=== PATIENT | male | born 1955 | race Caucasian/White ===

== ENCOUNTER 2019-05-16 15:24 | Inpatient (IN) | payer MEDICARE, BC, OTHER ==
[~2019-05-16] VITALS: Ht 185.4 cm; Wt 113.5 kg
[2019-05-16] MEDS ORDERED: XARE15TA PO (15:42)
[2019-05-16] MEDS ORDERED: METO1TAB7 PO (15:42)
[2019-05-16] MEDS ORDERED: ATOR80TA59 (15:42)
[2019-05-16] MEDS ORDERED: POTA20TA6 (15:42)
[2019-05-16] MEDS ORDERED: NITR0.1S (15:42)
[2019-05-16] MEDS ORDERED: FURO20TA2 PO (15:42)
[2019-05-16] MEDS ORDERED: DIGO0.12 PO (15:42)
[2019-05-16] MEDS ORDERED: FARX1TAB3 PO (15:42)
[2019-05-16 16:28] LABS: BASO # 0.1 10^3/uL (0.0-0.2); BASO % 0.9 % (0.0-1.0); EOS # 0.1 10^3/uL (0.0-0.5); EOS % 0.9 % (0.0-3.0); HEMATOCRIT 49.3 % (42.0-52.0); HEMOGLOBIN 16.1 g/dl (13.5-17.5); LYMPH # 1.5 10^3/uL (1.5-5.0); LYMPH % 21.5 % (24.0-44.0); MEAN CORPUSCULAR HEMOGLOBIN 29.8 pg (27.0-33.0); MEAN CORPUSCULAR HGB CONC 32.7 g/dl (32.0-36.5); MEAN CORPUSCULAR VOLUME 91.1 fl (80.0-96.0); MONO # 0.9 10^3/uL (0.0-0.8); MONO % 13.6 % (0.0-5.0); NEUTROPHILS # 4.3 10^3/uL (1.5-8.5); NEUTROPHILS % 62.5 % (36.0-66.0); PLATELET COUNT, AUTOMATED 179 10^3/uL (150-450); RED BLOOD COUNT 5.41 10^6/uL (4.30-6.10); WHITE BLOOD COUNT 6.9 10^3/uL (4.0-10.0)
--- NOTE | 2019-05-16 16:28 | REP ---
Portable chest, 04:05 p.m., single AP view with the the patient sitting: There are no comparisons. There is cardiomegaly. There are mediastinal surgical clips and sternotomy wires. There is a triple lead biventricular AICD / pacemaker. There is interstitial coarsening. In the absence of comparison studies. This could be acute, chronic or combination. No focal infiltrate. No pleural effusion. Impression: Interstitial coarsening, chronic versus acute. Cardiomegaly, pacemaker/AICD and sternotomy wires Electronically Signed by Tom Steve MD 05/16/2019 04:19 P
[2019-05-16 16:58] LABS: BILIRUBIN,TOTAL 2.7 MG/DL (0.2-1.0); CALCIUM LEVEL 9.6 MG/DL (8.8-10.2); CK-MB VALUE MASS 4.3 NG/ML (<3.6); CREATININE FOR GFR 2.04 MG/DL (0.70-1.30); GLOMERULAR FILTRATION RATE 35.4 (>49); MB/CK RELATIVE INDEX 3.81 (< OR =4); POTASSIUM SERUM 4.5 MEQ/L (3.5-5.1); TROPONIN I 0.1 NG/ML (< 0.10)
[2019-05-16 17:08] LABS: DIGOXIN LEVEL 0.7 NG/ML (0.5-2.0)
[2019-05-16 17:40] LABS: INR 2.88; PROTHROMBIN TIME 30.1 SECONDS (11.8-14.0)
[2019-05-16 17:41] LABS: PARTIAL THROMBOPLASTIN TIME 42.5 SECONDS (25.0-38.4)
[2019-05-16] MEDS ORDERED: FUROSEMIDE 40 MG/4 ML VIAL (J1940) IV ONE (17:45)
[2019-05-16] MEDS ORDERED: LANTINJ4 SC (18:14)
[2019-05-16] MEDS ORDERED: NOVOINJ3 SC (18:14)
[2019-05-16] MEDS ORDERED: ASPI81TA85 PO (18:14)
[2019-05-16] MEDS ORDERED: NITR4TASL SL (18:14)
[2019-05-16] MEDS ORDERED: ATOR80TA59 PO (18:14)
[2019-05-16] MEDS ORDERED: PLAV1TAB2 PO (18:14)
--- NOTE | 2019-05-16 18:46 | REPVR ---
EXAM: US Abdomen Limited, Right Upper Quadrant EXAM DATE/TIME: 05/16/2019 6:24 PM CLINICAL HISTORY: 63 years old, male; Abdominal pain; Acute; Additional info: Cirrhosis TECHNIQUE: Imaging protocol: Real-time ultrasound of the abdomen with image documentation. Examination was focused on the right upper quadrant. COMPARISON: No relevant prior studies available. FINDINGS: Liver: Normal. No masses. Gallbladder: Multiple calculi demonstrated in the lumen of the gallbladder. Gallbladder wall slightly thickened measuring 3.4 mm however patient and completely fasting. Common bile duct: The common bile duct measures 3.5 mm. No mass or choledocholithiasis. Pancreas: Obscured overlying bowel gas. Right kidney: Right kidney measures 12 x 5.2 x 4.7 cm. IMPRESSION: Cholelithiasis with incomplete distention of the gallbladder likely related to improper fasting. Otherwise unremarkable. Electronically signed by: Jayant Sanches On 05/16/2019 18:45:51 PM
[2019-05-16] MEDS ORDERED: GLUCOSE 4 GM CHEW TABLET PO PRN (20:15)
[2019-05-16] MEDS ORDERED: NITROGLYCERIN 0.4 MG SUBL TABLET SL PRN (20:15)
[2019-05-16] MEDS ORDERED: DEXTROSE 50% 50 ML SYRINGE IV PRN (20:15)
[2019-05-16] MEDS ORDERED: GLUCAGON FOR INJ 1 MG VIAL (J1610) SC PRN (20:15)
[2019-05-16 20:17] LABS: MAGNESIUM LEVEL 2.4 MG/DL (1.8-2.4); PHOSPHORUS LEVEL 3.8 MG/DL (2.5-4.9)
--- NOTE | 2019-05-16 20:29 | HPEPDOC ---
General Date of Admission 05/16/19 Date of Service: May 16, 2019 Attending Physician: MAGNUS FERGUSON DO Chief Complaint The patient is a 63-year-old male admitted with a reason for visit of CHF. Source: Patient Exam Limitations: No limitations Timing/Duration: Week(s) Severity: Moderate History of Present Illness Patient is 63 years old male with past medical history of CHF, ischemic cardiomyopathy with large anterior wall [place] in September 28/2003, bypass surgery in 2005, reverse saphenous vein graft to the right coronary and reverse saphenous vein graft to marginal 2, status post ICD, hyperlipidemia, diabetes type 2, tobacco abuse, recent cardiac catheterization on 11/15/2018 with 2 stents placement presented to the hospital with significant leg swelling, increased shortness of breath. Patient stated that for past 3-4 weeks he has increased shortness of breath on exertion, leg swelling, orthopnea. On 05/16/2019 patient was in the [facility] for the same complaints, also he was found to have atrial fibrillation with rapid ventricular response, patient received IV node ablation. Also patient has been treated with diuretics. Of note echo which was done on 04/12/2019 showed ejection fraction of less than 20%, the left ventricle wall motion with diffuse severe global hypokinesis, left atrial size dilatated severely, estimated PA pressure is 60. In emergency room patient was found to have BNP 5408, creatinine 2.08. Chest x-ray demonstrated cardiomegaly Home Medications Scheduled Aspirin (Aspir 81) 81 Mg Tablet.dr, 81 MG PO DAILY, (Reported) Atorvastatin Calcium (Atorvastatin Calcium) 80 Mg Tablet, 80 MG PO QPM, (Reported) Clopidogrel Bisulfate (Plavix) 75 Mg Tablet, 75 MG PO DAILY, (Reported) Dapagliflozin Propanediol (Farxiga) 10 Mg Tablet, 10 MG PO DAILY, (Reported) Digoxin (Digoxin) 125 Mcg Tablet, 125 MCG PO QPM, (Reported) Furosemide (Furosemide) 20 Mg Tablet, 80 MG PO DAILY, (Reported) Insulin Aspart (Novolog Flexpen) 100 Unit/1 Ml Insuln.pen, 0 SC AC, (Reported) Insulin Glargine,Hum.rec.anlog (Lantus Solostar) 100 Unit/1 Ml Insuln.pen, 15 UNITS SC QAM, (Reported) Metoprolol Succinate (Metoprolol Succinate) 50 Mg Tab.er.24h, 50 MG PO QPM, (Reported) Rivaroxaban (Xarelto) 15 Mg Tablet, 15 MG PO QPM, (Reported) Scheduled PRN Nitroglycerin (Nitrostat) 0.4 Mg Tab.subl, 0.4 MG SL NITRO PRN for CHEST PAIN, (Reported) Allergies Coded Allergies: azithromycin (Verified Allergy, Unknown, 05/16/19) NAUSEA AND VOMITING metformin (Verified Allergy, Unknown, 05/16/19) anaph rosuvastatin (Verified Allergy, Unknown, 05/16/19) NAUSEA AND VOMITING sacubitril (Verified Allergy, Unknown, 05/16/19) facial swelling sitagliptin (Verified Allergy, Unknown, 05/16/19) anaph valsartan (Verified Allergy, Unknown, 05/16/19) facial swelling Past Medical History Medical History CHF, ischemic cardiomyopathy with large anterior wall IN in September 28/2003, bypass surgery in 2005, reverse saphenous vein graft to the right coronary and reverse saphenous vein graft to marginal 2, status post ICD, hyperlipidemia, diabetes type 2, tobacco abuse, recent cardiac catheterization on 11/15/2018 with 2 stents placement Surgical History AICD placement 2 stents placement in 10/2018 Family History Family history was reviewed by me and no pertinent Social History * Smoker: former Smoker (smoked 2 packs in a day, stopped a few weeks ago) Alcohol: Denies Drugs: denies A-FIB/CHADSVASC A-FIB History Current/History of A-Fib/PAF?: Yes Current PO Anticoag Therapy: Yes Review of Systems Constitutional: Reports: Weakness; Denies: Chills, Fever Eyes: Denies: Pain, Vision change ENT: Denies: Head Aches, Ear Pain Skin: Denies: Rash, Lesions Pulmonary: Reports: Dyspnea Cardiovascular: Reports: Orthopnea, Paroxysmal Noc. Dyspnea, Edema; Denies: Chest Pain, Palpitations Gastrointestinal: Denies: Nausea, Vomiting Genitourinary: Denies: Dysuria, Frequency Hematologic: Denies: Bruising, Bleeding Excessively Endocrine: Denies: Polydipsia, Polyphagia Musculoskeletal: Denies: Neck Pain, Back Pain Neurological: Denies: Weakness, Numbness Psych: Reports: Mood Normal Physical Examination General Exam: Positive: Alert, Cooperative Eye Exam: Positive: PERRLA ENT Exam: Positive: Atraumatic Neck Exam: Positive: Supple, JVD Chest Exam: Positive: Diminished Heart Exam: Positive: Rate Normal (paced) Telemetry: Positive: No significant arrhythmia Abdomen Exam: Positive: Normal bowel sounds Extremity Exam: Negative: Clubbing, Cyanosis Skin Exam: Positive: Nl turgor and temperature Neuro Exam: Positive: Normal Gait, Strength at 5/5 X4 ext, Cranial Nerves 3-12 NL Psych Exam: Positive: Mental status NL Vital Signs Vital Signs Date Time Temp Pulse Resp B/P (MAP) Pulse Ox O2 Delivery O2 Flow Rate FiO2 05/16/19 18:00 69 147/104 (118) 100 05/16/19 17:24 Room Air 05/16/19 17:09 18 05/16/19 15:24 97.2 Laboratory Data Labs 24H Laboratory Tests 2 05/16/19 15:53: Immature Granulocyte % (Auto) 0.6, White Blood Count 6.9, Red Blood Count 5.41, Hemoglobin 16.1, Hematocrit 49.3, Mean Corpuscular Volume 91.1, Mean Corpuscular Hemoglobin 29.8, Mean Corpuscular Hemoglobin Concent 32.7, Red Cell Distribution Width 14.6H, Platelet Count 179, Neutrophils (%) (Auto) 62.5, Lymphocytes (%) (Auto) 21.5L, Monocytes (%) (Auto) 13.6H, Eosinophils (%) (Auto) 0.9, Basophils (%) (Auto) 0.9, Neutrophils # (Auto) 4.3, Lymphocytes # (Auto) 1.5, Monocytes # (Auto) 0.9H, Eosinophils # (Auto) 0.1, Basophils # (Auto) 0.1, Nucleated Red Blood Cells % (auto) 0.0, Anion Gap 8, Glomerular Filtration Rate 35.4L, Calcium Level 9.6, Aspartate Amino Transf (AST/SGOT) 26, Alanine Aminotransferase (ALT/SGPT) 124H, Alkaline Phosphatase 159H, Total Bilirubin 2.7H, Direct Bilirubin 1.0H, Total Creatine Kinase 113, Creatine Kinase MB 4.3H, Creatine Kinase MB Relative Index 3.81, Troponin I 0.10, GH-Nlx-Q-Type Natriuretic Peptide 5408H, Total Protein 7.0, Albumin 3.0L, Albumin/Globulin Ratio 0.75L, Lipase 113, Digoxin Level 0.7 05/16/19 17:00: Prothrombin Time 30.1H, Prothromb Time International Ratio 2.88, Activated Partial Thromboplast Time 42.5H CBC/BMP Laboratory Tests 05/16/19 15:53 Red Blood Count 5.41, Mean Corpuscular Volume 91.1, Mean Corpuscular Hemoglobin 29.8, Mean Corpuscular Hemoglobin Concent 32.7, Red Cell Distribution Width 14.6 H, Neutrophils (%) (Auto) 62.5, Lymphocytes (%) (Auto) 21.5 L, Monocytes (%) (Auto) 13.6 H, Eosinophils (%) (Auto) 0.9, Basophils (%) (Auto) 0.9, Neutrophils # (Auto) 4.3, Lymphocytes # (Auto) 1.5, Monocytes # (Auto) 0.9 H, Eosinophils # (Auto) 0.1, Basophils # (Auto) 0.1 Assessment/Plan Patient is 63 years old male with past medical history of CHF, ischemic cardiomy opathy with large anterior wall IN in September 28/2003, bypass surgery in 2005, reverse saphenous vein graft to the right coronary and reverse saphenous vein graft to marginal 2, status post ICD, hyperlipidemia, diabetes type 2, tobacco abuse, recent cardiac catheterization on 11/15/2018 with 2 stents placement presented to the hospital with significant leg swelling, increased shortness of breath. Patient was diagnosed with acute CHF exacerbation Problems (1) Acute on chronic systolic CHF (congestive heart failure) Status: Acute Problem Text: Secondary to noncompliance to medication and dietary indiscretion Lasix IV I's and O's Cardiac diet (2) Ischemic dilated cardiomyopathy Status: Acute Problem Text: Patient denies any chest pain EKG did not show any acute ischemic changes Continue home cardioprotective medication Continue dual antiplatelet therapy (3) CKD (chronic kidney disease), stage IV Status: Acute Problem Text: Acute on chronic secondary to intravascular depletion Continue diuresis (4) Noncompliance with diet and medication regimen Status: Acute Problem Text: Social service consult (5) Atrial fibrillation Problem Text: On EKG rhythm paced Patient recently had ablation on 05/03/2019 Continue anticoagulation (6) Diabetes mellitus Problem Text: Insulin sliding scale, diabetes diet, detemir 15 units in a.m. Plan / VTE VTE Prophylaxis Ordered?: Yes MAGNUS FERGUSON DO May 16, 2019 20:29
[2019-05-16 22:00] VITALS: BP 108/77
[2019-05-16] MEDS: ATORVASTATIN 20 MG TAB PO SCH (22:22)
[2019-05-16] MEDS: METOPROLOL SUCC (TopROL XL) 50MG **XL** TAB PO SCH (22:22)
[2019-05-16] MEDS: DIGOXIN 0.125 MG TAB PO SCH (22:23)
[2019-05-16] MEDS: RIVAROXABAN 15 MG TAB (XARELTO) PO SCH (22:28)
[2019-05-17] MEDS: FUROSEMIDE 40 MG/4 ML VIAL (J1940) IV SCH ×2 (00:05→12:30)
[2019-05-17 04:00] VITALS: BP 111/79
--- NOTE | 2019-05-17 05:00 | ECGEPIP ---
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
[2019-05-17 07:35] LABS: CALCIUM LEVEL 9.6 MG/DL (8.8-10.2); CREATININE FOR GFR 1.82 MG/DL (0.70-1.30); GLOMERULAR FILTRATION RATE 40.4 (>49); MAGNESIUM LEVEL 2.2 MG/DL (1.8-2.4); POTASSIUM SERUM 3.3 MEQ/L (3.5-5.1)
[2019-05-17] MEDS ORDERED: POTASSIUM CHLORIDE 10 MEQ SR TABLET PO ONE (09:00)
--- NOTE | 2019-05-17 09:10 | ECGEPIP ---
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
[2019-05-17] MEDS: CLOPIDOGREL 75 MG TAB PO SCH (09:19)
[2019-05-17] MEDS: LEVEMIR (INSULIN DETEMIR) 1 UNITS/0.01ML SC SCH (09:19)
[2019-05-17] MEDS: HumaLOG INSULIN (NovoLOG) PER UNIT SC SCH ×3 (09:19→18:16)
[2019-05-17] MEDS: ASPIRIN 81 MG ENTERIC TAB PO SCH (09:19)
[2019-05-17 14:00] VITALS: BP 104/75
--- NOTE | 2019-05-17 17:11 | ECHO ---
DATE OF PROCEDURE: 05/17/2019 REFERRING PHYSICIAN: Nathanael Campbell DO INDICATION: Heart failure, acute on chronic, systolic and diastolic. HEIGHT: 185 cm WEIGHT: 45 kg 2D MEASUREMENTS: Left ventricle diastole: 7.1 cm Ventricular septum: 1.08 cm Posterior wall: 1.19 cm Left atrium: 5.0 cm Left atrial volume index: 30 Aortic annulus: 2.0 cm Proximal ascending aorta: 4.2 cm Inferior vena cava: 2.8 cm with marked reduction of respiratory variation suggestive of elevated CVP of at least 20 mmHg. DOPPLER MEASUREMENTS: No aortic stenosis or aortic regurgitation. Mild-moderate mitral regurgitation. Mild tricuspid regurgitation. Estimated right ventricle systolic pressure at least 75 mmHg assuming a right atrial pressure of at least 20 mmHg. Moderate pulmonic regurgitation. DESCRIPTION: Rhythm appeared to be sinus with a wide appearing QRS complex. Image quality was fair. This was a 2D, M-mode, color flow Doppler and pulse wave Doppler examination. No pericardial effusion. CONCLUSIONS: 1. Severely dilated left ventricle with severe reduction overall left ventricle (LV) systolic function. Left ventricular ejection fraction (LVEF) 10%-15% by visual estimate. Appearance of low cardiac output state. Akinesis of the mid inferior septal segment and akinesis versus hypokinesis of the LV apex, and severe global LV hypokinesis elsewhere. Moderately technically difficult for endocardial visualization and therefore precise regional wall motion assessment. 2. Moderate left atrial dilatation. 3. Mild mitral annular calcification with mild-moderate mitral regurgitation. 4. Mild aortic valve sclerosis of a three-cuspid aortic valve. No aortic regurgitation. 5. Mild dilatation of the proximal ascending aorta. 6. Presence of ICD lead coursing toward the right ventricle lead apex. 7. Suggestive of severe elevation of estimated right ventricle systolic pressure (at least 75 mmHg). Right ventricle appeared to be mildly dilated with moderate global hypokinesis and moderate reduction overall LV systolic function. Appearance of right ventricle hypertrophy of the right ventricle free wall. Flattening of the ventricular septum in both diastole and systole in keeping with both volume and pressure overload of the right ventricle. 8. Dilated inferior vena cava with marked reduction of respiratory variation and engorged hepatic veins in keeping with elevated central venous pressure of at least 20 mmHg.
[2019-05-17 20:00] VITALS: BP 102/67
[2019-05-17] MEDS: ATORVASTATIN 20 MG TAB PO SCH (20:22)
[2019-05-17] MEDS: RIVAROXABAN 15 MG TAB (XARELTO) PO SCH (20:23)
[2019-05-17] MEDS: METOPROLOL SUCC (TopROL XL) 50MG **XL** TAB PO SCH (20:23)
[2019-05-17] MEDS: DIGOXIN 0.125 MG TAB PO SCH (20:23)
--- NOTE | 2019-05-17 20:30 | IPNPDOC ---
Date Seen The patient was seen on 05/17/19. Progress Note SUBJECTIVE: Patient reports breathing better today but unsure if his LE swelling had improved. Reportedly compliant with medications but there has been a lot of changes to his home medications recently? very tangential answers but no direct answer. Denies any other complaints. -1.5L outpatient so far. OBJECTIVE PHYSICAL EXAMINATION: VITAL SIGNS: Please see below. General: No acute distress, Alert Eyes: Normal sclera, EOMI, GILLES HENT: Atraumatic, neck supple, moist mucous membranes Cardiovascular: Normal rate. 3+ b/l LE edema. Pulmonary: Mild coarse breath sounds b/l. GI: Soft, nontender, nondistended Skin: Warm and dry Neuro: CN grossly intact. No focal deficits. Strengths equal b/l. Psych: oriented x 3 LABORATORY DATA, IMAGING STUDIES, MICROBIOLOGY: Please see below. DVT prophylaxis ordered?: Xarelto ASSESSMENT AND PLAN: 1. HFrEF exacerbation - in setting of ischemic cardiomyopathy w/ anterior wall [place] 08/2002, CABG 2005, ICD placement. - EF <20% on recent ECHO 04/12/19. - BNP 5400 in ER. - H&P reported noncompliance but patient reportedly state that he is compliant? Not certain as patient does not offer direct answer. - c/w IV Lasix BID. Daily weights, I/O, fluid restriction. - Will consult cardiology given extensive cardiac history with uncontrolled fluid status. - home meds. 2. Afib - c/w Xarelto and home meds 3. DM - Resume home meds. -levemir 15 and ISS. 4. MARIO on CKD - Improving. Monitor daily BMPs. VS, I&O, 24H, [facility] Vital Signs/I&O Vital Signs Date Time Temp Pulse Resp B/P (MAP) Pulse Ox O2 Delivery O2 Flow Rate FiO2 05/17/19 14:00 96.9 70 18 104/75 (85) 98 05/16/19 17:24 Room Air I&O- Last 24 Hours up to 6 AM 05/17/19 06:00 Intake Total 440 ml Output Total 2680 ml Balance -2240 ml Laboratory Data 24H LABS Laboratory Tests 2 05/16/19 22:16: Bedside Glucose (Misc Panel) 171H 05/17/19 06:47: Anion Gap 8, Glomerular Filtration Rate 40.4L, Blood Urea Nitrogen 46H, Creatinine 1.82H, Sodium Level 137, Potassium Level 3.3#L, Chloride Level 100, Carbon Dioxide Level 29, Calcium Level 9.6, Aspartate Amino Transf (AST/SGOT) 2 1, Alanine Aminotransferase (ALT/SGPT) 115H, Alkaline Phosphatase 150H, Total Bilirubin 3.0H, Total Protein 7.0, Albumin 3.0L, Magnesium Level 2.2, Albumin/Globulin Ratio 0.75L 05/17/19 11:43: Bedside Glucose (Misc Panel) 216H 05/17/19 16:52: Bedside Glucose (Misc Panel) 210H 05/17/19 19:50: Bedside Glucose (Misc Panel) 239H CBC/BMP Laboratory Tests 05/17/19 06:47 Calcium Level 9.6, Aspartate Amino Transf (AST/SGOT) 21, Alanine Aminotransferase (ALT/SGPT) 115 H, Alkaline Phosphatase 150 H, Total Bilirubin 3.0 H, Total Protein 7.0, Albumin 3.0 L LALITHA GARCIA MD May 17, 2019 20:30
[2019-05-18] MEDS: FUROSEMIDE 40 MG/4 ML VIAL (J1940) IV SCH ×2 (00:13→12:33)
[2019-05-18 04:00] VITALS: BP 121/87
[2019-05-18 06:15] LABS: HEMATOCRIT 50.8 % (42.0-52.0); HEMOGLOBIN 16.3 g/dl (13.5-17.5); MEAN CORPUSCULAR HEMOGLOBIN 29.4 pg (27.0-33.0); MEAN CORPUSCULAR HGB CONC 32.1 g/dl (32.0-36.5); MEAN CORPUSCULAR VOLUME 91.7 fl (80.0-96.0); PLATELET COUNT, AUTOMATED 174 10^3/uL (150-450); RED BLOOD COUNT 5.54 10^6/uL (4.30-6.10); WHITE BLOOD COUNT 8.6 10^3/uL (4.0-10.0)
[2019-05-18 06:35] LABS: CALCIUM LEVEL 9.3 MG/DL (8.8-10.2); CREATININE FOR GFR 1.75 MG/DL (0.70-1.30); GLOMERULAR FILTRATION RATE 42.3 (>49); POTASSIUM SERUM 3.7 MEQ/L (3.5-5.1)
[2019-05-18] MEDS: HumaLOG INSULIN (NovoLOG) PER UNIT SC SCH ×3 (07:30→17:14)
[2019-05-18] MEDS: ASPIRIN 81 MG ENTERIC TAB PO SCH (08:31)
[2019-05-18] MEDS: LEVEMIR (INSULIN DETEMIR) 1 UNITS/0.01ML SC SCH (08:31)
[2019-05-18] MEDS: CLOPIDOGREL 75 MG TAB PO SCH (08:31)
[2019-05-18 12:00] VITALS: BP 107/77
--- NOTE | 2019-05-18 18:44 | IPNPDOC ---
Date Seen The patient was seen on 05/18/19. Progress Note SUBJECTIVE: Patient reports feeling better, no pronounced SOB. Has been ambulating the halls. LE still evident but stated that it may be a bit better. -1.3L output recorded so far. Complained of erythema in his R. groin. OBJECTIVE PHYSICAL EXAMINATION: VITAL SIGNS: Please see below. General: No acute distress, Alert Eyes: Normal sclera, EOMI, GILLES HENT: Atraumatic, neck supple, moist mucous membranes Cardiovascular: Normal rate. 3+ b/l LE edema. Pulmonary: Mild coarse breath sounds b/l. GI: Soft, nontender, nondistended Skin: Warm and dry Neuro: CN grossly intact. No focal deficits. Strengths equal b/l. Psych: oriented x 3 LABORATORY DATA, IMAGING STUDIES, MICROBIOLOGY: Please see below. DVT prophylaxis ordered?: Xarelto ASSESSMENT AND PLAN: 1. HFrEF exacerbation - in setting of ischemic cardiomyopathy w/ anterior wall [place] 08/2002, CABG 2005, ICD placement. - EF <20% on recent ECHO 04/12/19. - BNP 5400 in ER. - c/w IV Lasix BID. Daily weights, I/O, fluid restriction. - Cardiology consulted. f/u recommendations. - home meds. 2. Afib - c/w Xarelto and home meds 3. DM - Resume home meds. -levemir 15 and ISS. 4. MARIO on CKD - Improving. Monitor daily BMPs. 5. R. groin erythema - Reported previous shaving knick. - Appear like fungal infection in moist skin folds. - Nystatin powder. VS, I&O, 24H, Fishbone Vital Signs/I&O Vital Signs Date Time Temp Pulse Resp B/P (MAP) Pulse Ox O2 Delivery O2 Flow Rate FiO2 05/18/19 12:00 96.3 71 16 107/77 (87) 99 05/16/19 17:24 Room Air I&O- Last 24 Hours up to 6 AM 05/18/19 06:00 Intake Total 1830 ml Output Total 2650 ml Balance -820 ml Laboratory Data 24H LABS Laboratory Tests 2 05/17/19 19:50: Bedside Glucose (Misc Panel) 239H 05/18/19 05:45: Nucleated Red Blood Cells % (auto) 0.0, Anion Gap 10, Glomerular Filtration Rate 42.3L, Blood Urea Nitrogen 40H, Creatinine 1.75H, Sodium Level 141, Potassium Level 3.7, Chloride Level 104, Carbon Dioxide Level 27, Calcium Level 9.3 05/18/19 11:33: Bedside Glucose (Misc Panel) 120H 05/18/19 16:42: Bedside Glucose (Misc Panel) 213H CBC/BMP Laboratory Tests 05/18/19 05:45 Red Blood Count 5.54, Mean Corpuscular Volume 91.7, Mean Corpuscular Hemoglobin 29.4, Mean Corpuscular Hemoglobin Concent 32.1, Red Cell Distribution Width 14.6 H, Calcium Level 9.3 LALITHA GARCIA MD May 18, 2019 18:44
[2019-05-18] MEDS: NYSTATIN 100,000 UNITS/GM TOPICAL PWD 15 GM TOP SCH ×2 (18:45→21:23)
[2019-05-18 20:00] VITALS: BP 109/69
[2019-05-18] MEDS: RIVAROXABAN 15 MG TAB (XARELTO) PO SCH (20:14)
[2019-05-18] MEDS: ATORVASTATIN 20 MG TAB PO SCH (20:15)
[2019-05-18] MEDS: DIGOXIN 0.125 MG TAB PO SCH (20:18)
[2019-05-18] MEDS: METOPROLOL SUCC (TopROL XL) 50MG **XL** TAB PO SCH (20:19)
[2019-05-18] MEDS ORDERED: FUROSEMIDE 100 MG/10 ML VIAL (J1940) IV ONE (22:15)
[2019-05-19 05:54] VITALS: BP 103/50
[2019-05-19 07:08] LABS: HEMATOCRIT 48.6 % (42.0-52.0); HEMOGLOBIN 15.4 g/dl (13.5-17.5); MEAN CORPUSCULAR HEMOGLOBIN 29.8 pg (27.0-33.0); MEAN CORPUSCULAR HGB CONC 31.7 g/dl (32.0-36.5); PLATELET COUNT, AUTOMATED 154 10^3/uL (150-450); RED BLOOD COUNT 5.17 10^6/uL (4.30-6.10); WHITE BLOOD COUNT 6.9 10^3/uL (4.0-10.0)
[2019-05-19 07:34] LABS: CALCIUM LEVEL 8.9 MG/DL (8.8-10.2); CREATININE FOR GFR 1.92 MG/DL (0.70-1.30); POTASSIUM SERUM 3.6 MEQ/L (3.5-5.1)
[2019-05-19] MEDS: HumaLOG INSULIN (NovoLOG) PER UNIT SC SCH ×3 (07:41→18:24)
[2019-05-19] MEDS: CLOPIDOGREL 75 MG TAB PO SCH (08:13)
[2019-05-19] MEDS: ASPIRIN 81 MG ENTERIC TAB PO SCH (08:13)
[2019-05-19] MEDS: LEVEMIR (INSULIN DETEMIR) 1 UNITS/0.01ML SC SCH (08:14)
[2019-05-19] MEDS: NYSTATIN 100,000 UNITS/GM TOPICAL PWD 15 GM TOP SCH ×2 (08:14→20:54)
[2019-05-19 10:45] VITALS: BP 103/78
[2019-05-19] MEDS ORDERED: FUROSEMIDE 40 MG/4 ML VIAL (J1940) IV ONE (13:00)
[2019-05-19 14:00] VITALS: BP 127/83
--- NOTE | 2019-05-19 17:23 | IPNPDOC ---
Date Seen The patient was seen on 05/19/19. Progress Note SUBJECTIVE: Patient reported feeling well in terms of breathing, abdominal distension and LE swelling. However, noted to have excessive bleeding when his IV was pulled out this morning. Also noted to have nose bleed in AM with sensation of mucus draining into his throat and pulled out bloody mucus/clots. Think that his nares are dry. About -1L since yesterday. OBJECTIVE PHYSICAL EXAMINATION: VITAL SIGNS: Please see below. General: No acute distress, Alert Eyes: Normal sclera, EOMI, GILLES HENT: Atraumatic, neck supple, moist mucous membranes Cardiovascular: Normal rate. 3+ b/l LE edema. Pulmonary: Clear to auscultation b/l. GI: Soft, nontender, nondistended Skin: Warm and dry Neuro: CN grossly intact. No focal deficits. Strengths equal b/l. Psych: oriented x 3 LABORATORY DATA, IMAGING STUDIES, MICROBIOLOGY: Please see below. DVT prophylaxis ordered?: Xarelto ASSESSMENT AND PLAN: 1. HFrEF exacerbation - in setting of ischemic cardiomyopathy w/ anterior wall [place] 08/2002, CABG 2005, ICD placement. - EF <20% on recent ECHO 04/12/19. - BNP 5400 in ER. - c/w IV Lasix, dose per cardio. Daily weights, I/O, fluid restriction. - Cardiology following. - c/w home meds. 2. Afib - c/w home meds. - Xarelto held as patient had severe nasal and bleeding from IV today. 3. DM - Resume home meds. -levemir 15 and ISS. 4. MARIO on CKD - Improving. Monitor daily BMPs. 5. R. groin erythema - Reported previous shaving knick. - Appear like fungal infection in moist skin folds. - Nystatin powder. 6. Nose bleed/excess bleeding from IV - Xarelto held tonight, got last night's dose. ASA and Plavix still in place but may also need to hold if bleeding worsens of persistent. VS, I&O, 24H, Fishbone Vital Signs/I&O Vital Signs Date Time Temp Pulse Resp B/P (MAP) Pulse Ox O2 Delivery O2 Flow Rate FiO2 05/19/19 14:00 96.8 73 18 127/83 (98) 97 05/16/19 17:24 Room Air I&O- Last 24 Hours up to 6 AM 05/19/19 06:00 Intake Total 1320 ml Output Total 2775 ml Balance -1455 ml Laboratory Data 24H LABS Laboratory Tests 2 05/18/19 20:16: Bedside Glucose (Misc Panel) 181H 05/19/19 06:14: Bedside Glucose (Misc Panel) 158H 05/19/19 06:45: Nucleated Red Blood Cells % (auto) 0.0, Anion Gap 4L, Glomerular Filtration Rate 38.0L, Blood Urea Nitrogen 41H, Creatinine 1.92H, Sodium Level 140, Potassium Level 3.6, Chloride Level 101, Carbon Dioxide Level 35H, Calcium Level 8.9 05/19/19 11:53: Bedside Glucose (Misc Panel) 207H 05/19/19 17:03: Bedside Glucose (Misc Panel) 122H CBC/BMP Laboratory Tests 05/19/19 06:45 Red Blood Count 5.17, Mean Corpuscular Volume 94.0, Mean Corpuscular Hemoglobin 29.8, Mean Corpuscular Hemoglobin Concent 31.7 L, Red Cell Distribution Width 14.8 H, Calcium Level 8.9 LALITHA GARCIA MD May 19, 2019 17:23
[2019-05-19] MEDS: DIGOXIN 0.125 MG TAB PO SCH (20:55)
[2019-05-19] MEDS: METOPROLOL SUCC (TopROL XL) 50MG **XL** TAB PO SCH (20:55)
[2019-05-19] MEDS: ATORVASTATIN 20 MG TAB PO SCH (20:55)
[2019-05-19 22:00] VITALS: BP 117/78
[2019-05-19] MEDS ORDERED: FUROSEMIDE 20 MG TAB PO ONE (23:00)
[2019-05-20 06:50] VITALS: BP 115/77
[2019-05-20 07:15] LABS: HEMATOCRIT 47.2 % (42.0-52.0); HEMOGLOBIN 15.2 g/dl (13.5-17.5); MEAN CORPUSCULAR HEMOGLOBIN 29.5 pg (27.0-33.0); MEAN CORPUSCULAR HGB CONC 32.2 g/dl (32.0-36.5); MEAN CORPUSCULAR VOLUME 91.7 fl (80.0-96.0); PLATELET COUNT, AUTOMATED 173 10^3/uL (150-450); RED BLOOD COUNT 5.15 10^6/uL (4.30-6.10); WHITE BLOOD COUNT 7.3 10^3/uL (4.0-10.0)
[2019-05-20] MEDS: HumaLOG INSULIN (NovoLOG) PER UNIT SC SCH ×3 (07:30→17:53)
[2019-05-20 07:35] LABS: CALCIUM LEVEL 8.8 MG/DL (8.8-10.2); CREATININE FOR GFR 1.58 MG/DL (0.70-1.30); GLOMERULAR FILTRATION RATE 47.5 (>49); POTASSIUM SERUM 3.4 MEQ/L (3.5-5.1)
[2019-05-20] MEDS ORDERED: POTASSIUM CHLORIDE 10 MEQ SR TABLET PO ONE (08:00)
[2019-05-20] MEDS: LEVEMIR (INSULIN DETEMIR) 1 UNITS/0.01ML SC SCH (08:09)
[2019-05-20] MEDS: NYSTATIN 100,000 UNITS/GM TOPICAL PWD 15 GM TOP SCH ×2 (08:10→20:29)
[2019-05-20] MEDS: CLOPIDOGREL 75 MG TAB PO SCH (08:56)
[2019-05-20] MEDS: ASPIRIN 81 MG ENTERIC TAB PO SCH (08:56)
--- NOTE | 2019-05-20 09:48 | CR ---
DATE OF CONSULTATION: 05/19/2019 REFERRING PROVIDER: Dr. Vicky Santiago REASON FOR CONSULT: Heart failure. 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 HISTORY OF PRESENT ILLNESS: 64-year-old male with a history of premature coronary artery disease and heart failure secondary to left ventricular systolic dysfunction due to ischemic cardiomyopathy, who came to the hospital on 05/16/2019 because of increasing shortness of breath and bilateral pedal edema. He was found to be in decompensated congestive failure and was admitted for further management and monitoring. Cardiology consult was called because. He was not responding to the diuretics. When I saw Mr. Niraj Badillo in the floor this evening, he was sitting up in bed in no acute distress at rest, but was complaining of persistent bilateral pedal edema. He was having increasing shortness of breath for two or three days, relieved with rest. He denies any chest pain. He was not having palpitations when he saw him and there was no orthopnea or paroxysmal nocturnal dyspnea (PND) and he denied any orthopnea or paroxysmal nocturnal dyspnea (PND). He denies any fever or chills. He denies any bleeding problems. He said that he takes medication regularly, but has not been quite compliant with his diet. He has no cough or hemoptysis or fever. He has no nausea or vomiting, diarrhea, melena or hematemesis. No focal manifestation. He has a past medical history positive for coronary artery disease with acute anterior wall myocardial infarction in 2002; and later on in 2005, he had coronary artery bypass graft (CABG). His left ventricular ejection fraction has been poor and he ended up having an ICD, for which he has seeing EP in [place], Dr. Keen. Earlier this year, he was found to have progression of his coronary artery disease and had PTCA/stent after a cardiac catheterization done on 11/15/2018. Details not available at this present time. Earlier this month after seeing his EP in [place], he was admitted and had ablation done for atrial fibrillation. He also has a history of diabetes mellitus, hyperlipidemia. He denies any history of transient ischemic attack (TIA)/cerebrovascular accident (CVA), significant valvular disease . He denies thyroid disorders, liver disease, lung disease. He does have some underlying kidney disease, stage III to IV. Past surgical history is positive for coronary artery bypass graft in 2006 and automatic implantable cardioverted defibrillator (AICD) implantation. MEDICATIONS AT HOME: Aspirin 81mg by mouth daily, atorvastatin 50 mg by mouth daily, clopidogrel 75mg by mouth daily, Farxiga 10 mg by mouth daily, digoxin 125 mcg by mouth daily, Lasix 30 mg tablets and 40 mg by mouth daily, regular insulin coverage, metoprolol succinate 50 mg by mouth daily and rivaroxaban 15 mg by mouth daily. CURRENT MEDICATIONS: Furosemide 40 mg IV twice a day, aspirin 81 mg by mouth daily, Plavix 75 mg by mouth daily, Levemir 15 units subcutaneous every morning, Humalog as needed, atorvastatin 80 mg by mouth daily, metoprolol succinate 50 mg by mouth daily, digoxin 0.125 mg by mouth daily, nitroglycerin sublingual as needed for chest pain and also on D50, glucagon and glucose tablet for episode hypoglycemia. FAMILY HISTORY: Not positive for heart disease. [place]IAL HISTORY[place] He does not smoke, he denies any ETOH abuse. ALLERGIES: He declared allergies to ERYTHROMYCIN, METFORMIN, ROSUVASTATIN, SACUBITRIL, SITAGLIPTIN, and VALSARTAN. ADVANCE DIRECTIVE: The patient is a full code. PHYSICAL EXAMINATION: The patient is alert and oriented, in no acute distress at rest and his vital signs when I saw him revealed a blood pressure of 109/69 with a pulse 69, respirations 16. His maximum temperature 96.9 degrees Fahrenheit with an oxygen saturation of 100% on room air. EXAMINATION OF THE HEAD: Atraumatic. NECK: Neck supple with extended jugular. LUNGS: Did not reveal any wheezing or crackles. HEART EXAMINATION: Revealed a regular heart sound without gallops. The PMI is displaced inferiorly and laterally. There is no rub. ABDOMEN: Soft, obese and nontender. EXTREMITIES: Revealed +2 bilateral lower leg edema. NEUROLOGIC EXAMINATION: Negative for focal deficit. LABORATORY: Complete blood count (CBC) on 05/18/2019 revealed a white blood count (WBC) 8.6, hemoglobin 16.3 hematocrit 50.8 and platelets 174,000. Basic metabolic panel (BMP) revealed a sodium of 141, potassium 3.7, chloride 104, CO2 27, BUN 40, creatinine 1.75 and glomerular filtration rate (GFR) of 42.3 with a fasting glucose of 81 and calcium 9.1. Serum digoxin on 05/16/2019 was 0.7. Basic metabolic panel (BMP) on 05/18/2019 revealed a sodium of 141, potassium 3.7, chloride 104, CO2 27, BUN 40 creatinine 1.75, glomerular filtration rate (GFR) 42.3, fasting glucose 81 and calcium 9.3. On admission, BUN and creatinine were 51 and 2.04 respectively. Chest x-ray on 05/16/2019 revealed cardiomegaly and interstitial markings. Pacemaker wire artifacts noted. Ultrasound of the liver revealed cholangitis with incomplete distinction of the gallbladder likely related to improper fasting. Otherwise, unremarkable. Echocardiogram on admission revealed ventricular pacemaker activity and right axis and undetermined axis consistent with biventricular pacing. No prior for comparison. There is underlying IVCD. IMPRESSION: 1. Decompensated congestive heart failure in the setting of severe ischemic cardiomyopathy. The patient does describe some intolerance to Entresto and also has developed some reaction to valsartan. He is not on LYNDON inhibitor or ARB at the present time, probably in view of his underlying kidney function. He will continue the beta angel and I will increase his furosemide and will need to monitor closely his BUN, creatinine and serum potassium. We should try to get more information from his primary information systems planner to determine why he is not on LYNDON inhibitor or therapy. He might benefit from candesartan. This can be started as outpatient. 2. History of coronary artery disease and seems to be stable. Will continue current medications. 3. Atrial fibrillation with recent ablation done in [place], [place], but details are not available. He is currently on aspirin, as well as clopidogrel, and rivaroxaban. Upon discharge, the aspirin can be discontinued and he will continue with the Plavix, clopidogrel and the rivaroxaban . As outpatient, he will continue to follow with his primary. 4. History of diabetes mellitus and this is being addressed. 5. Hyperlipidemia, on a statin. 6. Chronic kidney disease and he will need to be monitored closely while receiving IV diuretics. It was a pleasure to participate in the care of Mr. Niraj Badillo for his underlying cardiac condition. I will continue to monitor along with you. He appears to be stable, but he needs more diuresis; therefore, I have increased his diuretics.
[2019-05-20] MEDS ORDERED: SODIUM CHLORIDE NASAL 0.65% SPRAY BTL (OCEAN) PRN (11:45)
[2019-05-20 14:07] VITALS: BP 118/79
[2019-05-20] MEDS ORDERED: FUROSEMIDE 40 MG/4 ML VIAL (J1940) IV ONE ×2 (15:15→20:00)
--- NOTE | 2019-05-20 16:46 | IPNPDOC ---
Date Seen The patient was seen on 05/20/19. Progress Note SUBJECTIVE: Patient states that he feels well. LE still edematous but stated that he can tell he ankles are less swollen. Nose bleed had improved today. Xarelto had been held last night. Started on saline nasal spray to prevent dry mucous. OBJECTIVE PHYSICAL EXAMINATION: VITAL SIGNS: Please see below. General: No acute distress, Alert Eyes: Normal sclera, EOMI, GILLES HENT: Atraumatic, neck supple, moist mucous membranes Cardiovascular: Normal rate. 3+ b/l LE edema. Pulmonary: Clear to auscultation b/l. GI: Soft, nontender, nondistended Skin: Warm and dry Neuro: CN grossly intact. No focal deficits. Strengths equal b/l. Psych: oriented x 3 LABORATORY DATA, IMAGING STUDIES, MICROBIOLOGY: Please see below. DVT prophylaxis ordered?: Xarelto ASSESSMENT AND PLAN: 1. HFrEF exacerbation - in setting of ischemic cardiomyopathy w/ anterior wall MT 08/2002, CABG 2005, ICD placement. - EF <20% on recent ECHO 04/12/19. - BNP 5400 in ER. - c/w IV Lasix. Daily weights, I/O, fluid restriction. - Cardiology following. Recommend d/c ASA at this time. c/w Plavix and Xarelto on discharge. - c/w home meds except to give IV lasix rather than PO at this time. 2. Afib - c/w home meds. - Xarelto held as patient had severe nasal bleeding. 3. DM - Resume home meds. -levemir 15 and ISS. 4. MARIO on CKD - Improving. Monitor daily BMPs. 5. R. groin erythema - Reported previous shaving knick. - Appear like fungal infection in moist skin folds. - Nystatin powder. 6. Nose bleed/excess bleeding from IV - Xarelto held as bleeding still occur but less. ASA had been discontinued. VS, I&O, 24H, Fishbone Vital Signs/I&O Vital Signs Date Time Temp Pulse Resp B/P (MAP) Pulse Ox O2 Delivery O2 Flow Rate FiO2 05/20/19 14:07 98.0 83 16 118/79 (92) 100 05/16/19 17:24 Room Air I&O- Last 24 Hours up to 6 AM 05/20/19 06:00 Intake Total 1570 ml Output Total 1885 ml Balance -315 ml Laboratory Data 24H LABS Laboratory Tests 2 05/19/19 17:03: Bedside Glucose (Misc Panel) 122H 05/19/19 20:48: Bedside Glucose (Misc Panel) 277H 05/20/19 06:48: Nucleated Red Blood Cells % (auto) 0.0, Anion Gap 9, Glomerular Filtration Rate 47.5L, Blood Urea Nitrogen 33H, Creatinine 1.58H, Sodium Level 142, Potassium Level 3.4L, Chloride Level 103, Carbon Dioxide Level 30, Calcium Level 8.8 05/20/19 12:18: Bedside Glucose (Misc Panel) 229H CBC/BMP Laboratory Tests 05/20/19 06:48 Red Blood Count 5.15, Mean Corpuscular Volume 91.7, Mean Corpuscular Hemoglobin 29.5, Mean Corpuscular Hemoglobin Concent 32.2, Red Cell Distribution Width 14.6 H, Calcium Level 8.8 LALITHA GARCIA MD May 20, 2019 16:46
[2019-05-20] MEDS ORDERED: RIVAROXABAN 15 MG TAB (XARELTO) PO SCH (18:00)
[2019-05-20] MEDS ORDERED: metOLazone 2.5 MG TAB PO ONE (20:15)
[2019-05-20 20:28] VITALS: BP 122/83
[2019-05-20] MEDS: ATORVASTATIN 20 MG TAB PO SCH (20:28)
[2019-05-20] MEDS: METOPROLOL SUCC (TopROL XL) 50MG **XL** TAB PO SCH (20:28)
[2019-05-20] MEDS: DIGOXIN 0.125 MG TAB PO SCH (20:28)
--- NOTE | 2019-05-20 21:27 | IPN ---
DATE: 05/20/2019 Mr. Niraj Badillo was seen earlier today, he was standing in his room in no acute distress at rest. He is ready to go home. He has been ambulating and he stated that his shortness of breath has improved significantly, but he continued to of pedal edema. He denies any palpitations, dizziness. He has no chest pain. PHYSICAL EXAMINATION: The patient is alert and oriented, in no acute distress at rest and his most recent vital signs reveal blood pressure of 118/79 with a pulse of 83, respiration 69 and his maximum temperature is 98 degrees Fahrenheit with oxygen saturation of 97 - 100% on room air. He has a negative fluid balance of 665 mL 05/19/2019; and so far today, he has a negative fluid balance of 700 mL. Examination of the head: Atraumatic. Neck: Neck is supple and no JVD. The lungs did not reveal any crackles. The heart examination did not reveal any gallops. Extremities revealed +2 bilateral lower leg edema. NEUROLOGIC EXAMINATION: Grossly is negative for focal deficit. LABORATORY: Complete blood count (CBC) on 05/20/2019 revealed a white blood count (WBC) 7.3, hemoglobin 15.2, hematocrit 47.2 and platelet 173,000. Basic metabolic panel (BMP) revealed a sodium of 142, potassium 3.4, chloride 103, CO2 30, BUN 33, creatinine 1.58, glomerular filtration rate (GFR) 47.5 and fasting glucose 169 with a calcium of 8.8. Mr. Niraj Badillo is stable with status post decompensated congestive heart failure secondary to left ventricular systolic dysfunction due to severe ischemic cardiomyopathy. Case was discussed earlier today with his hospitalist and for his anticoagulation, he will be discharged home when ready on the rivaroxaban at 15 mg by mouth daily and the clopidogrel/Plavix. Will stop the aspirin. He will continue with his other cardiac meds and I will add metolazone at a small dose, which he will take prior to the furosemide for the first 3 days, then every other day. He will need a BMP in about a week to check his BUN, creatinine and serum potassium. He will increase potassium in his diet. He is already on potassium supplement. He is planning to see his security researcher in [place] this coming week and he was told if any problem to call the office for any questions.
[2019-05-20 22:00] VITALS: BP 122/83
[2019-05-21 06:00] VITALS: BP 107/72
[2019-05-21 06:33] LABS: HEMOGLOBIN 15.6 g/dl (13.5-17.5); MEAN CORPUSCULAR HEMOGLOBIN 29.3 pg (27.0-33.0); MEAN CORPUSCULAR HGB CONC 31.8 g/dl (32.0-36.5); MEAN CORPUSCULAR VOLUME 92.1 fl (80.0-96.0); PLATELET COUNT, AUTOMATED 167 10^3/uL (150-450); RED BLOOD COUNT 5.32 10^6/uL (4.30-6.10); WHITE BLOOD COUNT 6.8 10^3/uL (4.0-10.0)
[2019-05-21 06:55] LABS: CALCIUM LEVEL 9.3 MG/DL (8.8-10.2); CREATININE FOR GFR 1.93 MG/DL (0.70-1.30); GLOMERULAR FILTRATION RATE 37.7 (>49)
[2019-05-21] MEDS: HumaLOG INSULIN (NovoLOG) PER UNIT SC SCH ×2 (07:30→12:45)
[2019-05-21] MEDS: NYSTATIN 100,000 UNITS/GM TOPICAL PWD 15 GM TOP SCH (09:35)
[2019-05-21] MEDS: CLOPIDOGREL 75 MG TAB PO SCH (09:35)
[2019-05-21] MEDS: LEVEMIR (INSULIN DETEMIR) 1 UNITS/0.01ML SC SCH (09:35)
[2019-05-21] MEDS ORDERED: METO25TA PO (11:55)
--- NOTE | 2019-05-21 12:49 | DS.PDOC ---
Discharge Summary General Date of Admission May 16, 2019 at 20:05 Date of Discharge 05/21/19 Discharge Summary PROCEDURES PERFORMED DURING STAY: [None]. ADMITTING DIAGNOSES: 1. Acute on chronic HFrEF 2. Ischemic dilated cardiomyopathy 3. CKD stage IV 4. Afib 5. DM DISCHARGE DIAGNOSES: 1. Acute on chronic HFrEF 2. Ischemic dilated cardiomyopathy 3. CKD stage IV 4. Afib 5. DM COMPLICATIONS/CHIEF COMPLAINT: Acute On Chronic Systolic Chf, Aicd,Ckd Stage Iv. HISTORY OF PRESENT ILLNESS: "Patient is 63 years old male with past medical history of CHF, ischemic cardiomyopathy with large anterior wall FL in September 28/2003, bypass surgery in 2005, reverse saphenous vein graft to the right coronary and reverse saphenous vein graft to marginal 2, status post ICD, hyperlipidemia, diabetes type 2, tobacco abuse, recent cardiac catheterization on 11/15/2018 with 2 stents placement presented to the hospital with significant leg swelling, increased shortness of breath. Patient stated that for past 3-4 weeks he has increased shortness of breath on exertion, leg swelling, orthopnea. On 05/16/2019 patient was in the [facility] for the same complaints, also he was found to have atrial fibrillation with rapid ventricular response, patient received IV node ablation. Also patient has been treated with diuretics. Of note echo which was done on 04/12/2019 showed ejection fraction of less than 20%, the left ventricle wall motion with diffuse severe global hypokinesis, left atrial size dilatated severely, estimated PA pressure is 60. In emergency room patient was found to have BNP 5408, creatinine 2.08. Chest x-ray demonstrated cardiomegaly" HOSPITAL COURSE: Patient was admitted and diurese with improvement in LE swelling and resolution of SOB. Course complicated by multiple episodes of nose bleeds that were difficult to control as well as excess bleeding when his IV was dislodged. Xarel to was held. He stated that this is likely due to the dry air in the hospital as he has been fine as outpatient. He was given nasal saline spray and seem to be doing better. Cardiology/Dr. Hickman helped with patient's management. Recommended stopping ASA and just continue Xarelto along with Plavix that he had been taking at home. Also added small dose of metolazone to be taken daily then q2D. He reported feeling well and ready to go home. to f/u PMD and patient's tight cooper Dr. Keen post discharge. DISCHARGE MEDICATIONS: Please see below. ALLERGIES: Please see below. PHYSICAL EXAMINATION ON DISCHARGE: VITAL SIGNS: Please see below. General: No acute distress, Alert Eyes: Normal sclera, EOMI, GILLES HENT: Atraumatic, neck supple, moist mucous membranes Cardiovascular: Normal rate. 2+ b/l LE edema. Pulmonary: Clear to auscultation b/l. GI: Soft, nontender, nondistended Skin: Warm and dry Neuro: CN grossly intact. No focal deficits. Strengths equal b/l. Psych: oriented x 3 LABORATORY DATA: Please see below. IMAGING: CXR- Impression: Interstitial coarsening, chronic versus acute. Cardiomegaly, pacemaker/AICD and sternotomy wires Liver US- IMPRESSION: Cholelithiasis with incomplete distention of the gallbladder likely related to improper fasting. Otherwise unremarkable. ACTIVITY: [As tolerated]. DIET: Low sodium diet DISCHARGE PLAN: discontinue taking Aspirin Resume xarelto along with plavix f/u PMD and Cardiology within 1 week Start metolazone as instructed DISPOSITION: Home. DISCHARGE INSTRUCTIONS: discontinue taking Aspirin Resume xarelto along with plavix f/u PMD and Cardiology within 1 week Start metolazone as instructed ITEMS TO FOLLOWUP ON ON OUTPATIENT: None DISCHARGE CONDITION: [Stable]. TIME SPENT ON DISCHARGE: 35 minutes. Vital Signs/I&Os Vital Signs Date Time Temp Pulse Resp B/P (MAP) Pulse Ox O2 Delivery O2 Flow Rate FiO2 05/21/19 06:00 97.5 71 18 107/72 (84) 91 05/16/19 17:24 Room Air I&O- Last 24 Hours up to 6 AM 05/21/19 05:59 Intake Total 100 ml Output Total 1250 ml Balance -1150 ml Laboratory Data Labs 24H Laboratory Tests 2 05/20/19 17:19: Bedside Glucose (Misc Panel) 162H 05/20/19 20:19: Bedside Glucose (Misc Panel) 201H 05/21/19 06:02: Nucleated Red Blood Cells % (auto) 0.0, Anion Gap 7L, Glomerular Filtration Rate 37.7L, Blood Urea Nitrogen 35H, Creatinine 1.93H, Sodium Level 140, Potassium Level 4.0, Chloride Level 100, Carbon Dioxide Level 33H, Calcium Level 9.3 05/21/19 12:08: Bedside Glucose (Misc Panel) 141H CBC/BMP Laboratory Tests 05/21/19 06:02 Red Blood Count 5.32, Mean Corpuscular Volume 92.1, Mean Corpuscular Hemoglobin 29.3, Mean Corpuscular Hemoglobin Concent 31.8 L, Red Cell Distribution Width 14.6 H, Calcium Level 9.3 FSBS Laboratory Tests Test 05/20/19 17:19 05/20/19 20:19 05/21/19 12:08 Range/Units Bedside Glucose (Misc Panel) 162 201 141 80-115 MG/DL Discharge Medications Scheduled Atorvastatin Calcium (Atorvastatin Calcium) 80 Mg Tablet, 80 MG PO QPM, (Reported) Clopidogrel Bisulfate (Plavix) 75 Mg Tablet, 75 MG PO DAILY, (Reported) Dapagliflozin Propanediol (Farxiga) 10 Mg Tablet, 10 MG PO DAILY, (Reported) Digoxin (Digoxin) 125 Mcg Tablet, 125 MCG PO QPM, (Reported) Furosemide (Furosemide) 20 Mg Tablet, 80 MG PO DAILY, (Reported) Insulin Aspart (Novolog Flexpen) 100 Unit/1 Ml Insuln.pen, 0 SC AC, (Reported) Insulin Glargine,Hum.rec.anlog (Lantus Solostar) 100 Unit/1 Ml Insuln.pen, 15 UNITS SC QAM, (Reported) Metolazone (Metolazone) 2.5 Mg Tablet, 2.5 MG PO Q2D Take 1 tablet daily for the first 3 days, then every other day (Q2D). Metoprolol Succinate (Metoprolol Succinate) 50 Mg Tab.er.24h, 50 MG PO QPM, (Reported) Rivaroxaban (Xarelto) 15 Mg Tablet, 15 MG PO QPM, (Reported) Scheduled PRN Nitroglycerin (Nitrostat) 0.4 Mg Tab.subl, 0.4 MG SL NITRO PRN for CHEST PAIN, (Reported) Allergies Coded Allergies: azithromycin (Verified Allergy, Unknown, 05/16/19) NAUSEA AND VOMITING metformin (Verified Allergy, Unknown, 05/16/19) anaph rosuvastatin (Verified Allergy, Unknown, 05/16/19) NAUSEA AND VOMITING sacubitril (Verified Allergy, Unknown, 05/16/19) facial swelling sitagliptin (Verified Allergy, Unknown, 05/16/19) anaph valsartan (Verified Allergy, Unknown, 05/16/19) facial swelling LALITHA GARCIA MD May 21, 2019 12:49
[2019-05-22] MEDS ORDERED: metOLazone 2.5 MG TAB PO SCH (09:00)
== END 2019-05-21 13:15 | disposition home or self-care (01) | DRG 292 ==
LOC: M ED 15:24 → M ED INP 20:05 → M MS4PR 22:00 → M MS5PR 05-19 16:05
PROVIDERS: ADMIT Internal Medicine; ATTEND Student in an Organized Health Care Education/Training Program
DX: I50.23 Acute on chronic systolic (congestive) heart failure (principal); N18.4 Chronic kidney disease, stage 4 (severe); N17.9 Acute kidney failure, unspecified; I25.5 Ischemic cardiomyopathy; E11.9 Type 2 diabetes mellitus without complications; I48.91 Unspecified atrial fibrillation; I25.2 Old myocardial infarction; E78.5 Hyperlipidemia, unspecified; F17.200 Nicotine dependence, unspecified, uncomplicated; Z95.2 Presence of prosthetic heart valve; Z79.899 Other long term (current) drug therapy; Z79.4 Long term (current) use of insulin; Z88.8 Allergy status to other drugs, medicaments and biological substances; Z91.14 Patient's other noncompliance with medication regimen; Z91.19 Patient's noncompliance with other medical treatment and regimen; B35.6 Tinea cruris; R04.0 Epistaxis; I25.10 Atherosclerotic heart disease of native coronary artery without angina pectoris

== ENCOUNTER 2019-12-07 19:15 | Emergency (ER) | payer MEDICARE, BC, OTHER ==
[~2019-12-07] VITALS: Ht 182.9 cm; Wt 109.5 kg
[~2019-12-07 19:15] MED LIST: ASPI81TA85 PO; ATOR80TA59; ATOR80TA59 PO; DIGO0.123 PO; FARX1TAB3 PO; FURO20TA2 PO; LANTINJ4 SC; METO1TAB7 PO; METO25TA PO; NITR0.1S; NITR4TASL SL; NOVOINJ3 SC; PLAV1TAB2 PO; POTA20TA6; XARE15TA PO
[2019-12-07 21:17] VITALS: BP 114/81
== END 2019-12-07 23:29 | disposition home or self-care (01) ==
LOC: M ED 19:15
DX: R04.0 Epistaxis (principal); I25.2 Old myocardial infarction; E11.9 Type 2 diabetes mellitus without complications; I10 Essential (primary) hypertension; Z79.01 Long term (current) use of anticoagulants; Z79.02 Long term (current) use of antithrombotics/antiplatelets; Z79.4 Long term (current) use of insulin; Z79.899 Other long term (current) drug therapy; Z88.1 Allergy status to other antibiotic agents; Z88.8 Allergy status to other drugs, medicaments and biological substances

== ENCOUNTER 2019-12-21 19:03 | Emergency (ER) | payer MEDICARE, BC, OTHER ==
[~2019-12-21] VITALS: Ht 185.4 cm; Wt 109.1 kg
[2019-12-21] MEDS ORDERED: TRANEXAMIC ACID 100 MG/ML 10ML VIAL ONE (20:00)
[2019-12-21] MEDS ORDERED: AUGMENTIN 875 MG TAB PO ONE (21:00)
[2019-12-21 21:15] VITALS: BP 119/80
[2019-12-21] MEDS ORDERED: AUGM875T28 PO (22:49)
== END 2019-12-22 01:03 | disposition home or self-care (01) ==
LOC: M ED 19:03
DX: R04.0 Epistaxis (principal); E11.9 Type 2 diabetes mellitus without complications; I11.0 Hypertensive heart disease with heart failure; Z95.0 Presence of cardiac pacemaker; F17.210 Nicotine dependence, cigarettes, uncomplicated; Z88.8 Allergy status to other drugs, medicaments and biological substances; Z79.4 Long term (current) use of insulin; Z79.899 Other long term (current) drug therapy

== ENCOUNTER 2020-01-04 13:08 | Inpatient (IN) | payer MEDICARE, BC, OTHER ==
[~2020-01-04 13:08] MED LIST changes: +AUGM875T28 PO
[2020-01-04] MEDS ORDERED: METO1TAB87 PO (13:34)
[2020-01-04] MEDS ORDERED: SENN15UDC PO (13:34)
[2020-01-04] MEDS ORDERED: INSURSD SC (13:34)
[2020-01-04] MEDS ORDERED: LANTINJ4 SC (13:34)
[2020-01-04] MEDS ORDERED: MIDO10TA PO (13:34)
[2020-01-04] MEDS ORDERED: DULE200A INH (13:34)
[2020-01-04] MEDS ORDERED: PEG1POW PO (13:34)
[2020-01-04] MEDS ORDERED: ELIQ5TAB PO (13:34)
[2020-01-04] MEDS ORDERED: [UNRECOGNIZED DRUG - MIXTURE] (13:38)
[2020-01-04] MEDS ORDERED: Oxygen (13:38)
[2020-01-04 14:08] LABS: BASO # 0.1 10^3/uL (0.0-0.2); BASO % 0.8 % (0.0-1.0); EOS % 0.4 % (0.0-3.0); HEMATOCRIT 44.4 % (42.0-52.0); HEMOGLOBIN 13.2 g/dl (13.5-17.5); LYMPH % 11.9 % (24.0-44.0); MEAN CORPUSCULAR HEMOGLOBIN 28.3 pg (27.0-33.0); MEAN CORPUSCULAR HGB CONC 29.7 g/dl (32.0-36.5); MEAN CORPUSCULAR VOLUME 95.3 fl (80.0-96.0); MONO # 1.1 10^3/uL (0.0-0.8); MONO % 12.8 % (0.0-5.0); NEUTROPHILS # 6.3 10^3/uL (1.5-8.5); NEUTROPHILS % 73.3 % (36.0-66.0); PLATELET COUNT, AUTOMATED 267 10^3/uL (150-450); RED BLOOD COUNT 4.66 10^6/uL (4.30-6.10); WHITE BLOOD COUNT 8.5 10^3/uL (4.0-10.0)
[2020-01-04 14:25] LABS: ALBUMIN 2.3 GM/DL (3.2-5.2); BILIRUBIN,DIRECT 0.8 MG/DL (0.0-0.2); BILIRUBIN,TOTAL 1.7 MG/DL (0.2-1.0); CK-MB VALUE MASS 4.1 NG/ML (<3.6); MB/CK RELATIVE INDEX 8.72 (< OR =4); TOTAL PROTEIN 8.6 GM/DL (6.4-8.2); TROPONIN I 0.08 NG/ML (< 0.10)
[2020-01-04 14:26] LABS: INR 2.34; PROTHROMBIN TIME 25.5 SECONDS (11.8-14.0)
[2020-01-04 14:27] LABS: PARTIAL THROMBOPLASTIN TIME 42.2 SECONDS (25.0-38.4)
[2020-01-04 14:40] LABS: CALCIUM LEVEL 9.7 MG/DL (8.8-10.2); CREATININE FOR GFR 1.56 MG/DL (0.70-1.30); GLOMERULAR FILTRATION RATE 48.1 (>49); POTASSIUM SERUM 6.2 MEQ/L (3.5-5.1)
[2020-01-04] MEDS ORDERED: cefTRIAXone SOD 1 GM in D5W MINI-BAG PLUS 50 ML IV ONE (14:45)
[2020-01-04] MEDS ORDERED: DOXYCYCLINE HYCLATE 100 MG in D5W MINI-BAG PLUS 100 ML IV ONE (14:45)
[2020-01-04] MEDS ORDERED: DEXTROSE 50% 50 ML SYRINGE IV STA (15:16)
[2020-01-04] MEDS ORDERED: ONDA4TAB6 PO (15:28)
[2020-01-04] MEDS ORDERED: FURO40TA2 PO (15:28)
[2020-01-04] MEDS ORDERED: ACET1TAB55 PO (15:28)
[2020-01-04] MEDS ORDERED: PROAAER10 INH (15:28)
[2020-01-04] MEDS ORDERED: SALI0.6530 NARES (15:28)
[2020-01-04] MEDS ORDERED: MAGN400O50 PO (15:28)
[2020-01-04] MEDS ORDERED: ENEMENE22 PR (15:28)
[2020-01-04] MEDS ORDERED: ACET160L16 PO (15:28)
[2020-01-04] MEDS ORDERED: DULC10SU2 PR (15:28)
[2020-01-04] MEDS ORDERED: MAALOX 30 ML SUSP *UDC PO PRN (15:30)
[2020-01-04] MEDS ORDERED: MOM 30ML SUSPENSION UDC PO PRN (15:30)
--- NOTE | 2020-01-04 15:55 | HPEPDOC ---
[facility] Medical History & Physical Date of Admission January 04, 2020 Date of Service: January 04, 2020 History and Physical Pt is a 64yM with PMH of systolic CHF, ischemic cardiomyopathy with anterior wall NE in August 2012, status post bypass in 2005, status post CABG, status post subsequent stents 2, ICD placement, Atrial fibrillation on Xarelo, HLD, DM 0-[id number], tobacco abuse, presents with acute respiratory failure with hypoxia. Patient is a poor historian, H&P was obtained by ED. she was noted to have epistaxis on the left nostril and was reported to be short of breath, he was subsequently sent to the ED for eval., Was found to be altered in the ED, was coughing out blood clots. L-Sided Rhino Rocket was placed and ENT was consulted. In the ED, patient was afebrile, was dependent on O2 , 15L Venturi mask. Neg COVID screening. Labs include CBC with WBC of 8.5, H&H of 13.2 and 44.4, platelets 267, sodium 133, potassium 6.2, chloride 96, creatinine 1.56, GFR 48, elevated, alkaline phosphatase 331, troponin 1.08, CK-MB elevated at 4.1, albumin 2.3. HEENT chest x-ray 2 views revealing RLL infiltrate versus atelectasis. Patient was given, insulin, D5, sodium polystyrene, calcium gluconate for hyperkalemia. Echo performed on 05/17/2019 reveals severely dilated LV with severe reduction of overall LVEF. EF of 10-15%, also RVH. ROS: unable to be assessed PMH: see above PSH: See above, AICD, 2 stent 10/2018 Family history: Reviewed and noncontributory of previous records Social history: former smoker, denies alcohol, or drug use per review of records Medications: Reviewed Allergies: Azithro, metformin, rosuvastatin, sacubitril, sitagliptin, valsartan PHYSICAL EXAMINATION: VITAL SIGNS: Please see below. GENERAL: male who appears fatigued and in slight respiratory distress, cough clots of blood HEENT: Normocephalic, atraumatic, moist mucous membranes NECK: Supple CARDIOVASCULAR EXAMINATION: S1, S2 RESPIRATORY EXAMINATION: Crackles on R ABDOMINAL EXAMINATION: +BS, soft EXTREMITIES: trace edema SKIN: No rash NEUROLOGICAL EXAMINATION: Awake PSYCHIATRIC EXAMINATION: does not have capacity Pt is a 64yM with PMH of systolic CHF, ischemic cardiomyopathy with anterior wall NE in August 2012, status post bypass in 2005, status post CABG, status post subsequent stents 2, ICD placement, Atrial fibrillation on Xarelo, HLD, DM 5-[id number]-[id number], tobacco abuse, presents with acute respiratory failure with hypoxia. #Acute on chronic respiratory failure with hypoxia secondary to CAP versus aspir ation, will also consider acute on chronic CHF exacerbation, with underlying COPD, pending COVID screen, possible association with hypercoagulable vs hypocoagulable state, patient is a former smoker -will admit inpatient with telemetry to PCU, obtain Legionella, strep, sputum cultures, blood cultures 2, continue ceftriaxone and Doxy 7 days, patient has allergy towards azithromycin. -Speech pathology eval for aspiration #Epistaxis: Well consult ENT for further evaluation, keep Rhino Rocket, INR supratherapeutic not Coumadin, will monitor. #hyperkalemia: Monitor, unclear etiology at this time, was given meds in ED #Hyperbilirubinemia: Monitor at this time, compared to previous labs improved #Elevated alkaline phosphatase: 331 #HFrEF: cont home meds, he may need further diuresis #Ischemic dilated cardiomyopathy/atrophic fibrillation, dependent on NOAC: Hold ASA today, also hold NOAC, patient likely is not on dual antiplatelet therapy, status post stent on 10/2018 #CKD III: Consider gentle hydration, #DM 2, insulin-dependent: Will reduce patients home insulin to half, insulin sliding scale, hyperglycemic protocol DVT PPI: SCDs Code: FULL (MOLST form) Disposition: At least 2 midnights today, plan to return to halfway at [place] Vital Signs Vital Signs Date Time Temp Pulse Resp B/P (MAP) Pulse Ox O2 Delivery O2 Flow Rate FiO2 01/04/20 14:00 143/91 (108) 01/04/20 13:53 97.9 69 25 95 Venturi Mask 15.0 40 Laboratory Data Labs 24H Laboratory Tests 2 01/04/20 13:51: Immature Granulocyte % (Auto) 0.8, Neutrophils (%) (Auto) 73.3H, Lymphocytes (%) (Auto) 11.9L, Monocytes (%) (Auto) 12.8H, Eosinophils (%) (Auto) 0.4, Basophils (%) (Auto) 0.8, Neutrophils # (Auto) 6.3, Lymphocytes # (Auto) 1.0L, Monocytes # (Auto) 1.1H, Eosinophils # (Auto) 0.0, Basophils # (Auto) 0.1, Nucleated Red Blood Cells % (auto) 2.1H, Prothrombin Time 25.5H, Prothromb Time International Ratio 2.34, Activated Partial Thromboplast Time 42.2H, Anion Gap 11, Glomerular Filtration Rate 48.1L, Calcium Level 9.7, Total Bilirubin 1.7H, Direct Bilirubin 0.8H, Aspartate Amino Transf (AST/SGOT) 33, Alanine Aminotransferase (ALT/SGPT) 33, Alkaline Phosphatase 331H, Total Creatine Kinase 47, Creatine Kinase MB 4.1H, Creatine Kinase MB Relative Index 8.72H, Troponin I 0.08, Total Protein 8.6H, Albumin 2.3L, Albumin/Globulin Ratio 0.37L 01/04/20 15:07: CBC/BMP Laboratory Tests 01/04/20 13:51 Microbiology Microbiology 01/04/20 Blood Culture, Received Pending 01/04/20 Blood Culture, Received Pending Home Medications Scheduled Apixaban (Eliquis) 5 Mg Tablet, 5 MG PO BID Atorvastatin Calcium (Atorvastatin Calcium) 80 Mg Tablet, 80 MG PO QHS Furosemide (Furosemide) 40 Mg Tablet, 40 MG PO BID Insulin Glargine,Hum.rec.anlog (Lantus Solostar) 100 Unit/1 Ml Insuln.pen, 10 UNITS SC QHS Insulin Glargine,Hum.rec.anlog (Lantus Solostar) 100 Unit/1 Ml Insuln.pen, 25 UNIT SC QAM Insulin Human Regular (Humulin R) 100 Unit/1 Ml Vial, 1 DOSE SC AC PER SLIDING SCALE Metoprolol Tartrate (Metoprolol Tartrate) 25 Mg Tablet, 12.5 MG PO BID Midodrine HCl (Midodrine HCl) 10 Mg Tablet, 10 MG PO DAILY Mometasone/Formoterol (Dulera 200 Mcg/5 Mcg Inhaler) 13 Gm Hfa.aer.ad, 2 PUFF INH BID Polyethylene Glycol 3350 (Polyethylene Glycol 3350) 17 Gm Powd.pack, 17 GM PO DAILY Senna (Senna Syrup) 176 Mg/5 Ml Syrup, 5 ML PO QHS Scheduled PRN Acetaminophen (Acetaminophen) 160 Mg/5 Ml Liquid, 20 ML PO Q6H PRN for PAIN Acetaminophen (Acetaminophen) 325 Mg Tablet, 650 MG PO Q6H PRN for FEVER Albuterol Sulfate (Proair Hfa) 8.5 Gm Hfa.aer.ad, 1 PUFF INH Q4H PRN for SOB/WHEEZING Bisacodyl (Dulcolax) 10 Mg Supp.rect, 10 MG OR DAILY PRN for CONSTIPATION Magnesium Hydroxide (Milk of Magnesia) 400 Mg/5 Ml Oral.susp, 2,400 MG PO DAILY PRN for CONSTIPATION IF INEFFECTIVE PROCEED WITH DULCOLAX SUPP Ondansetron (Ondansetron Odt) 4 Mg Tab.rapdis, 4 MG PO Q6H PRN for NAUSEA OR VOMITING Sodium Chloride (Saline Nasal [place]) 88 Ml [place], 1 SPRAY NARES Q2H PRN for CONGESTION Sodium Phosphate,[place]-Dibasic (Enema Ready To Use) 133 Ml Enema, 1 BG OR DAILY PRN for CONSTIPATION GIVE IF NO RELIEF FROM DULCOLAX SUPP Allergies Coded Allergies: metformin (Verified Allergy, Severe, anaphylaxis, 01/04/20) sitagliptin (Verified Allergy, Severe, anaphylaxis, 01/04/20) sacubitril (Verified Allergy, Intermediate, facial swelling, 01/04/20) valsartan (Verified Allergy, Intermediate, facial swelling, 01/04/20) azithromycin (Verified Adverse Reaction, Mild, NAUSEA AND VOMITING, 01/04/20) rosuvastatin (Verified Adverse Reaction, Mild, NAUSEA AND VOMITING, 01/04/20) A-FIB/CHADSVASC A-FIB History Current/History of A-Fib/PAF?: Yes Current PO Anticoag Therapy: No Treatment Reason Anticoagulant not given: Current bleeding VANITA VERNON MD January 04, 2020 15:55
--- NOTE | 2020-01-04 15:56 | REP ---
CHEST, TWO VIEWS: Two views chest performed and compared to prior study of 05/16/2019. Cardiomegaly is again noted. There are underlying chronic fibrotic changes in each lung base. There does appear to be superimposed infiltrate or atelectasis in the right lower lobe. No other definite acute changes are seen. Multiple sternal wires and mediastinal clips are present. Right pacemaker is again noted. There is a new left central venous catheter with the tip in the right atrium. IMPRESSION: Cardiomegaly. Chronic changes. Right lower lobe infiltrate or atelectasis. Electronically Signed by Tom Fierro MD 01/04/2020 04:03 P
[2020-01-04] MEDS ORDERED: SOD POLYSTYRENE SULFONATE SUSP 15 GM/60 ML UD PO ONE (16:00)
[2020-01-04] MEDS ORDERED: HumuLIN R (REGULAR) INSULIN (NovoLIN R) **100U/ML** PER UNIT IV ONE (16:00)
[2020-01-04] MEDS ORDERED: CALCIUM GLUCONATE 1,000 MG in D5W MINI-BAG PLUS 100 ML IV ONE (16:00)
[2020-01-04] MEDS ORDERED: NS 1,000 ML IV SCH (17:33)
[2020-01-04 17:55] VITALS: BP 126/76
[2020-01-04] MEDS ORDERED: ALBUTEROL 90 MCG/ACT 8GM HFA INHALER INH PRN (18:00)
[2020-01-04] MEDS ORDERED: FLEET ENEMA PR PRN (18:00)
[2020-01-04] MEDS ORDERED: DEXTROSE 50% 50 ML SYRINGE IV PRN (18:00)
[2020-01-04] MEDS ORDERED: GLUCAGON INJ 1MG VIAL SC PRN (18:00)
[2020-01-04] MEDS ORDERED: GLUCOSE 4GM CHEW TABLET PO PRN (18:00)
[2020-01-04] MEDS ORDERED: FUROSEMIDE 20MG/2ML VIAL (J1940) IV ONE (18:00)
[2020-01-04] MEDS: DOXYCYCLINE HYCLATE 100 MG in D5W MINI-BAG PLUS 100 ML IV SCH (18:11)
[2020-01-04] MEDS ORDERED: SLF 3 ML SYR IV PRN (18:45)
[2020-01-04 20:00] VITALS: BP_SYST 120; BP_SYST 148; BP_DIAS 74; BP_DIAS 80
--- NOTE | 2020-01-04 20:29 | ECGEPIP ---
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
[2020-01-04] MEDS: HumaLOG INSULIN (NovoLOG) PER UNIT SC SCH (21:00)
[2020-01-04] MEDS: ATORVASTATIN 20 MG TAB PO SCH (21:24)
[2020-01-04] MEDS: METOPROLOL TART 12.5 MG PER 1/2 TAB PO SCH (21:24)
[2020-01-04] MEDS: SLF 3 ML SYR IV SCH (21:25)
[2020-01-04] MEDS: SENNA SYRUP 15 ML UDC PO SCH (21:25)
[2020-01-04] MEDS: LEVEMIR (INSULIN DETEMIR) 1 UNITS/0.01ML SC SCH (21:25)
[2020-01-04 22:00] VITALS: O2SAT 94
[2020-01-04] MEDS: ONDANSETRON 4MG/2ML VIAL IV PRN (22:02)
[2020-01-04 22:26] LABS: ABG BASE EXCESS -0.2 (-2.0-2.0); ABG HCO3 23.3 MEQ/L (22.0-26.0); ABG O2 SATURATION 99.7 % (95.0-99.0); ABG PARTIAL PRESSURE CO2 34.1 mmHg (35.0-45.0); ABG PARTIAL PRESSURE O2 196.9 mmHg (75.0-100.0); ABG STANDARD HCO3 24.4 MEQ/L (22.0-26.0); ABG TOTAL CO2 24.3 MEQ/L (23.0-31.0); ABG pH (ARTERIAL) 7.452 UNITS (7.350-7.450)
[2020-01-04 23:00] VITALS: O2SAT 100
[2020-01-04] MEDS ORDERED: IPRATROPIUM 0.5MG/ALBUTEROL 2.5MG INH SOL UD 3ML (DUONEB)(J7620) NEB ONE (23:00)
[2020-01-05] VITALS (13 sets, daily range): BP systolic 110–132; BP diastolic 76–91; O2SAT 94–100
[2020-01-05 05:57] LABS: HEMATOCRIT 38.3 % (42.0-52.0); HEMOGLOBIN 11.9 g/dl (13.5-17.5); MEAN CORPUSCULAR HEMOGLOBIN 28.7 pg (27.0-33.0); MEAN CORPUSCULAR HGB CONC 31.1 g/dl (32.0-36.5); MEAN CORPUSCULAR VOLUME 92.3 fl (80.0-96.0); PLATELET COUNT, AUTOMATED 222 10^3/uL (150-450); RED BLOOD COUNT 4.15 10^6/uL (4.30-6.10); WHITE BLOOD COUNT 9.2 10^3/uL (4.0-10.0)
[2020-01-05] MEDS: DOXYCYCLINE HYCLATE 100 MG in D5W MINI-BAG PLUS 100 ML IV SCH ×2 (06:04→18:27)
[2020-01-05] MEDS: SLF 3 ML SYR IV SCH ×3 (06:04→22:00)
[2020-01-05 06:10] LABS: INR 1.81; PROTHROMBIN TIME 20.8 SECONDS (11.8-14.0)
[2020-01-05 06:25] LABS: CALCIUM LEVEL 8.6 MG/DL (8.8-10.2); CREATININE FOR GFR 1.37 MG/DL (0.70-1.30); GLOMERULAR FILTRATION RATE 55.9 (>49)
[2020-01-05] MEDS: LEVEMIR (INSULIN DETEMIR) 1 UNITS/0.01ML SC SCH ×2 (08:33→21:57)
[2020-01-05] MEDS: MIRALAX *UNIT DOSE* 17GM PACKET PO SCH (09:00)
[2020-01-05] MEDS: FUROSEMIDE 40 MG TAB PO SCH ×2 (09:35→16:43)
[2020-01-05] MEDS: METOPROLOL TART 12.5 MG PER 1/2 TAB PO SCH ×2 (09:35→21:58)
[2020-01-05 09:53] LABS: ABG BASE EXCESS 1.7 (-2.0-2.0); ABG HCO3 27.3 MEQ/L (22.0-26.0); ABG O2 SATURATION 99.3 % (95.0-99.0); ABG PARTIAL PRESSURE CO2 46.8 mmHg (35.0-45.0); ABG PARTIAL PRESSURE O2 168.8 mmHg (75.0-100.0); ABG TOTAL CO2 28.7 MEQ/L (23.0-31.0); ABG pH (ARTERIAL) 7.383 UNITS (7.350-7.450)
[2020-01-05] MEDS ORDERED: FUROSEMIDE 40MG/4ML VIAL (J1940) IV ONE (11:00)
--- NOTE | 2020-01-05 11:17 | IPNPDOC ---
Date Seen The patient was seen on 01/05/20. Progress Note SUBJECTIVE: Pt is a 64yM with PMH of systolic CHF, ischemic cardiomyopathy with anterior wall VA in August 2012, status post bypass in 2005, status post CABG, status post subsequent stents 2, ICD placement, Atrial fibrillation on Xarelo, HLD, DM 0-[id number]-wwghustkx, tobacco abuse, presents with acute respiratory failure with hypoxia. Pt was agitated overnight, hyperkalemia, improved, however, ultimate status slightly worsened. Obtained ABG revealing hypercapnia. Will be getting dialysis today, potassium of 5. Will place in orders for tube feeds. OBJECTIVE PHYSICAL EXAMINATION: VITAL SIGNS: Please see below. GENERAL: male who appears confused HEENT: Normocephalic, atraumatic, dry mucus membrane NECK: Supple CARDIOVASCULAR EXAMINATION: S1, S2 RESPIRATORY EXAMINATION: Crackles on R, diminished breathing ABDOMINAL EXAMINATION: +BS, soft EXTREMITIES: +edema SKIN: No rash NEUROLOGICAL EXAMINATION: eyes closed, but answers PSYCHIATRIC EXAMINATION: does not have capacity LABORATORY DATA, IMAGING STUDIES, MICROBIOLOGY: Please see below. ASSESSMENT AND PLAN: Pt is a 64yM with PMH of systolic CHF, ischemic card iomyopathy with anterior wall VA in August 2012, status post bypass in 2005, status post CABG, status post subsequent stents 2, ICD placement, Atrial fibrillation on Xarelo, HLD, DM 1-dxjarpv-wvvrizohc, tobacco abuse, presents with acute respiratory failure with hypoxia. #Encephalopathy, consider secondary to hypercapnia, infection, vs underlying dementia -dialysis 01/05/20 -1:1 sitter, unclear baseline mental status #Acute on chronic respiratory failure with hypoxia secondary to CAP versus as piration, will also consider acute on chronic CHF exacerbation, with underlying COPD, COVID screen neg, possible association with hypercoagulable vs hypocoagulable state, patient is a former smoker -will admit inpatient with telemetry to PCU, obtain Legionella, strep, sputum cultures, blood cultures 2, continue ceftriaxone and Doxy 7 days, patient has allergy towards azithromycin. #Epistaxis: Well consult ENT for further evaluation, keep Rhino Rocket, INR supratherapeutic not Coumadin, will monitor. Consider resuming Eliquis PM vs tomorrow. #hyperkalemia: improved, Monitor, unclear etiology at this time, was given meds in ED #Hyperbilirubinemia: Monitor at this time, compared to previous labs improved #Elevated alkaline phosphatase: 331 #HFrEF: cont home meds #Ischemic dilated cardiomyopathy/atrophic fibrillation, dependent on NOAC: Hold ASA today, also hold NOAC, patient likely is not on dual antiplatelet therapy, status post stent on 10/2018 #CKD III: Consider gentle hydration, #DM 2, insulin-dependent: Will reduce patients home insulin to half, insulin sliding scale, hyperglycemic protocol DVT PPI: SCDs Code: FULL (MOLST form) Disposition: At least 2 midnights today, plan to return to [facility] at [place] 40 minutes were spent on care coordination VS, I&O, 24H, Fishbone Vital Signs/I&O Vital Signs Date Time Temp Pulse Resp B/P (MAP) Pulse Ox O2 Delivery O2 Flow Rate FiO2 01/05/20 09:35 72 127/91 01/05/20 07:14 96.5 20 100 Venturi Mask 15.0 40 I&O- Last 24 Hours up to 6 AM 01/05/20 06:00 Intake Total 310 ml Output Total 300 ml Balance 10 ml Laboratory Data 24H LABS Laboratory Tests 2 01/04/20 13:51: Immature Granulocyte % (Auto) 0.8, Neutrophils (%) (Auto) 73.3H, Lymphocytes (%) (Auto) 11.9L, Monocytes (%) (Auto) 12.8H, Eosinophils (%) (Auto) 0.4, Basophils (%) (Auto) 0.8, Neutrophils # (Auto) 6.3, Lymphocytes # (Auto) 1.0L, Monocytes # (Auto) 1.1H, Eosinophils # (Auto) 0.0, Basophils # (Auto) 0.1, Nucleated Red Blood Cells % (auto) 2.1H, Prothrombin Time 25.5H, Prothromb Time International Ratio 2.34, Activated Partial Thromboplast Time 42.2H, Anion Gap 11, Glomerular Filtration Rate 48.1L, Calcium Level 9.7, Total Bilirubin 1.7H, Direct Bilirubin 0.8H, Aspartate Amino Transf (AST/SGOT) 33, Alanine Aminotransferase (ALT/SGPT) 33, Alkaline Phosphatase 331H, Total Creatine Kinase 47, Creatine Kinase MB 4.1H, Creatine Kinase MB Relative Index 8.72H, Troponin I 0.08, Total Protein 8.6H, Albumin 2.3L, Albumin/Globulin Ratio 0.37L 5/6/20 15:07: Coronavirus (COVID-19)(PCR) NEGATIVE 01/04/20 19:30: 01/04/20 21:02: Bedside Glucose (Misc Panel) 179H 01/04/20 22:19: Blood Gas Bicarbonate Standard 24.4, Arterial Blood pH 7.452H, Arterial Blood Partial Pressure CO2 34.1L, Arterial Blood Partial Pressure O2 196.9H, Arterial Blood Total CO2 24.3, Arterial Blood HCO3 23.3, Arterial Blood Base Excess -0.2, Arterial Blood Oxygen Saturation 99.7H 01/05/20 05:39: Nucleated Red Blood Cells % (auto) 0.7H, Prothrombin Time 20.8H, Prothromb Time International Ratio 1.81, Anion Gap 8, Glomerular Filtration Rate 55.9, Calcium Level 8.6L 01/05/20 09:38: Blood Gas Bicarbonate Standard 26.0, Arterial Blood pH 7.383, Arterial Blood Partial Pressure CO2 46.8H, Arterial Blood Partial Pressure O2 168.8H, Arterial Blood Total CO2 28.7, Arterial Blood HCO3 27.3H, Arterial Blood Base Excess 1.7, Arterial Blood Oxygen Saturation 99.3H CBC/BMP Laboratory Tests 01/04/20 13:51 01/05/20 05:39 Microbiology Microbiology 01/04/20 Blood Culture, Received Pending 01/04/20 Blood Culture, Received Pending VANITA VERNON MD January 05, 2020 11:13
[2020-01-05] MEDS: cefTRIAXone SOD 1 GM in D5W MINI-BAG PLUS 50 ML IV SCH (16:43)
--- NOTE | 2020-01-05 17:01 | CR ---
DATE OF CONSULTATION: 01/05/2020 REQUESTING PHYSICIAN: Dr. Paola Strickland CONSULTING PHYSICIAN: Dr. Dietz REASON FOR CONSULTATION: Management of renal failure, hyperkalemia. CHIEF COMPLAINT: The patient presented to the hospital yesterday with epistaxis. NOTE: History was obtained from the patient's chart and from medical records; the patient is unable to provide any reliable history. HISTORY OF PRESENT ILLNESS: Niraj Badillo is a 64-year-old male with past medical history of chronic systolic congestive heart failure secondary to ischemic cardiomyopathy, diabetes mellitus type 2, chronic obstructive pulmonary disease (COPD), atrial fibrillation, status post atrioventricular (AV) bob ablation, history of automatic implantable cardioverter defibrillator (AICD) placement, pulmonary hypertension. He was recently admitted at [facility] on October 06, 2019 with respiratory failure. He was found to have influenza A. He developed acute oliguric renal failure, and he did not respond to dobutamine and diuretics during that stay. He ended up on dialysis. He is currently being dialyzed three times a week, Thursday, Thursday, Thursday at [facility]. His last hemodialysis was on Thursday. He missed the hemodialysis session yesterday. The patient was brought to the emergency room yesterday because of persistent bleeding from the left nostril. He got a left-sided Rhino Rocket placed. The patient was admitted under the hospitalist service. He was encephalopathic and hyperkalemic yesterday. The patient is currently short of breath and currently on Ventimask. Nephrology service was called for further help in the management of this patient with congestive heart failure (CHF), renal failure and hyperkalemia. I saw and evaluated the patient today morning at the bedside. He was wearing the Ventimask. He was not able to provide any history, and he was slightly agitated when I tried to examine him. PAST MEDICAL HISTORY: Past medical history of renal failure - currently dialysis dependent since October 2019, diabetes mellitus type 2, COPD, coronary artery disease with ischemic cardiomyopathy, chronic systolic congestive heart failure with left ventricular (LV) ejection fraction of 20%, pulmonary hypertension, chronically bedridden with Altagracia lift dependent and [facility] resident. PAST SURGICAL HISTORY: Status post coronary artery bypass grafting in 2006, status post stents times two, status post AICD placement, status post right internal jugular (IJ) tunneled hemodialysis catheter. ALLERGIES: He is allergic to AZITHROMYCIN, METFORMIN, ROSUVASTATIN, SACUBITRIL, SITAGLIPTIN and VALSARTAN. FAMILY HISTORY: No significant family history of end-stage renal disease requiring hemodialysis. SOCIAL HISTORY: The patient is a [facility] resident. He is a Altagracia lift. REVIEW OF SYSTEMS: The patient is unable to provide a review of systems. He is obtunded and does not want to talk at this time. PHYSICAL EXAMINATION: General: The patient is laying in the bed wearing Ventimask. He has a Rhino Rocket in the left nostril. Vital signs: Temperature is 96.5 degrees Fahrenheit, blood pressure 119/79, pulse is 70, respiratory rate of 20, saturating 100% on the Ventimask with 40% FiO2. Head and neck exam: Pupils are equally round and reactive to light. Left-sided Rhino Rocket was noted. Mucous membranes are moist. Neck is supple. He has a right IJ tunneled hemodialysis catheter. Cardiovascular: S1, S2, regular rate. No edema of the bilateral lower extremities. Respiratory: Decreased breath sounds at the bases with inspiratory crackles bilaterally at the bases, right is worse than left. Abdomen: Soft, positive bowel sounds, nontender. Genitourinary: His bladder was palpable. Bedside bladder scan was done. More than 600 mL of postvoid residual was noted. Aguirre catheter was ordered. Musculoskeletal: No clubbing or cyanosis. Pulses are 2+. 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 He is not interested in talking. LAB REVIEW: CBC showed a WBC of 9.2, hemoglobin 11.9, platelets are 222, INR is 1.8. ABG showed a pH of 7.38, pCO2 of 46, pO2 of 168, bicarb 27, O2 sat 99%. BMP showed sodium 138, potassium 5, chloride 100, bicarb 30, BUN 76, creatinine 1.3, total bilirubin 1.7, albumin is 2.3. Microbiology: Blood cultures are pending. IMAGING: A chest x-ray was done yesterday which showed cardiomegaly, right lower lobe infiltrate or atelectasis. CURRENT INPATIENT MEDICATIONS: The patient is currently on IV doxycycline and IV ceftriaxone. He is on Tylenol as needed, DuoNebs as needed, Mylanta for dyspepsia. He is on Eliquis 5 mg by mouth twice a day. I am going to change it to 2.5 mg by mouth twice a day. He is on Lipitor 80 mg nightly. Lasix 40 mg by mouth twice a day. He was also given Lasix 40 mg IV one dose in the morning. He is on insulin Levemir 5 units subcu nightly and 12 units in the morning, insulin sliding scale, metoprolol tartrate 12.5 mg by mouth twice a day, MiraLax one packet daily, Fleet's enema as needed. I am going to stop it because of renal failure. ASSESSMENT: 63-year-old male with acute renal failure requiring dialysis, chronic systolic congestive heart failure, atrial fibrillation - on Eliquis, admitted at this time with epistaxis and hyperkalemia, now with acute respiratory distress. PLAN: 1. Acute renal failure. The patient is dialysis dependent. He has Thursday, Thursday, Thursday dialysis. He missed his dialysis yesterday. I see there are some signs of renal recovery. However, because of high urea levels and recent hyperkalemia, I am going to dialyze the patient today, and I would do his 24-hour urine creatinine clearance over the weekend. 2. Acute decompensated systolic congestive heart failure. As mentioned above, the patient is being dialyzed. 1-2 liters of fluid will be removed as tolerated. Continue current dose of Lasix. 3. Urinary retention. The patient got a Aguirre catheter placed today; 600 mL of urine came out. Continue to monitor intake and output. 4. Diabetes mellitus type 2, insulin dependent. Continue current insulin regimen. 5. Right pulmonary infiltrate. The patient is getting IV doxycycline and ceftriaxone empirically to cover for pneumonia. 6. Atrial fibrillation. Heart rate is controlled. Patient had epistaxis. I have decreased the Eliquis dose to 2.5 mg by mouth twice a day. Continue current dose of metoprolol tartrate 12.5 mg by mouth twice a day. 7. Epistaxis. The patient has a Rhino Rocket on the left side. No active bleeding. Rest of the management is as per Ear, Nose, and Throat (ENT) service. Thank you for involving me in the care of this patient. I shall be happy to follow the patient along with you tomorrow morning.
[2020-01-05] MEDS: HumaLOG INSULIN (NovoLOG) PER UNIT SC SCH (20:56)
[2020-01-05] MEDS ORDERED: APIXABAN 2.5 MG TAB (ELIQUIS) PO SCH (21:00)
[2020-01-05] MEDS ORDERED: APIXABAN 5 MG TAB (ELIQUIS) PO SCH (21:00)
[2020-01-05] MEDS: ATORVASTATIN 20 MG TAB PO SCH (21:58)
[2020-01-05] MEDS: SENNA SYRUP 15 ML UDC PO SCH (21:59)
[2020-01-06] VITALS (12 sets, daily range): BP systolic 99–132; BP diastolic 64–86; O2SAT 100
[2020-01-06 05:54] LABS: HEMATOCRIT 39.9 % (42.0-52.0); HEMOGLOBIN 11.8 g/dl (13.5-17.5); MEAN CORPUSCULAR HEMOGLOBIN 27.8 pg (27.0-33.0); MEAN CORPUSCULAR HGB CONC 29.6 g/dl (32.0-36.5); MEAN CORPUSCULAR VOLUME 93.9 fl (80.0-96.0); PLATELET COUNT, AUTOMATED 226 10^3/uL (150-450); RED BLOOD COUNT 4.25 10^6/uL (4.30-6.10); WHITE BLOOD COUNT 7.4 10^3/uL (4.0-10.0)
[2020-01-06 06:00] LABS: INR 1.54; PROTHROMBIN TIME 18.2 SECONDS (11.8-14.0)
[2020-01-06] MEDS: DOXYCYCLINE HYCLATE 100 MG in D5W MINI-BAG PLUS 100 ML IV SCH ×2 (06:13→21:02)
[2020-01-06] MEDS: SLF 3 ML SYR IV SCH ×3 (06:13→21:02)
[2020-01-06 06:16] LABS: BLOOD UREA NITROGEN 46 MG/DL (7-18); CALCIUM LEVEL 8.9 MG/DL (8.8-10.2); CARBON DIOXIDE LEVEL 31 MEQ/L (21-32); CHLORIDE LEVEL 102 MEQ/L (98-107); CREATININE FOR GFR 1.12 MG/DL (0.70-1.30); GLOMERULAR FILTRATION RATE > 60.0 (>49); GLUCOSE, FASTING 44 MG/DL (70-100); POTASSIUM SERUM 4.1 MEQ/L (3.5-5.1); SODIUM LEVEL 139 MEQ/L (136-145)
[2020-01-06] MEDS: LEVEMIR (INSULIN DETEMIR) 1 UNITS/0.01ML SC SCH ×2 (08:28→21:02)
[2020-01-06] MEDS: MIRALAX *UNIT DOSE* 17GM PACKET PO SCH ×2 (08:28→08:31)
[2020-01-06] MEDS: FUROSEMIDE 40 MG TAB PO SCH (08:29)
[2020-01-06] MEDS: METOPROLOL TART 12.5 MG PER 1/2 TAB PO SCH ×2 (08:29→21:02)
[2020-01-06] MEDS ORDERED: D5W/0.45% SODIUM CHLORIDE 1,000 ML IV SCH (13:00)
--- NOTE | 2020-01-06 13:06 | IPNPDOC ---
Date Seen The patient was seen on 01/06/20. Progress Note Pt is a 64yM with PMH of systolic CHF, ischemic cardiomyopathy with anterior wall OR in August 2012, status post bypass in 2005, status post CABG, status post subsequent stents 2, ICD placement, Atrial fibrillation on Eliquis, HLD, DM [id number], tobacco abuse, presents with acute respiratory failure with hypoxia. Nephrology was consulted for dialysis from hyperkalemia, pt had dialysis on 01/05/20. ENT consultation with recommendations to hold Eliquis for 5 days prior to reassessment, discussed case with Dr. Jennings, cardiology, pt does not have any noted history of CVA, Hold Eliquis for 5 days, and allow for reassessment with ENT with removal of Rhino rocket. OBJECTIVE PHYSICAL EXAMINATION: VITAL SIGNS: Please see below. GENERAL: male who appers fatigue, but interactive HEENT: Normocephalic, atraumatic, dry mucus membrane NECK: Supple CARDIOVASCULAR EXAMINATION: S1, S2 RESPIRATORY EXAMINATION: Crackles on R, diminished breathing ABDOMINAL EXAMINATION: +BS, soft EXTREMITIES: +edema SKIN: No rash NEUROLOGICAL EXAMINATION: eyes closed, but answers PSYCHIATRIC EXAMINATION: does not have capacity LABORATORY DATA, IMAGING STUDIES, MICROBIOLOGY: Please see below. ASSESSMENT AND PLAN: Pt is a 64yM with PMH of systolic CHF, ischemic cardiomyopathy with anterior wall OR in August 2012, status post bypass in 2005, status post CABG, status post subsequent stents 2, ICD placement, Atrial fibrillation on Eliquis, HLD, DM [id number], tobacco abuse, presents with acute respiratory failure with hypoxia. #Encephalopathy, consider secondary to hypercapnia, infection, vs underlying dementia -dialysis 01/05/20 -unclear baseline mental status, PT eval #Acute on chronic respiratory failure with hypoxia secondary to CAP versus aspiration, will also consider acute on chronic CHF exacerbation, with unde rlying COPD, COVID screen neg, possible association with hypercoagulable vs hypocoagulable state, patient is a former smoker -Follow-up Legionella, strep, sputum cultures, blood cultures 2, continue ceftriaxone and Doxy 7 days, patient has allergy towards azithromycin. #hypoglycemia: nutrition consult for TF, started D5 1/2 NS until TF established #Epistaxis: ENT consulted for further evaluation, keep Rhino Rocket, INR supratherapeutic not Coumadin, will monitor. Consider resuming Eliquis PM vs tomorrow. #hyperkalemia: resolved, Monitor, #Hyperbilirubinemia and Elevated alkaline phosphatase: Monitor at this time, compared to previous labs improved #HFrEF: cont home meds via GT #Ischemic dilated cardiomyopathy/atrophic fibrillation, dependent on NOAC: will consider resuming ASA today, also hold NOAC, patient likely is not on dual antiplatelet therapy, status post stent on 10/2018 #CKD III: Consider gentle hydration, #DM 2, insulin-dependent: Will reduce patients home insulin to half, insulin sliding scale, hyperglycemic protocol DVT PPI: SCDs Code: FULL (MOLST form) Disposition: At least 2 midnights today, plan to return to long-term at [place] 32 minutes spent on care coordination VS, I&O, 24H, Fishbone Vital Signs/I&O Vital Signs Date Time Temp Pulse Resp B/P (MAP) Pulse Ox O2 Delivery O2 Flow Rate FiO2 01/06/20 12:46 96.0 73 20 132/86 (101) 100 Aerosol Mask 6.0 01/06/20 08:00 40 I&O- Last 24 Hours up to 6 AM 01/06/20 05:59 Intake Total 0 ml Output Total 1800 ml Balance -1800 ml Laboratory Data 24H LABS Laboratory Tests 2 01/05/20 20:04: Bedside Glucose (Misc Panel) 75L 01/06/20 05:34: Nucleated Red Blood Cells % (auto) 0.3H, Prothrombin Time 18.2H, Prothromb Time International Ratio 1.54, Anion Gap 6L, Glomerular Filtration Rate > 60.0, Calcium Level 8.9 01/06/20 06:23: Bedside Glucose (Misc Panel) 39*L 01/06/20 06:42: Bedside Glucose (Misc Panel) 109 01/06/20 08:23: Bedside Glucose (Misc Panel) 65L 01/06/20 11:51: Bedside Glucose (Misc Panel) 52L CBC/BMP Laboratory Tests 01/06/20 05:34 Microbiology Microbiology 01/04/20 Blood Culture - Preliminary, Resulted No growth after 24 hours . All specim... 01/04/20 Blood Culture - Preliminary, Resulted No growth after 24 hours . All specim... VANITA VERNON MD January 06, 2020 13:06
[2020-01-06] MEDS ORDERED: BARIUM SULFATE 700 MG TABLET (E-Z-DISK) As Ordered ONE (13:23)
[2020-01-06] MEDS ORDERED: VARIBAR NECTAR 40% w/v 240ML SUSP BTL As Ordered ONE (13:23)
[2020-01-06] MEDS ORDERED: E-Z-PAQUE 96% w/w SUSP 176GM BTL As Ordered ONE (13:23)
[2020-01-06] MEDS ORDERED: VARIBAR PUDDING 40% w/v 230ML TUBE As Ordered ONE (13:23)
--- NOTE | 2020-01-06 15:23 | REP ---
COOKIE SWALLOW The procedure was performed under the direct supervision of Dr. Fierro. The procedure was performed with Sara Andrews from speech pathology present. 5 ml aliquots of thin, pudding, mixed fruit, soft, nectar and honey consistency barium was administered. With fruit, nectar and honey consistency barium there is laryngeal penetration. With thin consistency barium there is aspiration. The detailed report of this examination will be provided by speech pathology. 1.7 minutes of fluoroscopy time was utilized for this procedure. Electronically Signed by JACKSON Barnes 01/06/2020 02:44 P Electronically Signed by Tom Fierro MD 01/06/2020 03:15 P
[2020-01-06] MEDS: cefTRIAXone SOD 1 GM in D5W MINI-BAG PLUS 50 ML IV SCH (15:53)
[2020-01-06] MEDS: TORSEMIDE 20 MG TAB PO SCH (17:55)
[2020-01-06] MEDS: HumaLOG INSULIN (NovoLOG) PER UNIT SC SCH (20:20)
[2020-01-06] MEDS: SENNA SYRUP 15 ML UDC PO SCH (21:00)
[2020-01-06] MEDS: ATORVASTATIN 20 MG TAB PO SCH (21:02)
--- NOTE | 2020-01-06 22:18 | CR ---
DATE OF CONSULTATION: 01/05/2020 REFERRING PHYSICIAN: Paola Strickland, Hospitalist Group CHIEF COMPLAINT: Left epistaxis. HISTORY OF PRESENT ILLNESS: This 64-year-old man presented to the [facility] Emergency Department on 01/04/2020 with acute onset of left-sided epistaxis. Patient's past medical history is significant for congestive heart failure (CHF), ischemic cardiomyopathy with anterior wall myocardial infarction (WA) in August 2012, coronary artery bypass graft (CABG) in 2005 with subsequent stents times two, implantable cardioverter defibrillator (ICD) placement, atrial fibrillation, on Xarelto, type 2 diabetes, and tobacco abuse. Hemostasis was achieved by placing a Rhino Rocket done by the emergency department (ED) physician on January 04, 2020. The patient was admitted for acute respiratory failure with hypoxia. He was also noted to have altered mental status in the emergency department. Since placement of the Rhino Rocket, the patient has not experienced further episodes of epistaxis from the left nares. The patient had a recent episode of left-sided epistaxis that occurred approximately 2 weeks ago as well. He was successfully treated with a Rhino Rocket at that time as well. PAST MEDICAL HISTORY: As above. PAST SURGICAL HISTORY: As listed above. FAMILY HISTORY: Noncontributory. SOCIAL HISTORY: Former smoker. Non-alcohol user or drug abuser. REVIEW OF SYSTEMS: As listed under history of the present illness, otherwise unable to be assessed. MEDICATIONS: - Eliquis - atorvastatin - Lasix - insulin - metoprolol - Dulera - polyethylene glycol powder pack - Senna - midodrine - ProAir puffer - Dulcolax - Milk of Magnesia - ondansetron - nasal saline spray - acetaminophen ALLERGIES: METFORMIN, VALSARTAN, AZITHROMYCIN, SITAGLIPTIN. PHYSICAL EXAMINATION: On examination, the patient appeared tired. Afebrile. Respiratory rate of 20, blood pressure 132/88, oxygen (O2) 100% on 15 liters of oxygen with Venturi mask. Ears: Normal pinna. Normal external auditory canal. Face: Normocephalic. Symmetric facial motion. Nose: Normal nasal external anatomy. Nasal packing in the left nostril was approximately 2 cm of packing partially extruded, balloon inflated. Right naris is unremarkable. Oral cavity: Dry cough on the roof of the mouth. Tongue mobile. Posterior pharyngeal wall free of fresh blood. Neck: Trachea midline. No palpable cervical lymphadenopathy. LABORATORY: Hemoglobin 11.9 on 01/05/2020, 13.2 on 01/04/2020. Platelets 222 on 01/05/2020 and 267 on 01/04/2020. PT 20.8, INR 1.8. Electrolytes: Normal. BUN 76, creatinine 1.37, glucose fasting 137 high, calcium 8.6 low, troponin 0.08 normal. COVID-19 testing negative. This 64-year-old man presented to the [facility] Emergency Department with recurrent left epistaxis. PLAN: Patient has been successfully treated with placement of the Rhino Rocket into the left nasal cavity. The packing should be left in situ for about 4-5 days as he had recurrent epistaxis. Consideration needs to be given to maintaining good nasal hydration, including use of nasal saline and humidified oxygen. Anticoagulation should be withheld for at least 5-7 days in order to control the epistaxis. Routine oral care should be also provided to ensure the blood clots in the oral cavity is cleared out of the oral cavity as soon as possible. Given the nature of the recurrent epistaxis, patient would be a candidate for removal of the nasal packing on 01/09/2020 in the operating room in a controlled setting.
[2020-01-07] VITALS (8 sets, daily range): BP systolic 102–132; BP diastolic 63–82; O2SAT 98–100
[2020-01-07] MEDS: SLF 3 ML SYR IV SCH ×3 (05:33→20:40)
[2020-01-07 06:02] LABS: HEMATOCRIT 38.2 % (42.0-52.0); HEMOGLOBIN 11.5 g/dl (13.5-17.5); MEAN CORPUSCULAR HEMOGLOBIN 28.3 pg (27.0-33.0); MEAN CORPUSCULAR HGB CONC 30.1 g/dl (32.0-36.5); MEAN CORPUSCULAR VOLUME 93.9 fl (80.0-96.0); PLATELET COUNT, AUTOMATED 249 10^3/uL (150-450); RED BLOOD COUNT 4.07 10^6/uL (4.30-6.10); WHITE BLOOD COUNT 6.7 10^3/uL (4.0-10.0)
[2020-01-07 06:15] LABS: INR 1.38; PROTHROMBIN TIME 16.7 SECONDS (11.8-14.0)
[2020-01-07 06:18] LABS: CALCIUM LEVEL 8.7 MG/DL (8.8-10.2); CREATININE FOR GFR 1.34 MG/DL (0.70-1.30); GLOMERULAR FILTRATION RATE 57.3 (>49)
[2020-01-07] MEDS: DOXYCYCLINE HYCLATE 100 MG in D5W MINI-BAG PLUS 100 ML IV SCH ×2 (06:27→20:35)
[2020-01-07] MEDS: MIRALAX *UNIT DOSE* 17GM PACKET PO SCH (06:51)
[2020-01-07] MEDS: LEVEMIR (INSULIN DETEMIR) 1 UNITS/0.01ML SC SCH ×2 (08:12→20:35)
[2020-01-07] MEDS: METOPROLOL TART 12.5 MG PER 1/2 TAB PO SCH ×2 (08:12→20:35)
[2020-01-07] MEDS: TORSEMIDE 20 MG TAB PO SCH ×2 (08:12→16:29)
--- NOTE | 2020-01-07 08:50 | IPN ---
DATE OF SERVICE: 01/06/2020 SUBJECTIVE: The patient was seen and examined at the bedside today morning. He was dialyzed yesterday. He tolerated the hemodialysis procedure well. 1.5 liters of fluid was removed. The patient is significantly feeling better. His shortness of breath is better. He is much more awake and alert. There is no more bleeding from the left-sided nostril. He still has a Rhino Rocket on the left side. The patient has an indwelling Aguirre catheter. OBJECTIVE: Vital signs: Temperature is 96.9 degrees Fahrenheit, blood pressure 118/77, pulse is 70, respiratory rate of 20, saturating 96% on room air. Intake and output: Ultrafiltration with hemodialysis is 1.5 liters. Urine output since overnight is 200 mL. PHYSICAL EXAMINATION: General: The patient is awake, alert, oriented times two, laying in bed, no apparent distress. Head and neck examination: The patient has a left-sided Rhino Rocket. He is not bleeding any more. Mucous membranes are moist. Neck is neck is supple. Mild elevated jugular venous distention (JVD). Cardiovascular: S1, S2, regular rate. 1+ edema of the bilateral lower extremities. The patient has a right-sided automatic implantable cardioverter-defibrillator (AICD) and left-sided tunneled hemodialysis catheter. Respiratory: Chest is clear to auscultation bilaterally. Bilateral equal air entry. No rales or rhonchi. Abdomen: Soft, positive bowel sounds. Percutaneous endoscopic gastrostomy (PEG) tube was seen in the epigastrium. No organomegaly was noted. Genitourinary: He has an indwelling Aguirre catheter. Musculoskeletal: The patient has 1+ edema of the bilateral lower extremities. Otherwise, no clubbing or cyanosis. 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 He is Altagracia lift dependent. Otherwise, he is able to communicate and moves upper extremities. LABORATORY REVIEW: Complete blood count (CBC) showed a WBC 7.4, hemoglobin 11.8, platelets are 226. INR is 1.5. Basic metabolic profile (BMP) showed sodium 139, potassium 4.1, chloride 102, bicarbonate 31, BUN 46, creatinine is 1.1. CURRENT INPATIENT MEDICATIONS: The patient's medications were all reviewed by me. The patient is hypoglycemic. He is still nothing by mouth. He is not being fed. I have started the patient on tube feeds with Nepro at 40 mL/h. I have stopped his furosemide and started the patient on torsemide 40 mg by mouth twice a day. No other change in the medications today as compared with yesterday. ASSESSMENT AND PLAN: 1. Acute renal failure. The patient's renal failure was during a recent hospitalization in August at [place] secondary to influenza. He did not respond to dobutamine and Lasix at that time. However, looking at his laboratories, it looks like his renal function is improving now. He was dialyzed yesterday. He has Thursday, Thursday, Thursday schedule. I will hold off on dialyzing him today. I have increased his diuretics to torsemide 40 mg by mouth twice a day. Depending upon his urine output and his 24-hour urine creatinine clearance, I would decide if the patient needs any more dialysis. 2. Acute decompensated systolic congestive heart failure. The patient was dialyzed yesterday. 1.5 liters of fluid was removed. Diuretic regimen has been increased to torsemide 40 mg by mouth twice a day. 3. Urinary retention. Continue the Aguirre catheter at this time. That will help with the retention and monitoring urine output, as well. 4. Diabetes mellitus type 2. The patient is hypoglycemic. He is getting insulin. He was not getting any feeds. I have started the patient on tube feeds. 5. Nutrition. The patient is nothing by mouth and not even getting any feeds through the tube feed. Hypoglycemia was noted, requiring dextrose injections. Continue the patient on tube feed with Nepro at 40 mL/h with free water flushes until the patient is evaluated by a dietitian. 6. Right-sided pulmonary infiltrates. The patient is getting ceftriaxone and doxycycline. He is afebrile. 7. Atrial fibrillation. Eliquis dose was decreased to 2.5 mg by mouth twice a day because of bleeding. Continue current dose of metoprolol. MTDD
--- NOTE | 2020-01-07 09:14 | IPNPDOC ---
Date Seen The patient was seen on 01/07/20. Progress Note Pt is a 64yM with PMH of systolic CHF, ischemic cardiomyopathy with anterior wall ME in August 2012, status post bypass in 2006, status post CABG, status post subsequent stents 2, ICD placement, Atrial fibrillation on Eliquis, HLD, DM [id number], tobacco abuse, presents with acute respiratory failure with hypoxia. Nephrology was consulted for dialysis from hyperkalemia, pt had dialysis on 01/05/20. ENT consultation with recommendations to hold Eliquis for 5 days prior to reassessment, discussed case with Dr. Jennings, cardiology, pt does not have any noted history of CVA, Hold Eliquis for 5 days, and allow for reassessment with ENT with removal of Rhino rocket. Subjective: He had no overnight issues, started on tube feeds yesterday, was also dialyzed 2 days ago. D/w nutrition, pured diet, but primarily tube feeds. OBJECTIVE PHYSICAL EXAMINATION: VITAL SIGNS: Please see below. GENERAL: male who is more awake and interactive today HEENT: Normocephalic, atraumatic, dry mucus membrane NECK: Supple CARDIOVASCULAR EXAMINATION: S1, S2 RESPIRATORY EXAMINATION: Crackles on R, diminished breathing ABDOMINAL EXAMINATION: +BS, soft EXTREMITIES: no edema SKIN: No rash NEUROLOGICAL EXAMINATION: awake PSYCHIATRIC EXAMINATION: Flat affect LABORATORY DATA, IMAGING STUDIES, MICROBIOLOGY: Please see below. ASSESSMENT AND PLAN: Pt is a 64yM with PMH of systolic CHF, ischemic cardiomyopathy with anterior wall ME in August 2012, status post bypass in 2005, status post CABG, status post subsequent stents 2, ICD placement, Atrial fibrillation on Eliquis, HLD, DM [id number], tobacco abuse, presents with acute respiratory failure with hypoxia and epistaxis. #Epistaxis: ENT consulted, plan to keep Rhino Rocket, INR now wnl, will monitor. hold eliquis for rhino rocket removal 01/09/20 with ENT, oral hygiene #Encephalopathy, consider secondary to hypercapnia, infection, vs underlying dementia, resolved, pt appears to have underlying psychiatric behaviors, we'll consider psychiatry consult -unclear baseline mental status, PT eval #hyperkalemia, likely secondary to acute renal failure: resolved, Monitor potassium creatinine levels. Nephrology consultation, to note, patient had influenza in August. Sterilization in [place] and did not response to dobutamine and Lasix, hold off on additional dialysis at this time, but noted to have scheduled dialysis on Thursday, Thursday, Thursday. -dialysis 01/05/20 -Creatinine 1.34, today appears to be baseline, though worse from yesterday. Consider secondary to increase in torsemide 40 mg twice a day. Monitor input and output. Follow-up with his 24-hour urine creatinine clearance. Follow up with nephrology recommendations. -continue barnes for urinary retention #Acute on chronic respiratory failure with hypoxia secondary to CAP versus aspiration, will also consider acute on chronic CHF exacerbation, with underlying COPD, COVID screen neg, possible association with hypercoagulable vs hypocoagulable state, patient is a former smoker -Follow-up Legionella, strep, sputum cultures, blood cultures 2, continue ceftriaxone and Doxy 7 days, patient has allergy towards azithromycin. Add incentive spirometry -Speech therapy recommendations. 4. Diet, make nothing by mouth on midnight of 01/09/2020, stop tube feeds at that time, and start D5 half-normal saline at 75 mL an hour #hypoglycemia, hx of DM 2, insulin-dependent: Will reduce patients home insulin to half, insulin sliding scale, hyperglycemic protocol #HFrEF: cont home meds via GT #Ischemic dilated cardiomyopathy/atrophic fibrillation, dependent on NOAC: will consider resuming ASA today, also hold NOAC, patient likely is not on dual antiplatelet therapy, status post stent on 10/2018, discussed with patient recent benefits with holding anticoagulant #Hyperbilirubinemia and Elevated alkaline phosphatase: Monitor at this time, compared to previous labs improved DVT PPI: SCDs Code: FULL (MOLST form) Disposition: At least 2 midnights today, plan to return to custodial at [place], patient does not want to return to current custodial, will discuss with discharge team on disposition on 01/09/2020 35 minutes were spent on patient care, greater than 50% was spent on d/w patient VS, I&O, 24H, Fishbone Vital Signs/I&O Vital Signs Date Time Temp Pulse Resp B/P (MAP) Pulse Ox O2 Delivery O2 Flow Rate FiO2 01/07/20 08:12 70 119/77 01/07/20 04:00 5.0 28 01/07/20 04:00 96.4 20 96 Aerosol Mask I&O- Last 24 Hours up to 6 AM 01/07/20 05:59 Intake Total 860 ml Output Total 500 ml Balance 360 ml Laboratory Data 24H LABS Laboratory Tests 2 01/06/20 11:51: Bedside Glucose (Misc Panel) 52L 01/06/20 18:10: Bedside Glucose (Misc Panel) 110 01/06/20 20:09: Bedside Glucose (Misc Panel) 145H 01/07/20 05:34: Nucleated Red Blood Cells % (auto) 0.4H, Prothrombin Time 16.7H, Prothromb Time International Ratio 1.38, Anion Gap 8, Glomerular Filtration Rate 57.3, Calcium Level 8.7L CBC/BMP Laboratory Tests 01/07/20 05:34 Microbiology Microbiology 01/04/20 Blood Culture - Preliminary, Resulted No Growth after 48 hours. All Specime... 01/04/20 Blood Culture - Preliminary, Resulted No Growth after 48 hours. All Specime... VANITA VERNON MD January 07, 2020 09:14
--- NOTE | 2020-01-07 15:15 | IPN ---
DATE OF SERVICE: 01/07/2020 SUBJECTIVE: The patient was seen and examined at the bedside today morning. Patient is much more awake and alert. He was started on tube feeds yesterday. He was also seen by nutrition and pureed foods were recommended, but the patient is aspirating on most of the feeding which is being given to him orally. His glucose levels are better after starting the tube feeds. His urine output is not being well recorded; however, the patient is still oliguric OBJECTIVE: Vital signs: Temperature is 96.4 degrees Fahrenheit, blood pressure 119/77, pulse is 78, respiratory of 20, saturating 96% on aerosol mask at 6 liters. Intake and output: Urine output recorded as 500 mL yesterday. There is no urine output recorded since overnight. However, I saw 300 mL of urine in the bag. Weight is 85.2 kg. PHYSICAL EXAM: General: The patient is awake, alert, oriented times two laying in bed in no apparent distress. Head and neck exam: Extraocular muscles intact. Pupils equally round and reactive to light. He has moderately elevated jugular venous distention (JVD). He has a left internal jugular (IJ) tunneled hemodialysis catheter. Cardiovascular: S1, S2, regular rate, 2+ edema of the bilateral lower extremities. Right-sided AICD was noted. Respiratory: Mildly decreased breath sounds at the bases, otherwise, no active rales or rhonchi. Abdomen: Soft, positive bowel sounds. Nontender. No organomegaly. Genitourinary: He has an indwelling Aguirre catheter. Musculoskeletal: 2+ edema of the bilateral lower extremities. 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 He does not walk. LAB REVIEW: CBC showed WBC of 6.7, hemoglobin 11.5, platelets of 249. BMP showed sodium 136, potassium 4, chloride 99, bicarbonate 29, BUN 54, creatinine is 1.3, calcium 8.7. IMAGING: A cookie swallow test was done yesterday; it showed aspiration. CURRENT INPATIENT MEDICATIONS: The patient's medications were all reviewed by me. He was started on torsemide 40 mg by mouth twice a day which he is tolerating. He continues to be on tube feeds with Nepro at 40 mL an hour. He continues to be on doxycycline and ceftriaxone. ASSESSMENT AND PLAN: 1. Acute renal failure. Despite the Aguirre catheter, patient is oliguric although his creatinine is low but he has a low muscle mass and he is oliguric and history of severe systolic heart failure. I am going to dialyze the patient again today. Continue to monitor for improvement of the renal function. 2. Acute decompensated systolic congestive heart failure. The patient has edema and has jugular venous distention (JVD) and is getting tube feeds. I will try to remove at least 2 liters of fluid during dialysis today. 3. Urinary retention. The patient has a Aguirre catheter. It will be removed tomorrow. I am going to start the patient on Flomax if his blood pressures stays stable. 4. Diabetes mellitus type 2. The patient's glucose levels are better now. Continue the insulin coverage. 5. Nutrition. The patient is tolerating the Nepro tube feeds. He is unable to swallow even the pureed fluids and he aspirates on them. 6. Right-sided pulmonary infiltrate. The patient is currently on doxycycline and ceftriaxone. 7. Atrial fibrillation. Continue current dose of metoprolol. Eliquis was decreased to 2.5 mg by mouth twice a day.
[2020-01-07] MEDS: cefTRIAXone SOD 1 GM in D5W MINI-BAG PLUS 50 ML IV SCH (16:28)
[2020-01-07] MEDS: MIDODRINE 5 MG TAB PO SCH (18:00)
[2020-01-07] MEDS: HumaLOG INSULIN (NovoLOG) PER UNIT SC SCH (20:18)
[2020-01-07] MEDS: ATORVASTATIN 20 MG TAB PO SCH (20:35)
[2020-01-07] MEDS: SENNA SYRUP 15 ML UDC PO SCH (20:35)
[2020-01-08] VITALS (13 sets, daily range): BP systolic 108–123; BP diastolic 57–84; O2SAT 92–100
[2020-01-08] MEDS: DOXYCYCLINE HYCLATE 100 MG in D5W MINI-BAG PLUS 100 ML IV SCH ×2 (06:02→20:54)
[2020-01-08] MEDS: SLF 3 ML SYR IV SCH ×3 (06:02→20:55)
[2020-01-08 07:33] LABS: HEMATOCRIT 37.6 % (42.0-52.0); HEMOGLOBIN 11.4 g/dl (13.5-17.5); MEAN CORPUSCULAR HEMOGLOBIN 28.9 pg (27.0-33.0); MEAN CORPUSCULAR HGB CONC 30.3 g/dl (32.0-36.5); MEAN CORPUSCULAR VOLUME 95.2 fl (80.0-96.0); PLATELET COUNT, AUTOMATED 208 10^3/uL (150-450); RED BLOOD COUNT 3.95 10^6/uL (4.30-6.10); WHITE BLOOD COUNT 7.2 10^3/uL (4.0-10.0)
[2020-01-08 07:50] LABS: INR 1.33; PROTHROMBIN TIME 16.2 SECONDS (11.8-14.0)
[2020-01-08 07:58] LABS: CALCIUM LEVEL 8.7 MG/DL (8.8-10.2); CREATININE FOR GFR 1.37 MG/DL (0.70-1.30); GLOMERULAR FILTRATION RATE 55.9 (>49)
[2020-01-08] MEDS: TORSEMIDE 20 MG TAB PO SCH ×2 (09:13→17:02)
[2020-01-08] MEDS: METOPROLOL TART 12.5 MG PER 1/2 TAB PO SCH ×2 (09:13→20:54)
[2020-01-08] MEDS: MIDODRINE 5 MG TAB PO SCH (09:13)
[2020-01-08] MEDS: MIRALAX *UNIT DOSE* 17GM PACKET PO SCH (09:13)
[2020-01-08] MEDS: LEVEMIR (INSULIN DETEMIR) 1 UNITS/0.01ML SC SCH ×2 (09:14→20:54)
--- NOTE | 2020-01-08 09:54 | IPNPDOC ---
Date Seen The patient was seen on 01/08/20. Progress Note Pt is a 64yM with PMH of systolic CHF, ischemic cardiomyopathy with anterior wall VA in August 2012, status post bypass in 2005, status post CABG, status post subsequent stents 2, ICD placement, Atrial fibrillation on Eliquis, HLD, DM [id number], tobacco abuse, presents with acute respiratory failure with hypoxia. Nephrology was consulted for dialysis from hyperkalemia, pt had dialysis on 01/05/20. ENT consultation with recommendations to hold Eliquis for 5 days prior to reassessment, discussed case with Dr. Jennings, cardiology, pt does not have any noted history of CVA, Hold Eliquis for 5 days, and allow for reassessment with ENT with removal of Rhino rocket. Subjective: He is still oliguric, was dialyzed last night, no function had minimal improvement. Follow-up with nephrology. Nephrology started Flomax, keep Barnes catheter in for a procedure on 01/09/2020. Patient reports dysuria, will change Barnes catheter, will obtain UA which I suspect will be neg, patient is being treated with ceftriaxone and doxycycline for pneumonia, which will likely cover UTI organisms if present. Blood cultures reveal no growth. Echo obtained on 2018 reveals an EF of 10-15%, severe elevation of RV systolic pressure, global hypokinesis OBJECTIVE PHYSICAL EXAMINATION: VITAL SIGNS: Please see below. GENERAL: male who is more awake and interactive today HEENT: Normocephalic, atraumatic, dry mucus membrane, Rhino Rocket intact on left nostril NECK: Supple CARDIOVASCULAR EXAMINATION: S1, S2 RESPIRATORY EXAMINATION: CTAB ABDOMINAL EXAMINATION: +BS, soft EXTREMITIES: trace edema SKIN: No rash NEUROLOGICAL EXAMINATION: awake PSYCHIATRIC EXAMINATION: Flat affect LABORATORY DATA, IMAGING STUDIES, MICROBIOLOGY: Please see below. ASSESSMENT AND PLAN: Pt is a 64yM with PMH of systolic CHF, ischemic cardiomyopathy with anterior wall VA in August 2012, status post bypass in 2005, status post CABG, status post subsequent stents 2, ICD placement, Atrial fibrillation on Eliquis, HLD, DM [id number], tobacco abuse, presents with acute respiratory failure with hypoxia, epistaxis, and oliguria secondary to cardiorenal syndrome. #Epistaxis: ENT consulted, plan to keep Rhino Rocket, INR now wnl, will monitor. hold eliquis for rhino rocket removal 01/09/20 with ENT, oral hygiene #Oliguria, likely secondary to underlying systolic CHF, discussed with nephrology, possible dialysis in the a.m. prior to ENT Rhino Rocket removal, 24 hour urine, put evaluation #Encephalopathy, consider secondary to hypercapnia, infection, vs underlying dementia, resolved, pt appears to have underlying psychiatric behaviors, will consider psychiatry consult -unclear baseline mental status, PT eval #hyperkalemia, likely secondary to acute renal failure: resolved, Monitor potassium creatinine levels. Nephrology consultation, to note, patient had influenza in August in [place] and did not response to dobutamine and Lasix, h old off on additional dialysis at this time, but noted to have scheduled dialysis on Thursday, Thursday, Thursday during that time. -dialysis 01/05/20 and 01/07/20 -Creatinine 1.37, today appears to be baseline, though worse from yesterday. Monitor input and output. Follow-up with his 24-hour urine creatinine clearance. Follow up with nephrology recommendations. -continue barnes for urinary retention, replace Barnes due to dysuria #Acute on chronic respiratory failure with hypoxia secondary to CAP versus aspiration, will also consider acute on chronic CHF exacerbation, with underlying COPD, COVID screen neg, possible association with hypercoagulable vs hypocoagulable state, patient is a former smoker -blood cultures 2: [place] growth -Follow-up Legionella, strep, sputum cultures, continue ceftriaxone and Doxy 7 days, patient has allergy towards azithromycin. Add incentive spirometry -Speech therapy recommendations, Diet, make nothing by mouth on midnight of 01/09/2020, stop tube feeds at that time, and start D5 half-normal saline at 75 mL an hour #hypoglycemia, hx of DM 2, insulin-dependent: Will reduce patients home insulin to half, insulin sliding scale, hyperglycemic protocol #HFrEF: cont home meds via GT #Ischemic dilated cardiomyopathy/atrophic fibrillation, dependent on NOAC: will consider resuming ASA today, also hold NOAC, patient likely is not on dual antiplatelet therapy, status post stent on 10/2018, discussed with patient recent benefits with holding anticoagulant #Hyperbilirubinemia and Elevated alkaline phosphatase: Monitor at this time, compared to previous labs improved DVT PPI: SCDs Code: FULL (MOLST form) Disposition: At least 2 midnights today, plan to return to shelter at [place], patient does not want to return to current shelter, will discuss with discharge team on disposition on 01/10/2020 vs 01/11/20 32 minutes were spent on patient care VS, I&O, 24H, [place] Vital Signs/I&O Vital Signs Date Time Temp Pulse Resp B/P (MAP) Pulse Ox O2 Delivery O2 Flow Rate FiO2 01/08/20 08:00 98.1 70 18 110/74 (86) 100 Aerosol Mask 5.0 01/08/20 04:00 28 I&O- Last 24 Hours up to 6 AM 01/08/20 06:00 Intake Total 630 ml Output Total 2400 ml Balance -1770 ml Laboratory Data 24H LABS Laboratory Tests 2 01/07/20 18:24: Bedside Glucose (Misc Panel) 229H 01/07/20 20:05: Bedside Glucose (Misc Panel) 229H 01/08/20 07:05: Nucleated Red Blood Cells % (auto) 0.4H, Prothrombin Time 16.2H, Prothromb Time International Ratio 1.33, Anion Gap 5L, Glomerular Filtration Rate 55.9, Calcium Level 8.7L CBC/BMP Laboratory Tests 01/08/20 07:05 Microbiology Microbiology 01/04/20 Blood Culture - Preliminary, Resulted No Growth after 72 hours. All specime... 01/04/20 Blood Culture - Preliminary, Resulted No Growth after 72 hours. All specime... VANITA VERNON MD January 08, 2020 09:16
[2020-01-08 14:29] LABS: AMORPHOUS SEDIMENT LARGE (NEGATIVE); APPEARANCE, URINE CLOUDY (CLEAR); BACTERIA, URINE AUTO 1+ (NEGATIVE); BILIRUBIN, URINE AUTO NEGATIVE (NEGATIVE); BLOOD, URINE BLOOD 3+ (NEGATIVE); COLOR, URINE AMBER (YELLOW); GLUCOSE, URINE (UA) AUTO NEGATIVE (NEGATIVE); KETONE, URINE AUTO NEGATIVE (NEGATIVE); LEUKOCYTE ESTERASE, URINE AUTO 2+ (NEGATIVE); MUCUS, URINE SMALL (NEGATIVE); NITRITE, URINE AUTO NEGATIVE (NEGATIVE); PROTEIN, URINE AUTO 2+ mg/dL (NEGATIVE); RBC, URINE AUTO TNTC /HPF (0-3); SPECIFIC GRAVITY URINE AUTO 1.013 (1.002-1.035); SQUAMOUS EPITHELIAL CELL UR AU 1 /HPF (0-6); WBC, URINE AUTO 57 /HPF (0-3)
[2020-01-08] MEDS: cefTRIAXone SOD 1 GM in D5W MINI-BAG PLUS 50 ML IV SCH (15:42)
[2020-01-08] MEDS: ATORVASTATIN 20 MG TAB PO SCH (20:53)
[2020-01-08] MEDS: SENNA SYRUP 15 ML UDC PO SCH (20:53)
[2020-01-08] MEDS: HumaLOG INSULIN (NovoLOG) PER UNIT SC SCH (20:55)
[2020-01-09] VITALS (14 sets, daily range): BP systolic 107–146; BP diastolic 71–87; O2SAT 94–100
[2020-01-09] MEDS ORDERED: D5W/0.45% SODIUM CHLORIDE 1,000 ML IV SCH
[2020-01-09] MEDS ORDERED: D10W/0.45% SODIUM CHLORIDE 1,000 ML IV SCH (00:05)
--- NOTE | 2020-01-09 00:31 | IPN ---
DATE: 01/08/2020 SUBJECTIVE: Patient was seen and examined at the bedside today morning. He is afebrile, hemodynamically stable. He still has a left-sided Rhino Rocket. Patient is going to be nothing by mouth tonight for removal of the Rhino Rocket in the operating room (OR) tomorrow morning. He continues to tolerate the tube feeds. He continues to be oliguric, and creatinine in between dialysis is rising. OBJECTIVE: Vital signs: Temperature is 97.7 degrees Fahrenheit, blood pressure 123/83, pulse is 71, respiratory rate of 16, saturating 96% on the aerosol mask with 5 liters oxygen. Intake and output: Urine output recorded is 250 mL since overnight. Ultrafiltration with hemodialysis was 2 liters. Weight on the bed scale is 87.4 kg. PHYSICAL EXAM: General: Patient is awake, alert, oriented times two, laying in bed, in no apparent distress. Head and neck exam: Extraocular muscles intact. Pupils equally round and reactive to light. Mucous membranes are moist. Neck is supple. There is no significant jugular venous distention (JVD). Cardiovascular: S1, S2, regular rate. 1+ edema of the bilateral lower extremities. Patient has a right-sided automatic implantable cardioverter-defibrillator (AICD) and left-sided tunneled dialysis catheter. Abdomen: Soft. Positive bowel sounds. Nontender. No organomegaly. Genitourinary: He has an indwelling Aguirre catheter. Musculoskeletal: 1+ edema of the bilateral lower extremities. Central nervous system (REGULATORY PROCESS MANAGER): Patient is chronically bedridden. He moves extremities, but he does not walk. LAB REVIEW: CBC showed WBC 7.2, hemoglobin 11.4, platelets are 208. BMP showed sodium 134, potassium is 4, chloride 95, bicarbonate 34, BUN 37, creatinine is 1.37. CURRENT INPATIENT MEDICATIONS: Patient's medications were all reviewed by me. He continues to be on intravenous (IV) ceftriaxone and doxycycline. I have ordered D10 half normal saline at 60 mL/h at nighttime, and he is nothing by mouth for the procedure in the morning. No other change in the medications today as compared with yesterday. ASSESSMENT AND PLAN: 1. Acute renal failure. Patient is still dialysis dependent for his volume and heart failure. He still oliguric. I have ordered 24-hour urine creatinine clearance to estimate his renal function since the creatinine is overestimating his glomerular filtration rate (GFR). 2. Acute decompensated systolic congestive heart failure. Patient was dialyzed yesterday; 2 liters of fluid was removed. He continues to be on torsemide 40 mg by mouth twice a day. 3. Urinary retention. He continues to have Aguirre catheter. I will keep the Aguirre catheter at this time since we are collecting 24-hour urine. 4. Nutrition. Patient is tolerating the Nepro tube feeds. He is going to be nothing by mouth and, as mentioned above, he will get D10 half normal saline for 12 hours while he is nothing by mouth. 5. Right-sided pulmonary infiltrates. Patient continues to be on IV doxycycline and ceftriaxone. Most likely is associated with recurrent aspirations. 6. Atrial fibrillation. Heart rate is controlled with metoprolol. Eliquis dose as 2.5 mg by mouth twice a day. 7. Epistaxis, status post left-sided Rhino Rocket. Patient is going to have the Rhino Rocket removed by ear, nose, and throat (ENT) in the OR tomorrow morning.
[2020-01-09] MEDS: SLF 3 ML SYR IV SCH ×3 (05:45→21:08)
[2020-01-09 06:05] LABS: HEMATOCRIT 38.2 % (42.0-52.0); HEMOGLOBIN 11.7 g/dl (13.5-17.5); MEAN CORPUSCULAR HEMOGLOBIN 28.3 pg (27.0-33.0); MEAN CORPUSCULAR HGB CONC 30.6 g/dl (32.0-36.5); MEAN CORPUSCULAR VOLUME 92.5 fl (80.0-96.0); PLATELET COUNT, AUTOMATED 223 10^3/uL (150-450); RED BLOOD COUNT 4.13 10^6/uL (4.30-6.10); WHITE BLOOD COUNT 6.4 10^3/uL (4.0-10.0)
[2020-01-09] MEDS: DOXYCYCLINE HYCLATE 100 MG in D5W MINI-BAG PLUS 100 ML IV SCH (06:07)
[2020-01-09 06:20] LABS: INR 1.31
[2020-01-09 06:21] LABS: PARTIAL THROMBOPLASTIN TIME 36.1 SECONDS (25.0-38.4)
[2020-01-09 06:22] LABS: CALCIUM LEVEL 8.7 MG/DL (8.8-10.2); CREATININE FOR GFR 1.45 MG/DL (0.70-1.30); GLOMERULAR FILTRATION RATE 52.3 (>49); POTASSIUM SERUM 3.9 MEQ/L (3.5-5.1)
[2020-01-09] MEDS: MIRALAX *UNIT DOSE* 17GM PACKET PO SCH (07:14)
--- NOTE | 2020-01-09 08:27 | IPNPDOC ---
Date Seen The patient was seen on 01/09/20. Progress Note Pt is a 64yM with PMH of systolic CHF, ischemic cardiomyopathy with anterior wall RI in August 2012, status post bypass in 2005, status post CABG, status post subsequent stents 2, ICD placement, Atrial fibrillation on Eliquis, HLD, DM [id number], tobacco abuse, presents with acute respiratory failure with hypoxia. Nephrology was consulted for dialysis from hyperkalemia, pt had dialysis on 01/05/20 and 01/07/20. Pt has dialysis catheter on L chest, and has dialysis as outpt, noted to be oliguric, worsening Cr. ENT consultation with recommendations to hold Eliquis for 5 days prior to reassessment, discussed case with Dr. Jennings, cardiology, pt does not have any noted history of CVA, Hold Eliquis for 5 days, and allow for reassessment with ENT with removal of Rhino rocket. Echo obtained on 2018 reveals an EF of 10-15%, severe elevation of RV systolic pressure, global hypokinesis No o/n issues, plan for rhinorocket removal today. D/w pt on risks and benefits of continuation of NOAC, decided to discontinue med d/t frequent epistaxis, pt does report nose picking. Pending results for 24h urine. OBJECTIVE PHYSICAL EXAMINATION: VITAL SIGNS: Please see below. GENERAL: male who is more awake and interactive today HEENT: Normocephalic, atraumatic, dry mucus membrane, Rhino Rocket intact on left nostril NECK: Supple CARDIOVASCULAR EXAMINATION: S1, S2 RESPIRATORY EXAMINATION: CTAB ABDOMINAL EXAMINATION: +BS, soft EXTREMITIES: trace edema SKIN: No rash NEUROLOGICAL EXAMINATION: awake PSYCHIATRIC EXAMINATION: Flat affect LABORATORY DATA, IMAGING STUDIES, MICROBIOLOGY: Please see below. ASSESSMENT AND PLAN: Pt is a 64yM with PMH of systolic CHF, ischemic cardiomyopathy with anterior wall RI in August 2012, status post bypass in 2005, status post CABG, status post subsequent stents 2, ICD placement, Atrial fibrillation on Eliquis, HLD, DM [id number], tobacco abuse, presents with acute respiratory failure with hypoxia, epistaxis, and oliguria secondary to cardiorenal syndrome. #Epistaxis: ENT consulted, plan to keep Rhino Rocket, INR now wnl, will monitor. hold eliquis for rhino rocket removal 01/09/20 with ENT, oral hygiene #Oliguria/ARF, likely secondary to underlying systolic CHF, discussed with nephrology, possible dialysis after ENT Rhino Rocket removal, 24 hour urine, put evaluation #Ischemic dilated cardiomyopathy/atrophic fibrillation, dependent on NOAC: will consider resuming ASA today, also hold NOAC, patient likely is not on dual antiplatelet therapy, status post stent on 10/2018, discussed with patient recent benefits with holding anticoagulant #Encephalopathy, consider secondary to hypercapnia, infection, vs underlying dementia, resolved, pt appears to have underlying psychiatric behaviors, will consider psychiatry consult -resolved -unclear baseline mental status, PT eval #hyperkalemia, resolved -likely secondary to acute renal failure: resolved, Monitor potassium creatinine levels. Nephrology consultation, to note, patient had influenza in August in [place] and did not response to dobutamine and Lasix, hold off on additional dialysis at this time, but noted to have scheduled dialysis on Thursday, Thursday, Thursday during that time. -dialysis 01/05/20 and 01/07/20 -Creatinine 1.45, today appears to be baseline, though worse from yesterday. Monitor input and output. Follow-up with his 24-hour urine creatinine clearance. Follow up with nephrology recommendations. -continue barnes for urinary retention, replace Barnes due to dysuria #Acute on chronic respiratory failure with hypoxia secondary to CAP versus aspiration, will also consider acute on chronic CHF exacerbation, with underlying COPD, COVID screen neg, possible association with hypercoagulable vs hypocoagulable state, patient is a former smoker -blood cultures 2: neg for growth -Follow-up Legionella, strep, sputum cultures, continue ceftriaxone and Doxy 7 days, patient has allergy towards azithromycin. Add incentive spirometry -Speech therapy recommendations, Diet, make nothing by mouth on midnight of 01/09/2020, stop tube feeds at that time, and start D5 half-normal saline at 75 mL an hour -consult dietary on nutrition options per speech recs #hypoglycemia, hx of DM 2, insulin-dependent: Will reduce patients home insulin to half, insulin sliding scale, hyperglycemic protocol #HFrEF: cont home meds via GT #Hyperbilirubinemia and Elevated alkaline phosphatase: Monitor at this time, compared to previous labs improved DVT PPI: SCDs Code: FULL (MOLST form) Disposition: At least 2 midnights today, plan to return to shelter at [place], patient does not want to return to current shelter, will discuss with discharge team on disposition on Thursday, earliest dc 01/10/2020 vs 01/11/20 32 minutes were spent on patient care VS, I&O, 24H, [place] Vital Signs/I&O Vital Signs Date Time Temp Pulse Resp B/P (MAP) Pulse Ox O2 Delivery O2 Flow Rate FiO2 01/09/20 05:00 100 Aerosol Mask 5.0 01/09/20 04:00 28 01/09/20 04:00 97.7 69 17 107/71 (83) I&O- Last 24 Hours up to 6 AM 01/09/20 05:59 Intake Total 340 ml Output Total 225 ml Balance 115 ml Laboratory Data 24H LABS Laboratory Tests 2 01/08/20 10:14: Urine Color ANI, Urine Appearance CLOUDYH, Urine pH 5.0, Urine Specific [place] 1.013, Urine Protein 2+H, Urine Glucose (Auto)(UA) NEGATIVE, Urine Ketones (Auto) NEGATIVE, Urine Blood 3+H, Urine Nitrite NEGATIVE, Urine Bilirubin NEGATIVE, Urine Urobilinogen 2.0H, Urine Leukocyte Esterase (Auto) 2+H, Urine WBC (Auto) 57H, Urine RBC (Auto) TNTCH, Urine Hyaline Casts (Auto) 33, Urine Bacteria (Auto) 1+H, Urine Squamous Epithelial Cells 1, Urine Amorphous Sediment (Auto) LARGEH, Urine Mucus (Auto) SMALL, Urine Sperm (Auto) 01/08/20 11:46: Bedside Glucose (Misc Panel) 241H 01/08/20 19:20: Bedside Glucose (Misc Panel) 274H 01/09/20 05:29: Nucleated Red Blood Cells % (auto) 0.0, Prothrombin Time 16.0H, Prothromb Time International Ratio 1.31, Activated Partial Thromboplast Time 36.1, Anion Gap 7L, Glomerular Filtration Rate 52.3, Calcium Level 8.7L CBC/BMP Laboratory Tests 01/09/20 05:29 Microbiology Microbiology 01/04/20 Blood Culture - Preliminary, Resulted No Growth after 72 hours. All specime... 01/04/20 Blood Culture - Preliminary, Resulted No Growth after 72 hours. All specime... VANITA VERNON MD January 09, 2020 08:27
[2020-01-09] MEDS: MIDODRINE 5 MG TAB PO SCH (08:36)
[2020-01-09] MEDS: TORSEMIDE 20 MG TAB PO SCH ×2 (08:36→17:12)
[2020-01-09] MEDS: METOPROLOL TART 12.5 MG PER 1/2 TAB PO SCH ×2 (08:37→21:07)
[2020-01-09] MEDS: LEVEMIR (INSULIN DETEMIR) 1 UNITS/0.01ML SC SCH ×2 (08:38→21:07)
[2020-01-09] MEDS ORDERED: fentaNYL 100 MCG/2 ML INJECTION (J3010) As Ordered ONE (10:46)
[2020-01-09] MEDS ORDERED: MIDAZOLAM INJ 2MG/2ML VIAL (J2250 PER 1MG) As Ordered ONE (10:47)
[2020-01-09] MEDS ORDERED: BACITRACIN OINTMENT 30GM TUBE As Ordered ONE (10:47)
[2020-01-09] MEDS ORDERED: OXYMETAZOLINE NASAL SPRAY (AFRIN) As Ordered ONE (10:48)
[2020-01-09] MEDS ORDERED: LIDOCAINE 1% MDV 20ML VIAL As Ordered ONE (11:22)
[2020-01-09] MEDS ORDERED: SILVER NITRATE APPLICATOR As Ordered ONE (11:53)
[2020-01-09] MEDS ORDERED: ONDANSETRON 4MG/2ML VIAL IV PRN (12:15)
[2020-01-09] MEDS ORDERED: NS 1,000 ML IV SCH (12:15)
[2020-01-09 14:07] LABS: BODY FLUID CULTURE Not indicated. (.); LEGIONELLA ANTIGEN URINE Negative (Negative); ORGANISM ID Not indicated. (.); SPECIMEN SOURCE Urine (.); URINE STREP PNEUMONIAE ANTIGEN Negative (Negative)
[2020-01-09 14:37] LABS: CREATININE, SERUM 1.5 MG/DL (0.6-1.3)
[2020-01-09] MEDS: ACETAMINOPHEN TAB 650MG DOSE (2X325MG) PO PRN (15:11)
[2020-01-09] MEDS: cefTRIAXone SOD 1 GM in D5W MINI-BAG PLUS 50 ML IV SCH (15:11)
[2020-01-09 15:36] LABS: CREATININE CLEARANCE, URINE 13.1 ML/MIN (85-125)
[2020-01-09] MEDS: HumaLOG INSULIN (NovoLOG) PER UNIT SC SCH (21:00)
[2020-01-09] MEDS: AUGMENTIN BID 400MG/5ML SUSP 50ML BTL GT SCH (21:06)
[2020-01-09] MEDS: SENNA SYRUP 15 ML UDC PO SCH (21:06)
[2020-01-09] MEDS: ATORVASTATIN 20 MG TAB PO SCH (21:07)
[2020-01-09] MEDS: ONDANSETRON 4MG/2ML VIAL IV PRN (23:11)
--- NOTE | 2020-01-09 23:56 | REPVR ---
PROCEDURE INFORMATION: Exam: US Retroperitoneal Limited, Kidneys Exam date and time: 01/09/2020 11:37 PM Age: 64 years old Clinical indication: Condition or disease; Kidney or ureter condition; Chronic kidney disease or failure; Not specified; Additional info: Ckd TECHNIQUE: Imaging protocol: Real-time ultrasound of the retroperitoneum with image documentation. Examination was focused on the kidneys. COMPARISON: LIVER US 05/16/2019 6:18 PM FINDINGS: Right kidney: 11.3 cm in length. No stones. No hydronephrosis. Left kidney: 14.1 cm in length. No stones. No hydronephrosis. Other findings: Aguirre catheter in place. IMPRESSION: No acute sonographic findings. Electronically signed by: Jonathan Elam On 01/09/2020 23:56:11 PM
[2020-01-10] VITALS (23 sets, daily range): BP systolic 109–118; BP diastolic 67–77; O2SAT 88–100
[2020-01-10] MEDS: ACETAMINOPHEN TAB 650MG DOSE (2X325MG) PO PRN (04:20)
[2020-01-10] MEDS: SLF 3 ML SYR IV SCH ×3 (04:59→20:32)
[2020-01-10 05:50] LABS: HEMATOCRIT 42.8 % (42.0-52.0); HEMOGLOBIN 13.5 g/dl (13.5-17.5); MEAN CORPUSCULAR HEMOGLOBIN 28.7 pg (27.0-33.0); MEAN CORPUSCULAR HGB CONC 31.5 g/dl (32.0-36.5); MEAN CORPUSCULAR VOLUME 90.9 fl (80.0-96.0); PLATELET COUNT, AUTOMATED 231 10^3/uL (150-450); RED BLOOD COUNT 4.71 10^6/uL (4.30-6.10); WHITE BLOOD COUNT 7.9 10^3/uL (4.0-10.0)
[2020-01-10 05:56] LABS: INR 1.22; PROTHROMBIN TIME 15.1 SECONDS (11.8-14.0)
[2020-01-10 05:57] LABS: PARTIAL THROMBOPLASTIN TIME 35.8 SECONDS (25.0-38.4)
[2020-01-10 06:17] LABS: CALCIUM LEVEL 8.8 MG/DL (8.8-10.2); CREATININE FOR GFR 1.65 MG/DL (0.70-1.30); GLOMERULAR FILTRATION RATE 45.1 (>49); POTASSIUM SERUM 4.2 MEQ/L (3.5-5.1)
[2020-01-10] MEDS: METOPROLOL TART 12.5 MG PER 1/2 TAB PO SCH ×2 (09:00→20:32)
--- NOTE | 2020-01-10 09:05 | IPN ---
DATE OF SERVICE: 01/09/2020 SUBJECTIVE: The patient is seen and examined this afternoon at the bedside. He had his Rhino Rocket removed. He is undergoing 24-hour urine collection, and his urine output appears to be suboptimal despite the diuretic use and serum creatinine in the mid-1s. The patient denies any shortness of breath and offers no new complaints. Vital signs: Temperature 97.5, pulse 69, respiratory rate 19, blood pressure 116/83, saturating 100% on Venturi mask. Intake yesterday was not fully recorded. Urine output thus far today is 450 mL. Weight in the bed scale today is 87.6 kg. General: The patient is seen lying in bed. Head of the bed elevated at 30 degrees. Awake, alert, and offers simple responses to simple questions. Oriented to person, place, and situation. Nasal passages have packing. Neck is supple. Jugular veins appear mildly elevated. Heart sounds are regular, S1, S2. There is 1+ leg edema. There is a tunneled hemodialysis catheter present in the left chest wall and a defibrillator in the right side. Abdomen is soft and has a percutaneous endoscopic gastrostomy (PEG) tube. Neurologic: The patient is oriented times three and answers simple questions appropriately and is cooperative with physical examination. LABORATORIES: Sodium 131, potassium 3.9, BUN 45, creatinine 1.5, hemoglobin 11.7. INPATIENT MEDICATIONS: Reviewed by me. His intravenous (IV) doxycycline was stopped, along with his IV ceftriaxone, and he is now instead on Augmentin 875 mg twice daily. He is off of IV fluids (which he was receiving while nothing by mouth for a procedure). Remainder of medications are unchanged from prior. PROBLEMS: 1. Oliguric renal failure. The patient has been receiving hemodialysis treatments. However, his creatinine has downtrended to the mid-1s, and he is being reassessed for dialysis needs given the same. 24-hour urine collection showed poor urine volume despite twice-daily torsemide. His serum creatinine is likely overestimating glomerular filtration rate (GFR). It is my feeling that he is going to continue to require hemodialysis treatment going forward in view of his poor urine output. 2. Systolic congestive heart failure. Volume status is fairly acceptable. He continues on torsemide. Urine output has been less than 500 mL daily. He is likely to require ongoing dialysis for regulation of his volume status. 3. Urinary retention. The patient is apparently chronically bedridden. I am not sure how longstanding his history of urinary retention is. For now, he continues with Aguirre catheter. I do not see any renal imaging in the system and so have requested a renal ultrasound. 4. Systolic congestive heart failure/ischemic cardiomyopathy and also concomitant atrial fibrillation. The patient is rate controlled with beta angel (metoprolol twice a day. He is also on once-daily midodrine, and I am not sure why that is the case. There is no significant documented hypotension. Will defer to primary team regarding continuation of the drug.
[2020-01-10] MEDS: LEVEMIR (INSULIN DETEMIR) 1 UNITS/0.01ML SC SCH ×2 (09:44→20:31)
[2020-01-10] MEDS: TORSEMIDE 20 MG TAB PO SCH ×2 (09:44→16:15)
[2020-01-10] MEDS: MIDODRINE 5 MG TAB PO SCH (09:44)
[2020-01-10] MEDS: MIRALAX *UNIT DOSE* 17GM PACKET PO SCH (09:44)
[2020-01-10] MEDS: AUGMENTIN BID 400MG/5ML SUSP 50ML BTL GT SCH ×2 (09:45→20:31)
--- NOTE | 2020-01-10 10:26 | IPNPDOC ---
Date Seen The patient was seen on 01/10/20. Progress Note Pt is a 64yM with PMH of systolic CHF, ischemic cardiomyopathy with anterior wall [place] in August 2012, status post bypass in 2005, status post CABG, status post subsequent stents 2, ICD placement, Atrial fibrillation on Eliquis, HLD, DM [id number], tobacco abuse, presents with acute respiratory failure with hypoxia. Nephrology was consulted for dialysis from hyperkalemia, pt had dialysis on 01/05/20 and 01/07/20. Pt has dialysis catheter on L chest, and has dialysis as outpt, noted to be oliguric, worsening Cr. ENT consultation with recommendations to hold Eliquis for 5 days prior to reassessment, discussed case with Dr. Jennings, cardiology, pt does not have any noted history of CVA, Hold Eliquis for 5 days, and allow for reassessment with ENT with removal of Rhino rocket. Echo obtained on 2018 reveals an EF of 10-15%, severe elevation of RV systolic pressure, global hypokinesis. POD#1 (01/11/20) s/p rhinorocket removal, d/w ENT cont Abx for 10d, D/w pt on risks and benefits of continuation of NOAC, readdress 01/11/20 on continuation vs dc. F/u with nephrology, likely needs dialysis with poor 24h urine outcome of less than 500 mL's daily secondary to oliguric renal failure, despite torsemide twice a day, continue Barnes due to urinary retention. Follow-up renal ultrasound. OBJECTIVE PHYSICAL EXAMINATION: VITAL SIGNS: Please see below. GENERAL: male who is more awake and interactive today HEENT: Normocephalic, atraumatic, dry mucus membrane NECK: Supple CARDIOVASCULAR EXAMINATION: S1, S2 RESPIRATORY EXAMINATION: CTAB ABDOMINAL EXAMINATION: +BS, soft EXTREMITIES: trace edema SKIN: No rash NEUROLOGICAL EXAMINATION: awake PSYCHIATRIC EXAMINATION: Flat affect LABORATORY DATA, IMAGING STUDIES, MICROBIOLOGY: Please see below. ASSESSMENT AND PLAN: Pt is a 64yM with PMH of systolic CHF, ischemic cardiomyopathy with anterior wall [place] in August 2012, status post bypass in 2005, status post CABG, status post subsequent stents 2, ICD placement, Atrial fibrillation on Eliquis, HLD, DM [id number], tobacco abuse, presents with acute respiratory failure with hypoxia, epistaxis, and oliguria secondary to cardiorenal syndrome. #Epistaxis: ENT consulted, plan to keep Rhino Rocket, INR now wnl, will monitor. hold eliquis for rhino rocket removal 01/09/20 with ENT, oral hygiene -will d/w pt to resume NOAC 01/10 vs 01/11 -cont augmentin x10d -f/u with ENT outpt in 7-10d #Oliguria/ARF/urinary incontinence, likely secondary to underlying systolic CHF, nephrology consulted poor renal outpt -likely need dialysis -f/u renal u/s #Ischemic dilated cardiomyopathy/atrial fibrillation/HFrEF: cont home meds via GT -see above -Patient was placed on midodrine prior to current hospitalization, sys BP still in the 100s to 110s, will cont for now, we'll consider DC #Encephalopathy, consider secondary to hypercapnia, infection, vs underlying dementia, resolved, pt appears to have underlying psychiatric behaviors, will consider psychiatry consult -resolved -unclear baseline mental status, PT eval #hyperkalemia, resolved -likely secondary to acute renal failure: resolved, Monitor potassium creatinine levels. Nephrology consultation, to note, patient had influenza in August in [place] and did not response to dobutamine and Lasix, hold off on additional dialysis at this time, but noted to have scheduled dialysis on Thursday, Thursday, Thursday during that time. -dialysis 01/05/20 and 01/07/20 -Creatinine 1.45, today appears to be baseline, though worse from yesterday. Monitor input and output. Follow-up with his 24-hour urine creatinine clearance. Follow up with nephrology recommendations. -continue barnes for urinary retention, replace Barnes due to dysuria #Acute on chronic respiratory failure with hypoxia secondary to CAP versus aspiration, will also consider acute on chronic CHF exacerbation, with underlying COPD, COVID screen neg, possible association with hypercoagulable vs hypocoagulable state, patient is a former smoker -blood cultures 2: neg for growth, completed Abx course -Follow-up Legionella, strep, sputum cultures, continue ceftriaxone and Doxy 7 days, patient has allergy towards azithromycin. Add incentive spirometry -consult dietary on nutrition options per speech recs #hypoglycemia, hx of DM 2, insulin-dependent: Will reduce patients home insulin to half, insulin sliding scale, hyperglycemic protocol #Hyperbilirubinemia and Elevated alkaline phosphatase: Monitor at this time, compared to previous labs improved DVT PPI: SCDs Code: FULL (MOLST form) Disposition: At least 2 midnights today, plan to return to senior care at [place], patient does not want to return to current senior care, will discuss with discharge team on disposition pending 32 minutes were spent on patient care VS, I&O, 24H, Fishbone Vital Signs/I&O Vital Signs Date Time Temp Pulse Resp B/P (MAP) Pulse Ox O2 Delivery O2 Flow Rate FiO2 01/10/20 09:00 69 109/67 01/10/20 08:00 97.9 17 94 Room Air 01/10/20 06:00 3.0 01/10/20 04:00 28 I&O- Last 24 Hours up to 6 AM 01/10/20 06:00 Intake Total 320 ml Output Total 700 ml Balance -380 ml Laboratory Data 24H LABS Laboratory Tests 2 01/09/20 11:57: Bedside Glucose (Misc Panel) 179H 01/09/20 14:36: Urine Creatinine 63.0, Creatinine Clearance 13.1L, Urine Total Volume (Protein) 450 01/09/20 20:02: Bedside Glucose (Misc Panel) 216H 01/10/20 05:23: Nucleated Red Blood Cells % (auto) 0.0, Prothrombin Time 15.1H, Prothromb Time International Ratio 1.22, Activated Partial Thromboplast Time 35.8, Anion Gap 9, Glomerular Filtration Rate 45.1L, Calcium Level 8.8 CBC/BMP Laboratory Tests 01/09/20 14:36 01/10/20 05:23 Microbiology Microbiology 01/08/20 Urine Culture, Received Pending 01/04/20 Blood Culture - Final, Complete NO GROWTH AFTER 5 DAYS 01/04/20 Blood Culture - Final, Complete NO GROWTH AFTER 5 DAYS VANITA VERNON MD January 10, 2020 10:26
--- NOTE | 2020-01-10 14:16 | REP ---
PORTABLE CHEST X-RAY: Single view. HISTORY: Short of breath. COMPARISON CHEST X-RAY: January 04, 2020. FINDINGS: Monitoring electrodes overlie the chest. Epicardial and transvenous pacemaker leads are seen via the right side as before. A tunneled central venous catheter is noted via the left internal jugular vein with its tip in the expected location of the superior vena cava. Median sternotomy wires are noted. Moderate to marked cardiomegaly is again observed. Pulmonary vasculature is not increased. There are patchy areas of increased density in the bases. The right lower lobe infiltrate is improved somewhat. Increased markings at the left base are similar to the prior study. No pleural effusion or alissa pulmonary edema is seen. Unreviewed
[2020-01-10] MEDS: HumaLOG INSULIN (NovoLOG) PER UNIT SC SCH (20:31)
[2020-01-10] MEDS: SENNA SYRUP 15 ML UDC PO SCH (20:31)
[2020-01-10] MEDS: ATORVASTATIN 20 MG TAB PO SCH (20:32)
[2020-01-10] MEDS ORDERED: APIXABAN 2.5 MG TAB (ELIQUIS) PO SCH (21:00)
[2020-01-11] VITALS (17 sets, daily range): BP systolic 98–117; BP diastolic 60–74; O2SAT 95–100
[2020-01-11] MEDS: SLF 3 ML SYR IV SCH ×3 (05:31→21:02)
[2020-01-11 06:02] LABS: HEMATOCRIT 37.9 % (42.0-52.0); HEMOGLOBIN 11.9 g/dl (13.5-17.5); MEAN CORPUSCULAR HEMOGLOBIN 28.6 pg (27.0-33.0); MEAN CORPUSCULAR HGB CONC 31.4 g/dl (32.0-36.5); MEAN CORPUSCULAR VOLUME 91.1 fl (80.0-96.0); PLATELET COUNT, AUTOMATED 216 10^3/uL (150-450); RED BLOOD COUNT 4.16 10^6/uL (4.30-6.10); WHITE BLOOD COUNT 6.1 10^3/uL (4.0-10.0)
[2020-01-11 06:09] LABS: CALCIUM LEVEL 8.4 MG/DL (8.8-10.2); CREATININE FOR GFR 1.49 MG/DL (0.70-1.30); GLOMERULAR FILTRATION RATE 50.7 (>49); POTASSIUM SERUM 3.5 MEQ/L (3.5-5.1)
[2020-01-11 06:14] LABS: INR 1.37; PROTHROMBIN TIME 16.6 SECONDS (11.8-14.0)
[2020-01-11 06:15] LABS: PARTIAL THROMBOPLASTIN TIME 38.1 SECONDS (25.0-38.4)
[2020-01-11] MEDS ORDERED: SODIUM CHLORIDE NASAL 0.65% SPRAY BTL (OCEAN) PRN (08:00)
--- NOTE | 2020-01-11 08:32 | IPNPDOC ---
Date Seen The patient was seen on 01/11/20. Progress Note t is a 64yM with PMH of systolic CHF, ischemic cardiomyopathy with anterior wall CT in August 2012, status post bypass in 2005, status post CABG, status post subsequent stents 2, ICD placement, Atrial fibrillation on Eliquis, HLD, DM [id number], tobacco abuse, presents with acute respiratory failure with hypoxia. Nephrology was consulted for dialysis from hyperkalemia, pt had dialysis on 01/05/20 and 01/07/20. Pt has dialysis catheter on L chest, and has dialysis as outpt, noted to be oliguric, worsening Cr. ENT consultation with recommendations to hold Eliquis for 5 days prior to reassessment, discussed case with Dr. Jennings, cardiology, pt does not have any noted history of CVA, Hold Eliquis for 5 days, and allow for reassessment with ENT with removal of Rhino rocket. Echo obtained on 2018 reveals an EF of 10-15%, severe elevation of RV systolic pressure, global hypokinesis. POD#2 (01/09/20) s/p rhinorocket removal, d/w ENT cont Abx for 10d, D/w pt on risks and benefits of continuation of NOAC, readdress 01/11/20 on continuation vs dc.Urine culture obtained on reveals no growth, blood cultures 2 on 01/04/2020 reveals no growth. Labs include CBC, hemoglobin and hematocrit stable, as include hyponatremia, corrected sodium of 134, preventing, creatinine 1.49. Final, CO2 twice a day screening negative, urine Legionella antigen, urine strep antigen negative. Glucose level stable, ranging from 140s to 210s. Chest x-ray repeat performed on 01/10/2020 reveals intact tunnel central venous catheter on the left IJ, pulmonary vascular stable, patchy areas of increased density on bases, right lower lobe infiltrate, improved. Patient reports congestion in right nostril, will trial nasal saline today, postop day 2. F/u with nephrology, on dialysis schedule with poor 24h urine outcome of less than 500 mL's daily secondary to oliguric renal failure, despite torsemide twice a day, continue Barnes due to urinary retention. Renal ultrasound reveals NAD. Will follow up with speech pathology on by mouth diet in addition to tube feeds Spoke with life partner, prior to October patient lived at home with her in [place]. Life partner and daughter are healthcare proxy, there is no available power of trade mark attorney. OBJECTIVE PHYSICAL EXAMINATION: VITAL SIGNS: Please see below. GENERAL: male who is more awake and interactive today, at dialysis, left-sided dialysis catheter appears clean, dry and intact HEENT: Normocephalic, atraumatic, dry mucus membrane NECK: Supple CARDIOVASCULAR EXAMINATION: S1, S2 RESPIRATORY EXAMINATION: CTAB ABDOMINAL EXAMINATION: +BS, soft, G-tube appears clean, dry, and intact EXTREMITIES: trace edema SKIN: No rash NEUROLOGICAL EXAMINATION: awake PSYCHIATRIC EXAMINATION: Flat affect LABORATORY DATA, IMAGING STUDIES, MICROBIOLOGY: Please see below. ASSESSMENT AND PLAN: Pt is a 64yM with PMH of systolic CHF, ischemic cardiomyopathy with anterior wall CT in August 2012, status post bypass in 2005, status post CABG, status post subsequent stents 2, ICD placement, Atrial fibrillation on Eliquis, HLD, DM [id number], tobacco abuse, presents with acute respiratory failure with hypoxia, epistaxis, and oliguria secondary to cardiorenal syndrome. #Epistaxis: ENT consulted, plan to keep Rhino Rocket, INR now wnl, will monitor. hold eliquis for rhino rocket removal 01/09/20 with ENT, oral hygiene -will d/w pt to resume NOAC 01/10 -cont augmentin x10d, trial nasal saline, cont oral hygiene -f/u with ENT outpt in 7-10d #Oliguria/ARF/urinary incontinence, likely secondary to underlying systolic CHF, nephrology consulted poor renal outpt -likely need dialysis - renal u/s wnl #CAP: Completed antibiotic course, repeat chest x-ray reveals atelectasis, will start incentive spirometry #Ischemic dilated cardiomyopathy/atrial fibrillation/HFrEF: cont home meds via GT -see above -Patient was placed on midodrine prior to current hospitalization, sys BP still in the 100s to 110s, midodrine was stopped yesterday, patient's blood pressure t olerated cessation of medication, will hold off continuation for now #Encephalopathy, consider secondary to hypercapnia, infection, vs underlying dementia, resolved, pt appears to have underlying psychiatric behaviors, will consider psychiatry consult -resolved -unclear baseline mental status, PT eval #hyperkalemia, resolved -likely secondary to acute renal failure: resolved, Monitor potassium creatinine levels. Nephrology consultation, to note, patient had influenza in August in [place] and did not response to dobutamine and Lasix, hold off on additional dialysis at this time, but noted to have scheduled dialysis on Thursday, Thursday, Thursday during that time. -dialysis 01/05/20 and 01/07/20, 01/11/20 -Creatinine 1.45, today appears to be baseline, though worse from yesterday. Monitor input and output. Follow-up with his 24-hour urine creatinine clearance. Follow up with nephrology recommendations. -continue barnes for urinary retention, replace Barnes due to dysuria #Acute on chronic respiratory failure with hypoxia secondary to CAP versus aspiration, will also consider acute on chronic CHF exacerbation, with underlying COPD, COVID screen neg, possible association with hypercoagulable vs hypocoagulable state, patient is a former smoker -blood cultures 2: neg for growth, completed Abx course -consult dietary on nutrition options per speech recs #hypoglycemia, hx of DM 2, insulin-dependent: Will reduce patients home insulin to half, insulin sliding scale, hyperglycemic protocol -Continue TF #Hyperbilirubinemia and Elevated alkaline phosphatase: Monitor at this time, compared to previous labs improved DVT PPI: SCDs Code: FULL (MOLST form) Disposition: dc ARU 01/12/20 35 minutes were spent on patient care, >50% of the time was with discussion with life partner and patient on discharge planning VS, I&O, 24H, Fishbone Vital Signs/I&O Vital Signs Date Time Temp Pulse Resp B/P (MAP) Pulse Ox O2 Delivery O2 Flow Rate FiO2 01/11/20 07:36 97.0 70 20 114/74 (87) 99 Aerosol Mask 5.0 01/11/20 06:00 28 I&O- Last 24 Hours up to 6 AM 01/11/20 05:59 Intake Total 280 ml Output Total 950 ml Balance -670 ml Laboratory Data 24H LABS Laboratory Tests 2 01/10/20 11:53: Bedside Glucose (Misc Panel) 143H 01/10/20 16:42: Bedside Glucose (Misc Panel) 146H 01/10/20 20:16: Bedside Glucose (Misc Panel) 157H 01/11/20 05:20: Nucleated Red Blood Cells % (auto) 0.0, Prothrombin Time 16.6H, Prothromb Time International Ratio 1.37, Activated Partial Thromboplast Time 38.1, Anion Gap 8, Glomerular Filtration Rate 50.7, Calcium Level 8.4L CBC/BMP Laboratory Tests 01/11/20 05:20 Microbiology Microbiology 01/08/20 Urine Culture, Received Pending 01/04/20 Blood Culture - Final, Complete NO GROWTH AFTER 5 DAYS 01/04/20 Blood Culture - Final, Complete NO GROWTH AFTER 5 DAYS VANITA VERNON MD January 11, 2020 08:29
[2020-01-11] MEDS: TORSEMIDE 20 MG TAB PO SCH ×2 (09:00→17:21)
[2020-01-11] MEDS: METOPROLOL TART 12.5 MG PER 1/2 TAB PO SCH ×2 (09:00→21:01)
[2020-01-11] MEDS ORDERED: APIXABAN 2.5 MG TAB (ELIQUIS) PO SCH (09:00)
[2020-01-11] MEDS: MIRALAX *UNIT DOSE* 17GM PACKET PO SCH (09:00)
--- NOTE | 2020-01-11 10:26 | RO ---
DATE OF OPERATION: 01/09/2020 PREOPERATIVE DIAGNOSIS: Left recurrent epistaxis. POSTOPERATIVE DIAGNOSIS: Left recurrent epistaxis. PROCEDURES: 1. Removal of the nasal packing. 2. Nasal endoscopy. 3. Endoscopic debridement of the left nasal cavity. 4. Control of the left epistaxis using silver nitrate and self-dissolving packings. SURGEON: Phil Cid MD MITTEN STITCHER: ANESTHESIA: None. CLINICAL PREAMBLE: This 64-year-old man has had an episode of left epistaxis about 3 weeks ago. He responded well to the Rhino Rocket. However, he developed a recurrent left epistaxis approximately a week ago, requiring another placement of the Rhino Rocket into the left nasal cavity to achieve hemostasis. Patient is on Xarelto, which has been now held since admission to the hospital. Management options including surgery listed above have been discussed. He understood the risks, including recurrent bleeding, need for more procedures, stroke, cardiac arrest, and . He was made fully aware of the risks, and he consented to the procedures. DESCRIPTION OF PROCEDURE/OPERATING ROOM (OR) NARRATION: Patient was identified in preoperative holding and brought to the operating room in stable condition. In supine position on the operating table, the patient was given supplemental oxygen. The left nasal packing was moistened using normal saline solution. The balloon was deflated, and the packing was successfully removed. The left nasal cavity was then inspected using a 30-degree nasal endoscope. Small clot was noted along the nasal floor. Maceration of mucosa was noted along the middle and inferior nasal turbinates. The left sphenopalatine area was clear of ulceration and mass lesion. At this time, the left nasal cavity was debrided clear of old clots and crusts. No other bleeder was noted after endoscopic debridement of the left nasal cavity. Using silver nitrate, the left inferior nasal turbinate was carefully cauterized. The self-dissolving packing consisting of a Gelfoam wrap in the Surgicel and coated with bacitracin was then successfully applied into the left nasal cavity. Complete hemostasis was observed at the end of the case. ESTIMATED BLOOD LOSS: Was less than 1 mL. No complication was encountered. Sponge and instrument counts were correct. The patient was then brought to recovery room in stable condition. Patient remained awake and conversant throughout the entire case. SASCHA
[2020-01-11] MEDS: LEVEMIR (INSULIN DETEMIR) 1 UNITS/0.01ML SC SCH ×2 (13:50→21:00)
[2020-01-11] MEDS: AUGMENTIN BID 400MG/5ML SUSP 50ML BTL GT SCH ×2 (14:29→21:01)
[2020-01-11] MEDS: HumaLOG INSULIN (NovoLOG) PER UNIT SC SCH (20:19)
[2020-01-11] MEDS: ATORVASTATIN 20 MG TAB PO SCH (21:01)
[2020-01-11] MEDS: SENNA SYRUP 15 ML UDC PO SCH (21:01)
[2020-01-12] VITALS: BP 100/64
[2020-01-12 04:00] VITALS: BP 100/60
[2020-01-12] MEDS: SLF 3 ML SYR IV SCH ×2 (05:12→13:53)
[2020-01-12 06:05] LABS: HEMATOCRIT 41.4 % (42.0-52.0); HEMOGLOBIN 12.3 g/dl (13.5-17.5); MEAN CORPUSCULAR HEMOGLOBIN 27.5 pg (27.0-33.0); MEAN CORPUSCULAR HGB CONC 29.7 g/dl (32.0-36.5); MEAN CORPUSCULAR VOLUME 92.4 fl (80.0-96.0); PLATELET COUNT, AUTOMATED 223 10^3/uL (150-450); RED BLOOD COUNT 4.48 10^6/uL (4.30-6.10); WHITE BLOOD COUNT 7.5 10^3/uL (4.0-10.0)
[2020-01-12 06:16] LABS: INR 1.36; PROTHROMBIN TIME 16.5 SECONDS (11.8-14.0)
[2020-01-12 06:17] LABS: PARTIAL THROMBOPLASTIN TIME 36.7 SECONDS (25.0-38.4)
[2020-01-12 06:26] LABS: CALCIUM LEVEL 7.9 MG/DL (8.8-10.2); CREATININE FOR GFR 1.32 MG/DL (0.70-1.30); GLOMERULAR FILTRATION RATE 58.3 (>49); POTASSIUM SERUM 3.8 MEQ/L (3.5-5.1)
--- NOTE | 2020-01-12 07:58 | IPN ---
DATE OF SERVICE: 01/11/2020 SUBJECTIVE: The patient was seen and examined at the bedside today morning. He is afebrile, hemodynamically stable. The patient remains oliguric. He is dialysis dependent. He continues to be on tube feeds and the patient is being called for dialysis today. OBJECTIVE: Vital Signs: Temperature is 97.7 degrees Fahrenheit, blood pressure is 114/70, pulse is 69, respiratory rate of 18, saturating 98% on 5 liters FiO2. Intake and Output: Urine output recorded as 900 mL since overnight. Weight in the bed scale is 87.8 kg. PHYSICAL EXAMINATION: General: The patient is awake, alert, oriented times two, laying in bed, in no apparent distress. Head and Neck Exam: Extraocular muscles intact. Pupils equally round and reactive to light. Mucous membranes are moist. Neck is supple. There is mildly elevated jugular venous distention (JVD). Cardiovascular: S1, S2, regular rate. 1+ edema of the bilateral lower extremities. Respiratory: Chest is clear to auscultation bilaterally. Bilateral equal air entry. No rales or rhonchi. Abdomen: Soft. Positive bowel sounds. Nontender. No organomegaly. Genitourinary: He has an indwelling Aguirre catheter. Musculoskeletal: No clubbing or cyanosis. Pulses are 2+. AGED OR DISABLED CARE WORKER: No focal deficit. He moves extremities, but otherwise he is chronically bedridden. LAB REVIEW: CBC showed a WBC of 6.1, hemoglobin 11.9 and platelets are 216. BMP showed sodium 133, potassium 3.5, chloride 95, bicarb 30, BUN 61, creatinine 1.49, and calcium is 8.4. Microbiology: Urine culture is negative. CURRENT INPATIENT MEDICATIONS: The patient's medications were all reviewed by myself. His Eliquis has been stopped now. He continues to be on Augmentin 875 mg by mouth twice a day. I am decreasing the dose to 500 mg twice a day because of renal failure. No other significant change in the medications today as compared with yesterday. ASSESSMENT/PLAN: 1. End-stage renal disease. The patient is dialysis dependent. 24-hour urine creatinine clearance was less than 15. His serum creatinine is overestimating his GFR. Continue current dialysis. 2. Chronic systolic congestive heart failure. Continue current dose of torsemide 40 mg by mouth twice a day. The rest of the volume status is being managed with dialysis. 3. Urinary retention. The patient got a Aguirre catheter placed during this hospitalization. I am going to have the Aguirre removed and start the patient on Flomax and continue the bladder scans while he is here. 4. Anemia in end-stage renal disease. Hemoglobin is more than 11. No need of Aranesp at this time. 5. Epistaxis. The patient's Eliquis has been stopped. The rest of the management is as per ENT. 6. Diabetes mellitus type 2, insulin dependent. Glucose levels are controlled. Continue current dose of insulin sliding scale and Levemir. 7. Nutrition. The patient is currently getting tube feeds by the bag, Nepro 40 mL/hr. He is also getting pureed and nectar-thick liquids, but he has a history of aspiration and he has very difficulty with eating.
[2020-01-12 08:00] VITALS: BP 115/72
[2020-01-12 09:12] VITALS: BP 115/72
[2020-01-12] MEDS: METOPROLOL TART 12.5 MG PER 1/2 TAB PO SCH (09:12)
[2020-01-12] MEDS: LEVEMIR (INSULIN DETEMIR) 1 UNITS/0.01ML SC SCH (09:13)
[2020-01-12] MEDS: TORSEMIDE 20 MG TAB PO SCH (09:13)
[2020-01-12] MEDS: MIRALAX *UNIT DOSE* 17GM PACKET PO SCH (09:20)
[2020-01-12] MEDS: AUGMENTIN BID 400MG/5ML SUSP 50ML BTL GT SCH (09:21)
[2020-01-12] MEDS ORDERED: ELIQ5TAB PO (10:36)
[2020-01-12] MEDS ORDERED: TORS20TA2 PO (10:36)
[2020-01-12] MEDS ORDERED: AMOX400S GT (10:36)
[2020-01-12] MEDS ORDERED: INSUDET SC ×2 (10:40)
--- NOTE | 2020-01-12 10:55 | DS.PDOC ---
Discharge Summary General Date of Admission January 04, 2020 at 15:21 Date of Discharge 01/12/20 Primary Care Physician: A Discharge Summary PROCEDURES PERFORMED DURING STAY: Rhinorocket removal on L nostril ADMITTING DIAGNOSES: 1. Metabolic encephalopathy, CAP, hyperkalemia, ESRD. DISCHARGE DIAGNOSES: 1. Metabolic encephalopathy, CAP, hyperkalemia, ESRD, Atrial fibrillation dependent on NOAC COMPLICATIONS/CHIEF COMPLAINT: Cap,Epistaxis,Hyperkalemia. HISTORY OF PRESENT ILLNESS/HOSPITAL COURSE: Pt is a 64yM with PMH of systolic CHF, ischemic cardiomyopathy with anterior wall FL in August 2012, status post bypass in 2005, status post CABG, status post subsequent stents 2, ICD placement, Atrial fibrillation on Eliquis, HLD, DM [id number], tobacco abuse, presents with acute respiratory failure with hypoxia and epistaxis. Patient's Eliquis was held, ENT was consulted and right Rhino Rocket was removed on 01/09/2020, which patient tolerated. He was subsequently empirically treated with 10 day, Augmentin course. With recommendations to follow-up with ENT next week, kaila ([phone]). Patient was also found to have CAP on right lower lobe on CXR, suspicious secondary to aspiration, completed a full course of antibiotics for CAP during his hospitalization stay. Speech pathology and dietary reconsult to for recommendations on diet, patient's Nepro tube feeds were resumed, and recommendations for pured diet. Nephrology was also consulted for dialysis/suspicious for ESRD and hyperkalemia, pt had dialysis on 01/05/20, 01/07/20, and 01/11/20. Throughout his hospitalization, patient had a 24-hour urine study revealing oliguria and unfortunately deemed dialysis dependent. During hospitalization, I also discussed case with Dr. Jennings, cardiology, pt does not have any noted history of CVA, and cleared to hold Eliquis. Echo obtained on 2018 reveals an EF of 10-15%, severe elevation of RV systolic pressure, global hypokinesis. Urine culture was obtained on 01/07 reveals no growth, blood cultures 2 on 01/04/2020 reveals no growth. Labs include CBC, hemoglobin and hematocrit stable, all dc labs reviewed and stable. Chest x-ray repeat performed on 01/10/2020 reveals intact tunnel central venous catheter on the left IJ, pulmonary vascular stable, patchy areas of increased density on bases, right lower lobe infiltrate, improved. Encourage incentive spirometry. Pt tolerated nasal saline without epistasis. Renal ultrasound was also performed and reveals NAD. Spoke with , to note pt prior to October 2019, lived at home with her in [place]. Life partner and daughter are healthcare proxy, there is no available power of insurance attorney. He will be DC today to ARU, please consult nephrology, and schedule ENT appointment. Patient will need outpatient follow with PCP and cardiology upon discharge. And made changes to his insulin dosing from home dosing, resume Eliquis, upon discussion with patient to 2.5 twice a day in a couple days, complete antibiotic course for prophylaxis status post Rhino Rocket, stopped midodrine, started torsemide in place of previous furosemide. DISCHARGE MEDICATIONS: Please see below. PHYSICAL EXAMINATION ON DISCHARGE: VITAL SIGNS: Please see below. GENERAL: male who is more awake HEENT: Normocephalic, atraumatic, dry mucus membrane NECK: Supple CARDIOVASCULAR EXAMINATION: S1, S2 RESPIRATORY EXAMINATION: CTAB ABDOMINAL EXAMINATION: +BS, soft, G-tube appears clean, dry, and intact EXTREMITIES: trace edema SKIN: No rash NEUROLOGICAL EXAMINATION: awake PSYCHIATRIC EXAMINATION: Flat affect DISCHARGE CONDITION: Stable. TIME SPENT ON DISCHARGE: 35 minutes Vital Signs/I&Os Vital Signs Date Time Temp Pulse Resp B/P (MAP) Pulse Ox O2 Delivery O2 Flow Rate FiO2 01/12/20 09:12 80 115/72 01/12/20 08:04 5.0 28 01/12/20 08:00 97.4 20 96 Aerosol Mask I&O- Last 24 Hours up to 6 AM 01/12/20 06:00 Intake Total 360 ml Output Total 2975 ml Balance -2615 ml Laboratory Data Labs 24H Laboratory Tests 2 01/11/20 13:45: Bedside Glucose (Misc Panel) 176H 01/11/20 17:12: Bedside Glucose (Misc Panel) 232H 01/12/20 05:24: Nucleated Red Blood Cells % (auto) 0.0, Prothrombin Time 16.5H, Prothromb Time International Ratio 1.36, Activated Partial Thromboplast Time 36.7, Anion Gap 6L, Glomerular Filtration Rate 58.3, Calcium Level 7.9L CBC/BMP Laboratory Tests 01/12/20 05:24 FSBS Laboratory Tests Test 01/11/20 13:45 01/11/20 17:12 Range/Units Bedside Glucose (Misc Panel) 176 232 80-115 MG/DL Microbiology Microbiology 01/08/20 Urine Culture - Final, Complete 01/04/20 Blood Culture - Final, Complete NO GROWTH AFTER 5 DAYS 01/04/20 Blood Culture - Final, Complete NO GROWTH AFTER 5 DAYS Discharge Medications Scheduled Amoxicillin/Potassium Clav (Amox-Clav 400-57 mg/5 ml Susp) 400 Mg/5 Ml Susp.recon, 500 MG GT BID Apixaban (Eliquis) 5 Mg Tablet, 2.5 MG PO BID To Resume on 01/14/2020 Atorvastatin Calcium (Atorvastatin Calcium) 80 Mg Tablet, 80 MG PO QHS, (Repo rted) Insulin Detemir (Levemir) 100 Unit/1 Ml Vial, 5 UNITS SC QHS Insulin Detemir (Levemir) 100 Unit/1 Ml Vial, 12 UNITS SC QAM Insulin Human Regular (Humulin R) 100 Unit/1 Ml Vial, 1 DOSE SC AC, (Reported) PER SLIDING SCALE Metoprolol Tartrate (Metoprolol Tartrate) 25 Mg Tablet, 12.5 MG PO BID, (Reported) Mometasone/Formoterol (Dulera 200 Mcg/5 Mcg Inhaler) 13 Gm Hfa.aer.ad, 2 PUFF INH BID, (Reported) Polyethylene Glycol 3350 (Polyethylene Glycol 3350) 17 Gm Powd.pack, 17 GM PO DAILY, (Reported) Senna (Senna Syrup) 176 Mg/5 Ml Syrup, 5 ML PO QHS, (Reported) Torsemide (Torsemide) 20 Mg Tablet, 40 MG PO BID@09,17 Scheduled PRN Acetaminophen (Acetaminophen) 160 Mg/5 Ml Liquid, 20 ML PO Q6H PRN for PAIN, (Reported) Acetaminophen (Acetaminophen) 325 Mg Tablet, 650 MG PO Q6H PRN for FEVER, (Reported) Albuterol Sulfate (Proair Hfa) 8.5 Gm Hfa.aer.ad, 1 PUFF INH Q4H PRN for SOB/WHEEZING, (Reported) Bisacodyl (Dulcolax) 10 Mg Supp.rect, 10 MG TX DAILY PRN for CONSTIPATION, (Reported) Magnesium Hydroxide (Milk of Magnesia) 400 Mg/5 Ml Oral.susp, 2,400 MG PO DAILY PRN for CONSTIPATION, (Reported) IF INEFFECTIVE PROCEED WITH DULCOLAX SUPP Ondansetron (Ondansetron Odt) 4 Mg Tab.rapdis, 4 MG PO Q6H PRN for NAUSEA OR VOMITING, (Reported) Sodium Chloride (Saline Nasal [place]) 88 Ml [place], 1 SPRAY NARES Q2H PRN for CONGESTION, (Reported) Sodium Phosphate,[place]-Dibasic (Enema Ready To Use) 133 Ml Enema, 1 BG TX DAILY PRN for CONSTIPATION, (Reported) GIVE IF NO RELIEF FROM DULCOLAX SUPP Allergies Coded Allergies: metformin (Verified Allergy, Severe, anaphylaxis, 01/04/20) sitagliptin (Verified Allergy, Severe, anaphylaxis, 01/04/20) sacubitril (Verified Allergy, Intermediate, facial swelling, 01/04/20) valsartan (Verified Allergy, Intermediate, facial swelling, 01/04/20) azithromycin (Verified Adverse Reaction, Mild, NAUSEA AND VOMITING, 01/04/20) rosuvastatin (Verified Adverse Reaction, Mild, NAUSEA AND VOMITING, 01/04/20 ) VANITA VERNON MD January 12, 2020 10:26
[2020-01-12 12:00] VITALS: BP 109/64
--- NOTE | 2020-01-13 05:32 | IPN ---
DATE: 01/12/2020 SUBJECTIVE: Patient was seen and examined at the bedside today morning. He is afebrile, hemodynamically stable. He was dialyzed yesterday. 2 liters of fluid was removed. He continues to be on tube feeds. He denies any active complaints at this time. OBJECTIVE: Vital signs: Temperature is 96.7 degrees Fahrenheit, blood pressure 104/70, pulse is 71, respiratory rate of 18, saturating 99% on room air. Intake and output: Ultrafiltration with hemodialysis was 2 liters yesterday. Weight on the bed scale is 86.1 kg. PHYSICAL EXAMINATION: General: Patient is awake, alert, oriented times two, laying in bed, in no apparent distress. Head and neck exam: Extraocular muscles intact. Pupils equally round and reactive to light. Mucous membranes are moist. Neck is supple. There is no jugular venous distention (JVD). Cardiovascular: S1, S2, regular rate. 1+ edema of the bilateral lower extremities. Respiratory: Mildly decreased breath sounds at the bases. Abdomen: Soft. Positive bowel sounds. Nontender. Genitourinary: Bladder is not palpable. Musculoskeletal: 1+ edema of the bilateral lower extremities. 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 Otherwise, he follows commands and moves upper extremities. LAB REVIEW: CBC showed a WBC 7.5, hemoglobin 12.3, platelets are 223. BMP showed sodium 134, potassium 3.8, chloride 98, bicarbonate 30, BUN 36, creatinine is 1.3. CURRENT INPATIENT MEDICATIONS: Patient's medications were all reviewed by me, and there is no significant change in the medications today as compared with yesterday. ASSESSMENT AND PLAN: 1. End-stage renal disease. Patient is dialysis dependent. He was dialyzed yesterday. Next hemodialysis session will be tomorrow morning. 2. Chronic systolic congestive heart failure. Volume status is being optimized with oral torsemide and dialysis sessions. 3. Urinary retention. Start Flomax now and discontinue (D/C) Aguirre catheter. 4. Anemia on end-stage renal disease. Hemoglobin level is optimal at 12.3. No need of Aranesp at this time. 5. Nutrition. Continue the tube feeds and Nepro at 40 mL/h. Patient does not like the nectar-thick liquids and puree, and he also tends to aspirate on his feeds.
== END 2020-01-12 15:33 | DRG 177 ==
LOC: M ED 13:08 → EDBD 13:08 → M PCU 15:21 → ENRESERV 16:20 → M ED INP 17:15 → M PCU 17:44
PROVIDERS: ADMIT Family Medicine; ATTEND Family Medicine
PROC: 2Y41X5Z Packing of Nasal Region using Packing Material (ICD-10-PCS; 2020-01-09)
PROC: 095K4ZZ Destruction of Nasal Mucosa and Soft Tissue, Percutaneous Endoscopic Approach (ICD-10-PCS; principal; 2020-01-09 10:45)
DX: J69.0 Pneumonitis due to inhalation of food and vomit (principal); I50.23 Acute on chronic systolic (congestive) heart failure; J96.21 Acute and chronic respiratory failure with hypoxia; N18.6 End stage renal disease; G93.41 Metabolic encephalopathy; N17.9 Acute kidney failure, unspecified; E87.1 Hypo-osmolality and hyponatremia; R04.0 Epistaxis; E87.5 Hyperkalemia; I48.91 Unspecified atrial fibrillation; I25.2 Old myocardial infarction; Z95.1 Presence of aortocoronary bypass graft; Z95.2 Presence of prosthetic heart valve; Z79.01 Long term (current) use of anticoagulants; E11.9 Type 2 diabetes mellitus without complications; F17.200 Nicotine dependence, unspecified, uncomplicated; Z99.2 Dependence on renal dialysis; Z79.899 Other long term (current) drug therapy; Z88.8 Allergy status to other drugs, medicaments and biological substances; I25.5 Ischemic cardiomyopathy; Z79.4 Long term (current) use of insulin; J44.9 Chronic obstructive pulmonary disease, unspecified; R33.9 Retention of urine, unspecified

== ENCOUNTER 2020-01-12 14:32 | Inpatient (IN) | payer MEDICARE, BC, OTHER ==
[~2020-01-12] VITALS: Ht 172.7 cm; Wt 91.5 kg
[2020-01-12] MEDS: PANTOPRAZOLE 40MG TAB (PROTONIX) PO SCH (09:00)
[~2020-01-12 14:32] MED LIST changes: +ACET160L16 PO; +ACET1TAB55 PO; +AMOX400S GT; +DULC10SU2 PR; +DULE200A INH; +ELIQ5TAB PO; +ENEMENE22 PR; +FURO40TA2 PO; +INSUDET SC; +INSURSD SC; +MAGN400O50 PO; +METO1TAB87 PO; +MIDO10TA PO; +ONDA4TAB6 PO; +Oxygen; +PEG1POW PO; +PROAAER10 INH; +SALI0.6530 NARES; +SENN15UDC PO; +TORS20TA2 PO; +[UNRECOGNIZED DRUG - MIXTURE]
[2020-01-12 15:50] VITALS: BP 104/70
[2020-01-12] MEDS ORDERED: GLUCAGON INJ 1MG VIAL SC PRN (16:45)
[2020-01-12] MEDS ORDERED: BISACODYL 10 MG SUPP PR PRN (16:45)
[2020-01-12] MEDS ORDERED: ACETAMINOPHEN TAB 650MG DOSE (2X325MG) PO PRN (16:45)
[2020-01-12] MEDS ORDERED: GLUCOSE 4GM CHEW TABLET PO PRN (16:45)
[2020-01-12] MEDS ORDERED: DEXTROSE 50% 50 ML SYRINGE IV PRN (16:45)
[2020-01-12] MEDS ORDERED: MIRALAX *UNIT DOSE* 17GM PACKET PO PRN (16:45)
[2020-01-12] MEDS: TORSEMIDE 20 MG TAB PO SCH (18:07)
[2020-01-12] MEDS: HumaLOG INSULIN (NovoLOG) PER UNIT SC SCH (18:07)
[2020-01-12] MEDS: IPRATROPIUM 0.5MG/ALBUTEROL 2.5MG INH SOL UD 3ML (DUONEB)(J7620) NEB SCH (19:44)
[2020-01-12 20:00] VITALS: BP 102/70
[2020-01-12] MEDS ORDERED: METOPROLOL TART 12.5 MG PER 1/2 TAB PO SCH (21:00)
[2020-01-12] MEDS ORDERED: SENNA 8.6 MG TAB (SENOKOT) PO SCH (21:00)
[2020-01-12] MEDS: REMEDY PHYTOPLEX Z-GUARD PASTE 113GM TUBE (FROM STOREROOM PRODUCT) TOP SCH (21:00)
[2020-01-12] MEDS: METOPROLOL TART 12.5 MG PER 1/2 TAB PEG SCH (21:00)
[2020-01-12] MEDS: DOCUSATE SODIUM 100 MG CAP PO SCH (21:00)
[2020-01-12] MEDS ORDERED: IPRATROPIUM 0.5MG/ALBUTEROL 2.5MG INH SOL UD 3ML (DUONEB)(J7620) NEB SCH (21:00)
[2020-01-12] MEDS: AUGMENTIN BID 400MG/5ML SUSP 50ML BTL PEG SCH (21:45)
[2020-01-12] MEDS: HEPARIN SOD (PORCINE) 5000UNITS/ML VIAL (J1644 PER 1000UNITS) SC SCH (21:46)
[2020-01-12] MEDS: SODIUM CHLORIDE NASAL 0.65% SPRAY BTL (OCEAN) SCH (21:46)
[2020-01-12] MEDS: ATORVASTATIN 20 MG TAB PEG SCH (21:46)
[2020-01-12] MEDS: guaiFENesin SYRUP 200 MG/10 ML UDC PEG SCH (21:46)
[2020-01-13] MEDS: HumaLOG INSULIN (NovoLOG) PER UNIT SC SCH ×4 (00:14→18:43)
[2020-01-13] MEDS: LEVEMIR (INSULIN DETEMIR) 1 UNITS/0.01ML SC SCH (00:14)
[2020-01-13 06:00] VITALS: BP 108/69
[2020-01-13 06:45] LABS: BASO % 0.3 % (0.0-1.0); EOS # 0.1 10^3/uL (0.0-0.5); EOS % 0.8 % (0.0-3.0); HEMATOCRIT 39.3 % (42.0-52.0); HEMOGLOBIN 11.6 g/dl (13.5-17.5); LYMPH % 11.3 % (24.0-44.0); MEAN CORPUSCULAR HEMOGLOBIN 27.4 pg (27.0-33.0); MEAN CORPUSCULAR HGB CONC 29.5 g/dl (32.0-36.5); MEAN CORPUSCULAR VOLUME 92.9 fl (80.0-96.0); MONO # 1.2 10^3/uL (0.0-0.8); MONO % 13.7 % (0.0-5.0); NEUTROPHILS # 6.3 10^3/uL (1.5-8.5); NEUTROPHILS % 73.4 % (36.0-66.0); PLATELET COUNT, AUTOMATED 229 10^3/uL (150-450); RED BLOOD COUNT 4.23 10^6/uL (4.30-6.10); WHITE BLOOD COUNT 8.6 10^3/uL (4.0-10.0)
[2020-01-13 07:07] LABS: ALBUMIN 2.1 GM/DL (3.2-5.2); BILIRUBIN,TOTAL 1.3 MG/DL (0.2-1.0); CALCIUM LEVEL 8.5 MG/DL (8.8-10.2); CREATININE FOR GFR 1.29 MG/DL (0.70-1.30); GLOMERULAR FILTRATION RATE 59.9 (>49); POTASSIUM SERUM 3.5 MEQ/L (3.5-5.1); TOTAL PROTEIN 6.8 GM/DL (6.4-8.2)
[2020-01-13] MEDS: IPRATROPIUM 0.5MG/ALBUTEROL 2.5MG INH SOL UD 3ML (DUONEB)(J7620) NEB SCH ×3 (07:14→19:56)
--- NOTE | 2020-01-13 07:24 | IPNPDOC ---
Date Seen The patient was seen on 01/13/20. Progress Note Pt is a 64yM with PMH of systolic CHF, ischemic cardiomyopathy with anterior wall CA in August 2012, status post bypass in 2005, status post CABG, status post subsequent stents 2, ICD placement, Atrial fibrillation on Eliquis, HLD, DM [id number], tobacco abuse, presents with acute respiratory failure with hypoxia and epistaxis. Patient's Eliquis was held, ENT was consulted and right Rhino Rocket was removed on 01/09/2020, which patient tolerated. He was subsequently empirically treated with 10 day, Augmentin course. With recommendations to follow-up with ENT next week, kaila ([phone]). Patient was also found to have CAP on right lower lobe on CXR, suspicious secondary to aspiration, completed a full course of antibiotics for CAP during his hospitalization stay. Speech pathology and dietary reconsult to for recommendations on diet, patient's Nepro tube feeds were resumed, and recommendations for pured diet. Nephrology was also consulted for dialysis/susp icious for ESRD and hyperkalemia, pt had dialysis on 01/05/20, 01/07/20, and 01/11/20. Throughout his hospitalization, patient had a 24-hour urine study revealing oliguria and unfortunately deemed dialysis dependent. During hospitalization, I also discussed case with Dr. Jennings, cardiology, pt does not have any noted history of CVA, and cleared to hold Eliquis. Echo obtained on 2018 reveals an EF of 10-15%, severe elevation of RV systolic pressure, global hypokinesis. Urine culture was obtained on 01/07 reveals no growth, blood cultures 2 on 01/04/2020 reveals no growth. Labs include CBC, hemoglobin and hematocrit stable, all dc labs reviewed and stable. Chest x-ray repeat performed on 01/10/2020 reveals intact tunnel central venous catheter on the left IJ, pulmonary vascular stable, patchy areas of increased density on bases, right lower lobe infiltrate, improved. Encourage incentive spirometry. Pt tolerated nasal saline without epistasis. Renal ultrasound was also performed and reveals NAD. Spoke with , to note pt prior to October 2019, lived at home with her in [place]. Life partner and daughter are healthcare proxy, there is no available power of contracts attorney. Pt was dc to ARU 01/12/20. On DC on insulin dosing from home dosing, resume Eliquis, upon discussion with patient to 2.5 twice a day in a couple days, complete antibiotic course for prophylaxis status post Rhino Rocket, stopped midodrine, started torsemide in place of previous furosemide. Nephrology consulted, and schedule ENT appointment next week. Patient will need outpatient follow with PCP and cardiology 1 week upon discharge. Patient is doing well, while in the room. He experienced logical sensation down back to legs, which subsequently resolved. Since his first episode. OBJECTIVE PHYSICAL EXAMINATION: VITAL SIGNS: Please see below. GENERAL: male who is more awake and interactive today, at dialysis, left-sided dialysis catheter appears clean, dry and intact HEENT: Normocephalic, atraumatic, dry mucus membrane NECK: Supple CARDIOVASCULAR EXAMINATION: S1, S2 RESPIRATORY EXAMINATION: CTAB ABDOMINAL EXAMINATION: +BS, soft, G-tube appears clean, dry, and intact EXTREMITIES: trace edema SKIN: No rash NEUROLOGICAL EXAMINATION: awake PSYCHIATRIC EXAMINATION: Flat affect LABORATORY DATA, IMAGING STUDIES, MICROBIOLOGY: Please see below. ASSESSMENT AND PLAN: Pt is a 64yM with PMH of systolic CHF, ischemic cardiomyopathy with anterior wall CA in August 2012, status post bypass in 2005, status post CABG, status post subsequent stents 2, ICD placement, Atrial fibrillation on Eliquis, HLD, DM [id number], tobacco abuse, presents with acute respiratory failure with hypoxia, epistaxis, and oliguria secondary to cardiorenal syndrome. #deconditioning secondary to epistaxis/CAP/renal failure: in rehab, PT/OT, defer to primary team #possible Lhermitte's sign from positioning , will monitor, if worsens, consider obtaining Vit B12 level vs neuro consult vs further imaging #Epistaxis: ENT consulted, plan to keep Rhino Rocket, INR now wnl, will monitor. 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 VS, I&O, 24H, Fishbone Vital Signs/I&O Vital Signs Date Time Temp Pulse Resp B/P (MAP) Pulse Ox O2 Delivery O2 Flow Rate FiO2 01/13/20 06:00 97.0 71 18 108/69 (82) 98 Room Air 01/12/20 22:38 5.0 I&O- Last 24 Hours up to 6 AM 01/13/20 06:00 Intake Total 0 ml Output Total 675 ml Balance -675 ml Laboratory Data 24H LABS Laboratory Tests 2 01/12/20 17:46: Bedside Glucose (Misc Panel) 177H 01/13/20 00:07: Bedside Glucose (Misc Panel) 206H 01/13/20 06:08: Bedside Glucose (Misc Panel) 208H 01/13/20 06:22: Immature Granulocyte % (Auto) 0.5, Neutrophils (%) (Auto) 73.4H, Lymphocytes (%) (Auto) 11.3L, Monocytes (%) (Auto) 13.7H, Eosinophils (%) (Auto) 0.8, Basophils (%) (Auto) 0.3, Neutrophils # (Auto) 6.3, Lymphocytes # (Auto) 1.0L, Monocytes # (Auto) 1.2H, Eosinophils # (Auto) 0.1, Basophils # (Auto) 0.0, Nucleated Red Blood Cells % (auto) 0.0, Anion Gap 6L, Glomerular Filtration Rate 59.9, Calcium Level 8.5L, Total Bilirubin 1.3H, Aspartate Amino Transf (AST/SGOT) 22, Alanine Aminotransferase (ALT/SGPT) 22, Alkaline Phosphatase 216H, Total Protein 6.8, Albumin 2.1L, Albumin/Globulin Ratio 0.4 CBC/BMP Laboratory Tests 01/13/20 06:22 VANITA VERNON MD January 13, 2020 07:12
[2020-01-13] MEDS: HEPARIN SOD (PORCINE) 5000UNITS/ML VIAL (J1644 PER 1000UNITS) SC SCH (08:55)
[2020-01-13] MEDS: AUGMENTIN BID 400MG/5ML SUSP 50ML BTL PEG SCH ×2 (08:56→21:39)
[2020-01-13] MEDS: guaiFENesin SYRUP 200 MG/10 ML UDC PEG SCH ×3 (08:57→21:39)
[2020-01-13] MEDS: PANTOPRAZOLE 40MG TAB (PROTONIX) PO SCH (08:58)
[2020-01-13] MEDS: TORSEMIDE 20 MG TAB PO SCH (08:58)
[2020-01-13] MEDS: DOCUSATE SODIUM 100 MG CAP PO SCH (08:58)
[2020-01-13] MEDS: METOPROLOL TART 12.5 MG PER 1/2 TAB PEG SCH ×2 (08:59→21:38)
[2020-01-13] MEDS: SODIUM CHLORIDE NASAL 0.65% SPRAY BTL (OCEAN) SCH ×3 (09:00→21:42)
[2020-01-13] MEDS: LIDOCAINE 5% (LIDODERM) PATCH TD SCH (09:00)
[2020-01-13] MEDS ORDERED: ACETAMINOPHEN 500 MG TAB PO SCH (09:00)
[2020-01-13] MEDS: REMEDY PHYTOPLEX Z-GUARD PASTE 113GM TUBE (FROM STOREROOM PRODUCT) TOP SCH ×3 (09:01→21:42)
[2020-01-13] MEDS ORDERED: MIRALAX *UNIT DOSE* 17GM PACKET PEG PRN (11:45)
[2020-01-13] MEDS ORDERED: MAGIC MOUTHWASH SUSPENSION BTL SSP PRN (12:45)
[2020-01-13] MEDS: MAGIC MOUTHWASH SUSPENSION BTL XX SCH ×2 (12:47→17:30)
--- NOTE | 2020-01-13 15:25 | HPEPDOC ---
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 SOURCE OF ADMISSION INFORMATION: [facility] record and patient CHIEF COMPLAINT: metabolic encephalopathy HISTORY OF PRESENT ILLNESS: 64M pmh COPD, pulmonary HTN, chronic systolic CHF with EF 10-15% (2018) s/p ICD placement, Afib on Eliquis, SC with CABG and stenting, HLD, DM, recent admission to [facility] (October 2019) for respiratory failure due to Influenza-A where PEG tube was placed, and he was started on dialysis for oliguria, presented to [facility] ED on 01-04-20 with encephalopathy and epistaxis from the left nostril with shortness of breath. A rhino rocket was placed, he was started on Venturi mask, and given calcium gluconate for hyperkalemia. CXR revealed, Cardiomegaly. Chronic changes. Right lower lobe infiltrate or atelectasis for which he was started on IV antibiotics. ENT evaluated the patient recommending holding AC for a period of time and on 01-09-20 performed nasal packing in the OR with endoscopic debridement of the nasal cavity. He was followed by renal for acute renal failure and for his fluid overloaded status and recommended lower dose of eliquis 2.5 BID once cleared by ENT. He continued to have pharyngeal impairment and was kept NPO with PEG feeds. He was evaluated by therapy and deemed to be medically appropriate to discharge to ARU on 01-12-20. REVIEW OF SYSTEMS: The following is a completed review of systems and has been reviewed. Review of systems otherwise unremarkable. PAIN: Patient self reports no pain EYES: No recent vision changes EARS, NOSE, & THROAT: + dysphagia CARDIOVASCULAR: Denies chest pain or palpitations PULMONARY: Denies shortness of breath GASTROINTESTINAL: Denies constipation/diarrhea GENITOURINARY: +retention MUSCULOSKELETAL:+generalized weakness NEUROLOGICAL:+enpaholoapthy HEMATOLOGICAL: +easy bruising, recent epistaxis SKIN: scattered ecchymosis PSYCHIATRIC: +confused All other review of systems found to be negative. PAST MEDICAL HISTORY: as per HPI PAST SURGICAL HISTORY: as per HPI ALLERGIES: Please see below. MEDICATIONS: Please see below. SOCIAL HISTORY: +smoker, no etoh, illicit drugs DIET: NPO- peg feeds PHYSICAL EXAMINATION: VITAL SIGNS: Please see below. GENERAL: Pleasant and cooperative. No acute distress. HEENT: PERRL. Extraocular movements intact. Clear conjunctiva CARDIOVASCULAR: Regular rate and rhythm. No murmurs, rubs, or gallops LUNGS: Clear to auscultation bilaterally. No wheezes. No rhonchi ABDOMEN: Soft, nontender, nondistended. Positive bowel sounds. Normal active bowel sounds, +PEG NEUROLOGICAL: Alert and oriented to self, thought it was 2020, and president "Jamal" Cranial nerves II through XII grossly intact. Sensation grossly intact to light touch all 4limbs EXTREMITIES: 5-\\5 strength bilateral upper extremities. 5-\\5 strength right lower extremity. 5-/5 strength in left lower extremity. (-) edema SKIN: LUE chest well permacath, sternal scar healed, sacrum with blanchable erythema, heels with blanchable erythema LABORATORY DATA: Please see below. IMAGING:Imaging documentation personally reviewed by record FUNCTIONAL STATUS: Premorbid: Modified Independent with all activities of daily life as well as mobility from a wheelchair level On Admission: Maximum assistance for bathing, upper body dressing, bed chair and wheelchair transfers, toilet transfers, ambulation. GOALS: Supervision ambulation household distances, functional transfers, dressing, toileting, bathing ASSESSMENT:64-year-old M with past medical history of chronic systolic CHF who presents status post epistaxis with metabolic encephalopathy PLAN: 1. 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 Neuro: patient with recent acute encephalopathy likely due to metabolic derangement vs infection, now still encephalopathic, c/u dialysis and treatment for pneumonia 3. cardiac: chronic systolic CHF with EF 10-15% with ICD- c/u torsemide and fluid management per dialysis, daily weights-medicine consulted to assist -Afib on metoprolol, Eliquis (2.5mg BID) on hold for now due to recent epistaxis -CAD s/p CABG and stent, ASA on hold due to epistaxis -HLD c/u statin 4. resp: COPD with Pneumonia, c/u augmentin, duonebs, supplemental 02 via venturi-mask, guaifenesin 5. Endo: hx of DM c/u Insulin and ISS, adjust prn 6. ENT: s/p left nasal epistaxis with packing, and packing removal 01-09-20 with Self-dissoving packing gel-foam -f/u ENT after d/c 7. renal: urinary retention with oliguria started on HD 10/20, renal consulted to c/u while inhouse 8. DVT ppx: heparin and teds 9. GI ppx: lansaprazole 10. Pain: tylenol prn 11. Nutrition- PEG feeds overnight with noon bolus 12. Dispo: TBD Start IM thiamine, folic acid-check levels Check thyroid POST ADMISSION PHYSICIAN EVALUATION: Medical and functional status: Description of medical status, medical assessment: As above. Rehabilitation diagnosis and current and prior cold morbid medical conditions as above. Risk of complications and plans to mitigate them as above. Description of functional status current status is as above. Prior status as above. Status compared to preadmission: There are no clinically significant differences between the patient's current status and the information described on the preadmission screening document. Treatment plan anticipated: Treatment plan is as described above. Required disciplines including physical therapy, occupational therapy, others as noted above. Intensity of services: 3 hours a day, 6 days a week. Special considerations: There are no specific special or safety considerations that would likely preclude immediate implementation of an intensive rehabilita tion program or subsequently influence the plan of care. ATTESTATION: Considering all the information above, it is my best judgment that this patient requires intensive rehabilitation therapy as described above and an inpatient hospital environment due to the complexity of nursing, medical, and rehabilitation needs required by the patient. Furthermore, this patient can reasonably be expected to participate in an benefit from an inpatient rehabilitation stay with an interdisciplinary team approach to the delivery of rehabilitation care under the direction and supervision of rehabilitation phys rosie. PROGNOSIS:good ESTIMATED LENGTH OF STAY:18-21 days. PROJECTED DISCHARGE DESTINATION: Home with family support and any durable medical equipment required to increase functional safety and mobility. TIME SPENT COUNSELING AND COORDINATING INITIAL CARE: Greater than 70 minutes. Vital Signs Vital Sign - Last 24 Hours 01/12/20 01/12/20 01/12/20 01/13/20 15:50 20:00 22:38 06:00 Temp 96.7 96.7 97.0 Pulse 71 70 71 Resp 18 20 18 B/P (MAP) 104/70 (81) 102/70 (81) 108/69 (82) Pulse Ox 99 100 98 O2 Delivery Room Air Room Air Room Air O2 Flow Rate 5.0 01/13/20 08:59 Pulse 69 B/P (MAP) 110/70 Laboratory Data CBC/BMP Laboratory Tests 01/13/20 06:22 Labs 24H Laboratory Tests 2 01/12/20 17:46: Bedside Glucose (Misc Panel) 177H 01/13/20 00:07: Bedside Glucose (Misc Panel) 206H 01/13/20 06:08: Bedside Glucose (Misc Panel) 208H 01/13/20 06:22: Immature Granulocyte % (Auto) 0.5, Neutrophils (%) (Auto) 73.4H, Lymphocytes (%) (Auto) 11.3L, Monocytes (%) (Auto) 13.7H, Eosinophils (%) (Auto) 0.8, Basophils (%) (Auto) 0.3, Neutrophils # (Auto) 6.3, Lymphocytes # (Auto) 1.0L, Monocytes # (Auto) 1.2H, Eosinophils # (Auto) 0.1, Basophils # (Auto) 0.0, Nucleated Red Blood Cells % (auto) 0.0, Anion Gap 6L, Glomerular Filtration Rate 59.9, Calcium Level 8.5L, Total Bilirubin 1.3H, Aspartate Amino Transf (AST/SGOT) 22, Alanine Aminotransferase (ALT/SGPT) 22, Alkaline Phosphatase 216H, Total Protein 6.8, Albumin 2.1L, Albumin/Globulin Ratio 0.4, Vitamin B12 Level 1024H 01/13/20 11:56: Bedside Glucose (Misc Panel) 122H FSBS Laboratory Tests Test 01/12/20 17:46 01/13/20 00:07 01/13/20 06:08 01/13/20 11:56 Range/Units Bedside Glucose (Misc Panel) 177 206 208 122 80-115 MG/DL Home Medications Scheduled Amoxicillin/Potassium Clav (Amox-Clav 400-57 mg/5 ml Susp) 400 Mg/5 Ml Susp.recon, 500 MG GT BID Apixaban (Eliquis) 5 Mg Tablet, 2.5 MG PO BID To Resume on 01/14/2020 Atorvastatin Calcium (Atorvastatin Calcium) 80 Mg Tablet, 80 MG PO QHS, (Reported) Insulin Detemir (Levemir) 100 Unit/1 Ml Vial, 5 UNITS SC QHS Insulin Detemir (Levemir) 100 Unit/1 Ml Vial, 12 UNITS SC QAM Insulin Human Regular (Humulin R) 100 Unit/1 Ml Vial, 1 DOSE SC AC, (Reported) PER SLIDING SCALE Metoprolol Tartrate (Metoprolol Tartrate) 25 Mg Tablet, 12.5 MG PO BID, (Reported) Mometasone/Formoterol (Dulera 200 Mcg/5 Mcg Inhaler) 13 Gm Hfa.aer.ad, 2 PUFF INH BID, (Reported) Polyethylene Glycol 3350 (Polyethylene Glycol 3350) 17 Gm Powd.pack, 17 GM PO DAILY, (Reported) Senna (Senna Syrup) 176 Mg/5 Ml Syrup, 5 ML PO QHS, (Reported) Torsemide (Torsemide) 20 Mg Tablet, 40 MG PO BID@09,17 Scheduled PRN Acetaminophen (Acetaminophen) 160 Mg/5 Ml Liquid, 20 ML PO Q6H PRN for PAIN, (Reported) Acetaminophen (Acetaminophen) 325 Mg Tablet, 650 MG PO Q6H PRN for FEVER, (Reported) Albuterol Sulfate (Proair Hfa) 8.5 Gm Hfa.aer.ad, 1 PUFF INH Q4H PRN for SOB/WHEEZING, (Reported) Bisacodyl (Dulcolax) 10 Mg Supp.rect, 10 MG WI DAILY PRN for CONSTIPATION, (Reported) Magnesium Hydroxide (Milk of Magnesia) 400 Mg/5 Ml Oral.susp, 2,400 MG PO DAILY PRN for CONSTIPATION, (Reported) IF INEFFECTIVE PROCEED WITH DULCOLAX SUPP Ondansetron (Ondansetron Odt) 4 Mg Tab.rapdis, 4 MG PO Q6H PRN for NAUSEA OR VOMITING, (Reported) Sodium Chloride (Saline Nasal [place]) 88 Ml [place], 1 SPRAY NARES Q2H PRN for CONGESTION, (Reported) Sodium Phosphate,[place]-Dibasic (Enema Ready To Use) 133 Ml Enema, 1 BG WI DAILY PRN for CONSTIPATION, (Reported) GIVE IF NO RELIEF FROM DULCOLAX SUPP Allergies Coded Allergies: metformin (Verified Allergy, Severe, anaphylaxis, 01/04/20) sitagliptin (Verified Allergy, Severe, anaphylaxis, 01/04/20) sacubitril (Verified Allergy, Intermediate, facial swelling, 01/04/20) valsartan (Verified Allergy, Intermediate, facial swelling, 01/04/20) azithromycin (Verified Adverse Reaction, Mild, NAUSEA AND VOMITING, 01/04/20) rosuvastatin (Verified Adverse Reaction, Mild, NAUSEA AND VOMITING, 01/04/20) A-FIB/CHADSVASC A-FIB History Current/History of A-Fib/PAF?: Yes Current PO Anticoag Therapy: No GARO TORRES MD January 13, 2020 15:25
--- NOTE | 2020-01-13 15:55 | IPNPDOC ---
PM&R Progress Note DATE OF SERVICE: January 13, 2020 Level Designer Progress Note Subjective: Patient seen today stating he feel good today, but when he bent forward in bed he felt a shooting pain in his right lower back. he does not want to be on o pioids and thinks the pain is manageable. REVIEW OF SYSTEMS: The following is a completed review of systems and has been reviewed. Review of systems otherwise unremarkable. PAIN: Patient self reports right LBP EYES: No recent vision changes EARS, NOSE, & THROAT: + dysphagia CARDIOVASCULAR: Denies chest pain or palpitations PULMONARY: Denies shortness of breath GASTROINTESTINAL: Denies constipation/diarrhea GENITOURINARY: +retention MUSCULOSKELETAL:+generalized weakness NEUROLOGICAL:+enpaholoapthy HEMATOLOGICAL: +easy bruising, recent epistaxis SKIN: scattered ecchymosis PSYCHIATRIC: +confused All other review of systems found to be negative. PHYSICAL EXAMINATION: VITAL SIGNS: Please see below. GENERAL: Pleasant and cooperative. No acute distress. HEENT: PERRL. Extraocular movements intact. Clear conjunctiva CARDIOVASCULAR: Regular rate and rhythm. No murmurs, rubs, or gallops LUNGS: Clear to auscultation bilaterally. No wheezes. No rhonchi ABDOMEN: Soft, nontender, nondistended. Positive bowel sounds. Normal active bowel sounds, +PEG NEUROLOGICAL: Alert and oriented to self, thought it was 2020, and president "Jamal" Cranial nerves II through XII grossly intact. Sensation grossly intact to light touch all 4limbs EXTREMITIES: 5-\\5 strength bilateral upper extremities. 5-\\5 strength right lower extremity. 5-/5 strength in left lower extremity. (-) edema SKIN: LUE chest well permacath, sternal scar healed, sacrum with blanchable erythema, heels with blanchable erythema ASSESSMENT:64-year-old M with past medical history of chronic systolic CHF who presents status post epistaxis with metabolic encephalopathy PLAN: 1. 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 Neuro: patient with recent acute encephalopathy likely due to metabolic derangement vs infection, now still encephalopathic, c/u dialysis and treatment for pneumonia -per patient's patient was tolerating oral foods while getting intermittent PEG feeds a week ago when he was at [place], unclear what conistencey he was on, MANAGER CATH LAB aware and will c/u to work on advancing diet -CTH ordered today to look for possible subacute/chronic stroke given recent dysphagia- stating he has had peg since his [place]'s admission in October 2019 for acute respiratory failure and was not sure if a neuro work-up had been done -f/u thiamine, TFTs and folate levels 3. cardiac: chronic systolic CHF with EF 10-15% with ICD- c/u torsemide and fluid management per dialysis, daily weights-medicine consulted to assist -Afib on metoprolol, Eliquis 2.5mg BID-ok to restart per ENT recs -CAD s/p CABG and stent, ok to restart ASA per ENT recs -HLD c/u statin 4. resp: COPD with Pneumonia, c/u augmentin, duonebs, supplemental 02 via venturi-mask, guaifenesin 5. Endo: hx of DM c/u Insulin and ISS, adjust prn 6. ENT: s/p left nasal epistaxis with packing, and packing removal 01-09-20 with Self-dissolving packing gel-foam -f/u ENT after d/c 7. renal: urinary retention with oliguria started on HD 10/20, renal consulted to c/u while inhouse -unable to give Flomax as cannot be crushed via peg, will wait until patient cleared for whole pills in MANAGER CATH LAB -TOV Thursday 8. DVT ppx: restarting eliquis , c/u teds 9. GI ppx: lansaprazole 10. Pain: tylenol 975mg standing and lidoderm patch for low back pain 11. Nutrition- PEG feeds overnight with noon bolus 12. Dispo: TBD Allergies Coded Allergies: metformin (Verified Allergy, Severe, anaphylaxis, 01/04/20) sitagliptin (Verified Allergy, Severe, anaphylaxis, 01/04/20) sacubitril (Verified Allergy, Intermediate, facial swelling, 01/04/20) valsartan (Verified Allergy, Intermediate, facial swelling, 01/04/20) azithromycin (Verified Adverse Reaction, Mild, NAUSEA AND VOMITING, 01/04/20) rosuvastatin (Verified Adverse Reaction, Mild, NAUSEA AND VOMITING, 01/04/20) Vital Signs Vital Signs Date Time Temp Pulse Resp B/P (MAP) Pulse Ox O2 Delivery O2 Flow Rate FiO2 01/13/20 08:59 69 110/70 01/13/20 06:00 97.0 18 98 Room Air 01/12/20 22:38 5.0 Laboratory Data CBC/BMP Laboratory Tests 01/13/20 06:22 Labs 24H Laboratory Tests 2 01/12/20 17:46: Bedside Glucose (Misc Panel) 177H 01/13/20 00:07: Bedside Glucose (Misc Panel) 206H 01/13/20 06:08: Bedside Glucose (Misc Panel) 208H 01/13/20 06:22: Immature Granulocyte % (Auto) 0.5, Neutrophils (%) (Auto) 73.4H, Lymphocytes (%) (Auto) 11.3L, Monocytes (%) (Auto) 13.7H, Eosinophils (%) (Auto) 0.8, Basophils (%) (Auto) 0.3, Neutrophils # (Auto) 6.3, Lymphocytes # (Auto) 1.0L, Monocytes # (Auto) 1.2H, Eosinophils # (Auto) 0.1, Basophils # (Auto) 0.0, Nucleated Red B lood Cells % (auto) 0.0, Anion Gap 6L, Glomerular Filtration Rate 59.9, Calcium Level 8.5L, Total Bilirubin 1.3H, Aspartate Amino Transf (AST/SGOT) 22, Alanine Aminotransferase (ALT/SGPT) 22, Alkaline Phosphatase 216H, Total Protein 6.8, Albumin 2.1L, Albumin/Globulin Ratio 0.4, Vitamin B12 Level 1024H 01/13/20 11:56: Bedside Glucose (Misc Panel) 122H Current Medications Current Medications Current Medications Medications (Trade) Dose Ordered Sig/Ayala Route PRN Reason Start Time Stop Time Status Last Admin Dose Admin Acetaminophen (Tylenol Suspension) 975 mg TID PEG 01/13/20 16:00 Acetaminophen (Tylenol Tab) 650 mg Q4HP PRN PO fever/MILD PAIN (PS 1-4) 01/12/20 16:45 01/13/20 11:14 DC Acetaminophen (Tylenol Tab) 1,000 mg TID PO 01/13/20 09:00 01/13/20 11:36 DC Albuterol/ Ipratropium (Duoneb (Ipr 0.5mg/Alb 2.5mg)) 3 ml RTID NEB 01/12/20 20:00 01/13/20 13:04 Albuterol/ Ipratropium (Duoneb (Ipr 0.5mg/Alb 2.5mg)) 3 ml TID NEB 01/12/20 21:00 01/12/20 17:12 DC Amoxicillin/ Clavulanate Potassium (Augmentin 400 Mg/5 ml Susp) 500 mg BID PEG 01/12/20 21:00 01/18/20 21:00 01/13/20 08:56 Apixaban (Eliquis) 2.5 mg BID PEG 01/13/20 21:00 Aspirin (Aspirin Chewable) 81 mg DAILY PEG 01/14/20 09:00 Atorvastatin Calcium (Lipitor) 80 mg QHS PEG 01/12/20 21:00 01/12/20 21:46 Bisacodyl (Dulcolax Suppository) 10 mg DAILYPRN PRN [place] CONSTIPATION 01/12/20 16:45 Dextrose (Dextrose 50%) 25 ml ASDIRECTED PRN IV SEE LABEL COMMENTS 01/12/20 16:45 Docusate Sodium (Colace Liquid) 100 mg BID PEG 01/13/20 21:00 Docusate Sodium (Colace) 100 mg BID PO 01/12/20 21:00 01/13/20 11:36 DC 01/13/20 08:58 Glucagon (Glucagon) 1 mg ASDIRECTED PRN SC SEE LABEL COMMENTS 01/12/20 16:45 Glucose (Glucose) 16 GM ASDIRECTED PRN PO SEE LABEL COMMENTS 01/12/20 16:45 Guaifenesin (Robitussin) 10 ml TID PEG 01/12/20 21:00 01/13/20 08:57 Heparin Sodium (Porcine) (Heparin) 5,000 units Q12H SC 01/12/20 21:00 01/13/20 14:02 DC 01/13/20 08:55 Insulin Detemir (Levemir Insulin) 12 units QHS@0000 SC 01/13/20 00:00 01/13/20 00:14 Insulin Human Lispro (HumaLOG INSULIN) SEE PROTOCOL TABLE Q6H SC 01/12/20 18:00 01/13/20 12:44 Lansoprazole (First-Lansoprazole Oral Suspension) 30 mg DAILY PEG 01/14/20 09:00 Lidocaine (Lidoderm Patch) 1 patch DAILY TD 01/13/20 09:00 01/13/20 09:00 Lidocaine/ Diphenhydr/Alum/ Mg/Simeth (Magic Mouthwash) 5ML -do prior to giv... Q4HP PRN SSP pre-ice chips 01/13/20 12:45 Lidocaine/ Diphenhydr/Alum/ Mg/Simeth (Magic Mouthwash) please use swab to cl... AC XX 01/13/20 12:00 01/13/20 12:47 Metoprolol Tartrate (Lopressor) 12.5 mg BID PEG 01/12/20 21:00 Metoprolol Tartrate (Lopressor) 12.5 mg BID PO 01/12/20 21:00 01/12/20 20:01 DC Non-Formulary Medication ( See Comment Field Below ) REMOVE LIDODERM PATCH DAILY@21 XX 01/13/20 21:00 Pantoprazole Sodium (Protonix) 40 mg DAILY PO 01/12/20 09:00 01/13/20 11:36 DC 01/13/20 08:58 Polyethylene Glycol (Miralax) 1 pkt DAILY PRN PEG CONSTIPATION 01/13/20 11:45 Polyethylene Glycol (Miralax) 1 pkt DAILY PRN PO CONSTIPATION 01/12/20 16:45 01/13/20 11:36 DC Senna (Senokot) 1 tab QHS PO 01/12/20 21:00 01/13/20 11:36 DC Sodium Chloride ([place]y Nasal [place]) 2 spray TID NA 01/12/20 21:00 01/13/20 09:00 Tamsulosin HCl (Flomax) 0.4 mg QHS PO 01/13/20 21:00 01/13/20 11:36 DC Torsemide (Demadex) 40 mg BID@,17 PEG 01/13/20 17:00 Torsemide (Demadex) 40 mg BID@,17 PO 01/12/20 17:00 01/13/20 11:36 DC 01/13/20 08:58 GARO TORRES MD January 13, 2020 15:55
[2020-01-13] MEDS: ACETAMINOPHEN 325 MG/10.15 ML UDC PEG SCH ×2 (16:34→21:42)
[2020-01-13] MEDS: TORSEMIDE 20 MG TAB PEG SCH (16:35)
[2020-01-13 18:15] VITALS: BP 104/59
--- NOTE | 2020-01-13 18:37 | REPVR ---
PROCEDURE INFORMATION: Exam: CT Head Without Contrast Exam date and time: 01/13/2020 6:05 PM Age: 64 years old Clinical indication: Altered mental status/memory loss; Additional info: Dysphagia and altered mental status TECHNIQUE: Imaging protocol: Computed tomography of the head without contrast. Radiation optimization: All CT scans at this facility use at least one of these dose optimization techniques: automated exposure control; mA and/or kV adjustment per patient size (includes targeted exams where dose is matched to clinical indication); or iterative reconstruction. COMPARISON: CT HEAD W/O CONTRAST - OUTSIDE PRIOR 11/13/2019 4:38 AM FINDINGS: Brain: Mild nonspecific hypodensities of the periventricular and deep subcortical white matter, most likely secondary to chronic small vessel ischemic change. No intracranial hemorrhage or extra-axial fluid collection. No evidence of mass effect or midline shift. Fierro-white matter differentiation is normal. Ventricles: Mild prominence of the ventricles and sulci, most likely attributed to parenchymal volume loss. Bones/joints: No acute osseus lesion or fracture. Sinuses: Unremarkable as visualized. Mastoid air cells: Unremarkable. Soft tissues: Unremarkable. IMPRESSION: 1. No acute intracranial pathology. 2. Other chronic findings, as above. Electronically signed by: Babar Sharma On 01/13/2020 18:36:52 PM
[2020-01-13 20:00] VITALS: BP 115/72
[2020-01-13] MEDS ORDERED: TAMSULOSIN 0.4 MG CAP PO SCH (21:00)
[2020-01-13] MEDS: APIXABAN 2.5 MG TAB (ELIQUIS) PEG SCH (21:37)
[2020-01-13] MEDS: ATORVASTATIN 20 MG TAB PEG SCH (21:38)
[2020-01-13] MEDS: DOCUSATE SOD LIQ 100MG/10ML UDC PEG SCH (21:39)
[2020-01-13] MEDS: **NOTE PATIENT COMMENT** MISC XX SCH (21:43)
[2020-01-14] MEDS: LEVEMIR (INSULIN DETEMIR) 1 UNITS/0.01ML SC SCH (00:02)
[2020-01-14] MEDS: HumaLOG INSULIN (NovoLOG) PER UNIT SC SCH ×4 (00:03→18:22)
[2020-01-14 04:22] VITALS: BP 101/69
[2020-01-14 06:52] LABS: BASO # 0.1 10^3/uL (0.0-0.2); BASO % 0.7 % (0.0-1.0); EOS # 0.1 10^3/uL (0.0-0.5); EOS % 1.9 % (0.0-3.0); HEMATOCRIT 39.2 % (42.0-52.0); HEMOGLOBIN 11.7 g/dl (13.5-17.5); LYMPH % 15.4 % (24.0-44.0); MEAN CORPUSCULAR HEMOGLOBIN 27.5 pg (27.0-33.0); MEAN CORPUSCULAR HGB CONC 29.8 g/dl (32.0-36.5); MEAN CORPUSCULAR VOLUME 92.2 fl (80.0-96.0); MONO % 14.8 % (0.0-5.0); NEUTROPHILS # 4.4 10^3/uL (1.5-8.5); NEUTROPHILS % 66.6 % (36.0-66.0); PLATELET COUNT, AUTOMATED 206 10^3/uL (150-450); RED BLOOD COUNT 4.25 10^6/uL (4.30-6.10); WHITE BLOOD COUNT 6.7 10^3/uL (4.0-10.0)
[2020-01-14] MEDS: IPRATROPIUM 0.5MG/ALBUTEROL 2.5MG INH SOL UD 3ML (DUONEB)(J7620) NEB SCH ×3 (07:09→19:50)
[2020-01-14 07:22] LABS: BLOOD UREA NITROGEN 25 MG/DL (7-18); CALCIUM LEVEL 8.3 MG/DL (8.8-10.2); CARBON DIOXIDE LEVEL 31 MEQ/L (21-32); CHLORIDE LEVEL 100 MEQ/L (98-107); CREATININE FOR GFR 1.05 MG/DL (0.70-1.30); FREE T4 1.59 NG/DL (0.76-1.46); GLOMERULAR FILTRATION RATE > 60.0 (>49); GLUCOSE, FASTING 164 MG/DL (70-100); POTASSIUM SERUM 3.8 MEQ/L (3.5-5.1); SODIUM LEVEL 135 MEQ/L (136-145)
[2020-01-14] MEDS: MAGIC MOUTHWASH SUSPENSION BTL XX SCH ×3 (07:30→18:21)
[2020-01-14] MEDS: APIXABAN 2.5 MG TAB (ELIQUIS) PEG SCH ×2 (08:20→21:01)
[2020-01-14] MEDS: LANSOPRAZOLE SUSPENSION 30 MG/10 ML ORAL SYRINGE (FIRST-LANSOPRAZOLE) PEG SCH (08:21)
[2020-01-14] MEDS: AUGMENTIN BID 400MG/5ML SUSP 50ML BTL PEG SCH ×2 (08:21→21:00)
[2020-01-14] MEDS: guaiFENesin SYRUP 200 MG/10 ML UDC PEG SCH ×3 (08:21→21:02)
[2020-01-14] MEDS: DOCUSATE SOD LIQ 100MG/10ML UDC PEG SCH ×2 (08:21→21:01)
[2020-01-14] MEDS: ACETAMINOPHEN 325 MG/10.15 ML UDC PEG SCH ×3 (08:21→21:02)
[2020-01-14] MEDS: LIDOCAINE 5% (LIDODERM) PATCH TD SCH (08:22)
[2020-01-14] MEDS: SODIUM CHLORIDE NASAL 0.65% SPRAY BTL (OCEAN) SCH ×3 (08:54→21:03)
[2020-01-14] MEDS: METOPROLOL TART 12.5 MG PER 1/2 TAB PEG SCH ×2 (08:54→21:01)
[2020-01-14] MEDS: TORSEMIDE 20 MG TAB PEG SCH ×2 (08:54→16:16)
[2020-01-14] MEDS: REMEDY PHYTOPLEX Z-GUARD PASTE 113GM TUBE (FROM STOREROOM PRODUCT) TOP SCH ×3 (08:54→21:04)
[2020-01-14] MEDS ORDERED: ASPIRIN 81 MG CHEW TABLET PEG SCH (09:00)
--- NOTE | 2020-01-14 13:29 | IPN ---
DATE OF SERVICE: 01/14/2020 SUBJECTIVE: The patient was seen and examined at the bedside in the rehab unit. He is getting his occupational therapy. Today is the patient's regular day of dialysis. He feels much better. He denies any active complaints. He was sitting up in the bed now. OBJECTIVE: Vital Signs: Temperature is 97.4 degrees Fahrenheit. blood pressure 115/72, pulse is 69, respiratory of 18, saturating 95% on room air. Intake and Output: Urine output recorded is 500 mL. Weight in the bed scale is 86.7. PHYSICAL EXAMINATION: General: The patient is awake, alert, oriented times three, sitting up in the bed, in no apparent distress. Head and Neck Exam: Extraocular muscles intact. Pupils equally round and reactive to light. The patient still has a dressing in the left nostril. Neck is supple. He has a tunneled dialysis catheter. Cardiovascular: S1, S2, regular rate. Trace edema of the bilateral lower extremities. Respiratory: Chest is clear to auscultation bilaterally. Bilateral equal air entry. No rales or rhonchi. Abdomen is soft, positive bowel sounds, nontender. No organomegaly. Genitourinary: He had an indwelling Aguirre catheter. Musculoskeletal: No clubbing or cyanosis. Central Nervous System: The patient is oriented times three today. He follows commands and moves upper extremities and he is sitting up in the bed. LAB REVIEW: CBC showed WBC 8.6, hemoglobin 11.6, platelets are 229. BMP showed sodium 137, potassium 3.5, chloride 101, bicarbonate 30, BUN 43, creatinine is 1.29, calcium 8.5. CURRENT INPATIENT MEDICATIONS: The patient's medications were all reviewed by myself. He has been started on amoxicillin. I have decreased the dose to 500 mg via percutaneous endoscopic gastrostomy (PEG) twice a day. His Eliquis 2.5 mg by mouth twice a day has been resumed. He continues to be on torsemide 40 mg via PEG twice a day. ASSESSMENT AND PLAN: 1. End-stage renal disease. The patient will be dialyzed today. I will try to remove at least 2 liters of fluid as tolerated by his blood pressure. 2. Chronic systolic congestive heart failure. Continue current dose of torsemide twice a day and rest of the volume status is managed with dialysis. 3. Urinary retention. I am going to remove the Aguirre catheter. Initially I ordered Flomax but it cannot be crushed for the PEG tube, so it has been stopped now. 4. Atrial fibrillation. Heart rate is controlled with metoprolol. Eliquis to be resumed at 2.5 mg by mouth twice a day.
[2020-01-14 14:00] VITALS: BP 100/68
[2020-01-14 20:31] VITALS: BP 123/71
[2020-01-14] MEDS: ATORVASTATIN 20 MG TAB PEG SCH (21:01)
[2020-01-14] MEDS: **NOTE PATIENT COMMENT** MISC XX SCH (21:04)
[2020-01-15] MEDS: HumaLOG INSULIN (NovoLOG) PER UNIT SC SCH ×4 (00:03→17:24)
[2020-01-15] MEDS: LEVEMIR (INSULIN DETEMIR) 1 UNITS/0.01ML SC SCH (00:04)
[2020-01-15 05:00] VITALS: BP 109/71
[2020-01-15] MEDS: IPRATROPIUM 0.5MG/ALBUTEROL 2.5MG INH SOL UD 3ML (DUONEB)(J7620) NEB SCH ×3 (07:09→19:44)
[2020-01-15] MEDS: TORSEMIDE 20 MG TAB PEG SCH ×2 (07:58→17:02)
[2020-01-15] MEDS: METOPROLOL TART 12.5 MG PER 1/2 TAB PEG SCH ×2 (07:58→21:03)
--- NOTE | 2020-01-15 07:58 | IPN ---
DATE OF VISIT: 01/14/2020 Mr. Badillo is seen this morning on his bedside. He is currently sitting in the wheelchair at the time of my visit. He was dialyzed yesterday and 2 liters fluid was removed. Patient has a Aguirre catheter and urine output is being monitored. Unfortunately, he has remained oliguric with urine output less than 500 mL per 24 hours while he has history of severe systolic congestive heart failure with ejection fraction of 10-15% and has been dependent on dialysis for fluid removal. Patient is in good spirits this morning and seems to be doing well. He continues to receive feeding through a percutaneous endoscopic gastrostomy (PEG) tube. He denies any dyspnea or chest pain at present. He is making some progress with acute rehab. Nursing staff reported that he has an order to remove Aguirre catheter and followup with bladder scans. On physical exam, temperature 97.6 degrees Fahrenheit, heart rate 70 per minute and respiratory rate 18 per minute. Blood pressure 106/70 mmHg and oxygen saturation 97% on room air. Head is atraumatic. Neck is supple and jugular venous distention (JVD) difficult to be assessed sitting upright in the chair. Hemodialysis tunneled catheter is present on right upper chest. Heart sounds are irregular in rhythm and lungs with slightly diminished breath sounds at bases with few basilar rales. Abdomen soft and nontender. A PEG tube is in place. Bowel sounds are normal. Extremities have no cyanosis or clubbing. Lower extremity edema is trace to 1+. Neurologically, he is awake and seems reasonably well oriented and able to have a conversation. Today's labs show WBC count 6.7, hemoglobin 11.7 and hematocrit 39.2. Platelets 206. Sodium 135, potassium 3.8, CO2 31, BUN 25 and creatinine 1.05. Glucose 164 and calcium 8.3. TSH level is 3.2 and free T4 is 1.59. PROBLEMS: 1. Renal failure, acute on chronic. Patient has been dialysis dependent mostly related to his severe cardiomyopathy and need for fluid removal. He has known history of systolic dysfunction with ejection fraction 10-15%. His urine output has been monitored with a Aguirre catheter and it has been 500 mL at the most per 24 hours. 2 liters fluid was removed with dialysis yesterday. He is receiving more liquids because of his tube feeding. At this point, we will continue with dialysis three times a week and try to maintain his euvolemia. 2. Congestive heart failure. Patient has known ejection fraction 10-15% by echocardiogram. His volume status is reasonably well-compensated with dialysis but not urinating much. At this point, we are going to continue to perform dialysis three times a week. 3. Urinary retention. He currently has a Aguirre catheter. I think it can be removed and monitor with a bladder scan. If he has more than 250 mL retention, then he will need to get the catheter back. 4. Anemia. At this point, his anemia is stable and we will continue to monitor closely. His Eliquis has been resumed. 5. Recurrent nosebleeds. Patient has history of recurrent nosebleeds and still has packing in his left nostril. His Eliquis has been resumed just recently and it remains to be seen how he does. 6. Atrial fibrillation. At present, ventricular rate is well-controlled and anticoagulation has been resumed.
[2020-01-15] MEDS: APIXABAN 2.5 MG TAB (ELIQUIS) PEG SCH ×2 (09:09→21:02)
[2020-01-15] MEDS: ACETAMINOPHEN 325 MG/10.15 ML UDC PEG SCH ×3 (09:09→21:03)
[2020-01-15] MEDS: guaiFENesin SYRUP 200 MG/10 ML UDC PEG SCH ×3 (09:09→21:03)
[2020-01-15] MEDS: LIDOCAINE 5% (LIDODERM) PATCH TD SCH (09:09)
[2020-01-15] MEDS: DOCUSATE SOD LIQ 100MG/10ML UDC PEG SCH ×2 (09:09→21:03)
[2020-01-15] MEDS: LANSOPRAZOLE SUSPENSION 30 MG/10 ML ORAL SYRINGE (FIRST-LANSOPRAZOLE) PEG SCH (09:09)
[2020-01-15] MEDS: AUGMENTIN BID 400MG/5ML SUSP 50ML BTL PEG SCH ×2 (09:10→21:02)
[2020-01-15] MEDS: MAGIC MOUTHWASH SUSPENSION BTL XX SCH ×3 (09:10→17:03)
[2020-01-15] MEDS: REMEDY PHYTOPLEX Z-GUARD PASTE 113GM TUBE (FROM STOREROOM PRODUCT) TOP SCH ×3 (09:10→21:04)
[2020-01-15] MEDS: SODIUM CHLORIDE NASAL 0.65% SPRAY BTL (OCEAN) SCH ×3 (09:10→21:03)
--- NOTE | 2020-01-15 13:15 | IPN ---
DATE: 01/15/2020 Mr. Badillo is seen this morning on his bedside. He is lying in the bed today with head end elevated at about 30 degrees. Yesterday, his Aguirre catheter was removed and the patient has been voiding without any difficulty. Nursing staff reports that postvoid residual was less than 50 mL. The patient is talking about his desire to eat. He has been receiving tube feeding so far. He did have one failed swallowing evaluation. The patient denies any fever or chills. He has known history of severe systolic cardiomyopathy with ejection fraction 10-15%. His urine output has been, at best, 500 mL per 24 hours and he has been dialysis dependent. PHYSICAL EXAMINATION: Temperature 97.0 degrees Fahrenheit, heart rate 70 per minute and respiratory rate 18 per minute. Blood pressure 109/71 mmHg and oxygen saturation 97% on room air. His head is atraumatic. Neck is supple and jugular venous distention (JVD) is about 12 cm above sternal angle. He has a dialysis catheter in right internal jugular vein. No oral thrush or ulcers noted. Heart sounds are regular. Lungs with diminished breath sounds at bases. Abdomen: Soft and a percutaneous endoscopic gastrostomy (PEG) tube Extremities: Without any cyanosis or clubbing. He has some peripheral edema on lower extremities and ulcers on the heels that are covered with dressing. The patient did not have any new labs done today. PROBLEMS: 1. Severe systolic cardiomyopathy with ejection fraction 10-15%. The patient remains dialysis dependent at present. His volume status is still decompensated and we will try to remove about 2.5 liters of fluid with next dialysis tomorrow. He is oxygenating well and there is no emergent indication for dialysis today. 2. Acute renal failure superimposed on chronic kidney disease. The patient had oliguria with urine output less than 500 per day. He has been maintained with dialysis, as he required at least 2-3 liters of fluid removal with each dialysis. 3. Recurrent nosebleeds. He did have packing done and decreased dose of Eliquis has been restarted. At present, he seems to be doing well. 4. Anemia. His anemia has been stable and has not required a transfusion despite recent nosebleeds. 5. Generalized weakness and deconditioning. The patient is currently in acute rehabilitation and he seems to be making some slow progress. 6. Nutrition. He is currently receiving tube feeding due to difficulty with swallowing. He wishes to resume eating normal and probably another swallowing evaluation could be attempted next week.
[2020-01-15 14:00] VITALS: BP 118/73
[2020-01-15 20:00] VITALS: BP 119/75
[2020-01-15] MEDS: ATORVASTATIN 20 MG TAB PEG SCH (21:02)
[2020-01-15] MEDS: **NOTE PATIENT COMMENT** MISC XX SCH (21:04)
[2020-01-16] MEDS: HumaLOG INSULIN (NovoLOG) PER UNIT SC SCH ×4 (00:03→18:02)
[2020-01-16] MEDS: LEVEMIR (INSULIN DETEMIR) 1 UNITS/0.01ML SC SCH (00:04)
[2020-01-16 06:00] VITALS: BP 110/68
[2020-01-16 06:52] LABS: BASO # 0.1 10^3/uL (0.0-0.2); BASO % 0.7 % (0.0-1.0); EOS # 0.1 10^3/uL (0.0-0.5); EOS % 1.7 % (0.0-3.0); HEMOGLOBIN 11.4 g/dl (13.5-17.5); LYMPH % 13.3 % (24.0-44.0); MEAN CORPUSCULAR HEMOGLOBIN 27.7 pg (27.0-33.0); MEAN CORPUSCULAR HGB CONC 30.8 g/dl (32.0-36.5); MONO # 0.9 10^3/uL (0.0-0.8); NEUTROPHILS # 5.5 10^3/uL (1.5-8.5); NEUTROPHILS % 71.8 % (36.0-66.0); PLATELET COUNT, AUTOMATED 217 10^3/uL (150-450); RED BLOOD COUNT 4.11 10^6/uL (4.30-6.10); WHITE BLOOD COUNT 7.7 10^3/uL (4.0-10.0)
[2020-01-16 07:30] LABS: BLOOD UREA NITROGEN 50 MG/DL (7-18); CALCIUM LEVEL 8.4 MG/DL (8.8-10.2); CARBON DIOXIDE LEVEL 30 MEQ/L (21-32); CHLORIDE LEVEL 95 MEQ/L (98-107); CREATININE FOR GFR 1.18 MG/DL (0.70-1.30); GLOMERULAR FILTRATION RATE > 60.0 (>49); GLUCOSE, FASTING 195 MG/DL (70-100); POTASSIUM SERUM 3.7 MEQ/L (3.5-5.1); SODIUM LEVEL 132 MEQ/L (136-145)
[2020-01-16] MEDS: MAGIC MOUTHWASH SUSPENSION BTL XX SCH ×3 (07:30→16:56)
[2020-01-16] MEDS: IPRATROPIUM 0.5MG/ALBUTEROL 2.5MG INH SOL UD 3ML (DUONEB)(J7620) NEB SCH ×3 (08:05→19:42)
[2020-01-16] MEDS: DOCUSATE SOD LIQ 100MG/10ML UDC PEG SCH ×2 (09:00→21:45)
[2020-01-16] MEDS: LIDOCAINE 5% (LIDODERM) PATCH TD SCH (09:03)
[2020-01-16] MEDS: ACETAMINOPHEN 325 MG/10.15 ML UDC PEG SCH ×3 (09:04→21:45)
[2020-01-16] MEDS: AUGMENTIN BID 400MG/5ML SUSP 50ML BTL PEG SCH ×2 (09:04→21:45)
[2020-01-16] MEDS: LANSOPRAZOLE SUSPENSION 30 MG/10 ML ORAL SYRINGE (FIRST-LANSOPRAZOLE) PEG SCH (09:04)
[2020-01-16] MEDS: guaiFENesin SYRUP 200 MG/10 ML UDC PEG SCH ×3 (09:04→21:45)
[2020-01-16] MEDS: APIXABAN 2.5 MG TAB (ELIQUIS) PEG SCH ×2 (09:05→21:46)
[2020-01-16] MEDS: TORSEMIDE 20 MG TAB PEG SCH ×2 (09:05→16:54)
[2020-01-16] MEDS: REMEDY PHYTOPLEX Z-GUARD PASTE 113GM TUBE (FROM STOREROOM PRODUCT) TOP SCH ×3 (09:06→21:46)
[2020-01-16] MEDS: METOPROLOL TART 12.5 MG PER 1/2 TAB PEG SCH ×2 (09:07→21:46)
[2020-01-16] MEDS: SODIUM CHLORIDE NASAL 0.65% SPRAY BTL (OCEAN) SCH ×3 (09:07→21:46)
[2020-01-16 16:56] VITALS: BP 110/72
--- NOTE | 2020-01-16 17:09 | IPNPDOC ---
PM&R Progress Note DATE OF SERVICE: January 16, 2020 User Experience Manager Progress Note Subjective: Patient seen in dialysis stating his back felt good over the weekend, but when he twisted today he felt a sharp pain across his low back without radiation down the leg. He thinks tylenol and ice should be fine, but is open to getting an ray. REVIEW OF SYSTEMS: The following is a completed review of systems and has been reviewed. Review of systems otherwise unremarkable. PAIN: Patient self reports LBP EYES: No recent vision changes EARS, NOSE, & THROAT: + dysphagia CARDIOVASCULAR: Denies chest pain or palpitations PULMONARY: Denies shortness of breath GASTROINTESTINAL: Denies constipation/diarrhea GENITOURINARY: +retention (resolved) MUSCULOSKELETAL:+generalized weakness NEUROLOGICAL:+enpaholoapthy (improving) HEMATOLOGICAL: +easy bruising, recent epistaxis SKIN: scattered ecchymosis PSYCHIATRIC: +confused (improving) All other review of systems found to be negative. PHYSICAL EXAMINATION: VITAL SIGNS: Please see below. GENERAL: Pleasant and cooperative. No acute distress. HEENT: PERRL. Extraocular movements intact. Clear conjunctiva CARDIOVASCULAR: Regular rate and rhythm. No murmurs, rubs, or gallops LUNGS: Clear to auscultation bilaterally. No wheezes. No rhonchi ABDOMEN: Soft, nontender, nondistended. Positive bowel sounds. Normal active bowel sounds, +PEG NEUROLOGICAL: Alert and oriented to self, thought it was 2020, and president "Jamal" Cranial nerves II through XII grossly intact. Sensation grossly intact to light touch all 4limbs EXTREMITIES: 5-\\5 strength bilateral upper extremities. 5-\\5 strength right lower extremity. 5-/5 strength in left lower extremity. (-) edema SLR negative bilat SKIN: LUE chest well permacath, sternal scar healed, sacrum with blanchable erythema, heels with blanchable erythema ASSESSMENT:64-year-old M with past medical history of chronic systolic CHF who presents status post epistaxis with metabolic encephalopathy PLAN: 1. 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 Neuro: patient with recent acute encephalopathy likely due to metabolic derangement vs infection-improving with dialysis and treatment for pneumonia -per patient's patient was tolerating oral foods while getting intermittent PEG feeds a week ago when he was at [place], unclear what consistency he was on, OIL FIELD WORKER aware and will c/u to work on advancing diet -[facility] 01/13/20 negative for old infarcts -f/u thiamine level, B12/TSH/folate levels WNL 3. cardiac: chronic systolic CHF with EF 10-15% with ICD- c/u torsemide and fluid management per dialysis, daily weights-medicine consulted to assist -Afib on metoprolol, Eliquis 2.5mg BID-ok to restart per ENT recs -CAD s/p CABG and stent, ok to restart ASA per ENT recs, ASA starting tomorrow per patient;s request -HLD c/u statin 4. resp: COPD with Pneumonia, c/u augmentin, duonebs, supplemental 02 via venturi-mask, guaifenesin 5. Endo: hx of DM c/u Insulin and ISS, adjust prn 6. ENT: s/p left nasal epistaxis with packing, and packing removal 01-09-20 with Self-dissolving packing gel-foam, c/u nasal saline drops -f/u ENT after d/c 7. renal: urinary retention with oliguria started on HD 10/20, renal consulted to c/u while inhouse -barnes removed 01-13-20m voiding welll 8. DVT ppx: restarting eliquis , c/u teds 9. GI ppx: lansaprazole 10. Pain: tylenol 975mg standing and lidoderm patch for low back pain -lumbar xray ordred 11. Nutrition- PEG feeds overnight with noon bolus 12. Dispo: TBD Allergies Coded Allergies: metformin (Verified Allergy, Severe, anaphylaxis, 01/04/20) sitagliptin (Verified Allergy, Severe, anaphylaxis, 01/04/20) sacubitril (Verified Allergy, Intermediate, facial swelling, 01/04/20) valsartan (Verified Allergy, Intermediate, facial swelling, 01/04/20) azithromycin (Verified Adverse Reaction, Mild, NAUSEA AND VOMITING, 01/04/20) rosuvastatin (Verified Adverse Reaction, Mild, NAUSEA AND VOMITING, 01/04/20) Vital Signs Vital Signs Date Time Temp Pulse Resp B/P (MAP) Pulse Ox O2 Delivery O2 Flow Rate FiO2 01/16/20 16:56 96.9 70 20 110/72 (85) 98 Room Air 01/16/20 06:00 2.0 Laboratory Data CBC/BMP Laboratory Tests 01/16/20 06:35 Labs 24H Laboratory Tests 2 01/15/20 17:18: Bedside Glucose (Misc Panel) 239H 01/15/20 23:57: Bedside Glucose (Misc Panel) 230H 01/16/20 05:34: Bedside Glucose (Misc Panel) 171H 01/16/20 06:35: Immature Granulocyte % (Auto) 0.5, Neutrophils (%) (Auto) 71.8H, Lymphocytes (%) (Auto) 13.3L, Monocytes (%) (Auto) 12.0H, Eosinophils (%) (Auto) 1.7, Basophils (%) (Auto) 0.7, Neutrophils # (Auto) 5.5, Lymphocytes # (Auto) 1.0L, Monocytes # (Auto) 0.9H, Eosinophils # (Auto) 0.1, Basophils # (Auto) 0.1, Nucleated Red Blood Cells % (auto) 0.0, Anion Gap 7L, Glomerular Filtration Rate > 60.0, Calcium Level 8.4L 01/16/20 12:00: Bedside Glucose (Misc Panel) 87 Current Medications Current Medications Current Medications Medications (Trade) Dose Ordered Sig/Ayala Route PRN Reason Start Time Stop Time Status Last Admin Dose Admin Acetaminophen (Tylenol Suspension) 975 mg TID PEG 01/13/20 16:00 01/16/20 16:54 Acetaminophen (Tylenol Tab) 650 mg Q4HP PRN PO fever/MILD PAIN (PS 1-4) 01/12/20 16:45 01/13/20 11:14 DC Acetaminophen (Tylenol Tab) 1,000 mg TID PO 01/13/20 09:00 01/13/20 11:36 DC Albuterol/ Ipratropium (Duoneb (Ipr 0.5mg/Alb 2.5mg)) 3 ml RTID NEB 01/12/20 20:00 01/16/20 08:05 Albuterol/ Ipratropium (Duoneb (Ipr 0.5mg/Alb 2.5mg)) 3 ml TID NEB 01/12/20 21:00 01/12/20 17:12 DC Amoxicillin/ Clavulanate Potassium (Augmentin 400 Mg/5 ml Susp) 500 mg BID PEG 01/12/20 21:00 01/18/20 21:00 01/16/20 09:04 Apixaban (Eliquis) 2.5 mg BID PEG 01/13/20 21:00 01/16/20 09:05 Aspirin (Aspirin Chewable) 81 mg DAILY PEG 01/14/20 09:00 01/13/20 19:12 DC Aspirin (Aspirin Chewable) 81 mg DAILY PEG 01/17/20 09:00 Atorvastatin Calcium (Lipitor) 80 mg QHS PEG 01/12/20 21:00 01/15/20 21:02 Bisacodyl (Dulcolax Suppository) 10 mg DAILYPRN PRN LA CONSTIPATION 01/12/20 16:45 Dextrose (Dextrose 50%) 25 ml ASDIRECTED PRN IV SEE LABEL COMMENTS 01/12/20 16:45 Docusate Sodium (Colace Liquid) 100 mg BID PEG 01/13/20 21:00 01/15/20 21:03 Docusate Sodium (Colace) 100 mg BID PO 01/12/20 21:00 01/13/20 11:36 DC 01/13/20 08:58 Glucagon (Glucagon) 1 mg ASDIRECTED PRN SC SEE LABEL COMMENTS 01/12/20 16:45 Glucose (Glucose) 16 GM ASDIRECTED PRN PO SEE LABEL COMMENTS 01/12/20 16:45 Guaifenesin (Robitussin) 10 ml TID PEG 01/12/20 21:00 01/16/20 16:54 Heparin Sodium (Porcine) (Heparin) 5,000 units Q12H SC 01/12/20 21:00 01/13/20 14:02 DC 01/13/20 08:55 Insulin Detemir (Levemir Insulin) 12 units QHS@0000 SC 01/13/20 00:00 01/16/20 00:04 Insulin Human Lispro (HumaLOG INSULIN) SEE PROTOCOL TABLE Q6H SC 01/12/20 18:00 01/16/20 06:50 Lansoprazole (First-Lansoprazole Oral Suspension) 30 mg DAILY PEG 01/14/20 09:00 01/16/20 09:04 Lidocaine (Lidoderm Patch) 1 patch DAILY TD 01/13/20 09:00 01/16/20 09:03 Lidocaine/ Diphenhydr/Alum/ Mg/Simeth (Magic Mouthwash) 5ML -do prior to giv... Q4HP PRN SSP pre-ice chips 01/13/20 12:45 Lidocaine/ Diphenhydr/Alum/ Mg/Simeth (Magic Mouthwash) please use swab to cl... AC XX 01/13/20 12:00 01/16/20 16:56 Metoprolol Tartrate (Lopressor) 12.5 mg BID PEG 01/12/20 21:00 01/16/20 09:07 Metoprolol Tartrate (Lopressor) 12.5 mg BID PO 01/12/20 21:00 01/12/20 20:01 DC Non-Formulary Medication ( See Comment Field Below ) REMOVE LIDODERM PATCH DAILY@21 XX 01/13/20 21:00 01/15/20 21:04 Pantoprazole Sodium (Protonix) 40 mg DAILY PO 01/12/20 09:00 01/13/20 11:36 DC 01/13/20 08:58 Polyethylene Glycol (Miralax) 1 pkt DAILY PRN PEG CONSTIPATION 01/13/20 11:45 Polyethylene Glycol (Miralax) 1 pkt DAILY PRN PO CONSTIPATION 01/12/20 16:45 01/13/20 11:36 DC Senna (Senokot) 1 tab QHS PO 01/12/20 21:00 01/13/20 11:36 DC Sodium Chloride ([place]) 2 spray TID NA 01/12/20 21:00 01/16/20 16:54 Tamsulosin HCl (Flomax) 0.4 mg QHS PO 01/13/20 21:00 01/13/20 11:36 DC Torsemide (Demadex) 40 mg BID@, PEG 01/13/20 17:00 01/16/20 16:54 Torsemide (Demadex) 40 mg BID@,17 PO 01/12/20 17:00 01/13/20 11:36 DC 01/13/20 08:58 GARO TORRES MD January 16, 2020 17:09
[2020-01-16 20:01] VITALS: BP 108/70
[2020-01-16] MEDS: ATORVASTATIN 20 MG TAB PEG SCH (21:46)
[2020-01-16] MEDS: **NOTE PATIENT COMMENT** MISC XX SCH (21:47)
--- NOTE | 2020-01-16 23:13 | REP ---
LUMBOSACRAL SPINE SERIES: Five views of lumbosacral spine are performed. There is very mild superior endplate depression of L1 and L2. This could be acute or chronic. There is normal lumbar lordosis. There is no spondylolysis or spondylolisthesis. Disc spaces are relatively well preserved. There is sclerosis of the posterior facet joints. AP view is limited by contrast material in the colon. Sigmoid diverticula are present. IMPRESSION: Mild depression of the superior endplate of L1 and L2 could be acute or chronic. Further evaluation may be made with MRI. Electronically Signed by Tom Fierro MD 01/17/2020 12:15 P
[2020-01-17] MEDS: HumaLOG INSULIN (NovoLOG) PER UNIT SC SCH ×6 (00:11→21:13)
[2020-01-17] MEDS: LEVEMIR (INSULIN DETEMIR) 1 UNITS/0.01ML SC SCH ×2 (00:11→21:14)
[2020-01-17 06:00] VITALS: BP 127/77
--- NOTE | 2020-01-17 06:25 | IPN ---
DATE: 01/16/2020 Mr. Badillo is seen this morning on his bedside. He is feeling about the same and denies any new complaints. He continues to receive his tube feeding due to difficulty swallowing. He did have some swallowing evaluation today. He denies any dyspnea or chest pain. On physical exam, temperature 97.9 degrees Fahrenheit, heart rate 70 per minutes, and respiratory rate 20 per minutes. Blood pressure 110/68 mmHg and oxygen saturation 97% on 2 liters oxygen. Head is atraumatic. Neck is suppled, and jugular venous distention (JVD) markedly elevated. There is no oral thrush or ulcers. Heart sounds are regular, and lungs with slightly diminished breath sounds at bases. Abdomen soft with a gastrostomy (G) tube in place. Bowel sounds are present. Extremities without any cyanosis or clubbing. Lower extremity edema is 1+. He has some chronic skin changes on his feet. Ulcers on the heels are covered with dressing. Neurologically, he seems to be awake and at his baseline mentation without focal deficit. Today's labs show WBC count 7.7, hemoglobin 11.4, and hematocrit 37.0. Sodium 132, potassium 3.7, CO2 of 30, BUN 50, and creatinine 1.18. Glucose 195 and calcium 8.4. PROBLEMS: 1. Chronic severe cardiomyopathy. Patient remains dialysis dependent at present and had significant volume overload over the weekend. We are going to try to remove at least 2 liters of fluid today and see how he tolerates. 2. Acute renal failure superimposed on chronic kidney disease. Patient did have partial improvement in his kidney function. However, his volume status remains a concern. At present, we are continuing dialysis, though his urine output seems to be improving. We will continue to monitor closely. 3. Hyponatremia. Hyponatremia is related to end-stage renal disease and congestive heart failure. We anticipate improvement with dialysis and fluid removal today. 4. Anemia. At present, his anemia is stable and no other intervention is indicated. 5. Generalized weakness and deconditioning. Patient is currently undergoing acute rehabilitation.
[2020-01-17] MEDS: IPRATROPIUM 0.5MG/ALBUTEROL 2.5MG INH SOL UD 3ML (DUONEB)(J7620) NEB SCH ×3 (07:01→20:18)
[2020-01-17] MEDS: MAGIC MOUTHWASH SUSPENSION BTL XX SCH ×3 (07:30→16:50)
[2020-01-17] MEDS: DOCUSATE SOD LIQ 100MG/10ML UDC PEG SCH ×2 (08:56→21:11)
[2020-01-17] MEDS: LANSOPRAZOLE SUSPENSION 30 MG/10 ML ORAL SYRINGE (FIRST-LANSOPRAZOLE) PEG SCH (08:57)
[2020-01-17] MEDS: APIXABAN 2.5 MG TAB (ELIQUIS) PEG SCH ×2 (08:57→21:12)
[2020-01-17] MEDS: ACETAMINOPHEN 325 MG/10.15 ML UDC PEG SCH ×3 (08:57→21:11)
[2020-01-17] MEDS: AUGMENTIN BID 400MG/5ML SUSP 50ML BTL PEG SCH ×2 (08:57→21:13)
[2020-01-17] MEDS: guaiFENesin SYRUP 200 MG/10 ML UDC PEG SCH ×3 (08:57→21:11)
[2020-01-17] MEDS: LIDOCAINE 5% (LIDODERM) PATCH TD SCH (08:58)
[2020-01-17] MEDS: SODIUM CHLORIDE NASAL 0.65% SPRAY BTL (OCEAN) SCH ×3 (08:58→21:14)
[2020-01-17] MEDS: METOPROLOL TART 12.5 MG PER 1/2 TAB PEG SCH ×2 (08:58→21:12)
[2020-01-17] MEDS: TORSEMIDE 20 MG TAB PEG SCH (08:58)
[2020-01-17] MEDS: REMEDY PHYTOPLEX Z-GUARD PASTE 113GM TUBE (FROM STOREROOM PRODUCT) TOP SCH ×3 (08:58→21:14)
[2020-01-17] MEDS: ASPIRIN 81 MG CHEW TABLET PEG SCH (08:59)
[2020-01-17] MEDS ORDERED: VENLAFAXINE 25 MG TAB PO SCH (09:00)
[2020-01-17] MEDS ORDERED: CYCLOBENZAPRINE 5MG TABLET PO ONE (11:30)
--- NOTE | 2020-01-17 11:35 | IPNPDOC ---
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 He said that as long as he does not twist his pain is well enough controlled. REVIEW OF SYSTEMS: The following is a completed review of systems and has been reviewed. Review of systems otherwise unremarkable. PAIN: Patient self reports LBP EYES: No recent vision changes EARS, NOSE, & THROAT: + dysphagia CARDIOVASCULAR: Denies chest pain or palpitations PULMONARY: Denies shortness of breath GASTROINTESTINAL: Denies constipation/diarrhea GENITOURINARY: +retention (resolved) MUSCULOSKELETAL:+generalized weakness NEUROLOGICAL:+enpaholoapthy (improving) HEMATOLOGICAL: +easy bruising, recent epistaxis SKIN: scattered ecchymosis PSYCHIATRIC: +confused (improving) All other review of systems found to be negative. PHYSICAL EXAMINATION: VITAL SIGNS: Please see below. GENERAL: Pleasant and cooperative. No acute distress. HEENT: PERRL. Extraocular movements intact. Clear conjunctiva CARDIOVASCULAR: Regular rate and rhythm. No murmurs, rubs, or gallops LUNGS: Clear to auscultation bilaterally. No wheezes. No rhonchi ABDOMEN: Soft, nontender, nondistended. Positive bowel sounds. Normal active bowel sounds, +PEG NEUROLOGICAL: Alert and oriented to self, thought it was 2020, and president "Jamal" Cranial nerves II through XII grossly intact. Sensation grossly intact to light touch all 4limbs EXTREMITIES: 5-\\5 strength bilateral upper extremities. 5-\\5 strength right lower extremity. 5-/5 strength in left lower extremity. (-) edema SLR negative bilat SKIN: LUE chest well permacath, sternal scar healed, sacrum with blanchable erythema, heels with blanchable erythema ASSESSMENT:64-year-old M with past medical history of chronic systolic CHF who presents status post epistaxis with metabolic encephalopathy PLAN: 1. 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 Neuro: patient with recent acute encephalopathy likely due to metabolic derangement vs infection-improving with dialysis and treatment for pneumonia -per patient's patient was tolerating oral foods while getting intermittent PEG feeds a week ago when he was at [place], unclear what consistency he was on, RN TEACHER aware and will c/u to work on advancing diet -[facility] 01/13/20 negative for old infarcts -f/u thiamine level, B12/TSH/folate levels WNL 3. cardiac: chronic systolic CHF with EF 10-15% with ICD- c/u diuretics (renal managing), daily weights-medicine consulted to assist -Afib on metoprolol, Eliquis 2.5mg BID -CAD s/p CABG and stent- ASA 81mg -HLD c/u statin 4. resp: COPD with Pneumonia, c/u augmentin, duonebs, supplemental 02 via venturi-mask, guaifenesin 5. Endo: hx of DM c/u Insulin and ISS, adjust prn 6. ENT: s/p left nasal epistaxis with packing, and packing removal 01-09-20 with Self-dissolving packing gel-foam, c/u nasal saline drops -f/u ENT after d/c 7. renal: urinary retention with oliguria started on HD 10/20, renal consulted to c/u while inhouse, plan is to trial patient off dialysis -monitor I&O while off dialysis -barnes removed 01-14-20 8. DVT ppx: eliquis , c/u teds 9. GI ppx: lansaprazole 10. Pain: tylenol 975mg standing and lidoderm patch for low back pain -patient reporting pain with twisting that does not radiate down the legs, no saddle region anesthesia, he is averse to opioids, will trial flexeril although any muscle relaxant may cause unwanted VISUAL MANAGER side effects -will also start low dose Effexor as this is better tolerated with renal impairment than Cymbalta -lumbar xray 01-16-20 showing, "Mild depression of the superior endplate of L1 and L2 could be acute or chronic." ortho has been consulted to review image and advise on treatment 11. Nutrition- PEG feeds overnight with noon bolus 12. Dispo: TBD Allergies Coded Allergies: metformin (Verified Allergy, Severe, anaphylaxis, 01/04/20) sitagliptin (Verified Allergy, Severe, anaphylaxis, 01/04/20) sacubitril (Verified Allergy, Intermediate, facial swelling, 01/04/20) valsartan (Verified Allergy, Intermediate, facial swelling, 01/04/20) azithromycin (Verified Adverse Reaction, Mild, NAUSEA AND VOMITING, 01/04/20) rosuvastatin (Verified Adverse Reaction, Mild, NAUSEA AND VOMITING, 01/04/20) Vital Signs Vital Signs Date Time Temp Pulse Resp B/P (MAP) Pulse Ox O2 Delivery O2 Flow Rate FiO2 01/17/20 08:58 69 97/59 01/17/20 06:00 97.8 20 96 Room Air 01/16/20 06:00 2.0 Laboratory Data Labs 24H Laboratory Tests 2 01/16/20 12:00: Bedside Glucose (Misc Panel) 87 01/16/20 17:58: Bedside Glucose (Misc Panel) 179H 01/17/20 00:06: Bedside Glucose (Misc Panel) 188H 01/17/20 06:17: Bedside Glucose (Misc Panel) 190H Current Medications Current Medications Current Medications Medications (Trade) Dose Ordered Sig/Ayala Route PRN Reason Start Time Stop Time Status Last Admin Dose Admin Acetaminophen (Tylenol Suspension) 975 mg TID PEG 01/13/20 16:00 01/17/20 08:57 Acetaminophen (Tylenol Tab) 650 mg Q4HP PRN PO fever/MILD PAIN (PS 1-4) 01/12/20 16:45 01/13/20 11:14 DC Acetaminophen (Tylenol Tab) 1,000 mg TID PO 01/13/20 09:00 01/13/20 11:36 DC Albuterol/ Ipratropium (Duoneb (Ipr 0.5mg/Alb 2.5mg)) 3 ml RTID NEB 01/12/20 20:00 01/17/20 07:01 Albuterol/ Ipratropium (Duoneb (Ipr 0.5mg/Alb 2.5mg)) 3 ml TID NEB 01/12/20 21:00 01/12/20 17:12 DC Amoxicillin/ Clavulanate Potassium (Augmentin 400 Mg/5 ml Susp) 500 mg BID PEG 01/12/20 21:00 01/18/20 21:00 01/17/20 08:57 Apixaban (Eliquis) 2.5 mg BID PEG 01/13/20 21:00 01/17/20 08:57 Aspirin (Aspirin Chewable) 81 mg DAILY PEG 01/14/20 09:00 01/13/20 19:12 DC Aspirin (Aspirin Chewable) 81 mg DAILY PEG 01/17/20 09:00 01/17/20 08:59 Atorvastatin Calcium (Lipitor) 80 mg QHS PEG 01/12/20 21:00 01/16/20 21:46 Bisacodyl (Dulcolax Suppository) 10 mg DAILYPRN PRN [place] CONSTIPATION 01/12/20 16:45 Bumetanide (Bumex) 1 mg DAILY PO 01/18/20 09:00 UNV Dextrose (Dextrose 50%) 25 ml ASDIRECTED PRN IV SEE LABEL COMMENTS 01/12/20 16:45 Docusate Sodium (Colace Liquid) 100 mg BID PEG 01/13/20 21:00 01/17/20 08:56 Docusate Sodium (Colace) 100 mg BID PO 01/12/20 21:00 01/13/20 11:36 DC 01/13/20 08:58 Glucagon (Glucagon) 1 mg ASDIRECTED PRN SC SEE LABEL COMMENTS 01/12/20 16:45 Glucose (Glucose) 16 GM ASDIRECTED PRN PO SEE LABEL COMMENTS 01/12/20 16:45 Guaifenesin (Robitussin) 10 ml TID PEG 01/12/20 21:00 01/17/20 08:57 Heparin Sodium (Porcine) (Heparin) 5,000 units Q12H SC 01/12/20 21:00 01/13/20 14:02 DC 01/13/20 08:55 Insulin Detemir (Levemir Insulin) 12 units QHS@0000 SC 01/13/20 00:00 01/17/20 00:11 Insulin Human Lispro (HumaLOG INSULIN) SEE PROTOCOL TABLE Q6H SC 01/12/20 18:00 01/17/20 06:22 Lansoprazole (First-Lansoprazole Oral Suspension) 30 mg DAILY PEG 01/14/20 09:00 01/17/20 08:57 Lidocaine (Lidoderm Patch) 1 patch DAILY TD 01/13/20 09:00 01/17/20 08:58 Lidocaine/ Diphenhydr/Alum/ Mg/Simeth (Magic Mouthwash) 5ML -do prior to giv... Q4HP PRN SSP pre-ice chips 01/13/20 12:45 Lidocaine/ Diphenhydr/Alum/ Mg/Simeth (Magic Mouthwash) please use swab to cl... AC XX 01/13/20 12:00 01/16/20 16:56 Metoprolol Tartrate (Lopressor) 12.5 mg BID PEG 01/12/20 21:00 01/16/20 21:46 Metoprolol Tartrate (Lopressor) 12.5 mg BID PO 01/12/20 21:00 01/12/20 20:01 DC Non-Formulary Medication ( See Comment Field Below ) REMOVE LIDODERM PATCH DAILY@21 XX 01/13/20 21:00 01/16/20 21:47 Pantoprazole Sodium (Protonix) 40 mg DAILY PO 01/12/20 09:00 01/13/20 11:36 DC 01/13/20 08:58 Polyethylene Glycol (Miralax) 1 pkt DAILY PRN PEG CONSTIPATION 01/13/20 11:45 Polyethylene Glycol (Miralax) 1 pkt DAILY PRN PO CONSTIPATION 01/12/20 16:45 01/13/20 11:36 DC Senna (Senokot) 1 tab QHS PO 01/12/20 21:00 01/13/20 11:36 DC Sodium Chloride ([place] Nasal [place]) 2 spray TID NA 01/12/20 21:00 01/17/20 08:58 Tamsulosin HCl (Flomax) 0.4 mg QHS PO 01/13/20 21:00 01/13/20 11:36 DC Torsemide (Demadex) 40 mg BID@,17 PEG 01/13/20 17:00 01/16/20 16:54 Torsemide (Demadex) 40 mg BID@,17 PO 01/12/20 17:00 01/13/20 11:36 DC 01/13/20 08:58 GARO TORRES MD January 17, 2020 11:35
[2020-01-17] MEDS ORDERED: BUMETANIDE 1 MG TAB PO ONE (12:00)
[2020-01-17] MEDS ORDERED: PILL CUTTER 1 EACH XX PRN (12:00)
[2020-01-17 14:00] VITALS: BP 110/71
--- NOTE | 2020-01-17 14:58 | REP ---
CT LUMBAR SPINE WITHOUT CONTRAST: HISTORY: Fracture. Comparison radiographs are from January 16, 2020. Radiographs are read as showing mild depression of the superior endplate of L1 and L2, age indeterminate. The patient has a high pacemaker. TECHNIQUE: Helical scanning is acquired and 4 mm axial images are reformatted. Coronal and sagittal multiplanar re-formation images are generated reviewed. CT FINDINGS: There are mild wedge compression deformities in the superior endplates of the L1 and L2 vertebral bodies as seen on yesterday's radiographs. There is some sclerosis along the superior endplate suggesting healing change. No alissa cortical step-off or perivertebral edema is seen to suggest an acute injury. There are vacuum phenomenon in the T12-L1 and in the L1-L2 disc spaces consistent with degenerative disc disease. There is diffuse osteopenia. Pedicle and posterior elements are intact. Vertebral body heights are otherwise preserved. There is only minimal, 5% loss of anterior vertebral body heights at L1 and L2. There is facet hypertrophy and sclerosis bilaterally at L3-4 and canal size is borderline. No disc protrusion is seen. At L4-5, there is mild central canal stenosis. Facet hypertrophy and sclerosis is present bilaterally. No bony foraminal narrowing is seen. At L5-S1, there is mild disc bulging. Facet hypertrophy is present bilaterally. IMPRESSION: Mild osteoporotic wedging involving the superior endplates of L1 and L2 as seen radiographically. There is healing sclerosis suggesting subacute or chronic changes. Minimal loss of anterior vertebral body heights. Degenerative spondylosis changes are also noted. Electronically Signed by Dhruv Sargent MD 01/17/2020 06:48 P
[2020-01-17] MEDS: VENLAFAXINE 37.5 MG TAB PO SCH ×2 (15:09→21:12)
[2020-01-17 20:00] VITALS: BP 114/72
[2020-01-17] MEDS: ATORVASTATIN 20 MG TAB PEG SCH (21:12)
[2020-01-17] MEDS: **NOTE PATIENT COMMENT** MISC XX SCH (21:15)
--- NOTE | 2020-01-18 02:31 | IPN ---
DATE: 01/17/2020 Mr. Badillo is seen this morning on his bedside. He just finished physical therapy and came via wheelchair. I have discussed with the acute rehabilitation physician. Unfortunately, patient has not been able to walk and remains very weak. He is making very slow progress. In the meantime, he remains dialysis dependent due to severe cardiomyopathy with ejection fraction 10-15% and need for fluid removal. He also remains tube feeding dependent due to history of aspiration. Patient was dialyzed yesterday, and 2 liters fluid was removed. On physical exam, temperature 97.8 degrees Fahrenheit, heart rate 70 per minute, and respiratory rate 20 per minute. Blood pressure 97/59 mmHg and oxygen saturation 96% on room air. Head is atraumatic. Neck is supple, and jugular venous distention (JVD) not visible sitting upright in the wheelchair. His heart sounds are regular. Lungs sound clear to auscultation. Abdomen soft and nontender, and gastrostomy (G) tube is present. Extremities have no cyanosis or clubbing. Dialysis catheter on right upper chest is intact. Lower extremity edema is minimal. Patient did not have any new labs done today. Yesterday, his hemoglobin was 11.4 and hematocrit 37.0. Sodium was 132 and potassium 3.7. BUN 50 and creatinine 1.18. PROBLEMS: 1. Acute renal failure superimposed on chronic kidney disease. Patient seems to be nonoliguric at this point. He was last dialyzed yesterday, and I am going to monitor his urine output closely for next 48 hours without dialysis. We do not plan to dialyze him tomorrow. He is being placed on bumetanide 1 mg daily with first dose today. His torsemide is being stopped, and nursing staff is being advised to monitor urine output closely and record accurately. His labs will be monitored on daily basis for next few days. 2. Chronic systolic congestive heart failure with severe cardiomyopathy. Patient has known ejection fraction of 10-15%. Unfortunately, he has been dialysis dependent for volume management. I am going to try with diuretic and see how that works. We will hold off dialysis tomorrow and put him on bumetanide 1 mg today. His urine output will be monitored, and we will consider adjusting the dose of bumetanide if needed. 3. Anemia. His anemia has been stable and does not need any other intervention. 4. Hypotension. Blood pressure was low this morning and his antihypertensive meds held. 5. Recent nosebleeds. Patient did have nasal packing done. His Eliquis dose has been now cut down to 2.5 mg twice a day. 6. Nutrition. Patient remains on G-tube feeding due to recurrent aspiration.
[2020-01-18 06:00] VITALS: BP 102/70
[2020-01-18 06:49] LABS: BASO # 0.1 10^3/uL (0.0-0.2); BASO % 1.1 % (0.0-1.0); EOS # 0.1 10^3/uL (0.0-0.5); EOS % 1.7 % (0.0-3.0); HEMOGLOBIN 11.7 g/dl (13.5-17.5); LYMPH # 1.2 10^3/uL (1.5-5.0); LYMPH % 15.8 % (24.0-44.0); MEAN CORPUSCULAR VOLUME 90.1 fl (80.0-96.0); MONO % 12.9 % (0.0-5.0); NEUTROPHILS # 5.1 10^3/uL (1.5-8.5); NEUTROPHILS % 68.1 % (36.0-66.0); PLATELET COUNT, AUTOMATED 234 10^3/uL (150-450); RED BLOOD COUNT 4.33 10^6/uL (4.30-6.10); WHITE BLOOD COUNT 7.5 10^3/uL (4.0-10.0)
[2020-01-18 07:11] LABS: CALCIUM LEVEL 9.4 MG/DL (8.8-10.2); CREATININE FOR GFR 1.42 MG/DL (0.70-1.30); GLOMERULAR FILTRATION RATE 53.6 (>49); MAGNESIUM LEVEL 2.4 MG/DL (1.8-2.4); POTASSIUM SERUM 3.7 MEQ/L (3.5-5.1)
[2020-01-18] MEDS: HumaLOG INSULIN (NovoLOG) PER UNIT SC SCH ×4 (07:30→21:00)
[2020-01-18] MEDS: MAGIC MOUTHWASH SUSPENSION BTL XX SCH ×3 (07:30→17:30)
[2020-01-18] MEDS: IPRATROPIUM 0.5MG/ALBUTEROL 2.5MG INH SOL UD 3ML (DUONEB)(J7620) NEB SCH ×3 (08:00→19:48)
[2020-01-18] MEDS ORDERED: ONDANSETRON 4 MG ORAL DISINTEGRATING TAB SL ONE (08:45)
[2020-01-18] MEDS: DOCUSATE SOD LIQ 100MG/10ML UDC PEG SCH (08:58)
[2020-01-18] MEDS ORDERED: BUMETANIDE 1 MG TAB PO SCH ×2 (09:00)
[2020-01-18] MEDS: ASPIRIN 81 MG CHEW TABLET PEG SCH (09:42)
[2020-01-18] MEDS: METOPROLOL TART 12.5 MG PER 1/2 TAB PEG SCH ×2 (09:43→21:00)
[2020-01-18] MEDS: APIXABAN 2.5 MG TAB (ELIQUIS) PEG SCH ×2 (09:43→21:48)
[2020-01-18] MEDS: AUGMENTIN BID 400MG/5ML SUSP 50ML BTL PEG SCH ×2 (09:43→21:49)
[2020-01-18] MEDS: LANSOPRAZOLE SUSPENSION 30 MG/10 ML ORAL SYRINGE (FIRST-LANSOPRAZOLE) PEG SCH (09:43)
[2020-01-18] MEDS: ACETAMINOPHEN 325 MG/10.15 ML UDC PEG SCH ×3 (09:44→21:50)
[2020-01-18] MEDS: guaiFENesin SYRUP 200 MG/10 ML UDC PEG SCH ×3 (09:44→21:49)
[2020-01-18] MEDS: VENLAFAXINE 37.5 MG TAB PO SCH (09:45)
[2020-01-18] MEDS: SODIUM CHLORIDE NASAL 0.65% SPRAY BTL (OCEAN) SCH ×3 (09:46→21:52)
[2020-01-18] MEDS: REMEDY PHYTOPLEX Z-GUARD PASTE 113GM TUBE (FROM STOREROOM PRODUCT) TOP SCH ×3 (09:46→21:52)
[2020-01-18] MEDS: LIDOCAINE 5% (LIDODERM) PATCH TD SCH (09:46)
[2020-01-18] MEDS ORDERED: ONDANSETRON 4 MG ORAL DISINTEGRATING TAB SL PRN (10:30)
--- NOTE | 2020-01-18 12:05 | IPNPDOC ---
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 REVIEW OF SYSTEMS: The following is a completed review of systems and has been reviewed. Review of systems otherwise unremarkable. PAIN: Patient self reports LBP EYES: No recent vision changes EARS, NOSE, & THROAT: + dysphagia CARDIOVASCULAR: Denies chest pain or palpitations PULMONARY: Denies shortness of breath GASTROINTESTINAL:+nausea and loose stools GENITOURINARY: +retention (resolved) MUSCULOSKELETAL:+generalized weakness NEUROLOGICAL:+enpaholoapthy (improving) HEMATOLOGICAL: +easy bruising, recent epistaxis SKIN: scattered ecchymosis PSYCHIATRIC: +confused (improving) All other review of systems found to be negative. PHYSICAL EXAMINATION: VITAL SIGNS: Please see below. GENERAL: Pleasant and cooperative. No acute distress. HEENT: PERRL. Extraocular movements intact. Clear conjunctiva CARDIOVASCULAR: Regular rate and rhythm. No murmurs, rubs, or gallops LUNGS: Clear to auscultation bilaterally. No wheezes. No rhonchi ABDOMEN: Soft, nontender, nondistended. Positive bowel sounds. Normal active bowel sounds, +PEG NEUROLOGICAL: Alert and oriented to self, thought it was 2020, and president "Jamal" Cranial nerves II through XII grossly intact. Sensation grossly intact to light touch all 4limbs EXTREMITIES: 5-\\5 strength bilateral upper extremities. 5-\\5 strength right lower extremity. 5-/5 strength in left lower extremity. (-) edema SLR negative bilat SKIN: LUE chest well permacath, sternal scar healed, sacrum with blanchable erythema, heels with blanchable erythema ASSESSMENT:64-year-old M with past medical history of chronic systolic CHF who presents status post epistaxis with metabolic encephalopathy PLAN: 1. 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 cardiac: chronic systolic CHF with EF 10-15% with ICD- c/u diuretics (renal managing), daily weights-medicine consulted to assist -Afib on metoprolol, Eliquis 2.5mg BID -CAD s/p CABG and stent- ASA 81mg -HLD c/u statin 4. resp: COPD with Pneumonia, c/u augmentin, duonebs, supplemental 02 via venturi-mask, guaifenesin 5. Endo: hx of DM c/u Insulin and ISS, adjust prn 6. ENT: s/p left nasal epistaxis with packing, and packing removal 01-09-20 with Self-dissolving packing gel-foam, c/u nasal saline drops -f/u ENT after d/c 7. renal: urinary retention with oliguria started on HD 10/20, renal consulted to c/u while inhouse, plan as of 01-17-20 was to trial off dialysis, however back on schedule today -monitor I&O while off dialysis -barnes removed 01-14-20 8. DVT ppx: eliquis , c/u teds 9. GI ppx: lansaprazole -zofran ordered prn for nausea -will d/c colace and if loose stools persist will consider C diff testing given recent antibiotics 10. Pain: tylenol 975mg standing and lidoderm patch for low back pain -patient reporting pain with twisting that does not radiate down the legs, no saddle region anesthesia, he is averse to opioids -will stop Effexor as may have contributed to nausea overnight -lumbar xray 01-16-20 showing, "Mild depression of the superior endplate of L1 and L2 could be acute or chronic." with f/u CT scan showing "Mild osteoporotic wedging involving the superior endplates of L1 and L2 as seen radiographically. There is healing sclerosis suggesting subacute or chronic changes. Minimal loss of anterior vertebral body heights"-patient can wear soft TLSO for comfort, no concern for neurological compromise or acute fracture -ortho recs appreciated 11. Nutrition- patient advanced to oral feeds with PEG bolus prn eats less than 50% 12. Dispo: 01/31/20 to home, progressing slowly towards goals Allergies Coded Allergies: metformin (Verified Allergy, Severe, anaphylaxis, 01/04/20) sitagliptin (Verified Allergy, Severe, anaphylaxis, 01/04/20) sacubitril (Verified Allergy, Intermediate, facial swelling, 01/04/20) valsartan (Verified Allergy, Intermediate, facial swelling, 01/04/20) azithromycin (Verified Adverse Reaction, Mild, NAUSEA AND VOMITING, 01/04/20) rosuvastatin (Verified Adverse Reaction, Mild, NAUSEA AND VOMITING, 01/04/20) Vital Signs Vital Signs Date Time Temp Pulse Resp B/P (MAP) Pulse Ox O2 Delivery O2 Flow Rate FiO2 01/18/20 09:43 71 102/70 01/18/20 06:00 98.1 18 97 Room Air 01/16/20 06:00 2.0 Laboratory Data CBC/BMP Laboratory Tests 01/18/20 06:32 Labs 24H Laboratory Tests 2 01/17/20 12:36: Bedside Glucose (Misc Panel) 97 01/17/20 16:29: Bedside Glucose (Misc Panel) 126H 01/17/20 20:15: Bedside Glucose (Misc Panel) 139H 01/18/20 06:32: Immature Granulocyte % (Auto) 0.4, Neutrophils (%) (Auto) 68.1H, Lymphocytes (%) (Auto) 15.8L, Monocytes (%) (Auto) 12.9H, Eosinophils (%) (Auto) 1.7, Basophils (%) (Auto) 1.1H, Neutrophils # (Auto) 5.1, Lymphocytes # (Auto) 1.2L, Monocytes # (Auto) 1.0H, Eosinophils # (Auto) 0.1, Basophils # (Auto) 0.1, Nucleated Red Blood Cells % (auto) 0.0, Anion Gap 10, Glomerular Filtration Rate 53.6, Calcium Level 9.4, Magnesium Level 2.4 01/18/20 06:45: Bedside Glucose (Misc Panel) 79L Current Medications Current Medications Current Medications Medications (Trade) Dose Ordered Sig/Ayala Route PRN Reason Start Time Stop Time Status Last Admin Dose Admin Acetaminophen (Tylenol Suspension) 975 mg TID PEG 01/13/20 16:00 01/18/20 09:44 Acetaminophen (Tylenol Tab) 650 mg Q4HP PRN PO fever/MILD PAIN (PS 1-4) 01/12/20 16:45 01/13/20 11:14 DC Acetaminophen (Tylenol Tab) 1,000 mg TID PO 01/13/20 09:00 01/13/20 11:36 DC Albuterol/ Ipratropium (Duoneb (Ipr 0.5mg/Alb 2.5mg)) 3 ml RTID NEB 01/12/20 20:00 01/17/20 20:18 Albuterol/ Ipratropium (Duoneb (Ipr 0.5mg/Alb 2.5mg)) 3 ml TID NEB 01/12/20 21:00 01/12/20 17:12 DC Amoxicillin/ Clavulanate Potassium (Augmentin 400 Mg/5 ml Susp) 500 mg BID PEG 01/12/20 21:00 01/18/20 21:00 01/18/20 09:43 Apixaban (Eliquis) 2.5 mg BID PEG 01/13/20 21:00 01/18/20 09:43 Aspirin (Aspirin Chewable) 81 mg DAILY PEG 01/14/20 09:00 01/13/20 19:12 DC Aspirin (Aspirin Chewable) 81 mg DAILY PEG 01/17/20 09:00 01/18/20 09:42 Atorvastatin Calcium (Lipitor) 80 mg QHS PEG 01/12/20 21:00 01/17/20 21:12 Bisacodyl (Dulcolax Suppository) 10 mg DAILYPRN PRN [place] CONSTIPATION 01/12/20 16:45 Bumetanide (Bumex) 1 mg DAILY PO 01/18/20 09:00 01/18/20 08:25 DC Bumetanide (Bumex) 2 mg DAILY PO 01/18/20 09:00 01/18/20 11:08 DC Dextrose (Dextrose 50%) 25 ml ASDIRECTED PRN IV SEE LABEL COMMENTS 01/12/20 16:45 Docusate Sodium (Colace Liquid) 100 mg BID PEG 01/13/20 21:00 01/17/20 21:11 Docusate Sodium (Colace) 100 mg BID PO 01/12/20 21:00 01/13/20 11:36 DC 01/13/20 08:58 Glucagon (Glucagon) 1 mg ASDIRECTED PRN SC SEE LABEL COMMENTS 01/12/20 16:45 Glucose (Glucose) 16 GM ASDIRECTED PRN PO SEE LABEL COMMENTS 01/12/20 16:45 Guaifenesin (Robitussin) 10 ml TID PEG 01/12/20 21:00 01/18/20 09:44 Heparin Sodium (Porcine) (Heparin) 5,000 units Q12H SC 01/12/20 21:00 01/13/20 14:02 DC 01/13/20 08:55 Insulin Detemir (Levemir Insulin) 8 units QHS SC 01/17/20 21:00 01/17/20 21:14 Insulin Detemir (Levemir Insulin) 12 units QHS@0000 SC 01/13/20 00:00 01/17/20 14:04 DC 01/17/20 00:11 Insulin Human Lispro (HumaLOG INSULIN) SEE PROTOCOL TABLE ACHS SC 01/17/20 14:15 01/17/20 21:13 Insulin Human Lispro (HumaLOG INSULIN) SEE PROTOCOL TABLE Q6H WA 01/12/20 18:00 01/17/20 14:04 DC 01/17/20 06:22 Lansoprazole (First-Lansoprazole Oral Suspension) 30 mg DAILY PEG 01/14/20 09:00 01/18/20 09:43 Lidocaine (Lidoderm Patch) 1 patch DAILY TD 01/13/20 09:00 01/18/20 09:46 Lidocaine/ Diphenhydr/Alum/ Mg/Simeth (Magic Mouthwash) 5ML -do prior to giv... Q4HP PRN SSP pre-ice chips 01/13/20 12:45 Lidocaine/ Diphenhydr/Alum/ Mg/Simeth (Magic Mouthwash) please use swab to cl... AC XX 01/13/20 12:00 01/18/20 07:30 Metoprolol Tartrate (Lopressor) 12.5 mg BID PEG 01/12/20 21:00 01/18/20 09:43 Metoprolol Tartrate (Lopressor) 12.5 mg BID PO 01/12/20 21:00 01/12/20 20:01 DC Non-Formulary Medication ( See Comment Field Below ) REMOVE LIDODERM PATCH DAILY@21 XX 01/13/20 21:00 01/17/20 21:15 Ondansetron HCl (Zofran Odt) 4 mg Q4HP PRN SL NAUSEA OR VOMITING 01/18/20 10:30 Pantoprazole Sodium (Protonix) 40 mg DAILY PO 01/12/20 09:00 01/13/20 11:36 DC 01/13/20 08:58 Polyethylene Glycol (Miralax) 1 pkt DAILY PRN PEG CONSTIPATION 01/13/20 11:45 Polyethylene Glycol (Miralax) 1 pkt DAILY PRN PO CONSTIPATION 01/12/20 16:45 01/13/20 11:36 DC Senna (Senokot) 1 tab QHS PO 01/12/20 21:00 01/13/20 11:36 DC Sodium Chloride ([place] Nasal [place]) 2 spray TID NA 01/12/20 21:00 01/18/20 09:46 Tamsulosin HCl (Flomax) 0.4 mg QHS PO 01/13/20 21:00 01/13/20 11:36 DC Torsemide (Demadex) 40 mg BID@,17 PEG 01/13/20 17:00 01/17/20 11:28 DC 01/16/20 16:54 Torsemide (Demadex) 40 mg BID@,17 PO 01/12/20 17:00 01/13/20 11:36 DC 01/13/20 08:58 Venlafaxine HCl (Effexor) 18.75 mg BID PO 01/17/20 09:00 01/17/20 11:46 DC Venlafaxine HCl (Effexor) 18.75 mg BID PO 01/17/20 09:00 01/18/20 09:45 GARO TORRES MD January 18, 2020 12:05
[2020-01-18 15:30] VITALS: BP 120/84
[2020-01-18 20:07] VITALS: BP 110/73
[2020-01-18] MEDS: ATORVASTATIN 20 MG TAB PEG SCH (21:49)
[2020-01-18] MEDS: LEVEMIR (INSULIN DETEMIR) 1 UNITS/0.01ML SC SCH (21:50)
[2020-01-18] MEDS: **NOTE PATIENT COMMENT** MISC XX SCH (21:52)
--- NOTE | 2020-01-19 05:22 | IPN ---
DATE: 01/18/2020 Mr. Badillo is seen this morning on his bedside. He is not feeling well today and reports nausea. He was started on Bumex 1 mg daily yesterday. First dose was given; however, his urine output was disappointingly low, only about 200 mL. Today, he has not urinated at all. He denies any dyspnea or chest pain at present. On physical exam, temperature 98.1 degrees Fahrenheit, heart rate 70 per minute, and respiratory rate 18 per minute. Blood pressure 102/70 mmHg and oxygen saturation 97% on room air. Head is atraumatic. Left nostril packing is still present. Neck is supple, and jugular venous distention (JVD) is markedly elevated. Heart sounds are regular with systolic murmur grade 2/6. Lungs with slightly diminished breath sounds at bases. Abdomen soft, and a feeding tube is present. Extremities have no cyanosis or clubbing. Skin changes in his feet are about the same. He has dressing on his heels. Neurologically, he is at his baseline without a focal deficit. Today's labs show WBC count 7.5, hemoglobin 11.7, and hematocrit 39.0. Platelets 234. Sodium 130, potassium 3.7, CO2 of 27, BUN 43, and creatinine 1.42. Calcium is 9.2 and magnesium 2.4. PROBLEMS: 1. Oliguric acute renal failure superimposed on chronic kidney disease. Patient seems to have probably end-stage renal disease. His kidney function has not improved, and he has not responded much to diuretic. At this point, he remains dialysis dependent in view of severe cardiomyopathy and decompensated congestive heart failure. He has responded very poorly to diuretics. Patient will be dialyzed this afternoon. 2. Severe cardiomyopathy with ejection fraction 10-15%. Patient responded poorly to diuretics. His urine output is still less than 500 and remains dialysis dependent. We try to remove at least 2 liters of fluid with each dialysis. 3. Hyponatremia. This is related to congestive heart failure and renal failure. This will be corrected or improved with dialysis. At this point, he should continue with restricted fluid intake. 4. Anemia. At this point, his anemia is stable and does not need any urgent intervention. 5. Nutrition. Patient remains tube feeding dependent and continues to receive tube feeds.
[2020-01-19 06:00] VITALS: BP 121/83
[2020-01-19 06:55] LABS: ALBUMIN 2.4 GM/DL (3.2-5.2); CALCIUM LEVEL 8.8 MG/DL (8.8-10.2); CREATININE FOR GFR 1.38 MG/DL (0.70-1.30); GLOMERULAR FILTRATION RATE 55.4 (>49); POTASSIUM SERUM 3.8 MEQ/L (3.5-5.1)
[2020-01-19] MEDS: MAGIC MOUTHWASH SUSPENSION BTL XX SCH ×3 (07:30→16:42)
[2020-01-19] MEDS: HumaLOG INSULIN (NovoLOG) PER UNIT SC SCH ×4 (07:30→21:00)
[2020-01-19] MEDS: IPRATROPIUM 0.5MG/ALBUTEROL 2.5MG INH SOL UD 3ML (DUONEB)(J7620) NEB SCH ×3 (07:37→19:27)
[2020-01-19] MEDS: ACETAMINOPHEN 325 MG/10.15 ML UDC PEG SCH ×3 (09:27→21:48)
[2020-01-19] MEDS: guaiFENesin SYRUP 200 MG/10 ML UDC PEG SCH ×3 (09:27→21:47)
[2020-01-19] MEDS: LANSOPRAZOLE SUSPENSION 30 MG/10 ML ORAL SYRINGE (FIRST-LANSOPRAZOLE) PEG SCH (09:28)
[2020-01-19] MEDS: ASPIRIN 81 MG CHEW TABLET PEG SCH (09:28)
[2020-01-19] MEDS: APIXABAN 2.5 MG TAB (ELIQUIS) PEG SCH ×2 (09:28→21:47)
[2020-01-19] MEDS: METOPROLOL TART 12.5 MG PER 1/2 TAB PEG SCH ×2 (09:28→21:47)
[2020-01-19] MEDS: LIDOCAINE 5% (LIDODERM) PATCH TD SCH (09:29)
[2020-01-19] MEDS: SODIUM CHLORIDE NASAL 0.65% SPRAY BTL (OCEAN) SCH ×3 (09:29→21:00)
[2020-01-19] MEDS: REMEDY PHYTOPLEX Z-GUARD PASTE 113GM TUBE (FROM STOREROOM PRODUCT) TOP SCH ×3 (09:30→21:50)
[2020-01-19 14:00] VITALS: BP 104/68
[2020-01-19 20:00] VITALS: BP 113/76
[2020-01-19] MEDS: ATORVASTATIN 20 MG TAB PEG SCH (21:46)
[2020-01-19] MEDS: LEVEMIR (INSULIN DETEMIR) 1 UNITS/0.01ML SC SCH (21:48)
[2020-01-19] MEDS: **NOTE PATIENT COMMENT** MISC XX SCH (21:50)
[2020-01-20 06:00] VITALS: BP 106/68
--- NOTE | 2020-01-20 06:02 | IPN ---
DATE: 01/19/2020 Mr. Badillo seen this afternoon on his bedside. He reports improved nausea but has loose stools now. He still receives tube feeding, but he also tried to eat solid food. His dyspnea is chronic and unchanged. His physical activity is very limited and not making much progress with rehabilitation. Patient remains dialysis dependent due to oliguric renal failure. He was dialyzed yesterday, and 2 liters fluid was removed. On physical exam, temperature 98.2 degrees Fahrenheit, heart rate 64 per minute, and respiratory rate 17 per minute. Blood pressure 121/83 mmHg and oxygen saturation 100%. Head is atraumatic. Neck supple, and jugular venous distention (JVD) much improved after dialysis and fluid removal. Heart sounds are regular, and lungs sound clear to auscultation. Abdomen soft and nontender, and a gastrostomy (G) tube is in placed. Extremities without any cyanosis or clubbing. Today's chemistry showed sodium 132, potassium 3.8, CO2 of 26, BUN 31, and creatinine 1.38. Glucose 148 and calcium 8.8. PROBLEMS: 1. Acute on chronic renal failure. Most likely, patient has end-stage renal disease for all practical purposes. He is dialysis dependent and will continue with dialysis as an outpatient after discharge. 2. Severe systolic cardiomyopathy with ejection fraction 10-15%. Patient has repeatedly failed to respond to diuretics. He is dialysis dependent, and we remove at least 2 liters of fluid with each dialysis. At present, he will continue with the same plan. 3. Anemia. Anemia is stable at this point and does not need any urgent intervention. He did have nosebleed, which has been stable since his nose was packed. 4. Nutrition. Patient continues with tube feeding. 5. Severe deconditioning. Patient remains wheelchair-bound and still not able to get up and walk. He is making minimal progress with the rehabilitation.
[2020-01-20] MEDS: IPRATROPIUM 0.5MG/ALBUTEROL 2.5MG INH SOL UD 3ML (DUONEB)(J7620) NEB SCH ×3 (07:22→20:36)
[2020-01-20] MEDS: MAGIC MOUTHWASH SUSPENSION BTL XX SCH ×3 (07:30→17:30)
[2020-01-20 07:47] LABS: ALBUMIN 2.4 GM/DL (3.2-5.2); BLOOD UREA NITROGEN 41 MG/DL (7-18); CALCIUM LEVEL 8.9 MG/DL (8.8-10.2); CARBON DIOXIDE LEVEL 26 MEQ/L (21-32); CHLORIDE LEVEL 95 MEQ/L (98-107); CREATININE FOR GFR 1.62 MG/DL (0.70-1.30); GLUCOSE, FASTING 130 MG/DL (70-100); MAGNESIUM LEVEL 2.5 MG/DL (1.8-2.4); PHOSPHORUS LEVEL 4.1 MG/DL (2.5-4.9); POTASSIUM SERUM 3.6 MEQ/L (3.5-5.1); SODIUM LEVEL 132 MEQ/L (136-145)
[2020-01-20] MEDS: SODIUM CHLORIDE NASAL 0.65% SPRAY BTL (OCEAN) SCH ×3 (09:00→21:17)
[2020-01-20] MEDS: HumaLOG INSULIN (NovoLOG) PER UNIT SC SCH ×4 (09:13→20:25)
[2020-01-20] MEDS: LIDOCAINE 5% (LIDODERM) PATCH TD SCH (09:13)
[2020-01-20] MEDS: APIXABAN 2.5 MG TAB (ELIQUIS) PEG SCH ×2 (09:14→21:15)
[2020-01-20] MEDS: ASPIRIN 81 MG CHEW TABLET PEG SCH (09:14)
[2020-01-20] MEDS: METOPROLOL TART 12.5 MG PER 1/2 TAB PEG SCH ×2 (09:14→21:15)
[2020-01-20] MEDS: ACETAMINOPHEN 325 MG/10.15 ML UDC PEG SCH ×3 (09:15→21:17)
[2020-01-20] MEDS: guaiFENesin SYRUP 200 MG/10 ML UDC PEG SCH ×3 (09:15→21:00)
[2020-01-20] MEDS: LANSOPRAZOLE SUSPENSION 30 MG/10 ML ORAL SYRINGE (FIRST-LANSOPRAZOLE) PEG SCH (09:15)
[2020-01-20] MEDS: REMEDY PHYTOPLEX Z-GUARD PASTE 113GM TUBE (FROM STOREROOM PRODUCT) TOP SCH ×3 (09:16→21:00)
[2020-01-20 12:01] LABS: HEPATITIS B SURFACE ANTIGEN NEGATIVE (NEGATIVE)
--- NOTE | 2020-01-20 16:59 | IPN ---
DATE OF VISIT: 01/20/2020 Mr. Badillo is seen this morning on his bedside. He is sitting in the wheelchair. He was dialyzed on Thursday and will be due for dialysis this afternoon. His back pain persists, but his gastrointestinal (GI) symptoms have improved. He reports that he did eat solid food this morning. He also has a gastrostomy (G) tube for feeding. On physical exam, temperature 96.4 degrees Fahrenheit, heart rate 80 per minute and respiratory rate 17 per minute. Blood pressure 112/72 mmHg and oxygen saturation 95% on room air. Head is atraumatic. Neck supple and jugular venous distention (JVD) not elevate while sitting upright. Lungs have slightly diminished breath sounds with a few basilar rales. Heart sounds are regular with systolic murmur, which is unchanged. Abdomen soft and nontender and G-tube is in place. Extremities without any cyanosis or clubbing. Trace to 1+ edema on the lower extremities is noticed. Neurologically, he is at his baseline mentation. Today's labs show WBC count 7.5, hemoglobin 11.7 and hematocrit 39.0. Sodium 132, potassium 3.6, CO2 of 24, BUN 41 and creatinine 1.62. Glucose 130, calcium 8.9 and phosphorus 4.1. PROBLEMS: 1. End-stage renal disease. I feel patient has end-stage renal disease for all practical purposes. She has severe cardiomyopathy and oliguric renal failure for several weeks. I do not see that he is very likely to his recover kidney function. He will remain dialysis dependent. 2. Severe systolic congestive heart failure. His volume status is reasonably well compensated with dialysis. We have been removing about 2 liters fluid with each dialysis. He has failed to respond to diuretics. 3. Hyponatremia. This is related to congestive heart failure and end-stage renal disease. No significant change and hyponatremia is likely to improve with dialysis today. We will continue with fluid restriction of 1500 mL per day. 4. Anemia. His anemia has been stable and no urgent intervention is indicated. 5. Nosebleed. He still has packing in his left nostril. No further bleeding has been noticed. Defer to rehab and ENT for his packing removal.
[2020-01-20 17:50] VITALS: BP 105/68
[2020-01-20 20:00] VITALS: BP 116/77
[2020-01-20] MEDS: LEVEMIR (INSULIN DETEMIR) 1 UNITS/0.01ML SC SCH (20:25)
[2020-01-20] MEDS: ATORVASTATIN 20 MG TAB PEG SCH (21:15)
[2020-01-20] MEDS: **NOTE PATIENT COMMENT** MISC XX SCH (21:25)
[2020-01-21 06:00] VITALS: BP 125/83
[2020-01-21] MEDS: IPRATROPIUM 0.5MG/ALBUTEROL 2.5MG INH SOL UD 3ML (DUONEB)(J7620) NEB SCH ×3 (07:28→21:40)
[2020-01-21] MEDS: guaiFENesin SYRUP 200 MG/10 ML UDC PEG SCH ×3 (08:20→21:40)
[2020-01-21] MEDS: ACETAMINOPHEN 325 MG/10.15 ML UDC PEG SCH ×3 (08:20→21:41)
[2020-01-21] MEDS: MAGIC MOUTHWASH SUSPENSION BTL XX SCH ×3 (08:21→16:56)
[2020-01-21] MEDS: HumaLOG INSULIN (NovoLOG) PER UNIT SC SCH ×4 (08:21→21:00)
[2020-01-21] MEDS: ASPIRIN 81 MG CHEW TABLET PEG SCH (08:22)
[2020-01-21] MEDS: METOPROLOL TART 12.5 MG PER 1/2 TAB PEG SCH ×2 (08:24→21:41)
[2020-01-21] MEDS: LANSOPRAZOLE SUSPENSION 30 MG/10 ML ORAL SYRINGE (FIRST-LANSOPRAZOLE) PEG SCH (08:24)
[2020-01-21] MEDS: APIXABAN 2.5 MG TAB (ELIQUIS) PEG SCH ×2 (08:24→21:41)
[2020-01-21] MEDS: LIDOCAINE 5% (LIDODERM) PATCH TD SCH (08:25)
[2020-01-21] MEDS: SODIUM CHLORIDE NASAL 0.65% SPRAY BTL (OCEAN) SCH ×3 (08:25→21:43)
[2020-01-21] MEDS: REMEDY PHYTOPLEX Z-GUARD PASTE 113GM TUBE (FROM STOREROOM PRODUCT) TOP SCH ×3 (08:26→21:43)
[2020-01-21 14:00] VITALS: BP 94/57
[2020-01-21 20:00] VITALS: BP 115/76
[2020-01-21] MEDS: LEVEMIR (INSULIN DETEMIR) 1 UNITS/0.01ML SC SCH (21:00)
[2020-01-21] MEDS: ATORVASTATIN 20 MG TAB PEG SCH (21:40)
[2020-01-21] MEDS: **NOTE PATIENT COMMENT** MISC XX SCH (21:56)
[2020-01-22 06:00] VITALS: BP 124/74
[2020-01-22] MEDS: HumaLOG INSULIN (NovoLOG) PER UNIT SC SCH ×4 (07:30→20:42)
[2020-01-22] MEDS: MAGIC MOUTHWASH SUSPENSION BTL XX SCH ×3 (07:30→17:04)
[2020-01-22] MEDS: IPRATROPIUM 0.5MG/ALBUTEROL 2.5MG INH SOL UD 3ML (DUONEB)(J7620) NEB SCH ×4 (07:38→19:15)
[2020-01-22] MEDS: REMEDY PHYTOPLEX Z-GUARD PASTE 113GM TUBE (FROM STOREROOM PRODUCT) TOP SCH ×3 (09:00→20:42)
[2020-01-22] MEDS: SODIUM CHLORIDE NASAL 0.65% SPRAY BTL (OCEAN) SCH ×3 (09:00→20:42)
[2020-01-22] MEDS: ACETAMINOPHEN 325 MG/10.15 ML UDC PEG SCH ×3 (09:05→20:46)
[2020-01-22] MEDS: guaiFENesin SYRUP 200 MG/10 ML UDC PEG SCH ×3 (09:05→20:41)
[2020-01-22] MEDS: APIXABAN 2.5 MG TAB (ELIQUIS) PEG SCH ×2 (09:06→20:41)
[2020-01-22] MEDS: LANSOPRAZOLE SUSPENSION 30 MG/10 ML ORAL SYRINGE (FIRST-LANSOPRAZOLE) PEG SCH (09:06)
[2020-01-22] MEDS: ASPIRIN 81 MG CHEW TABLET PEG SCH (09:06)
[2020-01-22] MEDS: METOPROLOL TART 12.5 MG PER 1/2 TAB PEG SCH ×2 (09:06→20:41)
[2020-01-22] MEDS: LIDOCAINE 5% (LIDODERM) PATCH TD SCH (09:08)
--- NOTE | 2020-01-22 12:53 | IPN ---
DATE OF SERVICE: 01/21/2020 SUBJECTIVE: The patient was seen and examined in the rehab unit today. He was getting his physical therapy. When I saw him, he was dialyzed yesterday. He tolerated the hemodialysis procedure well. He denies any active complaints at this time apart from weakness in his legs. OBJECTIVE: Vital Signs: Temperature is 97.2 degrees Fahrenheit, blood pressure 115/76, pulse 71, respiratory rate 18, and saturating 99% on room air. Intake and Output: Ultrafiltration with hemodialysis was 2 liters. Weight on the bed scale is 85.2 kg. PHYSICAL EXAMINATION: General: The patient is awake, alert, and oriented times three, sitting up in the wheelchair in no apparent distress. Head and Neck Exam: Extraocular muscles intact. Pupils equally round and reactive to light. Mucous membranes are moist. Neck is supple. He has a tunneled hemodialysis catheter. Cardiovascular: S1, S2. Regular rate. 1+ edema of the bilateral lower extremities. Respiratory: Chest is clear to auscultation bilaterally. Bilateral equal air entry. No rales or rhonchi. Abdomen: Soft. Positive bowel sounds. Nontender. No organomegaly. Musculoskeletal: The patient is sitting in the wheelchair. He moves all extremities. He follows commands. LAB REVIEW: CBC is from January 17 and BMP is from yesterday. He has no new labs available today. CURRENT INPATIENT MEDICATIONS. The patient's medications were all reviewed by myself. There is no significant change in the medications as compared with yesterday. ASSESSMENT/PLAN: 1. End stage renal disease. The patient was dialyzed yesterday. He remains oliguric and dialysis dependent. Next hemodialysis will be after the weekend on Thursday. 2. Chronic systolic congestive heart failure. Volume status is optimized with dialysis. He was also on torsemide, but remained oliguric despite being on torsemide. Continue the fluid restriction. 3. Anemia and end stage renal diseae. Hemoglobin level is stable. 4. Atrial fibrillation. Heart rate is controlled. Eliquis dose is 2.5 mg by mouth twice a day. Continue metoprolol 12.5 mg by mouth twice a day.
[2020-01-22 14:00] VITALS: BP 113/79
[2020-01-22 20:00] VITALS: BP 119/72
[2020-01-22] MEDS: ATORVASTATIN 20 MG TAB PEG SCH (20:41)
[2020-01-22] MEDS: LEVEMIR (INSULIN DETEMIR) 1 UNITS/0.01ML SC SCH (20:42)
[2020-01-22] MEDS: **NOTE PATIENT COMMENT** MISC XX SCH (20:43)
[2020-01-23 06:00] VITALS: BP 111/71
[2020-01-23] MEDS ORDERED: ACETAMINOPHEN SUSP DYE FREE 160 MG/5 ML UDC GT ONE (06:00)
[2020-01-23] MEDS ORDERED: ACETAMINOPHEN 325 MG/10.15 ML UDC GT ONE (06:00)
[2020-01-23] MEDS: IPRATROPIUM 0.5MG/ALBUTEROL 2.5MG INH SOL UD 3ML (DUONEB)(J7620) NEB SCH ×3 (07:07→19:10)
[2020-01-23] MEDS: MAGIC MOUTHWASH SUSPENSION BTL XX SCH ×3 (07:30→17:30)
[2020-01-23] MEDS: HumaLOG INSULIN (NovoLOG) PER UNIT SC SCH ×4 (07:30→21:00)
[2020-01-23 07:43] LABS: BASO # 0.1 10^3/uL (0.0-0.2); BASO % 0.7 % (0.0-1.0); EOS % 0.6 % (0.0-3.0); HEMATOCRIT 38.1 % (42.0-52.0); HEMOGLOBIN 11.9 g/dl (13.5-17.5); MEAN CORPUSCULAR HEMOGLOBIN 27.7 pg (27.0-33.0); MEAN CORPUSCULAR HGB CONC 31.2 g/dl (32.0-36.5); MEAN CORPUSCULAR VOLUME 88.6 fl (80.0-96.0); MONO # 0.8 10^3/uL (0.0-0.8); MONO % 12.4 % (0.0-5.0); NEUTROPHILS # 4.7 10^3/uL (1.5-8.5); PLATELET COUNT, AUTOMATED 229 10^3/uL (150-450); WHITE BLOOD COUNT 6.7 10^3/uL (4.0-10.0)
[2020-01-23 08:20] LABS: ALBUMIN 2.4 GM/DL (3.2-5.2); CREATININE FOR GFR 2.1 MG/DL (0.70-1.30); GLOMERULAR FILTRATION RATE 34.1 (>49); PHOSPHORUS LEVEL 5.6 MG/DL (2.5-4.9); POTASSIUM SERUM 4.3 MEQ/L (3.5-5.1)
[2020-01-23] MEDS: SODIUM CHLORIDE NASAL 0.65% SPRAY BTL (OCEAN) SCH ×3 (09:00→21:13)
[2020-01-23] MEDS: guaiFENesin SYRUP 200 MG/10 ML UDC PEG SCH ×3 (09:00→21:16)
[2020-01-23] MEDS: ACETAMINOPHEN 325 MG TAB PEG SCH ×3 (09:00→21:11)
[2020-01-23] MEDS: ASPIRIN 81 MG CHEW TABLET PEG SCH (13:21)
[2020-01-23] MEDS: APIXABAN 2.5 MG TAB (ELIQUIS) PEG SCH ×2 (13:21→21:12)
[2020-01-23] MEDS: METOPROLOL TART 12.5 MG PER 1/2 TAB PEG SCH ×2 (13:22→21:00)
[2020-01-23] MEDS: LIDOCAINE 5% (LIDODERM) PATCH TD SCH (13:22)
[2020-01-23] MEDS: LANSOPRAZOLE SUSPENSION 30 MG/10 ML ORAL SYRINGE (FIRST-LANSOPRAZOLE) PEG SCH (13:22)
[2020-01-23] MEDS: REMEDY PHYTOPLEX Z-GUARD PASTE 113GM TUBE (FROM STOREROOM PRODUCT) TOP SCH ×3 (13:25→21:13)
[2020-01-23 13:59] VITALS: BP 101/69
--- NOTE | 2020-01-23 17:56 | IPN ---
DATE: 01/23/2020 SUBJECTIVE: The patient was seen and examined at the bedside today morning during hemodialysis procedure. He is tolerating the hemodialysis procedure well. He denies any active complaints at this time. OBJECTIVE: Vital signs: Temperature is 96.7 degrees Fahrenheit, blood pressure 111/71, pulse is 63, respiratory rate of 18, saturating 96% on room air. Intake and output: There is no urine output recorded. Weight in the bed scale is 87.8 kg. PHYSICAL EXAMINATION: GENERAL: The patient is awake, alert, oriented times three, lying in bed getting hemodialysis done. HEAD AND NECK: Extraocular muscles intact. Pupils equally round and reactive to light. Mucous membranes are moist. Neck is supple. There is no jugular venous distention (JVD). He has a left internal jugular (IJ) tunneled hemodialysis catheter, which is being used for dialysis. CARDIOVASCULAR: S1, S2, regular rate. Edema 2+ of the bilateral lower extremities. RESPIRATORY: Chest is clear to auscultation bilaterally. Bilateral equal air entry. No rales or rhonchi. ABDOMEN: Soft. Positive bowel sounds. Nontender. No organomegaly. MUSCULOSKELETAL: No clubbing or cyanosis. Pulses are 2+ CENTRAL NERVOUS SYSTEM: No focal deficit. Power is 5/5 in all extremities. LABORATORY REVIEW: CBC showed a WBC of 6.7, hemoglobin 11.9, platelets are 229. BMP showed sodium 129, potassium of 4.3, chloride 93, bicarbonate 23, BUN 39, creatinine is 2.1+. Phosphorus 5.6. Albumin is 2.4. CURRENT INPATIENT MEDICATIONS: The patient's medications were all reviewed by myself. There is no significant change in the medications today as compared with yesterday. ASSESSMENT AND PLAN: 1. End-stage renal disease. The patient is being dialyzed today according to his regular schedule. Ultrafiltration goal will be around 2 liters as tolerated by his blood pressure. 2. Chronic systolic congestive heart failure. Volume status is optimized with dialysis. Oral diuretics have been stopped. 3. Atrial fibrillation. Heart rate is controlled. Continue current dose of Eliquis and metoprolol.
[2020-01-23 20:23] VITALS: BP 109/73
[2020-01-23] MEDS: LEVEMIR (INSULIN DETEMIR) 1 UNITS/0.01ML SC SCH (21:00)
[2020-01-23] MEDS: ATORVASTATIN 20 MG TAB PEG SCH (21:12)
[2020-01-23] MEDS: **NOTE PATIENT COMMENT** MISC XX SCH (21:13)
[2020-01-24 06:00] VITALS: BP 109/75
[2020-01-24] MEDS: IPRATROPIUM 0.5MG/ALBUTEROL 2.5MG INH SOL UD 3ML (DUONEB)(J7620) NEB SCH ×3 (07:13→22:30)
[2020-01-24] MEDS: MAGIC MOUTHWASH SUSPENSION BTL XX SCH ×3 (07:30→17:15)
[2020-01-24] MEDS: guaiFENesin SYRUP 200 MG/10 ML UDC PEG SCH ×3 (07:44→22:26)
[2020-01-24] MEDS: ASPIRIN 81 MG CHEW TABLET PEG SCH (07:44)
[2020-01-24] MEDS: LANSOPRAZOLE SUSPENSION 30 MG/10 ML ORAL SYRINGE (FIRST-LANSOPRAZOLE) PEG SCH (07:45)
[2020-01-24] MEDS: ACETAMINOPHEN 325 MG TAB PEG SCH ×3 (07:45→22:27)
[2020-01-24] MEDS: APIXABAN 2.5 MG TAB (ELIQUIS) PEG SCH ×2 (07:45→22:27)
[2020-01-24] MEDS: LIDOCAINE 5% (LIDODERM) PATCH TD SCH (07:46)
[2020-01-24] MEDS: METOPROLOL TART 12.5 MG PER 1/2 TAB PEG SCH ×2 (07:46→22:28)
[2020-01-24] MEDS: SODIUM CHLORIDE NASAL 0.65% SPRAY BTL (OCEAN) SCH ×3 (07:47→22:28)
[2020-01-24] MEDS: HumaLOG INSULIN (NovoLOG) PER UNIT SC SCH ×4 (07:47→22:30)
[2020-01-24] MEDS: REMEDY PHYTOPLEX Z-GUARD PASTE 113GM TUBE (FROM STOREROOM PRODUCT) TOP SCH ×3 (07:48→22:29)
[2020-01-24 14:00] VITALS: BP 113/84
--- NOTE | 2020-01-24 15:20 | IPNPDOC ---
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 REVIEW OF SYSTEMS: The following is a completed review of systems and has been reviewed. Review of systems otherwise unremarkable. PAIN: Patient self reports LBP EYES: No recent vision changes EARS, NOSE, & THROAT: + dysphagia (improving) CARDIOVASCULAR: Denies chest pain or palpitations PULMONARY: Denies shortness of breath GASTROINTESTINAL:+nausea and loose stools (improving) GENITOURINARY: +retention (resolved) MUSCULOSKELETAL:+generalized weakness NEUROLOGICAL:+enpaholoapthy (improving) HEMATOLOGICAL: +easy bruising, recent epistaxis SKIN: scattered ecchymosis PSYCHIATRIC: +confused (improving) All other review of systems found to be negative. PHYSICAL EXAMINATION: VITAL SIGNS: Please see below. GENERAL: Pleasant and cooperative. No acute distress. HEENT: PERRL. Extraocular movements intact. Clear conjunctiva CARDIOVASCULAR: Regular rate and rhythm. No murmurs, rubs, or gallops LUNGS: Clear to auscultation bilaterally. No wheezes. No rhonchi ABDOMEN: Soft, nontender, nondistended. Positive bowel sounds. Normal active bowel sounds, +PEG NEUROLOGICAL: Alert and oriented to self, thought it was 2020, and president "Jamal" Cranial nerves II through XII grossly intact. Sensation grossly intact to light touch all 4limbs EXTREMITIES: 5-\\5 strength bilateral upper extremities. 5-\\5 strength right lower extremity. 5-/5 strength in left lower extremity. (-) edema SLR negative bilat SKIN: LUE chest well permacath, sternal scar healed, sacrum with blanchable erythema, heels with blanchable erythema ASSESSMENT:64-year-old M with past medical history of chronic systolic CHF who presents status post epistaxis with metabolic encephalopathy PLAN: 1. 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 Neuro: patient with recent acute encephalopathy likely due to metabolic derangement vs infection-improving with dialysis and treatment for pneumonia -per patient's patient was tolerating oral foods while getting intermittent PEG feeds a week ago when he was at [facility], unclear what consistency he was on, THERMOSTAT REPAIRER aware-patient ok to eat level 2 and thins with supervision -CT 01/13/20 negative for old infarcts -f/u thiamine level, B12/TSH/folate levels WNL 3. cardiac: chronic systolic CHF with EF 10-15% with ICD- c/u diuretics (renal managing), daily weights-medicine consulted to assist -Afib on metoprolol, Eliquis 2.5mg BID -CAD s/p CABG and stent- ASA 81mg -HLD c/u statin 4. resp: COPD with Pneumonia, c/u augmentin, duonebs, supplemental 02 via venturi-mask, guaifenesin 5. Endo: hx of DM c/u Insulin and ISS, adjust prn 6. ENT: s/p left nasal epistaxis with packing, and packing removal 01-09-20 with Self-dissolving packing gel-foam, c/u nasal saline drops -f/u ENT after d/c 7. renal: urinary retention with oliguria started on HD 10/20, renal consulted to c/u while inhouse -barnes removed 01-14-20 8. DVT ppx: eliquis , c/u teds 9. GI ppx: lansaprazole -zofran ordered prn for nausea - d/c'd colace and if loose stools persist will consider C diff testing given recent antibiotics 10. Pain: tylenol 975mg standing and lidoderm patch for low back pain -patient reporting pain with twisting that does not radiate down the legs, no saddle region anesthesia, he is averse to opioids -stopped Effexor as may have contributed to recent GI symptoms -lumbar xray 01-16-20 showing, "Mild depression of the superior endplate of L1 and L2 could be acute or chronic." with f/u CT scan showing "Mild osteoporotic wedging involving the superior endplates of L1 and L2 as seen radiographically. There is healing sclerosis suggesting subacute or chronic changes. Minimal loss of anterior vertebral body heights"-patient can wear soft TLSO for comfort, no concern for neurological compromise or acute fracture -ortho recs appreciated 11. Nutrition- patient advanced to oral feeds with PEG bolus prn eats less than 50% 12. Dispo: 01/31/20 to home, progressing slowly towards goals DME: Patient will require a wheelchair to complete his MRADLs in a timely and safe manner. He is unable to use a rolling walker or cane safely. His home is wheelchair accessible, his family able to help, and he is agreeable to using a wheelchair. Allergies Coded Allergies: metformin (Verified Allergy, Severe, anaphylaxis, 01/04/20) sitagliptin (Verified Allergy, Severe, anaphylaxis, 01/04/20) sacubitril (Verified Allergy, Intermediate, facial swelling, 01/04/20) valsartan (Verified Allergy, Intermediate, facial swelling, 01/04/20) azithromycin (Verified Adverse Reaction, Mild, NAUSEA AND VOMITING, 01/04/20) rosuvastatin (Verified Adverse Reaction, Mild, NAUSEA AND VOMITING, 01/04/20) Vital Signs Vital Signs Date Time Temp Pulse Resp B/P (MAP) Pulse Ox O2 Delivery O2 Flow Rate FiO2 01/24/20 14:00 96.9 75 18 113/84 (94) 97 Room Air Laboratory Data Labs 24H Laboratory Tests 2 01/23/20 16:50: Bedside Glucose (Misc Panel) 134H 01/23/20 21:09: Bedside Glucose (Misc Panel) 99 01/24/20 05:58: Bedside Glucose (Misc Panel) 114 01/24/20 11:39: Bedside Glucose (Misc Panel) 111 Current Medications Current Medications Current Medications Medications (Trade) Dose Ordered Sig/Ayala Route PRN Reason Start Time Stop Time Status Last Admin Dose Admin Acetaminophen (Tylenol Suspension) 975 mg TID PEG 01/13/20 16:00 01/23/20 10:43 DC 01/22/20 20:46 Acetaminophen (Tylenol Tab) 650 mg Q4HP PRN PO fever/MILD PAIN (PS 1-4) 01/12/20 16:45 01/13/20 11:14 DC Acetaminophen (Tylenol Tab) 975 mg TID PEG 01/23/20 09:00 01/24/20 07:45 Acetaminophen (Tylenol Tab) 1,000 mg TID PO 01/13/20 09:00 01/13/20 11:36 DC Albuterol/ Ipratropium (Duoneb (Ipr 0.5mg/Alb 2.5mg)) 3 ml RTID NEB 01/12/20 20:00 01/24/20 12:58 Albuterol/ Ipratropium (Duoneb (Ipr 0.5mg/Alb 2.5mg)) 3 ml TID NEB 01/12/20 21:00 01/12/20 17:12 DC Amoxicillin/ Clavulanate Potassium (Augmentin 400 Mg/5 ml Susp) 500 mg BID PEG 01/12/20 21:00 01/18/20 21:00 DC 01/18/20 21:49 Apixaban (Eliquis) 2.5 mg BID PEG 01/13/20 21:00 01/24/20 07:45 Aspirin (Aspirin Chewable) 81 mg DAILY PEG 01/14/20 09:00 01/13/20 19:12 DC Aspirin (Aspirin Chewable) 81 mg DAILY PEG 01/17/20 09:00 01/24/20 07:44 Atorvastatin Calcium (Lipitor) 80 mg QHS PEG 01/12/20 21:00 01/23/20 21:12 Bisacodyl (Dulcolax Suppository) 10 mg DAILYPRN PRN VA CONSTIPATION 01/12/20 16:45 Bumetanide (Bumex) 1 mg DAILY PO 01/18/20 09:00 01/18/20 08:25 DC Bumetanide (Bumex) 2 mg DAILY PO 01/18/20 09:00 01/18/20 11:08 DC Dextrose (Dextrose 50%) 25 ml ASDIRECTED PRN IV SEE LABEL COMMENTS 01/12/20 16:45 Docusate Sodium (Colace Liquid) 100 mg BID PEG 01/13/20 21:00 01/18/20 12:05 DC 01/17/20 21:11 Docusate Sodium (Colace) 100 mg BID PO 01/12/20 21:00 01/13/20 11:36 DC 01/13/20 08:58 Glucagon (Glucagon) 1 mg ASDIRECTED PRN SC SEE LABEL COMMENTS 01/12/20 16:45 Glucose (Glucose) 16 GM ASDIRECTED PRN PO SEE LABEL COMMENTS 01/12/20 16:45 Guaifenesin (Robitussin) 10 ml TID PEG 01/12/20 21:00 01/24/20 07:44 Heparin Sodium (Porcine) (Heparin) 5,000 units Q12H SC 01/12/20 21:00 01/13/20 14:02 DC 01/13/20 08:55 Insulin Detemir (Levemir Insulin) 8 units QHS VA 01/17/20 21:00 01/24/20 11:24 DC 01/22/20 20:42 Insulin Detemir (Levemir Insulin) 12 units QHS@0000 VA 01/13/20 00:00 01/17/20 14:04 DC 01/17/20 00:11 Insulin Human Lispro (HumaLOG INSULIN) SEE PROTOCOL TABLE ACHS VA 01/17/20 14:15 01/24/20 12:32 Insulin Human Lispro (HumaLOG INSULIN) SEE PROTOCOL TABLE Q6H VA 01/12/20 18:00 01/17/20 14:04 DC 01/17/20 06:22 Lansoprazole (First-Lansoprazole Oral Suspension) 30 mg DAILY PEG 01/14/20 09:00 01/24/20 07:45 Lidocaine (Lidoderm Patch) 1 patch DAILY TD 01/13/20 09:00 01/24/20 07:46 Lidocaine/ Diphenhydr/Alum/ Mg/Simeth (Magic Mouthwash) 5ML -do prior to giv... Q4HP PRN SSP pre-ice chips 01/13/20 12:45 Lidocaine/ Diphenhydr/Alum/ Mg/Simeth (Magic Mouthwash) please use swab to cl... AC XX 01/13/20 12:00 01/22/20 17:04 Metoprolol Tartrate (Lopressor) 12.5 mg BID PEG 01/12/20 21:00 01/22/20 20:41 Metoprolol Tartrate (Lopressor) 12.5 mg BID PO 01/12/20 21:00 01/12/20 20:01 DC Non-Formulary Medication ( See Comment Field Below ) REMOVE LIDODERM PATCH DAILY@21 XX 01/13/20 21:00 01/23/20 21:13 Ondansetron HCl (Zofran Odt) 4 mg Q4HP PRN SL NAUSEA OR VOMITING 01/18/20 10:30 Pantoprazole Sodium (Protonix) 40 mg DAILY PO 01/12/20 09:00 01/13/20 11:36 DC 01/13/20 08:58 Polyethylene Glycol (Miralax) 1 pkt DAILY PRN PEG CONSTIPATION 01/13/20 11:45 Polyethylene Glycol (Miralax) 1 pkt DAILY PRN PO CONSTIPATION 01/12/20 16:45 01/13/20 11:36 DC Senna (Senokot) 1 tab QHS PO 01/12/20 21:00 01/13/20 11:36 DC Sodium Chloride ([place] Nasal [place]) 2 spray TID NA 01/12/20 21:00 01/23/20 21:13 Tamsulosin HCl (Flomax) 0.4 mg QHS PO 01/13/20 21:00 01/13/20 11:36 DC Torsemide (Demadex) 40 mg BID@,17 PEG 01/13/20 17:00 01/17/20 11:28 DC 01/16/20 16:54 Torsemide (Demadex) 40 mg BID@,17 PO 01/12/20 17:00 01/13/20 11:36 DC 01/13/20 08:58 Venlafaxine HCl (Effexor) 18.75 mg BID PO 01/17/20 09:00 01/17/20 11:46 DC Venlafaxine HCl (Effexor) 18.75 mg BID PO 01/17/20 09:00 01/18/20 12:05 DC 01/18/20 09:45 GARO TORRES MD January 24, 2020 15:20
--- NOTE | 2020-01-24 15:21 | IPNPDOC ---
PM&R Progress Note DATE OF SERVICE: January 24, 2020 Video Intern Progress Note Subjective: Patient reporting is eager to go home next week and that eh is getting stronger. REVIEW OF SYSTEMS: The following is a completed review of systems and has been reviewed. Review of systems otherwise unremarkable. PAIN: Patient self reports LBP (improving) EYES: No recent vision changes EARS, NOSE, & THROAT: + dysphagia (improving) CARDIOVASCULAR: Denies chest pain or palpitations PULMONARY: Denies shortness of breath GASTROINTESTINAL:+nausea and loose stools (improving) GENITOURINARY: +retention (resolved) MUSCULOSKELETAL:+generalized weakness NEUROLOGICAL:+enpaholoapthy (improving) HEMATOLOGICAL: +easy bruising, recent epistaxis SKIN: scattered ecchymosis PSYCHIATRIC: +confused (improving) All other review of systems found to be negative. PHYSICAL EXAMINATION: VITAL SIGNS: Please see below. GENERAL: Pleasant and cooperative. No acute distress. HEENT: PERRL. Extraocular movements intact. Clear conjunctiva CARDIOVASCULAR: Regular rate and rhythm. No murmurs, rubs, or gallops LUNGS: Clear to auscultation bilaterally. No wheezes. No rhonchi ABDOMEN: Soft, nontender, nondistended. Positive bowel sounds. Normal active bowel sounds, +PEG NEUROLOGICAL: Alert and oriented to self, thought it was 2020, and president "Jamal" Cranial nerves II through XII grossly intact. Sensation grossly intact to light touch all 4limbs EXTREMITIES: 5-\\5 strength bilateral upper extremities. 5-\\5 strength right lower extremity. 5-/5 strength in left lower extremity. (-) edema SLR negative bilat SKIN: LUE chest well permacath, sternal scar healed, sacrum with blanchable erythema, heels with blanchable erythema ASSESSMENT:64-year-old M with past medical history of chronic systolic CHF who presents status post epistaxis with metabolic encephalopathy PLAN: 1. 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 Neuro: patient with recent acute encephalopathy likely due to metabolic derangement vs infection-improving with dialysis and treatment for pneumonia -per patient's patient was tolerating oral foods while getting intermittent PEG feeds a week ago when he was at [place], unclear what consistency he was on, CONTAINER FILLER aware-patient ok to eat level 2 and thins with supervision -CTH 01/13/20 negative for old infarcts -f/u thiamine level, B12/TSH/folate levels WNL 3. cardiac: chronic systolic CHF with EF 10-15% with ICD- c/u diuretics (renal managing), daily weights-medicine consulted to assist -Afib on metoprolol, Eliquis 2.5mg BID -CAD s/p CABG and stent- ASA 81mg -HLD c/u statin 4. resp: COPD with Pneumonia, c/u augmentin, duonebs, supplemental 02 via venturi-mask, guaifenesin 5. Endo: hx of DM c/u Insulin and ISS, adjust prn 6. ENT: s/p left nasal epistaxis with packing, and packing removal 01-09-20 with Self-dissolving packing gel-foam, c/u nasal saline drops -f/u ENT after d/c 7. renal: urinary retention with oliguria started on HD 10/20, renal consulted to c/u while inhouse, barnes removed 01-14-20, voiding well 8. DVT ppx: eliquis , c/u teds 9. GI ppx: lansaprazole -zofran ordered prn for nausea - d/c'd colace and if loose stools persist will consider C diff testing given recent antibiotics 10. Pain: tylenol 975mg standing and lidoderm patch for low back pain -patient reporting pain with twisting that does not radiate down the legs, no saddle region anesthesia, he is averse to opioids -stopped Effexor as may have contributed to recent GI symptoms -lumbar xray 01-16-20 showing, "Mild depression of the superior endplate of L1 and L2 could be acute or chronic." with f/u CT scan showing "Mild osteoporotic wedging involving the superior endplates of L1 and L2 as seen radiographically. There is healing sclerosis suggesting subacute or chronic changes. Minimal loss of anterior vertebral body heights"-patient can wear soft TLSO for comfort, no concern for neurological compromise or acute fracture -ortho recs appreciated 11. Nutrition- patient advanced to oral feeds with PEG bolus prn eats less than 50% 12. Dispo: 01/31/20 to home, progressing slowly towards goals DME: Patient will require a wheelchair to complete his MRADLs in a timely and safe manner. He is unable to use a rolling walker or cane safely. His home is wheelchair accessible, his family able to help, and he is agreeable to using a wheelchair. Allergies Coded Allergies: metformin (Verified Allergy, Severe, anaphylaxis, 01/04/20) sitagliptin (Verified Allergy, Severe, anaphylaxis, 01/04/20) sacubitril (Verified Allergy, Intermediate, facial swelling, 01/04/20) valsartan (Verified Allergy, Intermediate, facial swelling, 01/04/20) azithromycin (Verified Adverse Reaction, Mild, NAUSEA AND VOMITING, 01/04/20) rosuvastatin (Verified Adverse Reaction, Mild, NAUSEA AND VOMITING, 01/04/20) Vital Signs Vital Signs Date Time Temp Pulse Resp B/P (MAP) Pulse Ox O2 Delivery O2 Flow Rate FiO2 01/24/20 14:00 96.9 75 18 113/84 (94) 97 Room Air Laboratory Data Labs 24H Laboratory Tests 2 01/23/20 16:50: Bedside Glucose (Misc Panel) 134H 01/23/20 21:09: Bedside Glucose (Misc Panel) 99 01/24/20 05:58: Bedside Glucose (Misc Panel) 114 01/24/20 11:39: Bedside Glucose (Misc Panel) 111 Current Medications Current Medications Current Medications Medications (Trade) Dose Ordered Sig/Ayala Route PRN Reason Start Time Stop Time Status Last Admin Dose Admin Acetaminophen (Tylenol Suspension) 975 mg TID PEG 01/13/20 16:00 01/23/20 10:43 DC 01/22/20 20:46 Acetaminophen (Tylenol Tab) 650 mg Q4HP PRN PO fever/MILD PAIN (PS 1-4) 01/12/20 16:45 01/13/20 11:14 DC Acetaminophen (Tylenol Tab) 975 mg TID PEG 01/23/20 09:00 01/24/20 07:45 Acetaminophen (Tylenol Tab) 1,000 mg TID PO 01/13/20 09:00 01/13/20 11:36 DC Albuterol/ Ipratropium (Duoneb (Ipr 0.5mg/Alb 2.5mg)) 3 ml RTID NEB 01/12/20 20:00 01/24/20 12:58 Albuterol/ Ipratropium (Duoneb (Ipr 0.5mg/Alb 2.5mg)) 3 ml TID NEB 01/12/20 21:00 01/12/20 17:12 DC Amoxicillin/ Clavulanate Potassium (Augmentin 400 Mg/5 ml Susp) 500 mg BID PEG 01/12/20 21:00 01/18/20 21:00 DC 01/18/20 21:49 Apixaban (Eliquis) 2.5 mg BID PEG 01/13/20 21:00 01/24/20 07:45 Aspirin (Aspirin Chewable) 81 mg DAILY PEG 01/14/20 09:00 01/13/20 19:12 DC Aspirin (Aspirin Chewable) 81 mg DAILY PEG 01/17/20 09:00 01/24/20 07:44 Atorvastatin Calcium (Lipitor) 80 mg QHS PEG 01/12/20 21:00 01/23/20 21:12 Bisacodyl (Dulcolax Suppository) 10 mg DAILYPRN PRN [place] CONSTIPATION 01/12/20 16:45 Bumetanide (Bumex) 1 mg DAILY PO 01/18/20 09:00 01/18/20 08:25 DC Bumetanide (Bumex) 2 mg DAILY PO 01/18/20 09:00 01/18/20 11:08 DC Dextrose (Dextrose 50%) 25 ml ASDIRECTED PRN IV SEE LABEL COMMENTS 01/12/20 16:45 Docusate Sodium (Colace Liquid) 100 mg BID PEG 01/13/20 21:00 01/18/20 12:05 DC 01/17/20 21:11 Docusate Sodium (Colace) 100 mg BID PO 01/12/20 21:00 01/13/20 11:36 DC 01/13/20 08:58 Glucagon (Glucagon) 1 mg ASDIRECTED PRN SC SEE LABEL COMMENTS 01/12/20 16:45 Glucose (Glucose) 16 GM ASDIRECTED PRN PO SEE LABEL COMMENTS 01/12/20 16:45 Guaifenesin (Robitussin) 10 ml TID PEG 01/12/20 21:00 01/24/20 07:44 Heparin Sodium (Porcine) (Heparin) 5,000 units Q12H SC 01/12/20 21:00 01/13/20 14:02 DC 01/13/20 08:55 Insulin Detemir (Levemir Insulin) 8 units QHS [place] 01/17/20 21:00 01/24/20 11:24 DC 01/22/20 20:42 Insulin Detemir (Levemir Insulin) 12 units QHS@0000 [place] 01/13/20 00:00 01/17/20 14:04 DC 01/17/20 00:11 Insulin Human Lispro (HumaLOG INSULIN) SEE PROTOCOL TABLE ACHS WI 01/17/20 14:15 01/24/20 12:32 Insulin Human Lispro (HumaLOG INSULIN) SEE PROTOCOL TABLE Q6H [place] 01/12/20 18:00 01/17/20 14:04 DC 01/17/20 06:22 Lansoprazole (First-Lansoprazole Oral Suspension) 30 mg DAILY PEG 01/14/20 09:00 01/24/20 07:45 Lidocaine (Lidoderm Patch) 1 patch DAILY TD 01/13/20 09:00 01/24/20 07:46 Lidocaine/ Diphenhydr/Alum/ Mg/Simeth (Magic Mouthwash) 5ML -do prior to giv... Q4HP PRN SSP pre-ice chips 01/13/20 12:45 Lidocaine/ Diphenhydr/Alum/ Mg/Simeth (Magic Mouthwash) please use swab to cl... AC XX 01/13/20 12:00 01/22/20 17:04 Metoprolol Tartrate (Lopressor) 12.5 mg BID PEG 01/12/20 21:00 01/22/20 20:41 Metoprolol Tartrate (Lopressor) 12.5 mg BID PO 01/12/20 21:00 01/12/20 20:01 DC Non-Formulary Medication ( See Comment Field Below ) REMOVE LIDODERM PATCH DAILY@21 XX 01/13/20 21:00 01/23/20 21:13 Ondansetron HCl (Zofran Odt) 4 mg Q4HP PRN SL NAUSEA OR VOMITING 01/18/20 10:30 Pantoprazole Sodium (Protonix) 40 mg DAILY PO 01/12/20 09:00 01/13/20 11:36 DC 01/13/20 08:58 Polyethylene Glycol (Miralax) 1 pkt DAILY PRN PEG CONSTIPATION 01/13/20 11:45 Polyethylene Glycol (Miralax) 1 pkt DAILY PRN PO CONSTIPATION 01/12/20 16:45 01/13/20 11:36 DC Senna (Senokot) 1 tab QHS PO 01/12/20 21:00 01/13/20 11:36 DC Sodium Chloride ([place] Nasal [place]) 2 spray TID NA 01/12/20 21:00 01/23/20 21:13 Tamsulosin HCl (Flomax) 0.4 mg QHS PO 01/13/20 21:00 01/13/20 11:36 DC Torsemide (Demadex) 40 mg BID@,17 PEG 01/13/20 17:00 01/17/20 11:28 DC 01/16/20 16:54 Torsemide (Demadex) 40 mg BID@,17 PO 01/12/20 17:00 01/13/20 11:36 DC 01/13/20 08:58 Venlafaxine HCl (Effexor) 18.75 mg BID PO 01/17/20 09:00 01/17/20 11:46 DC Venlafaxine HCl (Effexor) 18.75 mg BID PO 01/17/20 09:00 01/18/20 12:05 DC 01/18/20 09:45 GARO TORRES MD January 24, 2020 15:21
--- NOTE | 2020-01-24 18:08 | IPN ---
DATE: 01/24/2020 Mr. Badillo was seen and examined this morning. Patient continues to complain of low back pain, which he has already had imaging for earlier this admission on 01/17/2020. He continues to voice concerns of not understanding of why he has dialysis and when he can stop it, but understands he needs it for his kidneys are not functioning properly. He was being evaluated by speech therapy this morning and has no other complaints. No other events were reported b y nursing. PHYSICAL EXAM: Vital Signs: Temperature 97.2, pulse 69, respiratory rate 18, blood pressure 109/76 (86). Pulse oximetry 98% on room air. Intake total 800 mL, output total 2000 mL with a net balance of negative 1200 mL. He had 2 liters removed in dialysis yesterday. Weight today 86.5 kg. General: This is a very pleasant 64-year-old male who does not appear in acute distress, sitting up in his wheelchair, appropriately answering questions. HEENT: Atraumatic, normocephalic. Pupils equal, round and reactive. Moist mucous membranes. No jugular venous distention (JVD). Left internal jugular (IJ) hemodialysis in place, which is currently being used for hemodialysis. Cardiovascular: S1, S2 sounds are present. Irregularly irregular, rate controlled with a rate of 60-70 beats per minute. Lungs: Clear to auscultate bilaterally. No audible wheezing, rhonchi or rales. Abdomen: Soft, nontender. Extremities: Very minimal edema appreciated in the lower extremities. LABORATORY: WBC 6.7, hemoglobin 11.9, hematocrit 38.1, platelets 229. Chemistries: Sodium 129, potassium 4.3, chloride 93, carbon dioxide 23, anion gap 13, BUN 39, creatinine 2.10, fasting glucose 127, calcium 9.0, phosphorus 5.6, albumin 2.4. ASSESSMENT AND PLAN: 1. End-stage renal disease. Patient got dialyzed yesterday with two liters. He tolerated it very well. He will be dialyzed again tomorrow. His ultrafiltration goal is to get two liters off pending tolerance of his blood pressure. 2. Chronic systolic congestive heart failure. Volume status is optimized with dialysis. His lower extremity edema has continued to improve. 3. Atrial fibrillation. Rate controlled with metoprolol 12.5 mg twice a day and is anticoagulated with apixaban.
[2020-01-24 20:00] VITALS: BP 120/80
[2020-01-24] MEDS: ATORVASTATIN 20 MG TAB PEG SCH (22:28)
[2020-01-24] MEDS: **NOTE PATIENT COMMENT** MISC XX SCH (22:29)
[2020-01-25 06:00] VITALS: BP 130/86
[2020-01-25] MEDS: MAGIC MOUTHWASH SUSPENSION BTL XX SCH ×3 (07:30→17:30)
[2020-01-25] MEDS: IPRATROPIUM 0.5MG/ALBUTEROL 2.5MG INH SOL UD 3ML (DUONEB)(J7620) NEB SCH ×3 (08:00→20:37)
[2020-01-25] MEDS: LIDOCAINE 5% (LIDODERM) PATCH TD SCH (08:19)
[2020-01-25] MEDS: guaiFENesin SYRUP 200 MG/10 ML UDC PEG SCH ×3 (08:19→22:00)
[2020-01-25] MEDS: LANSOPRAZOLE SUSPENSION 30 MG/10 ML ORAL SYRINGE (FIRST-LANSOPRAZOLE) PEG SCH (08:19)
[2020-01-25] MEDS: APIXABAN 2.5 MG TAB (ELIQUIS) PEG SCH ×2 (08:20→22:00)
[2020-01-25] MEDS: ACETAMINOPHEN 325 MG TAB PEG SCH ×3 (08:20→22:00)
[2020-01-25] MEDS: REMEDY PHYTOPLEX Z-GUARD PASTE 113GM TUBE (FROM STOREROOM PRODUCT) TOP SCH ×3 (08:20→21:00)
[2020-01-25] MEDS: ASPIRIN 81 MG CHEW TABLET PEG SCH (08:20)
[2020-01-25] MEDS: SODIUM CHLORIDE NASAL 0.65% SPRAY BTL (OCEAN) SCH ×4 (08:21→21:00)
[2020-01-25] MEDS: METOPROLOL TART 12.5 MG PER 1/2 TAB PEG SCH ×2 (08:21→22:04)
[2020-01-25] MEDS: HumaLOG INSULIN (NovoLOG) PER UNIT SC SCH ×4 (08:24→21:00)
[2020-01-25 14:00] VITALS: BP 126/78
[2020-01-25 14:27] LABS: ALBUMIN 2.4 GM/DL (3.2-5.2); CALCIUM LEVEL 8.8 MG/DL (8.8-10.2); CREATININE FOR GFR 1.72 MG/DL (0.70-1.30); PHOSPHORUS LEVEL 4.4 MG/DL (2.5-4.9); POTASSIUM SERUM 3.9 MEQ/L (3.5-5.1)
--- NOTE | 2020-01-25 16:19 | IPN ---
DATE: 01/25/2020 Mr. Badillo was seen and examined this morning during bedside rounds. He has no complaints today and tolerated physical therapy (PT) this morning. He will be going down to dialysis later this afternoon at 12:30 and denies any new complaints at the current time. No overnight events were reported by nursing. PHYSICAL EXAMINATION: VITAL SIGNS: Temperature 96.8, pulse 72, respiratory rate 18, blood pressure 130/86 (101), pulse oximetry 96% on room air. GENERAL: This is a pleasant 64-year-old male who does not appear in any acute distress, sitting up in the wheelchair, appropriately answering questions. HEENT: Atraumatic, normocephalic. Pupils equal, round, and reactive. Slight jugular venous distention (JVD) noted. Left internal jugular hemodialysis in place. Insertion site looks clean and not irritated. CARDIOVASCULAR: S1, S2 sounds are present, Irregularly irregular. Rate controlled. Blood pressure (BP) 60-70 beats per minute. LUNGS: Clear to auscultate bilateral. No audible wheezing, rhonchi, or rales. ABDOMEN: Soft and nontender. EXTREMITIES: Continues to have lower extremity edema, ranging from 1-2+. LABORATORY DATA: None were obtained this morning. ASSESSMENT AND PLAN: 1. End-stage renal disease, on a Thursday, Thursday, Thursday schedule. He will be going down for dialysis today, and end goal is to remove at least 2 liters, pending the tolerance of his blood pressure. 2. Chronic systolic congestive heart failure. Volume status continues to be optimized with continuous dialysis. 3. Atrial fibrillation, currently rate controlled with metoprolol 12.5 mg twice a day and anticoagulant of apixaban. 4. Coronary artery disease, status post coronary artery bypass graft (CABG) and stent placement. He does have a complaint of bruising on the left dorsal aspect of his hand. Because he is on aspirin as well as renally dosed Eliquis, we will change his aspirin to every 2 days.
--- NOTE | 2020-01-25 17:12 | IPNPDOC ---
PM&R Progress Note DATE OF SERVICE: January 25, 2020 Field Identification Specialist Progress Note Subjective: Patient asking about wearing his soft back brace and that it did not fit him very well and was encouraged to work on strengthening his core muscles to better support his spine. REVIEW OF SYSTEMS: The following is a completed review of systems and has been reviewed. Review of systems otherwise unremarkable. PAIN: Patient self reports LBP (improving) EYES: No recent vision changes EARS, NOSE, & THROAT: + dysphagia (improving) CARDIOVASCULAR: Denies chest pain or palpitations PULMONARY: Denies shortness of breath GASTROINTESTINAL:+nausea and loose stools (improving) GENITOURINARY: +retention (resolved) MUSCULOSKELETAL:+generalized weakness NEUROLOGICAL:+enpaholoapthy (improving) HEMATOLOGICAL: +easy bruising, recent epistaxis SKIN: scattered ecchymosis PSYCHIATRIC: +confused (improving) All other review of systems found to be negative. PHYSICAL EXAMINATION: VITAL SIGNS: Please see below. GENERAL: Pleasant and cooperative. No acute distress. HEENT: PERRL. Extraocular movements intact. Clear conjunctiva CARDIOVASCULAR: Regular rate and rhythm. No murmurs, rubs, or gallops LUNGS: Clear to auscultation bilaterally. No wheezes. No rhonchi ABDOMEN: Soft, nontender, nondistended. Positive bowel sounds. Normal active bowel sounds, +PEG NEUROLOGICAL: Alert and oriented to self, thought it was 2020, and president "Jamal" Cranial nerves II through XII grossly intact. Sensation grossly intact to light touch all 4limbs EXTREMITIES: 5-\\5 strength bilateral upper extremities. 5-\\5 strength right lower extremity. 5-/5 strength in left lower extremity. (-) edema SLR negative bilat SKIN: LUE chest well permacath, sternal scar healed, sacrum with blanchable erythema, heels with blanchable erythema ASSESSMENT:64-year-old M with past medical history of chronic systolic CHF who presents status post epistaxis with metabolic encephalopathy PLAN: 1. 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 Neuro: patient with recent acute encephalopathy likely due to metabolic derangement vs infection-improving with dialysis and treatment for pneumonia -per patient's patient was tolerating oral foods while getting intermittent PEG feeds a week ago when he was at [place], unclear what consistency he was on, WEBBING SUPERVISOR aware-patient ok to eat level 2 and thins with supervision -CTH 01/13/20 negative for old infarcts -f/u thiamine level, B12/TSH/folate levels WNL 3. cardiac: chronic systolic CHF with EF 10-15% with ICD- c/u diuretics (renal managing), daily weights-medicine consulted to assist -Afib on metoprolol, Eliquis 2.5mg BID -CAD s/p CABG and stent- ASA 81mg -HLD c/u statin 4. resp: COPD with Pneumonia, c/u augmentin, duonebs, supplemental 02 via venturi-mask, guaifenesin 5. Endo: hx of DM c/u Insulin and ISS, adjust prn 6. ENT: s/p left nasal epistaxis with packing, and packing removal 01-09-20 with Self-dissolving packing gel-foam, c/u nasal saline drops -f/u ENT after d/c 7. renal: urinary retention with oliguria started on HD 10/20, renal consulted to c/u while inhouse, barnes removed 01-14-20, voiding well 8. DVT ppx: eliquis , c/u teds 9. GI ppx: lansaprazole -zofran ordered prn for nausea - d/c'd colace and if loose stools improving 10. Pain: tylenol 975mg standing and lidoderm patch for low back pain -patient reporting pain with twisting that does not radiate down the legs, no saddle region anesthesia, he is averse to opioids -stopped Effexor as may have contributed to recent GI symptoms, reported the one time dose of Flexeril did not help, but that repositioning in bed is most helpful when his back starts to ache -lumbar xray 01-16-20 showing, "Mild depression of the superior endplate of L1 and L2 could be acute or chronic." with f/u CT scan showing "Mild osteoporotic wedging involving the superior endplates of L1 and L2 as seen radiographically. There is healing sclerosis suggesting subacute or chronic changes. Minimal loss of anterior vertebral body heights"-patient can wear soft TLSO for comfort, no concern for neurological compromise or acute fracture, patient educated on importance of core stabilization exercises to help better support his spine -ortho recs appreciated, patient can advance to outpatient back therapy once he is more functional and will initially need home therapy 11. Nutrition- patient advanced to oral feeds with PEG bolus prn eats less than 50% 12. Dispo: 01/31/20 to home, progressing slowly towards goals DME: Patient will require a wheelchair to complete his MRADLs in a timely and safe manner. He is unable to use a rolling walker or cane safely. His home is wheelchair accessible, his family able to help, and he is agreeable to using a wheelchair. Allergies Coded Allergies: metformin (Verified Allergy, Severe, anaphylaxis, 01/04/20) sitagliptin (Verified Allergy, Severe, anaphylaxis, 01/04/20) sacubitril (Verified Allergy, Intermediate, facial swelling, 01/04/20) valsartan (Verified Allergy, Intermediate, facial swelling, 01/04/20) azithromycin (Verified Adverse Reaction, Mild, NAUSEA AND VOMITING, 01/04/20) rosuvastatin (Verified Adverse Reaction, Mild, NAUSEA AND VOMITING, 01/04/20) Vital Signs Vital Signs Date Time Temp Pulse Resp B/P (MAP) Pulse Ox O2 Delivery O2 Flow Rate FiO2 01/25/20 08:21 72 130/86 01/25/20 06:00 96.8 18 96 Room Air Laboratory Data CBC/BMP Laboratory Tests 01/25/20 13:20 Labs 24H Laboratory Tests 2 01/24/20 21:17: Bedside Glucose (Misc Panel) 150H 01/25/20 05:40: Bedside Glucose (Misc Panel) 131H 01/25/20 11:26: Bedside Glucose (Misc Panel) 90 01/25/20 13:20: Anion Gap 10, Glomerular Filtration Rate 43.0L, Calcium Level 8.8, Phosphorus Level 4.4#, Albumin 2.4L Current Medications Current Medications Current Medications Medications (Trade) Dose Ordered Sig/Ayala Route PRN Reason Start Time Stop Time Status Last Admin Dose Admin Acetaminophen (Tylenol Suspension) 975 mg TID PEG 01/13/20 16:00 01/23/20 10:43 DC 01/22/20 20:46 Acetaminophen (Tylenol Tab) 650 mg Q4HP PRN PO fever/MILD PAIN (PS 1-4) 01/12/20 16:45 01/13/20 11:14 DC Acetaminophen (Tylenol Tab) 975 mg TID PEG 01/23/20 09:00 01/25/20 08:20 Acetaminophen (Tylenol Tab) 1,000 mg TID PO 01/13/20 09:00 01/13/20 11:36 DC Albuterol/ Ipratropium (Duoneb (Ipr 0.5mg/Alb 2.5mg)) 3 ml RTID NEB 01/12/20 20:00 01/25/20 11:07 Albuterol/ Ipratropium (Duoneb (Ipr 0.5mg/Alb 2.5mg)) 3 ml TID NEB 01/12/20 21:00 01/12/20 17:12 DC Amoxicillin/ Clavulanate Potassium (Augmentin 400 Mg/5 ml Susp) 500 mg BID PEG 01/12/20 21:00 01/18/20 21:00 DC 01/18/20 21:49 Apixaban (Eliquis) 2.5 mg BID PEG 01/13/20 21:00 01/25/20 08:20 Aspirin (Aspirin Chewable) 81 mg DAILY PEG 01/14/20 09:00 01/13/20 19:12 DC Aspirin (Aspirin Chewable) 81 mg DAILY PEG 01/17/20 09:00 01/25/20 11:49 DC 01/25/20 08:20 Aspirin (Aspirin Chewable) 81 mg Q2D PEG 01/27/20 09:00 Atorvastatin Calcium (Lipitor) 80 mg QHS PEG 01/12/20 21:00 01/24/20 22:28 Bisacodyl (Dulcolax Suppository) 10 mg DAILYPRN PRN [place] CONSTIPATION 01/12/20 16:45 Bumetanide (Bumex) 1 mg DAILY PO 01/18/20 09:00 01/18/20 08:25 DC Bumetanide (Bumex) 2 mg DAILY PO 01/18/20 09:00 01/18/20 11:08 DC Dextrose (Dextrose 50%) 25 ml ASDIRECTED PRN IV SEE LABEL COMMENTS 01/12/20 16:45 Docusate Sodium (Colace Liquid) 100 mg BID PEG 01/13/20 21:00 01/18/20 12:05 DC 01/17/20 21:11 Docusate Sodium (Colace) 100 mg BID PO 01/12/20 21:00 01/13/20 11:36 DC 01/13/20 08:58 Glucagon (Glucagon) 1 mg ASDIRECTED PRN SC SEE LABEL COMMENTS 01/12/20 16:45 Glucose (Glucose) 16 GM ASDIRECTED PRN PO SEE LABEL COMMENTS 01/12/20 16:45 Guaifenesin (Robitussin) 10 ml TID PEG 01/12/20 21:00 01/25/20 08:19 Heparin Sodium (Porcine) (Heparin) 5,000 units Q12H SC 01/12/20 21:00 01/13/20 14:02 DC 01/13/20 08:55 Insulin Detemir (Levemir Insulin) 8 units QHS SC 01/17/20 21:00 01/24/20 11:24 DC 01/22/20 20:42 Insulin Detemir (Levemir Insulin) 12 units QHS@0000 SC 01/13/20 00:00 01/17/20 14:04 DC 01/17/20 00:11 Insulin Human Lispro (HumaLOG INSULIN) SEE PROTOCOL TABLE AC SC 01/25/20 07:30 01/25/20 08:24 Insulin Human Lispro (HumaLOG INSULIN) SEE PROTOCOL TABLE ACHS IN 01/17/20 14:15 01/24/20 22:20 DC 01/24/20 12:32 Insulin Human Lispro (HumaLOG INSULIN) SEE PROTOCOL TABLE Q6H IN 01/12/20 18:00 01/17/20 14:04 DC 01/17/20 06:22 Insulin Human Lispro (HumaLOG INSULIN) SEE PROTOCOL TABLE QHS IN 01/24/20 21:00 Lansoprazole (First-Lansoprazole Oral Suspension) 30 mg DAILY PEG 01/14/20 09:00 01/25/20 08:19 Lidocaine (Lidoderm Patch) 1 patch DAILY TD 01/13/20 09:00 01/25/20 08:19 Lidocaine/ Diphenhydr/Alum/ Mg/Simeth (Magic Mouthwash) 5ML -do prior to giv... Q4HP PRN SSP pre-ice chips 01/13/20 12:45 Lidocaine/ Diphenhydr/Alum/ Mg/Simeth (Magic Mouthwash) please use swab to cl... AC XX 01/13/20 12:00 01/22/20 17:04 Metoprolol Tartrate (Lopressor) 12.5 mg BID PEG 01/12/20 21:00 01/25/20 08:21 Metoprolol Tartrate (Lopressor) 12.5 mg BID PO 01/12/20 21:00 01/12/20 20:01 DC Non-Formulary Medication ( See Comment Field Below ) REMOVE LIDODERM PATCH DAILY@21 XX 01/13/20 21:00 01/24/20 22:29 Ondansetron HCl (Zofran Odt) 4 mg Q4HP PRN SL NAUSEA OR VOMITING 01/18/20 10:30 Pantoprazole Sodium (Protonix) 40 mg DAILY PO 01/12/20 09:00 01/13/20 11:36 DC 01/13/20 08:58 Polyethylene Glycol (Miralax) 1 pkt DAILY PRN PEG CONSTIPATION 01/13/20 11:45 Polyethylene Glycol (Miralax) 1 pkt DAILY PRN PO CONSTIPATION 01/12/20 16:45 01/13/20 11:36 DC Senna (Senokot) 1 tab QHS PO 01/12/20 21:00 01/13/20 11:36 DC Sodium Chloride ([place] Nasal [place]) 2 spray TID NA 01/12/20 21:00 01/24/20 22:28 Tamsulosin HCl (Flomax) 0.4 mg QHS PO 01/13/20 21:00 01/13/20 11:36 DC Torsemide (Demadex) 40 mg BID@,17 PEG 01/13/20 17:00 01/17/20 11:28 DC 01/16/20 16:54 Torsemide (Demadex) 40 mg BID@,17 PO 01/12/20 17:00 01/13/20 11:36 DC 01/13/20 08:58 Venlafaxine HCl (Effexor) 18.75 mg BID PO 01/17/20 09:00 01/17/20 11:46 DC Venlafaxine HCl (Effexor) 18.75 mg BID PO 01/17/20 09:00 01/18/20 12:05 DC 01/18/20 09:45 GARO TORRES MD January 25, 2020 17:12
[2020-01-25 20:03] VITALS: BP 111/74
[2020-01-25] MEDS: **NOTE PATIENT COMMENT** MISC XX SCH (21:00)
[2020-01-25] MEDS: ATORVASTATIN 20 MG TAB PEG SCH (22:00)
[2020-01-26 06:00] VITALS: BP 116/74
[2020-01-26] MEDS: IPRATROPIUM 0.5MG/ALBUTEROL 2.5MG INH SOL UD 3ML (DUONEB)(J7620) NEB SCH ×4 (07:02→19:58)
[2020-01-26] MEDS: MAGIC MOUTHWASH SUSPENSION BTL XX SCH ×3 (07:30→17:30)
[2020-01-26] MEDS: LIDOCAINE 5% (LIDODERM) PATCH TD SCH (08:15)
[2020-01-26] MEDS: METOPROLOL TART 12.5 MG PER 1/2 TAB PEG SCH (08:16)
[2020-01-26] MEDS: LANSOPRAZOLE SUSPENSION 30 MG/10 ML ORAL SYRINGE (FIRST-LANSOPRAZOLE) PEG SCH (08:16)
[2020-01-26] MEDS: APIXABAN 2.5 MG TAB (ELIQUIS) PEG SCH (08:16)
[2020-01-26] MEDS: ACETAMINOPHEN 325 MG TAB PEG SCH (08:17)
[2020-01-26] MEDS: REMEDY PHYTOPLEX Z-GUARD PASTE 113GM TUBE (FROM STOREROOM PRODUCT) TOP SCH ×3 (08:17→20:30)
[2020-01-26] MEDS: guaiFENesin SYRUP 200 MG/10 ML UDC PEG SCH ×3 (08:23→20:29)
[2020-01-26] MEDS: SODIUM CHLORIDE NASAL 0.65% SPRAY BTL (OCEAN) SCH ×3 (08:23→20:30)
[2020-01-26] MEDS: HumaLOG INSULIN (NovoLOG) PER UNIT SC SCH ×4 (08:23→20:29)
[2020-01-26] MEDS: TORSEMIDE 20 MG TAB PO SCH (12:29)
[2020-01-26 14:00] VITALS: BP 106/64
--- NOTE | 2020-01-26 14:16 | IPNPDOC ---
PM&R Progress Note DATE OF SERVICE: January 26, 2020 Director Of Sustainable Design Progress Note Subjective: He would like to try taking fish oil for his back pain which he says overall is getting better and that he thinks it is his positioning in the bed that aggravates his back. He is not interested in trying to sleep in a recliner. REVIEW OF SYSTEMS: The following is a completed review of systems and has been reviewed. Review of systems otherwise unremarkable. PAIN: Patient self reports LBP (improving) EYES: No recent vision changes EARS, NOSE, & THROAT: + dysphagia (improving) CARDIOVASCULAR: Denies chest pain or palpitations PULMONARY: Denies shortness of breath GASTROINTESTINAL:+nausea and loose stools (improving) GENITOURINARY: +retention (resolved) MUSCULOSKELETAL:+generalized weakness NEUROLOGICAL:+enpaholoapthy (improving) HEMATOLOGICAL: +easy bruising, recent epistaxis SKIN: scattered ecchymosis PSYCHIATRIC: +confused (improving) All other review of systems found to be negative. PHYSICAL EXAMINATION: VITAL SIGNS: Please see below. GENERAL: Pleasant and cooperative. No acute distress. HEENT: PERRL. Extraocular movements intact. Clear conjunctiva CARDIOVASCULAR: Regular rate and rhythm. No murmurs, rubs, or gallops LUNGS: Clear to auscultation bilaterally. No wheezes. No rhonchi ABDOMEN: Soft, nontender, nondistended. Positive bowel sounds. Normal active bowel sounds, +PEG NEUROLOGICAL: Alert and oriented to self, thought it was 2020, and president "Jamal" Cranial nerves II through XII grossly intact. Sensation grossly intact to light touch all 4limbs EXTREMITIES: 5-\\5 strength bilateral upper extremities. 5-\\5 strength right lower extremity. 5-/5 strength in left lower extremity. (-) edema SLR negative bilat, +TTP right lower lumbar paraspinals SKIN: LUE chest well permacath, sternal scar healed, sacrum with blanchable erythema, heels with blanchable erythema ASSESSMENT:64-year-old M with past medical history of chronic systolic CHF who presents status post epistaxis with metabolic encephalopathy PLAN: 1. Rehab- PT/OT advance gait and ADl training, strengthen/stretch/maintain ROM all 4limbs, energy conservation [employer]- advanced to level 2 and thins 2. Neuro: patient with recent acute encephalopathy likely due to metabolic derangement vs infection-improving with dialysis and treatment for pneumonia -per patient's patient was tolerating oral foods while getting intermittent PEG feeds a week ago when he was at [place], unclear what consistency he was on, [employer] aware-patient ok to eat level 2 and thins with supervision -[facility] 01/13/20 negative for old infarcts -f/u thiamine level, B12/TSH/folate levels WNL 3. cardiac: chronic systolic CHF with EF 10-15% with ICD- c/u diuretics (renal managing), daily weights-medicine consulted to assist -Afib on metoprolol, Eliquis 2.5mg BID -CAD s/p CABG and stent- ASA 81mg changed to q2d -HLD c/u statin 4. resp: COPD with Pneumonia, c/u augmentin, duonebs, supplemental 02 via venturi-mask, guaifenesin 5. Endo: hx of DM c/u Insulin and ISS, adjust prn 6. ENT: s/p left nasal epistaxis with packing, and packing removal 01-09-20 with Self-dissolving packing gel-foam, c/u nasal saline drops -f/u ENT after d/c 7. renal: urinary retention with oliguria started on HD 10/20, renal consulted to c/u while inhouse, barnes removed 01-14-20, voiding well 8. DVT ppx: eliquis , c/u teds 9. GI ppx: lansaprazole -zofran ordered prn for nausea - d/c'd colace and if loose stools improving 10. Pain: tylenol 975mg standing and lidoderm patch for low back pain -patient reporting pain with twisting that does not radiate down the legs, no saddle region anesthesia, he is averse to opioids -stopped Effexor as may have contributed to recent GI symptoms, reported the one time dose of Flexeril did not help, but that repositioning in bed is most helpful when his back starts to ache -will start fish oil per patient's request -lumbar xray 01-16-20 showing, "Mild depression of the superior endplate of L1 and L2 could be acute or chronic." with f/u CT scan showing "Mild osteoporotic wedging involving the superior endplates of L1 and L2 as seen radiographically. There is healing sclerosis suggesting subacute or chronic changes. Minimal loss of anterior vertebral body heights"-patient can wear soft TLSO for comfort, no concern for neurological compromise or acute fracture, patient educated on importance of core stabilization exercises to help better support his spine -ortho recs appreciated, patient can advance to outpatient back therapy once he is more functional and will initially need home therapy 11. Nutrition- patient advanced to oral feeds with PEG bolus prn eats less than 50%, po intake has improved 12. Dispo: 01/31/20 to home, progressing slowly towards goals DME: Patient will require a wheelchair to complete his MRADLs in a timely and safe manner. He is unable to use a rolling walker or cane safely. His home is wheelchair accessible, his family able to help, and he is agreeable to using a wheelchair. Allergies Coded Allergies: metformin (Verified Allergy, Severe, anaphylaxis, 01/04/20) sitagliptin (Verified Allergy, Severe, anaphylaxis, 01/04/20) sacubitril (Verified Allergy, Intermediate, facial swelling, 01/04/20) valsartan (Verified Allergy, Intermediate, facial swelling, 01/04/20) azithromycin (Verified Adverse Reaction, Mild, NAUSEA AND VOMITING, 01/04/20) rosuvastatin (Verified Adverse Reaction, Mild, NAUSEA AND VOMITING, 01/04/20) Vital Signs Vital Signs Date Time Temp Pulse Resp B/P (MAP) Pulse Ox O2 Delivery O2 Flow Rate FiO2 01/26/20 14:00 97.8 69 16 106/64 (78) 99 Room Air Laboratory Data Labs 24H Laboratory Tests 2 01/25/20 17:51: Bedside Glucose (Misc Panel) 140H 01/25/20 19:53: Bedside Glucose (Misc Panel) 150H 01/26/20 05:51: Bedside Glucose (Misc Panel) 149H 01/26/20 11:48: Bedside Glucose (Misc Panel) 192H Current Medications Current Medications Current Medications Medications (Trade) Dose Ordered Sig/Ayala Route PRN Reason Start Time Stop Time Status Last Admin Dose Admin Acetaminophen (Tylenol Suspension) 975 mg TID PEG 01/13/20 16:00 01/23/20 10:43 DC 01/22/20 20:46 Acetaminophen (Tylenol Tab) 650 mg Q4HP PRN PO fever/MILD PAIN (PS 1-4) 01/12/20 16:45 01/13/20 11:14 DC Acetaminophen (Tylenol Tab) 975 mg TID PEG 01/23/20 09:00 01/26/20 14:01 DC 01/26/20 08:17 Acetaminophen (Tylenol Tab) 1,000 mg TID PO 01/13/20 09:00 01/13/20 11:36 DC Acetaminophen (Tylenol Tab) 1,000 mg TID PO 01/26/20 16:00 Albuterol/ Ipratropium (Duoneb (Ipr 0.5mg/Alb 2.5mg)) 3 ml RTID NEB 01/12/20 20:00 01/26/20 07:02 Albuterol/ Ipratropium (Duoneb (Ipr 0.5mg/Alb 2.5mg)) 3 ml TID NEB 01/12/20 21:00 01/12/20 17:12 DC Amoxicillin/ Clavulanate Potassium (Augmentin 400 Mg/5 ml Susp) 500 mg BID PEG 01/12/20 21:00 01/18/20 21:00 DC 01/18/20 21:49 Apixaban (Eliquis) 2.5 mg BID PEG 01/13/20 21:00 01/26/20 14:01 DC 01/26/20 08:16 Apixaban (Eliquis) 2.5 mg BID PO 01/26/20 21:00 Aspirin (Aspirin Chewable) 81 mg DAILY PEG 01/14/20 09:00 01/13/20 19:12 DC Aspirin (Aspirin Chewable) 81 mg DAILY PEG 01/17/20 09:00 01/25/20 11:49 DC 01/25/20 08:20 Aspirin (Aspirin Chewable) 81 mg Q2D PEG 01/27/20 09:00 01/26/20 14:01 DC Aspirin (Aspirin Chewable) 81 mg Q2D PO 01/27/20 09:00 Atorvastatin Calcium (Lipitor) 80 mg QHS PEG 01/12/20 21:00 01/26/20 14:01 DC 01/25/20 22:00 Atorvastatin Calcium (Lipitor) 80 mg QHS PO 01/26/20 21:00 Bisacodyl (Dulcolax Suppository) 10 mg DAILYPRN PRN [place] CONSTIPATION 01/12/20 16:45 Bumetanide (Bumex) 1 mg DAILY PO 01/18/20 09:00 01/18/20 08:25 DC Bumetanide (Bumex) 2 mg DAILY PO 01/18/20 09:00 01/18/20 11:08 DC Dextrose (Dextrose 50%) 25 ml ASDIRECTED PRN IV SEE LABEL COMMENTS 01/12/20 16:45 Docusate Sodium (Colace Liquid) 100 mg BID PEG 01/13/20 21:00 01/18/20 12:05 DC 01/17/20 21:11 Docusate Sodium (Colace) 100 mg BID PO 01/12/20 21:00 01/13/20 11:36 DC 01/13/20 08:58 Fish Oil (Lodi-3 (1000mg)) 1 cap BID PO 01/26/20 21:00 Glucagon (Glucagon) 1 mg ASDIRECTED PRN SC SEE LABEL COMMENTS 01/12/20 16:45 Glucose (Glucose) 16 GM ASDIRECTED PRN PO SEE LABEL COMMENTS 01/12/20 16:45 Guaifenesin (Robitussin) 10 ml TID PEG 01/12/20 21:00 01/25/20 22:00 Heparin Sodium (Porcine) (Heparin) 5,000 units Q12H SC 01/12/20 21:00 01/13/20 14:02 DC 01/13/20 08:55 Insulin Detemir (Levemir Insulin) 8 units QHS SC 01/17/20 21:00 01/24/20 11:24 DC 01/22/20 20:42 Insulin Detemir (Levemir Insulin) 12 units QHS@0000 SC 01/13/20 00:00 01/17/20 14:04 DC 01/17/20 00:11 Insulin Human Lispro (HumaLOG INSULIN) SEE PROTOCOL TABLE AC SC 01/25/20 07:30 01/26/20 12:30 Insulin Human Lispro (HumaLOG INSULIN) SEE PROTOCOL TABLE ACHS SC 01/17/20 14:15 01/24/20 22:20 DC 01/24/20 12:32 Insulin Human Lispro (HumaLOG INSULIN) SEE PROTOCOL TABLE Q6H SC 01/12/20 18:00 01/17/20 14:04 DC 01/17/20 06:22 Insulin Human Lispro (HumaLOG INSULIN) SEE PROTOCOL TABLE QHS SC 01/24/20 21:00 Lansoprazole (First-Lansoprazole Oral Suspension) 30 mg DAILY PEG 01/14/20 09:00 01/26/20 14:01 DC 01/26/20 08:16 Lidocaine (Lidoderm Patch) 1 patch DAILY TD 01/13/20 09:00 01/26/20 08:15 Lidocaine/ Diphenhydr/Alum/ Mg/Simeth (Magic Mouthwash) 5ML -do prior to giv... Q4HP PRN SSP pre-ice chips 01/13/20 12:45 Lidocaine/ Diphenhydr/Alum/ Mg/Simeth (Magic Mouthwash) please use swab to cl... AC XX 01/13/20 12:00 01/22/20 17:04 Metoprolol Tartrate (Lopressor) 12.5 mg BID PEG 01/12/20 21:00 01/26/20 14:01 DC 01/26/20 08:16 Metoprolol Tartrate (Lopressor) 12.5 mg BID PO 01/12/20 21:00 01/12/20 20:01 DC Metoprolol Tartrate (Lopressor) 12.5 mg BID PO 01/26/20 21:00 Non-Formulary Medication ( See Comment Field Below ) REMOVE LIDODERM PATCH DAILY@21 XX 01/13/20 21:00 01/25/20 21:00 Ondansetron HCl (Zofran Odt) 4 mg Q4HP PRN SL NAUSEA OR VOMITING 01/18/20 10:30 Pantoprazole Sodium (Protonix) 40 mg DAILY PO 01/12/20 09:00 01/13/20 11:36 DC 01/13/20 08:58 Pantoprazole Sodium (Protonix) 40 mg DAILY PO 01/27/20 09:00 Polyethylene Glycol (Miralax) 1 pkt DAILY PRN PEG CONSTIPATION 01/13/20 11:45 Polyethylene Glycol (Miralax) 1 pkt DAILY PRN PO CONSTIPATION 01/12/20 16:45 01/13/20 11:36 DC Senna (Senokot) 1 tab QHS PO 01/12/20 21:00 01/13/20 11:36 DC Sodium Chloride ([place] Nasal Riesel) 2 spray TID NA 01/12/20 21:00 01/24/20 22:28 Tamsulosin HCl (Flomax) 0.4 mg QHS PO 01/13/20 21:00 01/13/20 11:36 DC Torsemide (Demadex) 40 mg BID@09,17 PEG 01/13/20 17:00 01/17/20 11:28 DC 01/16/20 16:54 Torsemide (Demadex) 40 mg BID@09,17 PO 01/12/20 17:00 01/13/20 11:36 DC 01/13/20 08:58 Torsemide (Demadex) 40 mg DAILY PO 01/26/20 11:00 01/26/20 12:29 Venlafaxine HCl (Effexor) 18.75 mg BID PO 01/17/20 09:00 01/17/20 11:46 DC Venlafaxine HCl (Effexor) 18.75 mg BID PO 01/17/20 09:00 01/18/20 12:05 DC 01/18/20 09:45 GARO TORRES MD January 26, 2020 14:15
[2020-01-26] MEDS: ACETAMINOPHEN 500 MG TAB PO SCH ×2 (16:00→20:26)
--- NOTE | 2020-01-26 18:34 | IPN ---
DATE: 01/26/2020 Mr. Badillo was seen and examined this morning during bedside rounds. He was lying comfortably in his bed, does not appear in acute distress. Patient had several questions this morning, stating that he would like to know how many days he would need to be on dialysis and is there a way that he can not use dialysis. He states that he lives in [facility] 6 months out of the year and upon discharge, will be living with his daughter until he goes back. He would like to know if he can set up his dialysis sessions to twice weekly versus the normal three times a week schedule. He states that he had a similar episode in the past with lower extremity edema, and he responded very well to the metolazone. He is wondering if he can be back on diuretic medication to see if that will help. He voiced no other concerns this morning, and he went to hemodialysis yesterday with no problems. No other events were reported by nursing. PHYSICAL EXAM: Vital signs: Temperature 97.1, pulse of 55, respirations 16, blood pressure 116/74 (88), pulse oximetry 94% on room air. Intake total 650 mL, output total 2750 mL with a balance of negative 2090 mL. Weight this morning was 86.1 kg. Hemodialysis removed 2.5 liters with a urine output total of 250 mL yesterday and in the last 12 hours 375 mL. General: This is a pleasant 64-year-old male who is laying comfortably on his bed, who does not appear in any acute distress, appropriately answering questions. HEENT: Atraumatic, normocephalic. Pupils equal, round and reactive. No jugular venous distention (JVD) noted. Cardiovascular: Irregularly irregular, rate controlled. Slightly bradycardic rate today between 50-60 beats per minute. Lungs: Clear to auscultation bilaterally. No audible wheezing, rhonchi or rales appreciated. 2+ pitting edema bilaterally in the lower extremities. Abdomen: Soft, nontender. Neurologic: No focal deficits noted. Psych: Appropriate affect. LABORATORY DATA: No new labs were drawn today. 1. End-stage renal disease. On dialysis; normal schedule is Thursday, Thursday and Thursday. He tolerated yesterday's hemodialysis session very well. Concerning the patient's concerns about dialysis when he goes to [facility], he will need to establish this after he gets discharged from the hospital and established with a dialysis center [place] Once that is done at that center, they can search for a dialysis center in [place] and transfer his records there for the 6 months he is there out of the year. At this current time, he is dialysis dependent, which was confirmed by two 24-hour urine collections. 2. Chronic systolic congestive heart failure. Volume status is optimized through dialysis, and he is currently dialysis dependent. He states that he would like to try diuretics once again, so we have placed him on torsemide 40 mg daily, and we will reassess how much urine output he has and if he responds appropriately. Our prediction is that the patient will continue to need dialysis to maintain euvolemic status, but per the patient's wishes, we will try this solution. 3. Atrial fibrillation. Continues to be rate controlled with metoprolol 12.5 mg twice a day and anticoagulation of apixaban. We will continue as prescribed. 4. Coronary artery disease, status post coronary artery bypass graft (CABG) and stent placement. Will continue with his renal dose Eliquis as well as aspirin every 2 days.
[2020-01-26 20:10] VITALS: BP 104/72
[2020-01-26] MEDS: METOPROLOL TART 12.5 MG PER 1/2 TAB PO SCH (20:27)
[2020-01-26] MEDS: OMEGA-3 1000MG CAPSULE PO SCH (20:28)
[2020-01-26] MEDS: ATORVASTATIN 20 MG TAB PO SCH (20:29)
[2020-01-26] MEDS: APIXABAN 2.5 MG TAB (ELIQUIS) PO SCH (20:29)
[2020-01-26] MEDS: **NOTE PATIENT COMMENT** MISC XX SCH (20:30)
[2020-01-27] MEDS ORDERED: PERCOCET 5MG/325MG TAB PO ONE (02:45)
[2020-01-27 06:00] VITALS: BP 108/76
[2020-01-27 06:52] LABS: BASO # 0.1 10^3/uL (0.0-0.2); BASO % 0.9 % (0.0-1.0); EOS # 0.1 10^3/uL (0.0-0.5); EOS % 2.2 % (0.0-3.0); HEMATOCRIT 36.7 % (42.0-52.0); HEMOGLOBIN 11.3 g/dl (13.5-17.5); LYMPH % 16.2 % (24.0-44.0); MEAN CORPUSCULAR HEMOGLOBIN 26.8 pg (27.0-33.0); MEAN CORPUSCULAR HGB CONC 30.8 g/dl (32.0-36.5); MEAN CORPUSCULAR VOLUME 87.2 fl (80.0-96.0); MONO # 0.9 10^3/uL (0.0-0.8); MONO % 14.7 % (0.0-5.0); NEUTROPHILS # 3.9 10^3/uL (1.5-8.5); NEUTROPHILS % 65.7 % (36.0-66.0); PLATELET COUNT, AUTOMATED 187 10^3/uL (150-450); RED BLOOD COUNT 4.21 10^6/uL (4.30-6.10); WHITE BLOOD COUNT 5.9 10^3/uL (4.0-10.0)
[2020-01-27] MEDS: HumaLOG INSULIN (NovoLOG) PER UNIT SC SCH ×4 (06:56→21:00)
[2020-01-27] MEDS: IPRATROPIUM 0.5MG/ALBUTEROL 2.5MG INH SOL UD 3ML (DUONEB)(J7620) NEB SCH ×3 (07:09→19:57)
[2020-01-27 07:17] LABS: CALCIUM LEVEL 8.6 MG/DL (8.8-10.2); CREATININE FOR GFR 1.81 MG/DL (0.70-1.30); GLOMERULAR FILTRATION RATE 40.5 (>49); POTASSIUM SERUM 3.6 MEQ/L (3.5-5.1)
[2020-01-27] MEDS: MAGIC MOUTHWASH SUSPENSION BTL XX SCH ×3 (07:30→16:34)
[2020-01-27] MEDS: OMEGA-3 1000MG CAPSULE PO SCH ×2 (08:32→21:12)
[2020-01-27] MEDS: guaiFENesin SYRUP 200 MG/10 ML UDC PEG SCH (08:32)
[2020-01-27] MEDS: ACETAMINOPHEN 500 MG TAB PO SCH ×3 (08:33→21:14)
[2020-01-27] MEDS: TORSEMIDE 20 MG TAB PO SCH (08:33)
[2020-01-27] MEDS: APIXABAN 2.5 MG TAB (ELIQUIS) PO SCH ×3 (08:33→21:35)
[2020-01-27] MEDS: ASPIRIN 81 MG CHEW TABLET PO SCH (08:33)
[2020-01-27] MEDS: PANTOPRAZOLE 40MG TAB (PROTONIX) PO SCH (08:33)
[2020-01-27] MEDS: METOPROLOL TART 12.5 MG PER 1/2 TAB PO SCH ×2 (08:34→21:00)
[2020-01-27] MEDS: LIDOCAINE 5% (LIDODERM) PATCH TD SCH (08:34)
[2020-01-27] MEDS: SODIUM CHLORIDE NASAL 0.65% SPRAY BTL (OCEAN) SCH ×3 (08:34→21:00)
[2020-01-27] MEDS: REMEDY PHYTOPLEX Z-GUARD PASTE 113GM TUBE (FROM STOREROOM PRODUCT) TOP SCH ×3 (08:34→21:17)
[2020-01-27] MEDS ORDERED: ASPIRIN 81 MG CHEW TABLET PEG SCH (09:00)
[2020-01-27] MEDS: DULoxetine 30 MG CAP (CYMBALTA) PO SCH (13:46)
[2020-01-27] MEDS: GABAPENTIN 100 MG CAP PO SCH ×3 (13:46→21:35)
[2020-01-27 14:00] VITALS: BP 99/73
--- NOTE | 2020-01-27 15:13 | IPNPDOC ---
PM&R Progress Note DATE OF SERVICE: January 27, 2020 [employer] Progress Note Subjective: He would like to try taking fish oil for his back pain which he says overall is getting better and that he thinks it is his positioning in the bed that aggr avates his back. He is not interested in trying to sleep in a recliner. REVIEW OF SYSTEMS: The following is a completed review of systems and has been reviewed. Review of systems otherwise unremarkable. PAIN: Patient self reports LBP (improving) EYES: No recent vision changes EARS, NOSE, & THROAT: + dysphagia (improving) CARDIOVASCULAR: Denies chest pain or palpitations PULMONARY: Denies shortness of breath GASTROINTESTINAL:+nausea and loose stools (improving) GENITOURINARY: +retention (resolved) MUSCULOSKELETAL:+generalized weakness NEUROLOGICAL:+enpaholoapthy (improving) HEMATOLOGICAL: +easy bruising, recent epistaxis SKIN: scattered ecchymosis PSYCHIATRIC: +confused (improving) All other review of systems found to be negative. PHYSICAL EXAMINATION: VITAL SIGNS: Please see below. GENERAL: Pleasant and cooperative. No acute distress. HEENT: PERRL. Extraocular movements intact. Clear conjunctiva CARDIOVASCULAR: Regular rate and rhythm. No murmurs, rubs, or gallops LUNGS: Clear to auscultation bilaterally. No wheezes. No rhonchi ABDOMEN: Soft, nontender, nondistended. Positive bowel sounds. Normal active bowel sounds, +PEG NEUROLOGICAL: Alert and oriented to self, thought it was 2020, and president "Jamal" Cranial nerves II through XII grossly intact. Sensation grossly intact to light touch all 4limbs EXTREMITIES: 5-\\5 strength bilateral upper extremities. 5-\\5 strength right lower extremity. 5-/5 strength in left lower extremity. (-) edema SLR negative bilat, +TTP right lower lumbar paraspinals SKIN: LUE chest well permacath, sternal scar healed, sacrum with blanchable erythema, heels with blanchable erythema ASSESSMENT:64-year-old M with past medical history of chronic systolic CHF who presents status post epistaxis with metabolic encephalopathy PLAN: 1. 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 Neuro: patient with recent acute encephalopathy likely due to metabolic derangement vs infection-improving with dialysis and treatment for pneumonia -CTH 01/13/20 negative for old infarcts - B12/TSH/folate levels WNL -f/u B1 level 3. cardiac: chronic systolic CHF with EF 10-15% with ICD- c/u diuretics (renal managing), daily weights-medicine consulted to assist, ICD interrogated on 01/24/20 without any issues -Afib on metoprolol, Eliquis 2.5mg BID -CAD s/p CABG and stent- ASA 81mg changed to q2d -HLD c/u statin 4. resp: COPD with Pneumonia, c/u augmentin, duonebs, supplemental 02 prn, guaifenesin 5. Endo: hx of DM c/u Insulin and ISS, adjust prn 6. ENT: s/p left nasal epistaxis with packing, and packing removal 01-09-20 with Self-dissolving packing gel-foam, c/u nasal saline drops -f/u ENT after d/c 7. renal: urinary retention with oliguria started on HD 10/20, renal consulted to c/u while inhouse, barnes removed 01-14-20, voiding well 8. DVT ppx: eliquis , c/u teds 9. GI ppx: lansaprazole -zofran ordered prn for nausea - d/c'd colace and if loose stools improving 10. Pain: -lumbar xray 01-16-20 showing, "Mild depression of the superior endplate of L1 and L2 could be acute or chronic." with f/u CT scan showing "Mild osteoporotic wedging involving the superior endplates of L1 and L2 as seen radiographically. There is healing sclerosis suggesting subacute or chronic changes. Minimal loss of anterior vertebral body heights"-patient can wear soft TLSO for comfort, no concern for neurological compromise or acute fracture, patient educated on importance of core stabilization exercises to help better support his spine -ortho recs appreciated, patient can advance to outpatient back therapy once he is more functional and will initially need home therapy, however have asked therapy staff to begin back program while inhouse -c/u tylenol 1000 mg TID standing and lidoderm patch for low back pain, ice prn -c/u fish oil per patient's request -will start cymbalta and renally dosed gabapentin, patient agrees to trial of recliner for sleep as he reports his position in the bed keeps triggering his right lower back pain, he is averse to opioids and one time dose of percocet overnight did not help his pain 11. Nutrition- patient eating 100% oral 12. Dispo: 01/31/20 to home, progressing slowly towards goals DME: Patient will require a wheelchair to complete his MRADLs in a timely and safe manner. He is unable to use a rolling walker or cane safely. His home is wheelchair accessible, his family able to help, and he is agreeable to using a wheelchair. Allergies Coded Allergies: metformin (Verified Allergy, Severe, anaphylaxis, 01/04/20) sitagliptin (Verified Allergy, Severe, anaphylaxis, 01/04/20) sacubitril (Verified Allergy, Intermediate, facial swelling, 01/04/20) valsartan (Verified Allergy, Intermediate, facial swelling, 01/04/20) azithromycin (Verified Adverse Reaction, Mild, NAUSEA AND VOMITING, 01/04/20) rosuvastatin (Verified Adverse Reaction, Mild, NAUSEA AND VOMITING, 01/04/20) Vital Signs Vital Signs Date Time Temp Pulse Resp B/P (MAP) Pulse Ox O2 Delivery O2 Flow Rate FiO2 01/27/20 14:00 96.0 70 18 99/73 (82) 96 Room Air Laboratory Data CBC/BMP Laboratory Tests 01/27/20 06:34 Labs 24H Laboratory Tests 2 01/26/20 16:40: Bedside Glucose (Misc Panel) 92 01/26/20 20:25: Bedside Glucose (Misc Panel) 171H 01/27/20 06:14: Bedside Glucose (Misc Panel) 145H 01/27/20 06:34: Immature Granulocyte % (Auto) 0.3, Neutrophils (%) (Auto) 65.7, Lymphocytes (%) (Auto) 16.2L, Monocytes (%) (Auto) 14.7H, Eosinophils (%) (Auto) 2.2, Basophils (%) (Auto) 0.9, Neutrophils # (Auto) 3.9, Lymphocytes # (Auto) 1.0L, Monocytes # (Auto) 0.9H, Eosinophils # (Auto) 0.1, Basophils # (Auto) 0.1, Nucleated Red Blood Cells % (auto) 0.0, Anion Gap 8, Glomerular Filtration Rate 40.5L, Calcium Level 8.6L Current Medications Current Medications Current Medications Medications (Trade) Dose Ordered Sig/Ayala Route PRN Reason Start Time Stop Time Status Last Admin Dose Admin Acetaminophen (Tylenol Suspension) 975 mg TID PEG 01/13/20 16:00 01/23/20 10:43 DC 01/22/20 20:46 Acetaminophen (Tylenol Tab) 650 mg Q4HP PRN PO fever/MILD PAIN (PS 1-4) 01/12/20 16:45 01/13/20 11:14 DC Acetaminophen (Tylenol Tab) 975 mg TID PEG 01/23/20 09:00 01/26/20 14:01 DC 01/26/20 08:17 Acetaminophen (Tylenol Tab) 1,000 mg TID PO 01/13/20 09:00 01/13/20 11:36 DC Acetaminophen (Tylenol Tab) 1,000 mg TID PO 01/26/20 16:00 01/27/20 08:33 Albuterol/ Ipratropium (Duoneb (Ipr 0.5mg/Alb 2.5mg)) 3 ml RTID NEB 01/12/20 20:00 01/27/20 07:09 Albuterol/ Ipratropium (Duoneb (Ipr 0.5mg/Alb 2.5mg)) 3 ml TID NEB 01/12/20 21:00 01/12/20 17:12 DC Amoxicillin/ Clavulanate Potassium (Augmentin 400 Mg/5 ml Susp) 500 mg BID PEG 01/12/20 21:00 01/18/20 21:00 DC 01/18/20 21:49 Apixaban (Eliquis) 2.5 mg BID PEG 01/13/20 21:00 01/26/20 14:01 DC 01/26/20 08:16 Apixaban (Eliquis) 2.5 mg BID PO 01/26/20 21:00 01/27/20 08:33 Aspirin (Aspirin Chewable) 81 mg DAILY PEG 01/14/20 09:00 01/13/20 19:12 DC Aspirin (Aspirin Chewable) 81 mg DAILY PEG 01/17/20 09:00 01/25/20 11:49 DC 01/25/20 08:20 Aspirin (Aspirin Chewable) 81 mg Q2D PEG 01/27/20 09:00 01/26/20 14:01 DC Aspirin (Aspirin Chewable) 81 mg Q2D PO 01/27/20 09:00 01/27/20 08:33 Atorvastatin Calcium (Lipitor) 80 mg QHS PEG 01/12/20 21:00 01/26/20 14:01 DC 01/25/20 22:00 Atorvastatin Calcium (Lipitor) 80 mg QHS PO 01/26/20 21:00 01/26/20 20:29 Bisacodyl (Dulcolax Suppository) 10 mg DAILYPRN PRN [place] CONSTIPATION 01/12/20 16:45 Bumetanide (Bumex) 1 mg DAILY PO 01/18/20 09:00 01/18/20 08:25 DC Bumetanide (Bumex) 2 mg DAILY PO 01/18/20 09:00 01/18/20 11:08 DC Dextrose (Dextrose 50%) 25 ml ASDIRECTED PRN IV SEE LABEL COMMENTS 01/12/20 16:45 Docusate Sodium (Colace Liquid) 100 mg BID PEG 01/13/20 21:00 01/18/20 12:05 DC 01/17/20 21:11 Docusate Sodium (Colace) 100 mg BID PO 01/12/20 21:00 01/13/20 11:36 DC 01/13/20 08:58 Duloxetine HCl (Cymbalta) 30 mg DAILY PO 01/27/20 11:00 01/27/20 13:46 Fish Oil ([place]-3 (1000mg)) 1 cap BID PO 01/26/20 21:00 01/27/20 08:32 Gabapentin (Neurontin) 200 mg BID PO 01/27/20 11:00 01/27/20 13:46 Glucagon (Glucagon) 1 mg ASDIRECTED PRN SC SEE LABEL COMMENTS 01/12/20 16:45 Glucose (Glucose) 16 GM ASDIRECTED PRN PO SEE LABEL COMMENTS 01/12/20 16:45 Guaifenesin (Robitussin) 10 ml TID PEG 01/12/20 21:00 01/27/20 10:34 DC 01/27/20 08:32 Guaifenesin (Robitussin) 10 ml TID PO 01/27/20 16:00 Heparin Sodium (Porcine) (Heparin) 5,000 units Q12H SC 01/12/20 21:00 01/13/20 14:02 DC 01/13/20 08:55 Insulin Detemir (Levemir Insulin) 8 units QHS FL 01/17/20 21:00 01/24/20 11:24 DC 01/22/20 20:42 Insulin Detemir (Levemir Insulin) 12 units QHS@0000 FL 01/13/20 00:00 01/17/20 14:04 DC 01/17/20 00:11 Insulin Human Lispro (HumaLOG INSULIN) SEE PROTOCOL TABLE AC SC 01/25/20 07:30 01/27/20 06:56 Insulin Human Lispro (HumaLOG INSULIN) SEE PROTOCOL TABLE ACHS FL 01/17/20 14:15 01/24/20 22:20 DC 01/24/20 12:32 Insulin Human Lispro (HumaLOG INSULIN) SEE PROTOCOL TABLE Q6H FL 01/12/20 18:00 01/17/20 14:04 DC 01/17/20 06:22 Insulin Human Lispro (HumaLOG INSULIN) SEE PROTOCOL TABLE QHS FL 01/24/20 21:00 Lansoprazole (First-Lansoprazole Oral Suspension) 30 mg DAILY PEG 01/14/20 09:00 01/26/20 14:01 DC 01/26/20 08:16 Lidocaine (Lidoderm Patch) 1 patch DAILY TD 01/13/20 09:00 01/27/20 08:34 Lidocaine/ Diphenhydr/Alum/ Mg/Simeth (Magic Mouthwash) 5ML -do prior to giv... Q4HP PRN SSP pre-ice chips 01/13/20 12:45 Lidocaine/ Diphenhydr/Alum/ Mg/Simeth (Magic Mouthwash) please use swab to cl... AC XX 01/13/20 12:00 01/22/20 17:04 Metoprolol Tartrate (Lopressor) 12.5 mg BID PEG 01/12/20 21:00 01/26/20 14:01 DC 01/26/20 08:16 Metoprolol Tartrate (Lopressor) 12.5 mg BID PO 01/12/20 21:00 01/12/20 20:01 DC Metoprolol Tartrate (Lopressor) 12.5 mg BID PO 01/26/20 21:00 Non-Formulary Medication ( See Comment Field Below ) REMOVE LIDODERM PATCH DAILY@21 XX 01/13/20 21:00 01/26/20 20:30 Ondansetron HCl (Zofran Odt) 4 mg Q4HP PRN SL NAUSEA OR VOMITING 01/18/20 10:30 Pantoprazole Sodium (Protonix) 40 mg DAILY PO 01/12/20 09:00 01/13/20 11:36 DC 01/13/20 08:58 Pantoprazole Sodium (Protonix) 40 mg DAILY PO 01/27/20 09:00 01/27/20 08:33 Polyethylene Glycol (Miralax) 1 pkt DAILY PRN PEG CONSTIPATION 01/13/20 11:45 Polyethylene Glycol (Miralax) 1 pkt DAILY PRN PO CONSTIPATION 01/12/20 16:45 01/13/20 11:36 DC Senna (Senokot) 1 tab QHS PO 01/12/20 21:00 01/13/20 11:36 DC Sodium Chloride ([place] Nasal [place]) 2 spray TID NA 01/12/20 21:00 01/24/20 22:28 Tamsulosin HCl (Flomax) 0.4 mg QHS PO 01/13/20 21:00 01/13/20 11:36 DC Torsemide (Demadex) 40 mg BID@09,17 PEG 01/13/20 17:00 01/17/20 11:28 DC 01/16/20 16:54 Torsemide (Demadex) 40 mg BID@09,17 PO 01/12/20 17:00 01/13/20 11:36 DC 01/13/20 08:58 Torsemide (Demadex) 40 mg DAILY PO 01/26/20 11:00 01/27/20 08:33 Venlafaxine HCl (Effexor) 18.75 mg BID PO 01/17/20 09:00 01/17/20 11:46 DC Venlafaxine HCl (Effexor) 18.75 mg BID PO 01/17/20 09:00 01/18/20 12:05 DC 01/18/20 09:45 GARO TORRES MD January 27, 2020 15:13
[2020-01-27] MEDS: guaiFENesin SYRUP 200 MG/10 ML UDC PO SCH ×2 (16:54→21:00)
[2020-01-27] MEDS: ATORVASTATIN 20 MG TAB PO SCH (21:13)
[2020-01-27] MEDS: **NOTE PATIENT COMMENT** MISC XX SCH (21:18)
[2020-01-27 22:00] VITALS: BP 101/63
[2020-01-28 06:00] VITALS: BP 144/89
[2020-01-28] MEDS: IPRATROPIUM 0.5MG/ALBUTEROL 2.5MG INH SOL UD 3ML (DUONEB)(J7620) NEB SCH ×3 (07:15→20:33)
[2020-01-28] MEDS: MAGIC MOUTHWASH SUSPENSION BTL XX SCH ×3 (07:30→17:20)
[2020-01-28] MEDS: HumaLOG INSULIN (NovoLOG) PER UNIT SC SCH ×4 (07:35→21:35)
[2020-01-28] MEDS: METOPROLOL TART 12.5 MG PER 1/2 TAB PO SCH ×2 (07:38→21:35)
[2020-01-28] MEDS: PANTOPRAZOLE 40MG TAB (PROTONIX) PO SCH (07:38)
[2020-01-28] MEDS: TORSEMIDE 20 MG TAB PO SCH (07:39)
[2020-01-28] MEDS: DULoxetine 30 MG CAP (CYMBALTA) PO SCH (07:39)
[2020-01-28] MEDS: GABAPENTIN 100 MG CAP PO SCH (07:39)
[2020-01-28] MEDS: APIXABAN 2.5 MG TAB (ELIQUIS) PO SCH (07:39)
[2020-01-28] MEDS: OMEGA-3 1000MG CAPSULE PO SCH ×2 (07:39→21:35)
[2020-01-28] MEDS: ACETAMINOPHEN 500 MG TAB PO SCH ×3 (07:40→21:35)
[2020-01-28] MEDS: SODIUM CHLORIDE NASAL 0.65% SPRAY BTL (OCEAN) SCH ×3 (07:40→21:35)
[2020-01-28] MEDS: guaiFENesin SYRUP 200 MG/10 ML UDC PO SCH ×3 (07:40→21:35)
[2020-01-28] MEDS: LIDOCAINE 5% (LIDODERM) PATCH TD SCH (07:41)
[2020-01-28] MEDS: REMEDY PHYTOPLEX Z-GUARD PASTE 113GM TUBE (FROM STOREROOM PRODUCT) TOP SCH ×3 (07:41→21:35)
[2020-01-28 09:17] VITALS: BP 129/85
[2020-01-28 14:00] VITALS: BP 103/67
[2020-01-28 20:29] VITALS: BP 108/69
[2020-01-28] MEDS: **NOTE PATIENT COMMENT** MISC XX SCH (21:35)
[2020-01-28] MEDS: ATORVASTATIN 20 MG TAB PO SCH (21:35)
[2020-01-29 05:22] VITALS: BP 108/73
[2020-01-29] MEDS: MAGIC MOUTHWASH SUSPENSION BTL XX SCH ×3 (07:30→15:50)
[2020-01-29] MEDS: IPRATROPIUM 0.5MG/ALBUTEROL 2.5MG INH SOL UD 3ML (DUONEB)(J7620) NEB SCH ×3 (07:54→19:50)
[2020-01-29] MEDS: HumaLOG INSULIN (NovoLOG) PER UNIT SC SCH ×4 (08:30→21:00)
[2020-01-29] MEDS: LIDOCAINE 5% (LIDODERM) PATCH TD SCH (08:30)
[2020-01-29] MEDS: PANTOPRAZOLE 40MG TAB (PROTONIX) PO SCH (08:31)
[2020-01-29] MEDS: DULoxetine 30 MG CAP (CYMBALTA) PO SCH (08:31)
[2020-01-29] MEDS: APIXABAN 2.5 MG TAB (ELIQUIS) PO SCH ×2 (08:31→21:46)
[2020-01-29] MEDS: ASPIRIN 81 MG CHEW TABLET PO SCH (08:31)
[2020-01-29] MEDS: OMEGA-3 1000MG CAPSULE PO SCH ×2 (08:31→21:46)
[2020-01-29] MEDS: GABAPENTIN 100 MG CAP PO SCH ×2 (08:31→21:46)
[2020-01-29] MEDS: ACETAMINOPHEN 500 MG TAB PO SCH ×3 (08:32→21:47)
[2020-01-29] MEDS: SODIUM CHLORIDE NASAL 0.65% SPRAY BTL (OCEAN) SCH ×3 (08:32→21:00)
[2020-01-29] MEDS: REMEDY PHYTOPLEX Z-GUARD PASTE 113GM TUBE (FROM STOREROOM PRODUCT) TOP SCH ×3 (08:33→21:52)
[2020-01-29] MEDS: guaiFENesin SYRUP 200 MG/10 ML UDC PO SCH ×3 (08:38→21:00)
[2020-01-29] MEDS: TORSEMIDE 20 MG TAB PO SCH (08:38)
[2020-01-29] MEDS: METOPROLOL TART 12.5 MG PER 1/2 TAB PO SCH ×2 (08:38→21:00)
[2020-01-29 14:00] VITALS: BP 105/69
--- NOTE | 2020-01-29 15:12 | IPN ---
DATE OF VISIT: 01/28/2020 Mr. Badillo is seen this morning on his bedside. He is currently in the gym working with physical therapist. He had hemodialysis yesterday which he tolerated very well. He is tolerating oral diet very well and no more tube feeding. His urine output remains low despite diuretic use and mostly he remains dialysis dependent for fluid removal. We removed about 2.5 liters with dialysis yesterday. On physical exam, temperature 96.6 degrees Fahrenheit, heart rate 70 per minute, and respiratory rate 18 per minute. Blood pressure 101/65 mmHg this morning, and most recent one is 129/85 mmHg. Oxygen saturation is 96% on room air. Head is atraumatic. His neck is supple and jugular venous distention (JVD) not abnormally elevated. Dialysis catheter on right upper chest is without any signs of infection. Heart sounds have been regular, and lungs clear to auscultation. Abdomen: Soft and nontender and the G-tube is still in place. Extremities without any cyanosis or clubbing. Neurologically, he is without a focal deficit. The patient did not have any labs done today. Yesterday's labs have already been reviewed. Sodium was 131 and potassium 3.6. PROBLEMS: 1. Severe cardiomyopathy with oliguria. The patient remains dialysis dependent for fluid removal. 2.5 liters fluid was removed yesterday with dialysis. He has failed diuretic response twice. He is still on diuretic but not making much urine. No dialysis needed today, and he will be scheduled for next dialysis on Thursday. 2. Oliguric renal failure. Practically, the patient is end-stage renal disease with persistent oliguria for over 6 weeks. At this point, chances of recovery of kidney function are low and he will remain dialysis dependent. 3. Hyponatremia. This is chronic and stable at this level. No urgent intervention is indicated. 4. Anemia. His anemia has been mild and stable and does not need any urgent intervention.
[2020-01-29 20:20] VITALS: BP 108/82
[2020-01-29] MEDS: **NOTE PATIENT COMMENT** MISC XX SCH (21:00)
[2020-01-29] MEDS: ATORVASTATIN 20 MG TAB PO SCH (21:46)
[2020-01-30 06:00] VITALS: BP 115/78
[2020-01-30] MEDS: HumaLOG INSULIN (NovoLOG) PER UNIT SC SCH ×4 (06:47→21:00)
[2020-01-30] MEDS: IPRATROPIUM 0.5MG/ALBUTEROL 2.5MG INH SOL UD 3ML (DUONEB)(J7620) NEB SCH ×3 (07:29→19:13)
[2020-01-30] MEDS: MAGIC MOUTHWASH SUSPENSION BTL XX SCH ×3 (07:30→17:30)
[2020-01-30 07:46] LABS: BASO # 0.1 10^3/uL (0.0-0.2); BASO % 1.4 % (0.0-1.0); EOS # 0.1 10^3/uL (0.0-0.5); EOS % 2.4 % (0.0-3.0); HEMATOCRIT 37.6 % (42.0-52.0); HEMOGLOBIN 11.5 g/dl (13.5-17.5); MEAN CORPUSCULAR HEMOGLOBIN 26.5 pg (27.0-33.0); MEAN CORPUSCULAR HGB CONC 30.6 g/dl (32.0-36.5); MEAN CORPUSCULAR VOLUME 86.6 fl (80.0-96.0); MONO # 0.9 10^3/uL (0.0-0.8); NEUTROPHILS # 3.7 10^3/uL (1.5-8.5); NEUTROPHILS % 62.7 % (36.0-66.0); PLATELET COUNT, AUTOMATED 198 10^3/uL (150-450); RED BLOOD COUNT 4.34 10^6/uL (4.30-6.10); WHITE BLOOD COUNT 5.9 10^3/uL (4.0-10.0)
[2020-01-30 08:07] LABS: CALCIUM LEVEL 8.7 MG/DL (8.8-10.2); CREATININE FOR GFR 2.26 MG/DL (0.70-1.30); GLOMERULAR FILTRATION RATE 31.4 (>49); POTASSIUM SERUM 4.9 MEQ/L (3.5-5.1)
[2020-01-30] MEDS: SODIUM CHLORIDE NASAL 0.65% SPRAY BTL (OCEAN) SCH ×3 (09:00→21:00)
[2020-01-30] MEDS: REMEDY PHYTOPLEX Z-GUARD PASTE 113GM TUBE (FROM STOREROOM PRODUCT) TOP SCH ×3 (09:00→21:00)
[2020-01-30] MEDS: guaiFENesin SYRUP 200 MG/10 ML UDC PO SCH ×3 (09:00→21:00)
[2020-01-30] MEDS: METOPROLOL TART 12.5 MG PER 1/2 TAB PO SCH ×2 (09:01→21:00)
[2020-01-30] MEDS: DULoxetine 30 MG CAP (CYMBALTA) PO SCH (09:01)
[2020-01-30] MEDS: ACETAMINOPHEN 500 MG TAB PO SCH ×3 (09:02→21:19)
[2020-01-30] MEDS: APIXABAN 2.5 MG TAB (ELIQUIS) PO SCH ×2 (09:03→21:18)
[2020-01-30] MEDS: GABAPENTIN 100 MG CAP PO SCH ×2 (09:03→21:18)
[2020-01-30] MEDS: PANTOPRAZOLE 40MG TAB (PROTONIX) PO SCH (09:03)
[2020-01-30] MEDS: TORSEMIDE 20 MG TAB PO SCH (09:03)
[2020-01-30] MEDS: LIDOCAINE 5% (LIDODERM) PATCH TD SCH (09:04)
[2020-01-30] MEDS: OMEGA-3 1000MG CAPSULE PO SCH ×2 (09:05→21:18)
--- NOTE | 2020-01-30 15:31 | IPNPDOC ---
PM&R Progress Note DATE OF SERVICE: Jan 30, 2020 [employer] Progress Note Subjective: Patient seen in dialysis states he is sleeping better, his back pain is improving and he can move his legs in bed without sharp pain since starting cymbalta and gabapentin. REVIEW OF SYSTEMS: The following is a completed review of systems and has been reviewed. Review of systems otherwise unremarkable. PAIN: Patient self reports LBP (improving) EYES: No recent vision changes EARS, NOSE, & THROAT: + dysphagia (improving) CARDIOVASCULAR: Denies chest pain or palpitations PULMONARY: Denies shortness of breath GASTROINTESTINAL:+nausea and loose stools (resolved) GENITOURINARY: +retention (resolved) MUSCULOSKELETAL:+generalized weakness NEUROLOGICAL:+enpaholoapthy (improving) HEMATOLOGICAL: +easy bruising, recent epistaxis SKIN: scattered ecchymosis PSYCHIATRIC: +confused (improving) All other review of systems found to be negative. PHYSICAL EXAMINATION: VITAL SIGNS: Please see below. GENERAL: Pleasant and cooperative. No acute distress. HEENT: PERRL. Extraocular movements intact. Clear conjunctiva CARDIOVASCULAR: Regular rate and rhythm. No murmurs, rubs, or gallops LUNGS: Clear to auscultation bilaterally. No wheezes. No rhonchi ABDOMEN: Soft, nontender, nondistended. Positive bowel sounds. Normal active bowel sounds, +PEG NEUROLOGICAL: Alert and oriented to self, thought it was 2020, and president "Jamal" Cranial nerves II through XII grossly intact. Sensation grossly intact to light touch all 4limbs EXTREMITIES: 5-\\5 strength bilateral upper extremities. 5-\\5 strength right lower extremity. 5-/5 strength in left lower extremity. (-) edema SLR negative bilat, +TTP right lower lumbar paraspinals SKIN: LUE chest well permacath, sternal scar healed, sacrum with blanchable erythema, heels with blanchable erythema ASSESSMENT:64-year-old M with past medical history of chronic systolic CHF who presents status post epistaxis with metabolic encephalopathy PLAN: 1. 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 Neuro: patient with recent acute encephalopathy likely due to metabolic derangement vs infection-improving with dialysis and treatment for pneumonia -CTH 01/13/20 negative for old infarcts - B12/TSH/folate levels WNL -f/u B1 level 3. cardiac: chronic systolic CHF with EF 10-15% with ICD- c/u diuretics (renal managing), daily weights-medicine consulted to assist, ICD interrogated on 01/24/20 without any issues -Afib on metoprolol, Eliquis 2.5mg BID -CAD s/p CABG and stent- ASA 81mg changed to q2d -HLD c/u statin 4. resp: COPD with Pneumonia, c/u augmentin, duonebs, supplemental 02 prn, guaifenesin 5. Endo: hx of DM c/u Insulin and ISS, adjust prn 6. ENT: s/p left nasal epistaxis with packing, and packing removal 01-09-20 with Self-dissolving packing gel-foam, c/u nasal saline drops -f/u ENT after d/c 7. renal: urinary retention with oliguria started on HD 10/20, renal consulted to c/u while inhouse, barnes removed 01-14-20, voiding well 8. DVT ppx: eliquis , c/u teds 9. GI ppx: lansaprazole -zofran ordered prn for nausea - d/c'd colace and if loose stools improving 10. Pain: -lumbar xray 01-16-20 showing, "Mild depression of the superior endplate of L1 and L2 could be acute or chronic." with f/u CT scan showing "Mild osteoporotic wedging involving the superior endplates of L1 and L2 as seen radiographically. There is healing sclerosis suggesting subacute or chronic changes. Minimal loss of anterior vertebral body heights"-patient can wear soft TLSO for comfort, no concern for neurological compromise or acute fracture, patient educated on importance of core stabilization exercises to help better support his spine -ortho recs appreciated, patient can advance to outpatient back therapy once he is more functional and will initially need home therapy, however have asked therapy staff to begin back program while inhouse -c/u tylenol 1000 mg TID standing and lidoderm patch for low back pain, ice prn -c/u fish oil per patient's request -patient reporting significant improvement in his right sided low back pain since starting cymbalta and gabapentin, c/u 11. Nutrition- patient eating 100% oral 12. Dispo: 01/31/20 to home, progressing slowly towards goals Allergies Coded Allergies: metformin (Verified Allergy, Severe, anaphylaxis, 01/04/20) sitagliptin (Verified Allergy, Severe, anaphylaxis, 01/04/20) sacubitril (Verified Allergy, Intermediate, facial swelling, 01/04/20) valsartan (Verified Allergy, Intermediate, facial swelling, 01/04/20) azithromycin (Verified Adverse Reaction, Mild, NAUSEA AND VOMITING, 01/04/20) rosuvastatin (Verified Adverse Reaction, Mild, NAUSEA AND VOMITING, 01/04/20) Vital Signs Vital Signs Date Time Temp Pulse Resp B/P (MAP) Pulse Ox O2 Delivery O2 Flow Rate FiO2 01/30/20 09:01 78 115/78 01/30/20 06:00 97.3 18 94 Room Air Laboratory Data CBC/BMP Laboratory Tests 01/30/20 07:27 Labs 24H Laboratory Tests 2 01/29/20 16:16: Bedside Glucose (Misc Panel) 107 01/29/20 21:54: Bedside Glucose (Misc Panel) 157H 01/30/20 06:02: Bedside Glucose (Misc Panel) 144H 01/30/20 07:27: Immature Granulocyte % (Auto) 0.5, Neutrophils (%) (Auto) 62.7, Lymphocytes (%) (Auto) 17.0L, Monocytes (%) (Auto) 16.0H, Eosinophils (%) (Auto) 2.4, Basophils (%) (Auto) 1.4H, Neutrophils # (Auto) 3.7, Lymphocytes # (Auto) 1.0L, Monocytes # (Auto) 0.9H, Eosinophils # (Auto) 0.1, Basophils # (Auto) 0.1, Nucleated Red Blood Cells % (auto) 0.3H, Anion Gap 10, Glomerular Filtration Rate 31.4L, Calcium Level 8.7L 01/30/20 11:51: Bedside Glucose (Misc Panel) 133H Current Medications Current Medications Current Medications Medications (Trade) Dose Ordered Sig/Ayala Route PRN Reason Start Time Stop Time Status Last Admin Dose Admin Acetaminophen (Tylenol Suspension) 975 mg TID PEG 01/13/20 16:00 01/23/20 10:43 DC 01/22/20 20:46 Acetaminophen (Tylenol Tab) 650 mg Q4HP PRN PO fever/MILD PAIN (PS 1-4) 01/12/20 16:45 01/13/20 11:14 DC Acetaminophen (Tylenol Tab) 975 mg TID PEG 01/23/20 09:00 01/26/20 14:01 DC 01/26/20 08:17 Acetaminophen (Tylenol Tab) 1,000 mg TID PO 01/13/20 09:00 01/13/20 11:36 DC Acetaminophen (Tylenol Tab) 1,000 mg TID PO 01/26/20 16:00 01/30/20 09:02 Albuterol/ Ipratropium (Duoneb (Ipr 0.5mg/Alb 2.5mg)) 3 ml RTID NEB 01/12/20 20:00 01/30/20 07:29 Albuterol/ Ipratropium (Duoneb (Ipr 0.5mg/Alb 2.5mg)) 3 ml TID NEB 01/12/20 21:00 01/12/20 17:12 DC Amoxicillin/ Clavulanate Potassium (Augmentin 400 Mg/5 ml Susp) 500 mg BID PEG 01/12/20 21:00 01/18/20 21:00 DC 01/18/20 21:49 Apixaban (Eliquis) 2.5 mg BID PEG 01/13/20 21:00 01/26/20 14:01 DC 01/26/20 08:16 Apixaban (Eliquis) 2.5 mg BID PO 01/26/20 21:00 01/30/20 09:03 Aspirin (Aspirin Chewable) 81 mg DAILY PEG 01/14/20 09:00 01/13/20 19:12 DC Aspirin (Aspirin Chewable) 81 mg DAILY PEG 01/17/20 09:00 01/25/20 11:49 DC 01/25/20 08:20 Aspirin (Aspirin Chewable) 81 mg Q2D PEG 01/27/20 09:00 01/26/20 14:01 DC Aspirin (Aspirin Chewable) 81 mg Q2D PO 01/27/20 09:00 01/29/20 08:31 Atorvastatin Calcium (Lipitor) 80 mg QHS PEG 01/12/20 21:00 01/26/20 14:01 DC 01/25/20 22:00 Atorvastatin Calcium (Lipitor) 80 mg QHS PO 01/26/20 21:00 01/29/20 21:46 Bisacodyl (Dulcolax Suppository) 10 mg DAILYPRN PRN [place] CONSTIPATION 01/12/20 16:45 Bumetanide (Bumex) 1 mg DAILY PO 01/18/20 09:00 01/18/20 08:25 DC Bumetanide (Bumex) 2 mg DAILY PO 01/18/20 09:00 01/18/20 11:08 DC Dextrose (Dextrose 50%) 25 ml ASDIRECTED PRN IV SEE LABEL COMMENTS 01/12/20 16:45 Docusate Sodium (Colace Liquid) 100 mg BID PEG 01/13/20 21:00 01/18/20 12:05 DC 01/17/20 21:11 Docusate Sodium (Colace) 100 mg BID PO 01/12/20 21:00 01/13/20 11:36 DC 01/13/20 08:58 Duloxetine HCl (Cymbalta) 30 mg DAILY PO 01/27/20 11:00 01/30/20 09:01 Fish Oil ([place]-3 (1000mg)) 1 cap BID PO 01/26/20 21:00 01/30/20 09:05 Gabapentin (Neurontin) 200 mg BID PO 01/27/20 11:00 01/30/20 09:03 Glucagon (Glucagon) 1 mg ASDIRECTED PRN SC SEE LABEL COMMENTS 01/12/20 16:45 Glucose (Glucose) 16 GM ASDIRECTED PRN PO SEE LABEL COMMENTS 01/12/20 16:45 Guaifenesin (Robitussin) 10 ml TID PEG 01/12/20 21:00 01/27/20 10:34 DC 01/27/20 08:32 Guaifenesin (Robitussin) 10 ml TID PO 01/27/20 16:00 01/27/20 16:54 Heparin Sodium (Porcine) (Heparin) 5,000 units Q12H SC 01/12/20 21:00 01/13/20 14:02 DC 01/13/20 08:55 Insulin Detemir (Levemir Insulin) 8 units QHS SC 01/17/20 21:00 01/24/20 11:24 DC 01/22/20 20:42 Insulin Detemir (Levemir Insulin) 12 units QHS@0000 SC 01/13/20 00:00 01/17/20 14:04 DC 01/17/20 00:11 Insulin Human Lispro (HumaLOG INSULIN) SEE PROTOCOL TABLE AC SC 01/25/20 07:30 01/30/20 12:13 Insulin Human Lispro (HumaLOG INSULIN) SEE PROTOCOL TABLE ACHS [place] 01/17/20 14:15 01/24/20 22:20 DC 01/24/20 12:32 Insulin Human Lispro (HumaLOG INSULIN) SEE PROTOCOL TABLE Q6H SC 01/12/20 18:00 01/17/20 14:04 DC 01/17/20 06:22 Insulin Human Lispro (HumaLOG INSULIN) SEE PROTOCOL TABLE QHS RI 01/24/20 21:00 Lansoprazole (First-Lansoprazole Oral Suspension) 30 mg DAILY PEG 01/14/20 09:00 01/26/20 14:01 DC 01/26/20 08:16 Lidocaine (Lidoderm Patch) 1 patch DAILY TD 01/13/20 09:00 01/30/20 09:04 Lidocaine/ Diphenhydr/Alum/ Mg/Simeth (Magic Mouthwash) 5ML -do prior to giv... Q4HP PRN SSP pre-ice chips 01/13/20 12:45 Lidocaine/ Diphenhydr/Alum/ Mg/Simeth (Magic Mouthwash) please use swab to cl... AC XX 01/13/20 12:00 01/22/20 17:04 Metoprolol Tartrate (Lopressor) 12.5 mg BID PEG 01/12/20 21:00 01/26/20 14:01 DC 01/26/20 08:16 Metoprolol Tartrate (Lopressor) 12.5 mg BID PO 01/12/20 21:00 01/12/20 20:01 DC Metoprolol Tartrate (Lopressor) 12.5 mg BID PO 01/26/20 21:00 01/30/20 09:01 Non-Formulary Medication ( See Comment Field Below ) REMOVE LIDODERM PATCH DAILY@21 XX 01/13/20 21:00 01/29/20 21:00 Ondansetron HCl (Zofran Odt) 4 mg Q4HP PRN SL NAUSEA OR VOMITING 01/18/20 10:30 Pantoprazole Sodium (Protonix) 40 mg DAILY PO 01/12/20 09:00 01/13/20 11:36 DC 01/13/20 08:58 Pantoprazole Sodium (Protonix) 40 mg DAILY PO 01/27/20 09:00 01/30/20 09:03 Polyethylene Glycol (Miralax) 1 pkt DAILY PRN PEG CONSTIPATION 01/13/20 11:45 Polyethylene Glycol (Miralax) 1 pkt DAILY PRN PO CONSTIPATION 01/12/20 16:45 01/13/20 11:36 DC Senna (Senokot) 1 tab QHS PO 01/12/20 21:00 01/13/20 11:36 DC Sodium Chloride ([place] Nasal [place]) 2 spray TID NA 01/12/20 21:00 01/24/20 22:28 Tamsulosin HCl (Flomax) 0.4 mg QHS PO 01/13/20 21:00 01/13/20 11:36 DC Torsemide (Demadex) 40 mg BID@09,17 PEG 01/13/20 17:00 01/17/20 11:28 DC 01/16/20 16:54 Torsemide (Demadex) 40 mg BID@09,17 PO 01/12/20 17:00 01/13/20 11:36 DC 01/13/20 08:58 Torsemide (Demadex) 40 mg DAILY PO 01/26/20 11:00 01/30/20 09:03 Venlafaxine HCl (Effexor) 18.75 mg BID PO 01/17/20 09:00 01/17/20 11:46 DC Venlafaxine HCl (Effexor) 18.75 mg BID PO 01/17/20 09:00 01/18/20 12:05 DC 01/18/20 09:45 GARO TORRES MD Jan 30, 2020 15:31
[2020-01-30 17:23] VITALS: BP 100/67
[2020-01-30 21:08] VITALS: BP 100/65
[2020-01-30] MEDS: ATORVASTATIN 20 MG TAB PO SCH (21:18)
[2020-01-30] MEDS: **NOTE PATIENT COMMENT** MISC XX SCH (21:32)
[2020-01-31 06:00] VITALS: BP 107/66
[2020-01-31] MEDS: IPRATROPIUM 0.5MG/ALBUTEROL 2.5MG INH SOL UD 3ML (DUONEB)(J7620) NEB SCH ×3 (07:12→19:40)
[2020-01-31] MEDS: REMEDY PHYTOPLEX Z-GUARD PASTE 113GM TUBE (FROM STOREROOM PRODUCT) TOP SCH ×3 (09:00→20:39)
[2020-01-31] MEDS: METOPROLOL TART 12.5 MG PER 1/2 TAB PO SCH ×2 (09:00→20:29)
[2020-01-31] MEDS: SODIUM CHLORIDE NASAL 0.65% SPRAY BTL (OCEAN) SCH ×3 (09:00→20:39)
[2020-01-31] MEDS: guaiFENesin SYRUP 200 MG/10 ML UDC PO SCH ×3 (09:00→20:39)
[2020-01-31] MEDS: MAGIC MOUTHWASH SUSPENSION BTL XX SCH ×3 (09:12→15:48)
[2020-01-31] MEDS: ASPIRIN 81 MG CHEW TABLET PO SCH (09:13)
[2020-01-31] MEDS: GABAPENTIN 100 MG CAP PO SCH ×2 (09:13→20:34)
[2020-01-31] MEDS: DULoxetine 30 MG CAP (CYMBALTA) PO SCH (09:13)
[2020-01-31] MEDS: OMEGA-3 1000MG CAPSULE PO SCH ×2 (09:13→20:35)
[2020-01-31] MEDS: ACETAMINOPHEN 500 MG TAB PO SCH ×3 (09:13→20:35)
[2020-01-31] MEDS: TORSEMIDE 20 MG TAB PO SCH (09:13)
[2020-01-31] MEDS: PANTOPRAZOLE 40MG TAB (PROTONIX) PO SCH (09:13)
[2020-01-31] MEDS: LIDOCAINE 5% (LIDODERM) PATCH TD SCH (09:14)
[2020-01-31] MEDS: HumaLOG INSULIN (NovoLOG) PER UNIT SC SCH ×4 (09:14→20:39)
[2020-01-31] MEDS: APIXABAN 2.5 MG TAB (ELIQUIS) PO SCH ×2 (09:17→20:35)
--- NOTE | 2020-01-31 10:58 | IPN ---
DATE OF SERVICE: 01/30/2020 ATTENDING PHYSICIAN: Ronald Castle MD Mr. Badillo was seen and examined this morning during bedside rounds in the acute rehabilitation unit (ARU). He was working with rehabilitation this morning, trying to transition from his chair to bed and was having a struggle. He has really no complaints today. He will be going to dialysis later today, and there were no overnight events reported by nursing. The patient is tolerating his meals by mouth and has not been using his percutaneous endoscopic gastrostomy (PEG) tube for feeds. No overnight events were reported by nursing. Vital signs: Temperature 97.3, pulse 78 irregular, respiration 18, blood pressure 115/78 (94), pulse oximetry 94% on room air. Intake total 1910 mL, output total 350 mL, balance of positive 1560 mL. Weight this morning is 90.7 kg. General: This is a 64-year-old male who does not appear in any acute distress. Dialysis catheter on his right upper chest wall. No jugular venous distention (JVD) noted. Heart: Irregularly irregular, rate controlled. Lungs: Clear to auscultate bilaterally. Abdomen: Soft, nontender, with PEG tube in place, currently not in use. Extremities: No lower extremity edema. Neurologic: He does have baseline weakness in the lower extremities, where he is currently improving with continued rehabilitation. No new focal deficits noted. LABORATORY DATA: WBC 5.9, hemoglobin 11.5, hematocrit 37.6, platelets 194. Chemistry: Sodium 127, potassium 4.9, chloride 98, carbon dioxide 19, anion gap 10, BUN 42, creatinine 2.26, fasting glucose 158, calcium 8.7. ASSESSMENT AND PLAN: 1. Severe cardiomyopathy with oliguria. The patient continues to be dialysis dependent, and he has tolerated the removal of his fluid via dialysis. His last session was on 01/27/2020, which was Thursday, and he had 2.5 liters removed. He will go to dialysis again later this afternoon. Will aim for 2.5 liter removal once again. Will continue with his regularly scheduled dialysis. 2. Oliguric renal failure. He is practically end-stage renal disease with persistent oliguria over 6 weeks. With no urine output in the last 48 hours, at this point, the recovery of his kidney functions are extremely low, and he will be dialysis dependent. 3. Hyponatremia. Stable. Appropriate mentation. No urgent intervention needed. 4. Anemia. Stable at 11.5. It is at optimal levels. No urgent intervention needed. Just maintain levels above 10.
[2020-01-31 14:00] VITALS: BP 115/68
--- NOTE | 2020-01-31 18:02 | IPN ---
DATE: 01/31/2020 Mr. Badillo was seen and examined this morning during bedside rounds, sitting comfortably in his chair. He went to dialysis yesterday and had about 2.5 liters removed, which he tolerated very well. There is a plan of discussion of possible discharge this Thursday and will need to set up his outpatient dialysis. He continues to take the Demadex 40 mg daily to see if it makes a urine output and the days he does not have dialysis, the patient has less than 500 mL of urine, making him oliguric. No overnight events were reported by nursing. PHYSICAL EXAMINATION: Vital Signs: Temperature 96.7, pulse 70, respirations 18, blood pressure 107/66 (80), pulse oximetry 96% on room air. General: This is a very pleasant 64-year-old male who does not appear in acute distress, sitting up comfortably in his bed. No jugular venous distention (JVD) is noted. Irregularly irregular, rate controlled. Lungs: Clear. Abdomen: Soft, nontender with percutaneous endoscopic gastrostomy (PEG) tube in place, currently not in use, being flushed only at nighttime. Extremities: 2+ pitting edema bilaterally in the lower extremities. Neurologic: Does have baseline weakness in the lower extremities; he is currently improving with continued rehab. No new focal deficits noted. LABORATORY DATA: No new laboratories were obtained this morning for they are drawn on dialysis days. ASSESSMENT AND PLAN: 1. Severe cardiomyopathy with oliguria. He continues to be oliguric despite being on Demadex 40 mg daily. He is entirely dialysis dependent, and he tolerated his last session yesterday. His current schedule is Thursday, Thursday, Thursday. He will continue as such. We need to make sure outpatient that his dialysis is set up. The patient does request that he has dialysis set up in [place] as well for he lives there, but will be staying with his daughter temporarily until he goes back to [place]. I have informed him that he will need to discuss it with the dialysis center to send it to a [place] center and he states he will. 2. Oliguric renal failure. He is practically end-stage renal disease and dialysis dependent. 3. Hyponatremia. Currently stable. Mentation is appropriate. No urgent intervention needed. 4. Anemia from yesterday's labs is optimal. No urgent intervention needed. Will continue to monitor.
[2020-01-31 20:00] VITALS: BP 95/77
[2020-01-31] MEDS: ATORVASTATIN 20 MG TAB PO SCH (20:35)
[2020-01-31] MEDS: **NOTE PATIENT COMMENT** MISC XX SCH (20:51)
[2020-02-01 06:00] VITALS: BP 142/94
[2020-02-01] MEDS: IPRATROPIUM 0.5MG/ALBUTEROL 2.5MG INH SOL UD 3ML (DUONEB)(J7620) NEB SCH ×3 (07:10→20:06)
[2020-02-01] MEDS: MAGIC MOUTHWASH SUSPENSION BTL XX SCH ×3 (07:30→17:12)
[2020-02-01] MEDS: GABAPENTIN 100 MG CAP PO SCH (07:49)
[2020-02-01] MEDS: LIDOCAINE 5% (LIDODERM) PATCH TD SCH (07:49)
[2020-02-01] MEDS: HumaLOG INSULIN (NovoLOG) PER UNIT SC SCH ×4 (07:49→20:30)
[2020-02-01] MEDS: ACETAMINOPHEN 500 MG TAB PO SCH ×3 (07:49→20:29)
[2020-02-01] MEDS: OMEGA-3 1000MG CAPSULE PO SCH ×2 (07:50→20:29)
[2020-02-01] MEDS: PANTOPRAZOLE 40MG TAB (PROTONIX) PO SCH (07:50)
[2020-02-01] MEDS: APIXABAN 2.5 MG TAB (ELIQUIS) PO SCH ×2 (07:50→20:29)
[2020-02-01] MEDS: DULoxetine 30 MG CAP (CYMBALTA) PO SCH (07:50)
[2020-02-01] MEDS: METOPROLOL TART 12.5 MG PER 1/2 TAB PO SCH ×2 (07:50→20:29)
[2020-02-01] MEDS: TORSEMIDE 20 MG TAB PO SCH (07:50)
[2020-02-01] MEDS: SODIUM CHLORIDE NASAL 0.65% SPRAY BTL (OCEAN) SCH ×3 (07:51→20:30)
[2020-02-01] MEDS: REMEDY PHYTOPLEX Z-GUARD PASTE 113GM TUBE (FROM STOREROOM PRODUCT) TOP SCH ×3 (07:51→20:31)
[2020-02-01] MEDS: guaiFENesin SYRUP 200 MG/10 ML UDC PO SCH ×3 (07:51→20:30)
[2020-02-01 08:12] LABS: BASO # 0.1 10^3/uL (0.0-0.2); BASO % 0.9 % (0.0-1.0); EOS % 0.1 % (0.0-3.0); HEMATOCRIT 38.9 % (42.0-52.0); HEMOGLOBIN 12.1 g/dl (13.5-17.5); LYMPH # 0.9 10^3/uL (1.5-5.0); LYMPH % 10.8 % (24.0-44.0); MEAN CORPUSCULAR HGB CONC 31.1 g/dl (32.0-36.5); MEAN CORPUSCULAR VOLUME 86.8 fl (80.0-96.0); MONO # 1.6 10^3/uL (0.0-0.8); MONO % 19.6 % (0.0-5.0); NEUTROPHILS # 5.5 10^3/uL (1.5-8.5); NEUTROPHILS % 67.7 % (36.0-66.0); PLATELET COUNT, AUTOMATED 232 10^3/uL (150-450); RED BLOOD COUNT 4.48 10^6/uL (4.30-6.10); WHITE BLOOD COUNT 8.1 10^3/uL (4.0-10.0)
[2020-02-01 08:28] LABS: CALCIUM LEVEL 8.7 MG/DL (8.8-10.2); CREATININE FOR GFR 2.47 MG/DL (0.70-1.30); GLOMERULAR FILTRATION RATE 28.3 (>49); POTASSIUM SERUM 5.7 MEQ/L (3.5-5.1)
--- NOTE | 2020-02-01 14:31 | IPNPDOC ---
PM&R Progress Note DATE OF SERVICE: Jan 31, 2020 Student Liaison Officer Progress Note Subjective: [facility] stating he feels very good, much stronger, and that he is ready to go home on Thursday. REVIEW OF SYSTEMS: The following is a completed review of systems and has been reviewed. Review of systems otherwise unremarkable. PAIN: Patient self reports LBP (improving) EYES: No recent vision changes EARS, NOSE, & THROAT: + dysphagia (improving) CARDIOVASCULAR: Denies chest pain or palpitations PULMONARY: Denies shortness of breath GASTROINTESTINAL:+nausea and loose stools (resolved) GENITOURINARY: +retention (resolved) MUSCULOSKELETAL:+generalized weakness NEUROLOGICAL:+enpaholoapthy (improving) HEMATOLOGICAL: +easy bruising, recent epistaxis SKIN: scattered ecchymosis PSYCHIATRIC: +confused (improving) All other review of systems found to be negative. PHYSICAL EXAMINATION: VITAL SIGNS: Please see below. GENERAL: Pleasant and cooperative. No acute distress. HEENT: PERRL. Extraocular movements intact. Clear conjunctiva CARDIOVASCULAR: Regular rate and rhythm. No murmurs, rubs, or gallops LUNGS: Clear to auscultation bilaterally. No wheezes. No rhonchi ABDOMEN: Soft, nontender, nondistended. Positive bowel sounds. Normal active bowel sounds, +PEG NEUROLOGICAL: Alert and oriented to self, thought it was 2020, and president "Jamal" Cranial nerves II through XII grossly intact. Sensation grossly intact to light touch all 4limbs EXTREMITIES: 5-\\5 strength bilateral upper extremities. 5-\\5 strength right lower extremity. 5-/5 strength in left lower extremity. (+) bilat LE edema SLR negative bilat, (-) TTP right lower lumbar paraspinals SKIN: LUE chest well permacath, sternal scar healed, sacrum with blanchable erythema, heels with blanchable erythema ASSESSMENT:64-year-old M with past medical history of chronic systolic CHF who presents status post epistaxis with metabolic encephalopathy PLAN: 1. 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 Neuro: patient with recent acute encephalopathy likely due to metabolic derangement vs infection-improving with dialysis and treatment for pneumonia -[facility] 01/13/20 negative for old infarcts - B12/TSH/folate levels WNL -f/u B1 level 3. cardiac: chronic systolic CHF with EF 10-15% with ICD- c/u diuretics (renal managing), daily weights-medicine consulted to assist, ICD interrogated on 01/24/20 without any issues, will initiate fluid restriction at this point as patient with good oral intake and concern he is fluid overloaded despite dialysis -Afib on metoprolol, Eliquis 2.5mg BID -CAD s/p CABG and stent- ASA 81mg changed to q2d -HLD c/u statin 4. resp: COPD with Pneumonia, c/u augmentin, duonebs, supplemental 02 prn, guaifenesin 5. Endo: hx of DM c/u Insulin and ISS, adjust prn 6. ENT: s/p left nasal epistaxis with packing, and packing removal 01-09-20 with Self-dissolving packing gel-foam, c/u nasal saline drops -f/u ENT after d/c 7. renal: urinary retention with oliguria started on HD 10/20, renal consulted to c/u while inhouse, barnes removed 01-14-20, voiding well 8. DVT ppx: eliquis , c/u teds 9. GI ppx: lansaprazole -zofran ordered prn for nausea - d/c'd colace and if loose stools improving 10. Pain: -lumbar xray 01-16-20 showing, "Mild depression of the superior endplate of L1 and L2 could be acute or chronic." with f/u CT scan showing "Mild osteoporotic wedging involving the superior endplates of L1 and L2 as seen radiographically. There is healing sclerosis suggesting subacute or chronic changes. Minimal loss of anterior vertebral body heights"-patient can wear soft TLSO for comfort, no concern for neurological compromise or acute fracture, patient educated on importance of core stabilization exercises to help better support his spine -ortho recs appreciated, patient can advance to outpatient back therapy once he is more functional and will initially need home therapy, however have asked therapy staff to begin back program while inhouse -c/u tylenol 1000 mg TID standing and lidoderm patch for low back pain, ice prn -c/u fish oil per patient's request -patient reporting significant improvement in his right sided low back pain since starting cymbalta and gabapentin 11. Nutrition- patient eating 100% oral 12. Dispo: 02/03/20 to home, progressing towards goals, family training today Allergies Coded Allergies: metformin (Verified Allergy, Severe, anaphylaxis, 01/04/20) sitagliptin (Verified Allergy, Severe, anaphylaxis, 01/04/20) sacubitril (Verified Allergy, Intermediate, facial swelling, 01/04/20) valsartan (Verified Allergy, Intermediate, facial swelling, 01/04/20) azithromycin (Verified Adverse Reaction, Mild, NAUSEA AND VOMITING, 01/04/20) rosuvastatin (Verified Adverse Reaction, Mild, NAUSEA AND VOMITING, 01/04/20) Vital Signs Vital Signs Date Time Temp Pulse Resp B/P (MAP) Pulse Ox O2 Delivery O2 Flow Rate FiO2 02/01/20 07:50 70 142/94 02/01/20 06:00 98.0 18 96 Room Air Laboratory Data CBC/BMP Laboratory Tests 02/01/20 07:24 Labs 24H Laboratory Tests 2 01/31/20 17:20: Bedside Glucose (Misc Panel) 124H 01/31/20 20:38: Bedside Glucose (Misc Panel) 245H 02/01/20 06:33: Bedside Glucose (Misc Panel) 184H 02/01/20 07:24: Immature Granulocyte % (Auto) 0.9, Neutrophils (%) (Auto) 67.7H, Lymphocytes (%) (Auto) 10.8L, Monocytes (%) (Auto) 19.6H, Eosinophils (%) (Auto) 0.1, Basophils (%) (Auto) 0.9, Neutrophils # (Auto) 5.5, Lymphocytes # (Auto) 0.9L, Monocytes # (Auto) 1.6H, Eosinophils # (Auto) 0.0, Basophils # (Auto) 0.1, Nucleated Red Blood Cells % (auto) 0.5H, Anion Gap 13, Glomerular Filtration Rate 28.3L, Calcium Level 8.7L 02/01/20 11:44: Bedside Glucose (Misc Panel) 186H Current Medications Current Medications Current Medications Medications (Trade) Dose Ordered Sig/Ayala Route PRN Reason Start Time Stop Time Status Last Admin Dose Admin Acetaminophen (Tylenol Suspension) 975 mg TID PEG 01/13/20 16:00 01/23/20 10:43 DC 01/22/20 20:46 Acetaminophen (Tylenol Tab) 650 mg Q4HP PRN PO fever/MILD PAIN (PS 1-4) 01/12/20 16:45 01/13/20 11:14 DC Acetaminophen (Tylenol Tab) 975 mg TID PEG 01/23/20 09:00 01/26/20 14:01 DC 01/26/20 08:17 Acetaminophen (Tylenol Tab) 1,000 mg TID PO 01/13/20 09:00 01/13/20 11:36 DC Acetaminophen (Tylenol Tab) 1,000 mg TID PO 01/26/20 16:00 02/01/20 07:49 Albuterol/ Ipratropium (Duoneb (Ipr 0.5mg/Alb 2.5mg)) 3 ml RTID NEB 01/12/20 20:00 02/01/20 07:10 Albuterol/ Ipratropium (Duoneb (Ipr 0.5mg/Alb 2.5mg)) 3 ml TID NEB 01/12/20 21:00 01/12/20 17:12 DC Amoxicillin/ Clavulanate Potassium (Augmentin 400 Mg/5 ml Susp) 500 mg BID PEG 01/12/20 21:00 01/18/20 21:00 DC 01/18/20 21:49 Apixaban (Eliquis) 2.5 mg BID PEG 01/13/20 21:00 01/26/20 14:01 DC 01/26/20 08:16 Apixaban (Eliquis) 2.5 mg BID PO 01/26/20 21:00 02/01/20 07:50 Aspirin (Aspirin Chewable) 81 mg DAILY PEG 01/14/20 09:00 01/13/20 19:12 DC Aspirin (Aspirin Chewable) 81 mg DAILY PEG 01/17/20 09:00 01/25/20 11:49 DC 01/25/20 08:20 Aspirin (Aspirin Chewable) 81 mg Q2D PEG 01/27/20 09:00 01/26/20 14:01 DC Aspirin (Aspirin Chewable) 81 mg Q2D PO 01/27/20 09:00 01/31/20 09:13 Atorvastatin Calcium (Lipitor) 80 mg QHS PEG 01/12/20 21:00 01/26/20 14:01 DC 01/25/20 22:00 Atorvastatin Calcium (Lipitor) 80 mg QHS PO 01/26/20 21:00 01/31/20 20:35 Bisacodyl (Dulcolax Suppository) 10 mg DAILYPRN PRN MO CONSTIPATION 01/12/20 16:45 Bumetanide (Bumex) 1 mg DAILY PO 01/18/20 09:00 01/18/20 08:25 DC Bumetanide (Bumex) 2 mg DAILY PO 01/18/20 09:00 01/18/20 11:08 DC Dextrose (Dextrose 50%) 25 ml ASDIRECTED PRN IV SEE LABEL COMMENTS 01/12/20 16:45 Docusate Sodium (Colace Liquid) 100 mg BID PEG 01/13/20 21:00 01/18/20 12:05 DC 01/17/20 21:11 Docusate Sodium (Colace) 100 mg BID PO 01/12/20 21:00 01/13/20 11:36 DC 01/13/20 08:58 Duloxetine HCl (Cymbalta) 30 mg DAILY PO 01/27/20 11:00 02/01/20 07:50 Fish Oil (Clarence-3 (1000mg)) 1 cap BID PO 01/26/20 21:00 02/01/20 07:50 Gabapentin (Neurontin) 100 mg BID PO 02/01/20 21:00 02/01/20 11:41 DC Gabapentin (Neurontin) 200 mg BID PO 01/27/20 11:00 02/01/20 10:00 DC 02/01/20 07:49 Glucagon (Glucagon) 1 mg ASDIRECTED PRN SC SEE LABEL COMMENTS 01/12/20 16:45 Glucose (Glucose) 16 GM ASDIRECTED PRN PO SEE LABEL COMMENTS 01/12/20 16:45 Guaifenesin (Robitussin) 10 ml TID PEG 01/12/20 21:00 01/27/20 10:34 DC 01/27/20 08:32 Guaifenesin (Robitussin) 10 ml TID PO 01/27/20 16:00 01/27/20 16:54 Heparin Sodium (Porcine) (Heparin) 5,000 units Q12H SC 01/12/20 21:00 01/13/20 14:02 DC 01/13/20 08:55 Insulin Detemir (Levemir Insulin) 8 units QHS PR 01/17/20 21:00 01/24/20 11:24 DC 01/22/20 20:42 Insulin Detemir (Levemir Insulin) 12 units QHS@0000 PR 01/13/20 00:00 01/17/20 14:04 DC 01/17/20 00:11 Insulin Human Lispro (HumaLOG INSULIN) SEE PROTOCOL TABLE AC SC 01/25/20 07:30 02/01/20 07:49 Insulin Human Lispro (HumaLOG INSULIN) SEE PROTOCOL TABLE ACHS PR 01/17/20 14:15 01/24/20 22:20 DC 01/24/20 12:32 Insulin Human Lispro (HumaLOG INSULIN) SEE PROTOCOL TABLE Q6H PR 01/12/20 18:00 01/17/20 14:04 DC 01/17/20 06:22 Insulin Human Lispro (HumaLOG INSULIN) SEE PROTOCOL TABLE QHS PR 01/24/20 21:00 Lansoprazole (First-Lansoprazole Oral Suspension) 30 mg DAILY PEG 01/14/20 09:00 01/26/20 14:01 DC 01/26/20 08:16 Lidocaine (Lidoderm Patch) 1 patch DAILY TD 01/13/20 09:00 02/01/20 07:49 Lidocaine/ Diphenhydr/Alum/ Mg/Simeth (Magic Mouthwash) 5ML -do prior to giv... Q4HP PRN SSP pre-ice chips 01/13/20 12:45 Lidocaine/ Diphenhydr/Alum/ Mg/Simeth (Magic Mouthwash) please use swab to cl... AC XX 01/13/20 12:00 01/22/20 17:04 Metoprolol Tartrate (Lopressor) 12.5 mg BID PEG 01/12/20 21:00 01/26/20 14:01 DC 01/26/20 08:16 Metoprolol Tartrate (Lopressor) 12.5 mg BID PO 01/12/20 21:00 01/12/20 20:01 DC Metoprolol Tartrate (Lopressor) 12.5 mg BID PO 01/26/20 21:00 02/01/20 07:50 Non-Formulary Medication ( See Comment Field Below ) REMOVE LIDODERM PATCH DAILY@21 XX 01/13/20 21:00 01/31/20 20:51 Ondansetron HCl (Zofran Odt) 4 mg Q4HP PRN SL NAUSEA OR VOMITING 01/18/20 10:30 02/01/20 03:25 Pantoprazole Sodium (Protonix) 40 mg DAILY PO 01/12/20 09:00 01/13/20 11:36 DC 01/13/20 08:58 Pantoprazole Sodium (Protonix) 40 mg DAILY PO 01/27/20 09:00 02/01/20 07:50 Polyethylene Glycol (Miralax) 1 pkt DAILY PRN PEG CONSTIPATION 01/13/20 11:45 Polyethylene Glycol (Miralax) 1 pkt DAILY PRN PO CONSTIPATION 01/12/20 16:45 01/13/20 11:36 DC Senna (Senokot) 1 tab QHS PO 01/12/20 21:00 01/13/20 11:36 DC Sodium Chloride ([place] Nasal [place]) 2 spray TID NA 01/12/20 21:00 01/24/20 22:28 Tamsulosin HCl (Flomax) 0.4 mg QHS PO 01/13/20 21:00 01/13/20 11:36 DC Torsemide (Demadex) 40 mg BID@,17 PEG 01/13/20 17:00 01/17/20 11:28 DC 01/16/20 16:54 Torsemide (Demadex) 40 mg BID@,17 PO 01/12/20 17:00 01/13/20 11:36 DC 01/13/20 08:58 Torsemide (Demadex) 40 mg DAILY PO 01/26/20 11:00 02/01/20 07:50 Venlafaxine HCl (Effexor) 18.75 mg BID PO 01/17/20 09:00 01/17/20 11:46 DC Venlafaxine HCl (Effexor) 18.75 mg BID PO 01/17/20 09:00 01/18/20 12:05 DC 01/18/20 09:45 GARO TORRES MD Feb 01, 2020 14:31
--- NOTE | 2020-02-01 14:34 | IPNPDOC ---
PM&R Progress Note DATE OF SERVICE: Feb 01, 2020 Loan [employer]or Progress Note Subjective: Patient seen in his room stating he felt very tired and denies feeling dizzy, but states he sees things moving. REVIEW OF SYSTEMS: The following is a completed review of systems and has been reviewed. Review of systems otherwise unremarkable. PAIN: Patient self reports LBP (improving) EYES: No recent vision changes EARS, NOSE, & THROAT: + dysphagia (improving) CARDIOVASCULAR: Denies chest pain or palpitations PULMONARY: Denies shortness of breath GASTROINTESTINAL:+nausea and loose stools (resolved) GENITOURINARY: +retention (resolved) MUSCULOSKELETAL:+generalized weakness NEUROLOGICAL:+enpaholoapthy (improving) HEMATOLOGICAL: +easy bruising, recent epistaxis SKIN: scattered ecchymosis PSYCHIATRIC: +confused (improving) All other review of systems found to be negative. PHYSICAL EXAMINATION: VITAL SIGNS: Please see below. GENERAL: Pleasant and cooperative. No acute distress. HEENT: PERRL. Extraocular movements intact. Clear conjunctiva CARDIOVASCULAR: Regular rate and rhythm. No murmurs, rubs, or gallops LUNGS: Clear to auscultation bilaterally. No wheezes. No rhonchi ABDOMEN: Soft, nontender, nondistended. Positive bowel sounds. Normal active bowel sounds, +PEG NEUROLOGICAL: Alert and oriented to self, thought it was 2020, and president "Jamal" Cranial nerves II through XII grossly intact. Sensation grossly intact to light touch all 4limbs EXTREMITIES: 5-\\5 strength bilateral upper extremities. 5-\\5 strength right lower extremity. 5-/5 strength in left lower extremity. (+) bilat LE edema SLR negative bilat, (-) TTP right lower lumbar paraspinals SKIN: LUE chest well permacath, sternal scar healed, sacrum with blanchable erythema, heels with blanchable erythema ASSESSMENT:64-year-old M with past medical history of chronic systolic CHF who presents status post epistaxis with metabolic encephalopathy PLAN: 1. Rehab- PT/OT advance gait and ADl training, strengthen/stretch/maintain ROM all 4limbs, energy conservation, ambulating short distances with RW INCIDENT RESPONSE LEAD- advanced to regular diet 2. Neuro: patient with recent acute encephalopathy likely due to metabolic derangement vs infection-improving with dialysis and treatment for pneumonia, however episode of delirium today most like due to gabapentin dosing and electrolyte imbalance- HD scheduled today and gabapentin being d/c'd -CTH 01/13/20 negative for old infarcts - B12/TSH/folate levels WNL -f/u B1 level 3. cardiac: chronic systolic CHF with EF 10-15% with ICD- c/u diuretics (renal managing), daily weights-medicine consulted to assist, ICD interrogated on 01/24/20 without any issues, c/u fluid restriction at this point as patient with good oral intake and concern he is fluid overloaded despite dialysis -Afib on metoprolol, Eliquis 2.5mg BID -CAD s/p CABG and stent- ASA 81mg changed to q2d -HLD c/u statin 4. resp: COPD with Pneumonia, c/u augmentin, duonebs, supplemental 02 prn, guaifenesin 5. Endo: hx of DM c/u Insulin and ISS, adjust prn 6. ENT: s/p left nasal epistaxis with packing, and packing removal 01-09-20 with Self-dissolving packing gel-foam, c/u nasal saline drops -f/u ENT after d/c 7. renal: urinary retention with oliguria started on HD 10/20, renal consulted to c/u while inhouse, barnes removed 01-14-20, voiding well 8. DVT ppx: eliquis , c/u teds 9. GI ppx: lansaprazole -zofran ordered prn for nausea - d/c'd colace and if loose stools improving 10. Pain: -lumbar xray 01-16-20 showing, "Mild depression of the superior endplate of L1 and L2 could be acute or chronic." with f/u CT scan showing "Mild osteoporotic wedging involving the superior endplates of L1 and L2 as seen radiographically. There is healing sclerosis suggesting subacute or chronic changes. Minimal loss of anterior vertebral body heights"-patient can wear soft TLSO for comfort, no concern for neurological compromise or acute fracture, patient educated on importance of core stabilization exercises to help better support his spine -ortho recs appreciated, patient can advance to outpatient back therapy once he is more functional and will initially need home therapy, however have asked therapy staff to begin back program while inhouse -c/u Tylenol 1000 mg TID standing and Lidoderm patch for low back pain, ice prn -c/u fish oil per patient's request -patient reporting significant improvement in his right sided low back pain since starting cymbalta, however will d/c gabapentin as patient lethargic today and told staff he felt "stoned" 11. Nutrition- patient eating 100% oral 12. Dispo: 02/03/20 to home, progressing towards goals, family training today Allergies Coded Allergies: metformin (Verified Allergy, Severe, anaphylaxis, 01/04/20) sitagliptin (Verified Allergy, Severe, anaphylaxis, 01/04/20) sacubitril (Verified Allergy, Intermediate, facial swelling, 01/04/20) valsartan (Verified Allergy, Intermediate, facial swelling, 01/04/20) azithromycin (Verified Adverse Reaction, Mild, NAUSEA AND VOMITING, 01/04/20) rosuvastatin (Verified Adverse Reaction, Mild, NAUSEA AND VOMITING, 01/04/20) Vital Signs Vital Signs Date Time Temp Pulse Resp B/P (MAP) Pulse Ox O2 Delivery O2 Flow Rate FiO2 02/01/20 07:50 70 142/94 02/01/20 06:00 98.0 18 96 Room Air Laboratory Data CBC/BMP Laboratory Tests 02/01/20 07:24 Labs 24H Laboratory Tests 2 01/31/20 17:20: Bedside Glucose (Misc Panel) 124H 01/31/20 20:38: Bedside Glucose (Misc Panel) 245H 02/01/20 06:33: Bedside Glucose (Misc Panel) 184H 02/01/20 07:24: Immature Granulocyte % (Auto) 0.9, Neutrophils (%) (Auto) 67.7H, Lymphocytes (%) (Auto) 10.8L, Monocytes (%) (Auto) 19.6H, Eosinophils (%) (Auto) 0.1, Basophils (%) (Auto) 0.9, Neutrophils # (Auto) 5.5, Lymphocytes # (Auto) 0.9L, Monocytes # (Auto) 1.6H, Eosinophils # (Auto) 0.0, Basophils # (Auto) 0.1, Nucleated Red Blood Cells % (auto) 0.5H, Anion Gap 13, Glomerular Filtration Rate 28.3L, Calcium Level 8.7L 02/01/20 11:44: Bedside Glucose (Misc Panel) 186H Current Medications Current Medications Current Medications Medications (Trade) Dose Ordered Sig/Ayala Route PRN Reason Start Time Stop Time Status Last Admin Dose Admin Acetaminophen (Tylenol Suspension) 975 mg TID PEG 01/13/20 16:00 01/23/20 10:43 DC 01/22/20 20:46 Acetaminophen (Tylenol Tab) 650 mg Q4HP PRN PO fever/MILD PAIN (PS 1-4) 01/12/20 16:45 01/13/20 11:14 DC Acetaminophen (Tylenol Tab) 975 mg TID PEG 01/23/20 09:00 01/26/20 14:01 DC 01/26/20 08:17 Acetaminophen (Tylenol Tab) 1,000 mg TID PO 01/13/20 09:00 01/13/20 11:36 DC Acetaminophen (Tylenol Tab) 1,000 mg TID PO 01/26/20 16:00 02/01/20 07:49 Albuterol/ Ipratropium (Duoneb (Ipr 0.5mg/Alb 2.5mg)) 3 ml RTID NEB 01/12/20 20:00 02/01/20 07:10 Albuterol/ Ipratropium (Duoneb (Ipr 0.5mg/Alb 2.5mg)) 3 ml TID NEB 01/12/20 21:00 01/12/20 17:12 DC Amoxicillin/ Clavulanate Potassium (Augmentin 400 Mg/5 ml Susp) 500 mg BID PEG 01/12/20 21:00 01/18/20 21:00 DC 01/18/20 21:49 Apixaban (Eliquis) 2.5 mg BID PEG 01/13/20 21:00 01/26/20 14:01 DC 01/26/20 08:16 Apixaban (Eliquis) 2.5 mg BID PO 01/26/20 21:00 02/01/20 07:50 Aspirin (Aspirin Chewable) 81 mg DAILY PEG 01/14/20 09:00 01/13/20 19:12 DC Aspirin (Aspirin Chewable) 81 mg DAILY PEG 01/17/20 09:00 01/25/20 11:49 DC 01/25/20 08:20 Aspirin (Aspirin Chewable) 81 mg Q2D PEG 01/27/20 09:00 01/26/20 14:01 DC Aspirin (Aspirin Chewable) 81 mg Q2D PO 01/27/20 09:00 6/2/20 09:13 Atorvastatin Calcium (Lipitor) 80 mg QHS PEG 01/12/20 21:00 01/26/20 14:01 DC 01/25/20 22:00 Atorvastatin Calcium (Lipitor) 80 mg QHS PO 01/26/20 21:00 01/31/20 20:35 Bisacodyl (Dulcolax Suppository) 10 mg DAILYPRN PRN GA CONSTIPATION 01/12/20 16:45 Bumetanide (Bumex) 1 mg DAILY PO 01/18/20 09:00 01/18/20 08:25 DC Bumetanide (Bumex) 2 mg DAILY PO 01/18/20 09:00 01/18/20 11:08 DC Dextrose (Dextrose 50%) 25 ml ASDIRECTED PRN IV SEE LABEL COMMENTS 01/12/20 16:45 Docusate Sodium (Colace Liquid) 100 mg BID PEG 01/13/20 21:00 01/18/20 12:05 DC 01/17/20 21:11 Docusate Sodium (Colace) 100 mg BID PO 01/12/20 21:00 01/13/20 11:36 DC 01/13/20 08:58 Duloxetine HCl (Cymbalta) 30 mg DAILY PO 01/27/20 11:00 02/01/20 07:50 Fish Oil ([place]-3 (1000mg)) 1 cap BID PO 01/26/20 21:00 02/01/20 07:50 Gabapentin (Neurontin) 100 mg BID PO 02/01/20 21:00 02/01/20 11:41 DC Gabapentin (Neurontin) 200 mg BID PO 01/27/20 11:00 02/01/20 10:00 DC 02/01/20 07:49 Glucagon (Glucagon) 1 mg ASDIRECTED PRN SC SEE LABEL COMMENTS 01/12/20 16:45 Glucose (Glucose) 16 GM ASDIRECTED PRN PO SEE LABEL COMMENTS 01/12/20 16:45 Guaifenesin (Robitussin) 10 ml TID PEG 01/12/20 21:00 01/27/20 10:34 DC 01/27/20 08:32 Guaifenesin (Robitussin) 10 ml TID PO 01/27/20 16:00 01/27/20 16:54 Heparin Sodium (Porcine) (Heparin) 5,000 units Q12H FL 01/12/20 21:00 01/13/20 14:02 DC 01/13/20 08:55 Insulin Detemir (Levemir Insulin) 8 units QHS FL 01/17/20 21:00 01/24/20 11:24 DC 01/22/20 20:42 Insulin Detemir (Levemir Insulin) 12 units QHS@0000 FL 01/13/20 00:00 01/17/20 14:04 DC 01/17/20 00:11 Insulin Human Lispro (HumaLOG INSULIN) SEE PROTOCOL TABLE AC FL 01/25/20 07:30 02/01/20 07:49 Insulin Human Lispro (HumaLOG INSULIN) SEE PROTOCOL TABLE ACHS FL 01/17/20 14:15 01/24/20 22:20 DC 01/24/20 12:32 Insulin Human Lispro (HumaLOG INSULIN) SEE PROTOCOL TABLE Q6H FL 01/12/20 18:00 01/17/20 14:04 DC 01/17/20 06:22 Insulin Human Lispro (HumaLOG INSULIN) SEE PROTOCOL TABLE QHS FL 01/24/20 21:00 Lansoprazole (First-Lansoprazole Oral Suspension) 30 mg DAILY PEG 01/14/20 09:00 01/26/20 14:01 DC 01/26/20 08:16 Lidocaine (Lidoderm Patch) 1 patch DAILY TD 01/13/20 09:00 02/01/20 07:49 Lidocaine/ Diphenhydr/Alum/ Mg/Simeth (Magic Mouthwash) 5ML -do prior to giv... Q4HP PRN SSP pre-ice chips 01/13/20 12:45 Lidocaine/ Diphenhydr/Alum/ Mg/Simeth (Magic Mouthwash) please use swab to cl... AC XX 01/13/20 12:00 01/22/20 17:04 Metoprolol Tartrate (Lopressor) 12.5 mg BID PEG 01/12/20 21:00 01/26/20 14:01 DC 01/26/20 08:16 Metoprolol Tartrate (Lopressor) 12.5 mg BID PO 01/12/20 21:00 01/12/20 20:01 DC Metoprolol Tartrate (Lopressor) 12.5 mg BID PO 01/26/20 21:00 02/01/20 07:50 Non-Formulary Medication ( See Comment Field Below ) REMOVE LIDODERM PATCH DAILY@ XX 01/13/20 21:00 01/31/20 20:51 Ondansetron HCl (Zofran Odt) 4 mg Q4HP PRN SL NAUSEA OR VOMITING 01/18/20 10:30 02/01/20 03:25 Pantoprazole Sodium (Protonix) 40 mg DAILY PO 01/12/20 09:00 01/13/20 11:36 DC 01/13/20 08:58 Pantoprazole Sodium (Protonix) 40 mg DAILY PO 01/27/20 09:00 02/01/20 07:50 Polyethylene Glycol (Miralax) 1 pkt DAILY PRN PEG CONSTIPATION 01/13/20 11:45 Polyethylene Glycol (Miralax) 1 pkt DAILY PRN PO CONSTIPATION 01/12/20 16:45 01/13/20 11:36 DC Senna (Senokot) 1 tab QHS PO 01/12/20 21:00 01/13/20 11:36 DC Sodium Chloride (Quay Nasal [place]) 2 spray TID NA 01/12/20 21:00 01/24/20 22:28 Tamsulosin HCl (Flomax) 0.4 mg QHS PO 01/13/20 21:00 01/13/20 11:36 DC Torsemide (Demadex) 40 mg BID@09,17 PEG 01/13/20 17:00 01/17/20 11:28 DC 01/16/20 16:54 Torsemide (Demadex) 40 mg BID@,17 PO 01/12/20 17:00 01/13/20 11:36 DC 01/13/20 08:58 Torsemide (Demadex) 40 mg DAILY PO 01/26/20 11:00 02/01/20 07:50 Venlafaxine HCl (Effexor) 18.75 mg BID PO 01/17/20 09:00 01/17/20 11:46 DC Venlafaxine HCl (Effexor) 18.75 mg BID PO 01/17/20 09:00 01/18/20 12:05 DC 01/18/20 09:45 GARO TORRES MD Feb 01, 2020 14:34
[2020-02-01 17:09] VITALS: BP 112/73
--- NOTE | 2020-02-01 18:57 | IPN ---
DATE: 02/01/2020 Mr. Badillo was seen and examined during bedside rounds. He was resting comfortably in his bed, so we did not disturb him. Patient did not appear in any acute distress. No overnight events were reported. He will be going down to dialysis later today for his regularly scheduled session. He is predicted to go home this Thursday and is on track. PHYSICAL EXAMINATION: VITAL SIGNS: Temperature 98.0, pulse 70, respirations 18, blood pressure 142/94 (110), pulse oximetry 96% on room air. Intake total 1470, output total 450 mL with a balance of +1020 mL. Weight this morning is 92.1 kg. GENERAL: This is a 64-year-old male who does not appear in acute distress, resting comfortably in his bed. HEENT: Atraumatic, normocephalic. Jugular venous distention (JVD) noted, pretty prominent at the angle of the mandible on the right. CARDIAC: Irregular rhythm when vital signs. LUNGS: No accessory muscle use. ABDOMEN: Protuberant abdomen. EXTREMITIES: Pedal edema appreciated bilaterally. LABORATORY DATA: Hematology: WBC 8.1, hemoglobin 12.1, hematocrit 38.9, platelets 232. Chemistry: Sodium 129, potassium 5.7, chloride 94, carbon dioxide 22, anion gap 13, BUN 34, creatinine 2.47, fasting glucose 206, calcium 8.7. No new imaging. ASSESSMENT AND PLAN: 1. Severe cardiomyopathy with oliguria. He continues to be oliguric despite being on Demadex 40 mg daily. We will continue this Demadex 40 mg per the patient's wish, and it will actually help him a little bit to diurese, because of his underlying cardiomyopathy. Even though he will only diurese less than 500 mL and is dependent on dialysis, we will continue with this dose. He will continue with his regularly scheduled dialysis on Thursday, Thursday, Thursday and will go to his next session today. As of right now, he is on track to be discharged on Thursday, so after his last dialysis session on Thursday. If his outpatient dialysis is set up, he may leave if CANDELARIO clears him. 2. Oliguric renal failure. Practically in end-stage renal disease and dialysis dependent but will continue the Demadex 40 mg daily. 3. Hyponatremia. Stable, appropriately mentating. No urgent intervention needed. 4. Hyperkalemia. Potassium kind of elevated at 5.7. He will be going to dialysis, and it will be corrected with this. We will recheck at the next basic metabolic panel (BMP). 5. Anemia. Currently optimal at 12.1. No urgent intervention.
[2020-02-01 20:00] VITALS: BP 109/71
[2020-02-01] MEDS: ATORVASTATIN 20 MG TAB PO SCH (20:29)
[2020-02-01] MEDS: **NOTE PATIENT COMMENT** MISC XX SCH (20:31)
[2020-02-01] MEDS ORDERED: GABAPENTIN 100 MG CAP PO SCH (21:00)
[2020-02-02 06:00] VITALS: BP 100/67
[2020-02-02] MEDS: IPRATROPIUM 0.5MG/ALBUTEROL 2.5MG INH SOL UD 3ML (DUONEB)(J7620) NEB SCH ×3 (07:15→19:27)
[2020-02-02] MEDS: HumaLOG INSULIN (NovoLOG) PER UNIT SC SCH ×4 (07:30→21:00)
[2020-02-02] MEDS: MAGIC MOUTHWASH SUSPENSION BTL XX SCH ×3 (07:30→16:13)
[2020-02-02] MEDS: METOPROLOL TART 12.5 MG PER 1/2 TAB PO SCH ×2 (09:00→21:00)
[2020-02-02] MEDS: LIDOCAINE 5% (LIDODERM) PATCH TD SCH (09:00)
[2020-02-02] MEDS: guaiFENesin SYRUP 200 MG/10 ML UDC PO SCH ×3 (09:00→21:00)
[2020-02-02] MEDS: SODIUM CHLORIDE NASAL 0.65% SPRAY BTL (OCEAN) SCH ×3 (09:00→21:00)
[2020-02-02] MEDS: ACETAMINOPHEN 500 MG TAB PO SCH ×3 (09:00→21:53)
[2020-02-02] MEDS: REMEDY PHYTOPLEX Z-GUARD PASTE 113GM TUBE (FROM STOREROOM PRODUCT) TOP SCH ×3 (09:59→21:55)
[2020-02-02] MEDS: APIXABAN 2.5 MG TAB (ELIQUIS) PO SCH ×2 (10:00→21:52)
[2020-02-02] MEDS: ASPIRIN 81 MG CHEW TABLET PO SCH (10:02)
[2020-02-02] MEDS: TORSEMIDE 20 MG TAB PO SCH (10:02)
[2020-02-02] MEDS: DULoxetine 30 MG CAP (CYMBALTA) PO SCH (10:03)
[2020-02-02] MEDS: PANTOPRAZOLE 40MG TAB (PROTONIX) PO SCH (10:03)
[2020-02-02] MEDS: OMEGA-3 1000MG CAPSULE PO SCH ×2 (10:03→21:52)
[2020-02-02 13:27] LABS: BASO % 0.4 % (0.0-1.0); HEMATOCRIT 38.5 % (42.0-52.0); LYMPH # 0.5 10^3/uL (1.5-5.0); LYMPH % 5.5 % (24.0-44.0); MEAN CORPUSCULAR HGB CONC 31.2 g/dl (32.0-36.5); MEAN CORPUSCULAR VOLUME 86.7 fl (80.0-96.0); MONO # 0.8 10^3/uL (0.0-0.8); MONO % 9.6 % (0.0-5.0); NEUTROPHILS # 7.1 10^3/uL (1.5-8.5); NEUTROPHILS % 83.8 % (36.0-66.0); PLATELET COUNT, AUTOMATED 202 10^3/uL (150-450); RED BLOOD COUNT 4.44 10^6/uL (4.30-6.10); WHITE BLOOD COUNT 8.5 10^3/uL (4.0-10.0)
[2020-02-02 14:00] VITALS: BP 107/61
[2020-02-02 14:11] LABS: CALCIUM LEVEL 8.5 MG/DL (8.8-10.2); CREATININE FOR GFR 2.63 MG/DL (0.70-1.30); GLOMERULAR FILTRATION RATE 26.3 (>49); POTASSIUM SERUM 4.7 MEQ/L (3.5-5.1)
--- NOTE | 2020-02-02 16:40 | IPN ---
DATE: 02/02/2020 Mr. Badillo is seen this morning on his bedside. He is sitting at the edge of bed working with physical therapist. He was dialyzed yesterday afternoon and tolerating dialysis very well. Unfortunately his kidney function has not improved, and he does get decompensated volume status because of his severe systolic congestive heart failure with ejection fraction of 10-15%. He is tolerating oral diet very well and has not required tube feeding anymore since last week. He is likely to be discharged tomorrow and follow up in outpatient dialysis clinic. PHYSICAL EXAMINATION: Temperature 97.7 degrees Fahrenheit, heart rate 68 per minute and respiratory rate 18 per minute. Blood pressure 104/60 mmHg and oxygen saturation 96% on room air. Head is atraumatic. Neck: Supple and without jugular venous distention (JVD) or thyroid enlargement sitting upright. Right-sided internal jugular vein Perma-Cath is in place. Heart sounds are regular and lungs sound clear to auscultation at present. Abdomen: Soft and nontender and bowel sounds are normal. Percutaneous endoscopic gastrostomy (PEG) tube is still in place. Extremities: Without any cyanosis or clubbing. 1+ edema on the legs is unchanged. Neurologically, he is very weak but working with physical therapist and has no focal neurological deficit. Today's labs show WBC count 8.5, hemoglobin 12.0 and hematocrit 38.5. Platelets 202. His chemistry is still pending. Yesterday his BUN was 34 and creatinine 2.47. PROBLEMS: 1. End-stage renal disease. The patient has been dialysis dependent for more than 6 weeks. He was dialyzed yesterday and will continue with outpatient dialysis on Thursday, Thursday and Thursday schedule. 2. Hyperkalemia. His potassium level was 5.7 yesterday, and he was dialyzed with 2.0 mEq potassium bath. Today's electrolytes are pending. 3. Hyponatremia related to congestive heart failure and end-stage renal disease. The patient was dialyzed yesterday and sodium level is pending from today. 4. Anemia. He did have acute blood loss anemia at the time of admission due to nosebleed, which has improved and resolved. No intervention is needed at present. 5. Generalized weakness and deconditioning. The patient is still very weak and has made some progress with acute rehab. He is likely to be discharged home tomorrow. From a renal standpoint, he can be discharged as long as there is arrangement for transportation to dialysis and back. [facility]
--- NOTE | 2020-02-02 16:58 | IPNPDOC ---
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 ALLERGIES: See Below MEDICATIONS: Reviewed, see below. OBJECTIVE: VITAL SIGNS: Please see below. PHYSICAL EXAMINATION: GENERAL: [Cachectic, well developed, sitting up in bed, no acute distress]. HEENT: [Normocephalic, atraumatic]. [No facial droop]. [Poor dentition, missing teeth. PERRL, EOMI]. CARDIOVASCULAR: [S1, S2, irregular rate]. [No lower limb edema or calf tenderness]. LUNGS: [Decreased breath sounds, coarse throughout]. ABDOMEN: [Soft, nontender, nondistended. Normoactive bowel sounds throughout]. MUSCULOSKELETAL: MMT: /5 strength proximally bilateral shoulder abduction, forward flexion and bilateral hip flexion. /5 strength bilateral elbow flexion, knee flexion, /5 bilateral elbow extension and knee extension. 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 NEUROLOGICAL: [Alert and oriented times three]. [Answers all question appropriately]. SKIN: . LABORATORY DATA: Reviewed. Please see below. MICROBIOLOGY: Please see below. IMAGING: ASSESSMENT AND PLAN: 1. . 2. . 3. . TIME SPENT: Chart Review, examination and documentation minutes. Allergies Coded Allergies: metformin (Verified Allergy, Severe, anaphylaxis, 01/04/20) sitagliptin (Verified Allergy, Severe, anaphylaxis, 01/04/20) sacubitril (Verified Allergy, Intermediate, facial swelling, 01/04/20) valsartan (Verified Allergy, Intermediate, facial swelling, 01/04/20) azithromycin (Verified Adverse Reaction, Mild, NAUSEA AND VOMITING, 01/04/20) rosuvastatin (Verified Adverse Reaction, Mild, NAUSEA AND VOMITING, 01/04/20) Vital Signs Vital Signs Date Time Temp Pulse Resp B/P (MAP) Pulse Ox O2 Delivery O2 Flow Rate FiO2 02/02/20 14:00 97.8 70 18 107/61 (76) 96 Room Air Laboratory Data CBC/BMP Laboratory Tests 02/02/20 13:02 Labs 24H Laboratory Tests 2 02/01/20 17:07: Bedside Glucose (Misc Panel) 133H 02/01/20 20:17: Bedside Glucose (Misc Panel) 131H 02/02/20 06:45: Bedside Glucose (Misc Panel) 103 02/02/20 11:34: Bedside Glucose (Misc Panel) 224H 02/02/20 13:02: Immature Granulocyte % (Auto) 0.7, Neutrophils (%) (Auto) 83.8H, Lymphocytes (%) (Auto) 5.5L, Monocytes (%) (Auto) 9.6H, Eosinophils (%) (Auto) 0.0, Basophils (%) (Auto) 0.4, Neutrophils # (Auto) 7.1, Lymphocytes # (Auto) 0.5L, Monocytes # (Auto) 0.8, Eosinophils # (Auto) 0.0, Basophils # (Auto) 0.0, Nucleated Red Blood Cells % (auto) 0.6H, Anion Gap 11, Glomerular Filtration Rate 26.3L, Calcium Level 8.5L 02/02/20 16:22: Bedside Glucose (Misc Panel) 160H Current Medications Current Medications Current Medications Medications (Trade) Dose Ordered Sig/Ayala Route PRN Reason Start Time Stop Time Status Last Admin Dose Admin Acetaminophen (Tylenol Suspension) 975 mg TID PEG 01/13/20 16:00 01/23/20 10:43 DC 01/22/20 20:46 Acetaminophen (Tylenol Tab) 650 mg Q4HP PRN PO fever/MILD PAIN (PS 1-4) 01/12/20 16:45 01/13/20 11:14 DC Acetaminophen (Tylenol Tab) 975 mg TID PEG 01/23/20 09:00 01/26/20 14:01 DC 01/26/20 08:17 Acetaminophen (Tylenol Tab) 1,000 mg TID PO 01/13/20 09:00 01/13/20 11:36 DC Acetaminophen (Tylenol Tab) 1,000 mg TID PO 01/26/20 16:00 02/01/20 20:29 Albuterol/ Ipratropium (Duoneb (Ipr 0.5mg/Alb 2.5mg)) 3 ml RTID NEB 01/12/20 20:00 02/02/20 13:24 Albuterol/ Ipratropium (Duoneb (Ipr 0.5mg/Alb 2.5mg)) 3 ml TID NEB 01/12/20 21:00 01/12/20 17:12 DC Amoxicillin/ Clavulanate Potassium (Augmentin 400 Mg/5 ml Susp) 500 mg BID PEG 01/12/20 21:00 01/18/20 21:00 DC 01/18/20 21:49 Apixaban (Eliquis) 2.5 mg BID PEG 01/13/20 21:00 01/26/20 14:01 DC 01/26/20 08:16 Apixaban (Eliquis) 2.5 mg BID PO 01/26/20 21:00 02/02/20 10:00 Aspirin (Aspirin Chewable) 81 mg DAILY PEG 01/14/20 09:00 01/13/20 19:12 DC Aspirin (Aspirin Chewable) 81 mg DAILY PEG 01/17/20 09:00 01/25/20 11:49 DC 01/25/20 08:20 Aspirin (Aspirin Chewable) 81 mg Q2D PEG 01/27/20 09:00 01/26/20 14:01 DC Aspirin (Aspirin Chewable) 81 mg Q2D PO 01/27/20 09:00 02/02/20 10:02 Atorvastatin Calcium (Lipitor) 80 mg QHS PEG 01/12/20 21:00 01/26/20 14:01 DC 01/25/20 22:00 Atorvastatin Calcium (Lipitor) 80 mg QHS PO 01/26/20 21:00 02/01/20 20:29 Bisacodyl (Dulcolax Suppository) 10 mg DAILYPRN PRN DC CONSTIPATION 01/12/20 16:45 Bumetanide (Bumex) 1 mg DAILY PO 01/18/20 09:00 01/18/20 08:25 DC Bumetanide (Bumex) 2 mg DAILY PO 01/18/20 09:00 01/18/20 11:08 DC Dextrose (Dextrose 50%) 25 ml ASDIRECTED PRN IV SEE LABEL COMMENTS 01/12/20 16:45 Docusate Sodium (Colace Liquid) 100 mg BID PEG 01/13/20 21:00 01/18/20 12:05 DC 01/17/20 21:11 Docusate Sodium (Colace) 100 mg BID PO 01/12/20 21:00 01/13/20 11:36 DC 01/13/20 08:58 Duloxetine HCl (Cymbalta) 30 mg DAILY PO 01/27/20 11:00 02/02/20 10:03 Fish Oil (Mittie-3 (1000mg)) 1 cap BID PO 01/26/20 21:00 02/02/20 10:03 Gabapentin (Neurontin) 100 mg BID PO 02/01/20 21:00 02/01/20 11:41 DC Gabapentin (Neurontin) 200 mg BID PO 01/27/20 11:00 02/01/20 10:00 DC 02/01/20 07:49 Glucagon (Glucagon) 1 mg ASDIRECTED PRN SC SEE LABEL COMMENTS 01/12/20 16:45 Glucose (Glucose) 16 GM ASDIRECTED PRN PO SEE LABEL COMMENTS 01/12/20 16:45 Guaifenesin (Robitussin) 10 ml TID PEG 01/12/20 21:00 01/27/20 10:34 DC 01/27/20 08:32 Guaifenesin (Robitussin) 10 ml TID PO 01/27/20 16:00 01/27/20 16:54 Heparin Sodium (Porcine) (Heparin) 5,000 units Q12H SC 01/12/20 21:00 01/13/20 14:02 DC 01/13/20 08:55 Insulin Detemir (Levemir Insulin) 8 units QHS SC 01/17/20 21:00 01/24/20 11:24 DC 01/22/20 20:42 Insulin Detemir (Levemir Insulin) 12 units QHS@0000 SC 01/13/20 00:00 01/17/20 14:04 DC 01/17/20 00:11 Insulin Human Lispro (HumaLOG INSULIN) SEE PROTOCOL TABLE AC SC 01/25/20 07:30 02/02/20 12:37 Insulin Human Lispro (HumaLOG INSULIN) SEE PROTOCOL TABLE ACHS SC 01/17/20 14:15 01/24/20 22:20 DC 01/24/20 12:32 Insulin Human Lispro (HumaLOG INSULIN) SEE PROTOCOL TABLE Q6H SC 01/12/20 18:00 01/17/20 14:04 DC 01/17/20 06:22 Insulin Human Lispro (HumaLOG INSULIN) SEE PROTOCOL TABLE QHS SC 01/24/20 21:00 Lansoprazole (First-Lansoprazole Oral Suspension) 30 mg DAILY PEG 01/14/20 09:00 01/26/20 14:01 DC 01/26/20 08:16 Lidocaine (Lidoderm Patch) 1 patch DAILY TD 01/13/20 09:00 02/02/20 09:00 Lidocaine/ Diphenhydr/Alum/ Mg/Simeth (Magic Mouthwash) 5ML -do prior to giv... Q4HP PRN SSP pre-ice chips 01/13/20 12:45 Lidocaine/ Diphenhydr/Alum/ Mg/Simeth (Magic Mouthwash) please use swab to cl... AC XX 01/13/20 12:00 01/22/20 17:04 Metoprolol Tartrate (Lopressor) 12.5 mg BID PEG 01/12/20 21:00 01/26/20 14:01 DC 01/26/20 08:16 Metoprolol Tartrate (Lopressor) 12.5 mg BID PO 01/12/20 21:00 01/12/20 20:01 DC Metoprolol Tartrate (Lopressor) 12.5 mg BID PO 01/26/20 21:00 02/01/20 07:50 Non-Formulary Medication ( See Comment Field Below ) REMOVE LIDODERM PATCH DAILY@21 XX 01/13/20 21:00 02/01/20 20:31 Ondansetron HCl (Zofran Odt) 4 mg Q4HP PRN SL NAUSEA OR VOMITING 01/18/20 10:30 02/01/20 03:25 Pantoprazole Sodium (Protonix) 40 mg DAILY PO 01/12/20 09:00 01/13/20 11:36 DC 01/13/20 08:58 Pantoprazole Sodium (Protonix) 40 mg DAILY PO 01/27/20 09:00 02/02/20 10:03 Polyethylene Glycol (Miralax) 1 pkt DAILY PRN PEG CONSTIPATION 01/13/20 11:45 Polyethylene Glycol (Miralax) 1 pkt DAILY PRN PO CONSTIPATION 01/12/20 16:45 01/13/20 11:36 DC Senna (Senokot) 1 tab QHS PO 01/12/20 21:00 01/13/20 11:36 DC Sodium Chloride (Duval Nasal [place]) 2 spray TID NA 01/12/20 21:00 01/24/20 22:28 Sodium Chloride (Sodium Chloride) 1 gm TID PO 02/02/20 16:00 Tamsulosin HCl (Flomax) 0.4 mg QHS PO 01/13/20 21:00 01/13/20 11:36 DC Torsemide (Demadex) 40 mg BID@,17 PEG 01/13/20 17:00 01/17/20 11:28 DC 01/16/20 16:54 Torsemide (Demadex) 40 mg BID@,17 PO 01/12/20 17:00 01/13/20 11:36 DC 01/13/20 08:58 Torsemide (Demadex) 40 mg DAILY PO 01/26/20 11:00 02/02/20 10:02 Venlafaxine HCl (Effexor) 18.75 mg BID PO 01/17/20 09:00 01/17/20 11:46 DC Venlafaxine HCl (Effexor) 18.75 mg BID PO 01/17/20 09:00 01/18/20 12:05 DC 01/18/20 09:45 GARO TORRES MD Feb 02, 2020 16:58
[2020-02-02] MEDS: SODIUM CHLORIDE 1 GM TAB PO SCH ×2 (17:42→21:52)
[2020-02-02 20:00] VITALS: BP 103/69
[2020-02-02] MEDS: ATORVASTATIN 20 MG TAB PO SCH (21:53)
[2020-02-02] MEDS: **NOTE PATIENT COMMENT** MISC XX SCH (21:55)
[2020-02-03 04:00] VITALS: BP 104/66
[2020-02-03] MEDS: IPRATROPIUM 0.5MG/ALBUTEROL 2.5MG INH SOL UD 3ML (DUONEB)(J7620) NEB SCH ×2 (07:12→13:19)
[2020-02-03] MEDS: MAGIC MOUTHWASH SUSPENSION BTL XX SCH ×2 (07:30→12:00)
[2020-02-03] MEDS: OMEGA-3 1000MG CAPSULE PO SCH (08:10)
[2020-02-03] MEDS: HumaLOG INSULIN (NovoLOG) PER UNIT SC SCH ×2 (08:11→12:00)
[2020-02-03] MEDS: APIXABAN 2.5 MG TAB (ELIQUIS) PO SCH (08:11)
[2020-02-03] MEDS: PANTOPRAZOLE 40MG TAB (PROTONIX) PO SCH (08:11)
[2020-02-03] MEDS: DULoxetine 30 MG CAP (CYMBALTA) PO SCH (08:11)
[2020-02-03] MEDS: ACETAMINOPHEN 500 MG TAB PO SCH (08:12)
[2020-02-03] MEDS: SODIUM CHLORIDE NASAL 0.65% SPRAY BTL (OCEAN) SCH (08:12)
[2020-02-03] MEDS: LIDOCAINE 5% (LIDODERM) PATCH TD SCH (08:12)
[2020-02-03] MEDS: guaiFENesin SYRUP 200 MG/10 ML UDC PO SCH (08:13)
[2020-02-03] MEDS: SODIUM CHLORIDE 1 GM TAB PO SCH (08:14)
[2020-02-03 08:16] VITALS: BP 97/65
[2020-02-03] MEDS: METOPROLOL TART 12.5 MG PER 1/2 TAB PO SCH (08:16)
[2020-02-03] MEDS: TORSEMIDE 20 MG TAB PO SCH (08:17)
[2020-02-03] MEDS: REMEDY PHYTOPLEX Z-GUARD PASTE 113GM TUBE (FROM STOREROOM PRODUCT) TOP SCH (08:17)
[2020-02-03 08:18] VITALS: BP 97/65
[2020-02-03 09:02] LABS: CALCIUM LEVEL 8.3 MG/DL (8.8-10.2); CREATININE FOR GFR 2.9 MG/DL (0.70-1.30); GLOMERULAR FILTRATION RATE 23.5 (>49); POTASSIUM SERUM 4.8 MEQ/L (3.5-5.1)
[2020-02-03] MEDS ORDERED: ACET-683 PO (09:44)
[2020-02-03] MEDS ORDERED: DULE200A INH (09:44)
[2020-02-03] MEDS ORDERED: ASPI81CH8 PO (09:44)
[2020-02-03] MEDS ORDERED: PROAAER10 INH (09:44)
[2020-02-03] MEDS ORDERED: ELIQ2.5T PO (09:44)
[2020-02-03] MEDS ORDERED: FISH1CAP26 PO (09:44)
[2020-02-03] MEDS ORDERED: TORS20TA2 PO (09:44)
[2020-02-03] MEDS ORDERED: ATOR80TA59 PO (09:44)
[2020-02-03] MEDS ORDERED: METO1TAB87 PO (09:44)
[2020-02-03] MEDS ORDERED: CYMB1CAP5 PO (09:44)
[2020-02-03] MEDS ORDERED: PANT40TA3 PO (09:44)
[2020-02-03 14:00] VITALS: BP 105/65
--- NOTE | 2020-02-03 22:58 | IPN ---
DATE: 02/03/2020 Mr. Badillo is seen this morning during hemodialysis. He is resting comfortably. He is going to be discharged to stay with his daughter later this afternoon. PHYSICAL EXAMINATION: Temperature 97.8 degrees Fahrenheit, heart rate 70 per minute and respiratory rate 18 per minute. Blood pressure 97/65 mmHg and oxygen saturation 97% on room air. Head is atraumatic. Neck is supple and jugular venous distention (JVD) about 9-10 cm above sternal angle. Hemodialysis catheter on right upper chest is intact. Heart sounds are regular with a systolic murmur grade 1/6. Lungs with slightly diminished breath sounds at bases. Abdomen: Soft and nontender and G-tube is in place. Extremities: Without any cyanosis or clubbing. Lower extremity edema is at least 2+. Today's labs show sodium 127, potassium 4.8, CO2 of 21, BUN 34 and creatinine 2.90. Glucose 127 and calcium 8.3. PROBLEMS: 1. End-stage renal disease. The patient is being dialyzed today, and he will continue with outpatient dialysis on Thursday, Thursday and Thursday schedule. 2. Congestive heart failure. The patient is known to have severe systolic congestive heart failure with ejection fraction 10-15%. He is dialysis dependent as his urine output remains 500 mL or less in 24 hours with diuretics. At present, we are removing about 2.5 liters of fluid today with dialysis, and he still has peripheral edema. Unfortunately, we are unable to remove any more fluid because of low blood pressure. He needs to follow his fluid restriction of 1500 mL per day. 3. Hyponatremia. This is chronic and related to congestive heart failure and end-stage renal disease. We anticipate improvement in his sodium level with dialysis. He needs to follow his fluid restriction. 4. Anemia. His anemia has been stable, and he does not need any intervention. DISPOSITION: The patient is going to be discharged, and he is going to stay with his daughter. Overall, I am not very optimistic about his condition as he has not made any significant improvement with rehab. Unfortunately, his kidney function has also not improved, and he remains dialysis dependent and likely to remain dialysis dependent for the rest of his life.
== END 2020-02-03 14:45 | disposition home health service (06) | DRG 391 ==
LOC: M PM&R 15:40
PROVIDERS: ADMIT Physical Medicine & Rehabilitation; ATTEND Physical Medicine & Rehabilitation
PROC: 5A1D70Z Performance of Urinary Filtration, Intermittent, Less than 6 Hours Per Day (ICD-10-PCS; principal; 2020-01-14)
DX: R13.10 Dysphagia, unspecified (principal); N18.6 End stage renal disease; I50.22 Chronic systolic (congestive) heart failure; G93.40 Encephalopathy, unspecified; J98.11 Atelectasis; E87.1 Hypo-osmolality and hyponatremia; D62 Acute posthemorrhagic anemia; J44.9 Chronic obstructive pulmonary disease, unspecified; R26.89 Other abnormalities of gait and mobility; I27.20 Pulmonary hypertension, unspecified; Z95.810 Presence of automatic (implantable) cardiac defibrillator; I48.91 Unspecified atrial fibrillation; I25.2 Old myocardial infarction; Z95.5 Presence of coronary angioplasty implant and graft; E78.5 Hyperlipidemia, unspecified; E11.22 Type 2 diabetes mellitus with diabetic chronic kidney disease; R33.9 Retention of urine, unspecified; R53.1 Weakness; R41.0 Disorientation, unspecified; Z93.0 Tracheostomy status; Z99.2 Dependence on renal dialysis; Z79.01 Long term (current) use of anticoagulants; Z79.4 Long term (current) use of insulin; Z79.899 Other long term (current) drug therapy; Z88.1 Allergy status to other antibiotic agents; Z88.8 Allergy status to other drugs, medicaments and biological substances; E11.649 Type 2 diabetes mellitus with hypoglycemia without coma; R04.0 Epistaxis

== ENCOUNTER 2020-02-09 10:35 | Inpatient (IN) | payer MEDICARE, BC, OTHER ==
[~2020-02-09] VITALS: Ht 185.4 cm; Wt 100.4 kg
[~2020-02-09 10:35] MED LIST changes: +ACET-683 PO; +ASPI81CH8 PO; +CYMB1CAP5 PO; +ELIQ2.5T PO; +FISH1CAP26 PO; +PANT40TA3 PO
--- NOTE | 2020-02-09 11:15 | REP ---
CT brain: 02/09/2020. Indication: Altered mental status. Stroke. Technique: Unenhanced axial CT images of the brain were obtained from skull base to vertex with coronal reconstructions provided. Comparison: 11/13/2019. Findings: There is no acute intracranial hemorrhage, acute cortical infarction, mass effect or hydrocephalous. Diffuse volume loss is present. Intracranial atherosclerotic disease is noted. Patchy areas of white matter hypoattenuation are present within the cerebral hemispheres. Impression: No acute intracranial process. Volume loss and sequelae of chronic microangiopathic ischemic disease. Electronically Signed by Williams Dover DO 02/09/2020 11:06 A
[2020-02-09] MEDS ORDERED: PIPERACILLIN/TAZOBACTAM SOD 3.375 GM in D5W MINI-BAG PLUS 50 ML IV ONE ×2 (11:30→19:30)
[2020-02-09] MEDS ORDERED: NS 2,810 ML in IV 1 EA IV ONE (11:30)
[2020-02-09 11:50] LABS: GLUCOSE, URINE (UA) MANUAL NEGATIVE (NEGATIVE); KETONE, URINE MANUAL 1+ mg/dL (NEGATIVE); UROBILINOGEN, URINE MANUAL NORMAL (NORMAL)
[2020-02-09 11:51] LABS: BILIRUBIN, URINE MANUAL NEGATIVE (NEGATIVE)
[2020-02-09 11:54] LABS: SQUAMOUS EPITHELIAL CELL URINE SMALL AMOUNT /hpf (SMALL AMT); YEAST, URINE MOD AMOUNT
[2020-02-09 11:55] LABS: AMORPHOUS SEDIMENT, URINE SMALL AMOUNT (NEGATIVE); BACTERIA, URINE NONE SEEN; HYALINE CAST, URINE NONE SEEN /lpf (0-1)
[2020-02-09 12:16] LABS: VENOUS BASE EXCESS -7.2 (-2.0-2.0); VENOUS HCO3 16.6 MEQ/L (23.0-27.0); VENOUS O2 SATURATION 99.6 % (60.0-80.0); VENOUS PARTIAL PRESSURE CO2 29.3 mmHg (38.0-50.0); VENOUS PARTIAL PRESSURE O2 171.8 mmHg (30.0-50.0); VENOUS PH 7.371 UNITS (7.330-7.430); VENOUS STANDARD HCO3 18.8 MEQ/L; VENOUS TOTAL CO2 17.5 MEQ/L (24.0-28.0)
[2020-02-09 12:18] LABS: BASO # 0.1 10^3/uL (0.0-0.2); BASO % 0.6 % (0.0-1.0); EOS % 0.1 % (0.0-3.0); HEMATOCRIT 44.1 % (42.0-52.0); HEMOGLOBIN 13.8 g/dl (13.5-17.5); LYMPH # 0.7 10^3/uL (1.5-5.0); LYMPH % 5.1 % (24.0-44.0); MEAN CORPUSCULAR HEMOGLOBIN 25.4 pg (27.0-33.0); MEAN CORPUSCULAR HGB CONC 31.3 g/dl (32.0-36.5); MEAN CORPUSCULAR VOLUME 81.2 fl (80.0-96.0); MONO # 0.8 10^3/uL (0.0-0.8); MONO % 5.9 % (0.0-5.0); NEUTROPHILS # 11.3 10^3/uL (1.5-8.5); NEUTROPHILS % 85.3 % (36.0-66.0); PLATELET COUNT, AUTOMATED 193 10^3/uL (150-450); RED BLOOD COUNT 5.43 10^6/uL (4.30-6.10); WHITE BLOOD COUNT 13.2 10^3/uL (4.0-10.0)
[2020-02-09] MEDS ORDERED: ACET500T15 PO (12:33)
[2020-02-09] MEDS ORDERED: ELIQ2.5T PO (12:33)
[2020-02-09] MEDS ORDERED: FISH1000 PO (12:33)
[2020-02-09] MEDS ORDERED: PANT40TA3 PO (12:33)
[2020-02-09] MEDS ORDERED: DULE200A INH (12:33)
[2020-02-09] MEDS ORDERED: ASPI81TA85 PO (12:33)
[2020-02-09] MEDS ORDERED: TORS20TA2 PO (12:33)
[2020-02-09] MEDS ORDERED: PROAAER10 INH (12:33)
[2020-02-09] MEDS ORDERED: DULO1CAP5 PO (12:33)
[2020-02-09] MEDS ORDERED: ATOR80TA59 PO (12:33)
[2020-02-09] MEDS ORDERED: NOVOINJ3 SC (12:40)
[2020-02-09] MEDS ORDERED: LANTINJ4 SC (12:40)
[2020-02-09 13:02] LABS: OSMOLALITY SERUM 282 MOSM/KG (280-301)
[2020-02-09 13:03] LABS: ACETAMINOPHEN LEVEL 2.7 UG/ML (10.0-30.0); ALBUMIN 2.1 GM/DL (3.2-5.2); ALT/SGPT 70 U/L (12-78); BILIRUBIN,DIRECT 1.8 MG/DL (0.0-0.2); BILIRUBIN,TOTAL 2.6 MG/DL (0.2-1.0); BLOOD UREA NITROGEN 24 MG/DL (7-18); CALCIUM LEVEL 7.2 MG/DL (8.8-10.2); CARBON DIOXIDE LEVEL 19 MEQ/L (21-32); CHLORIDE LEVEL 95 MEQ/L (98-107); CPK CREATINE PHOSPHOKINASE 161 U/L (39-308); CREATININE FOR GFR 2.86 MG/DL (0.70-1.30); ETHYL ALCOHOL (ETHANOL) < 0.003 % (0.000-0.010); GLOMERULAR FILTRATION RATE 23.9 (>49); GLUCOSE, FASTING 138 MG/DL (70-100); MB/CK RELATIVE INDEX 3.11 (< OR =4); POTASSIUM SERUM 4.5 MEQ/L (3.5-5.1); SALICYLATE LEVEL < 1.7 MG/DL (5.0-30.0); SODIUM LEVEL 130 MEQ/L (136-145); TOTAL PROTEIN 6.7 GM/DL (6.4-8.2); TROPONIN I 0.26 NG/ML (< 0.10)
--- NOTE | 2020-02-09 14:24 | IPNPDOC ---
Text Note Date of Service The patient was seen on 02/09/20. NOTE TIME OF SERVICE 235PM is a 64y M w a PMH of systolic CHF (10% w ICD) /ischemic cardiomyopathy, chronic CAD (status post bypass CABG & subsequent stents 2), Atrial fibrillation on Eliquis, HLD, IDDM2, ESRD (MWF) & post intubation dysphagia who has been feeling weak for one day, and was noted to be confused by his daughter earlier on today. PE: lethargic / mucus membranes dry / extremities cool / plantar aspect of feet blue in color Based on the work up in the ER he will be admitted for management of 1. Metabolic Encephalopathy 2/2 infection - c/w zosyn / frequent neurochecks 2. Sepsis w lactic acidosis - no IVF to avoid fluid overload / abx / trend lac tic acid 3. UTI ? he doesn't have abdominal pain - abx f/u pancx results 4. Right sided PNA ?. He doesn't have CP, dyspnea or fever. - abx / f/u pancx results 5. Hyponatremia fluid overload- f/u serum osmol, Marcie and Uosmol 6. Elevated Trop possibly 2/2 reduced renal clearance. EKG similar to previous EKGs - telemetry / trend trops 7. Suspected PAD ? - pending BLE arterial duplex the day time team may consider consulting to determine if he needs an interventional procedure 8. Chronic CAD - c/w home meds 9. Atrial fibrillation - Eliquis 10. ESRD - Nephro consult 11. IDDM2 - FSBS, A1C, hypoglycemia protocol SSI / give glargine 10 units QAM (home does 40 units) 12. Chronic systolic CHF - c/w home meds rest per 's H&P VS,Fishbone, I+O VS, Fishbone, I+O Laboratory Tests 02/09/20 12:06 Vital Signs Date Time Temp Pulse Resp B/P (MAP) Pulse Ox O2 Delivery O2 Flow Rate FiO2 02/09/20 14:00 20 108/70 (83) 96 Room Air 02/09/20 13:50 69 02/09/20 10:46 98.7 PETER FELIX MD Feb 09, 2020 14:24
--- NOTE | 2020-02-09 15:26 | REP ---
REASON: Leukocytosis. COMPARISON: Multiple, the latest 01/10/2020 a two-view exam. The technique utilized in obtaining the radiograph has magnified the cardiac silhouette and accentuated the interstitial markings. There is global cardiomegaly status quo. The central venous catheter tip in the right atrium status quo. Pacemaker device and leads stable. Note is again made of previous median sternotomy. Patchy right basilar opacities have developed since the last exam. I cannot exclude new right basilar opacities as well. There is no change in the osseous structures. IMPRESSION: 1. Right basilar opacities and potential left basilar opacities suggestive of possible acute pneumonia or atelectatic change. If feasible, obtain two-view chest. 2. Other findings and chronic changes as described above. Electronically Signed by Washington Gore DO 02/09/2020 05:06 P
[2020-02-09 15:30] LABS: VENOUS BASE EXCESS -9.8 (-2.0-2.0); VENOUS HCO3 10.1 MEQ/L (23.0-27.0); VENOUS O2 SATURATION 99.9 % (60.0-80.0); VENOUS PARTIAL PRESSURE CO2 13.9 mmHg (38.0-50.0); VENOUS PARTIAL PRESSURE O2 238.5 mmHg (30.0-50.0); VENOUS PH 7.481 UNITS (7.330-7.430); VENOUS STANDARD HCO3 16.9 MEQ/L; VENOUS TOTAL CO2 10.6 MEQ/L (24.0-28.0)
[2020-02-09] MEDS ORDERED: DEXTROSE 50% 50 ML SYRINGE IV PRN (15:30)
[2020-02-09] MEDS ORDERED: GLUCOSE 4GM CHEW TABLET PO PRN (15:30)
[2020-02-09] MEDS ORDERED: ALBUTEROL 90 MCG/ACT 8GM HFA INHALER INH PRN (15:30)
[2020-02-09] MEDS ORDERED: PIPERACILLIN/TAZOBACTAM SOD 2.25 GM in D5W MINI-BAG PLUS 50 ML IV SCH (15:30)
[2020-02-09] MEDS ORDERED: GLUCAGON INJ 1MG VIAL SC PRN (15:30)
[2020-02-09] MEDS ORDERED: LevoFLOXacin IV 250 MG in IV 1 EA IV ONE (15:30)
--- NOTE | 2020-02-09 15:56 | HPEPDOC ---
General Date of Admission Feb 09, 2020 at 14:23 Date of Service: Feb 09, 2020 Chief Complaint The patient is a 64-year-old male admitted with a reason for visit of Altered Mental Status,Hyponatremia. Source: Patient, Family Exam Limitations: Clinical conditions, Garbled speech Timing/Duration: Day(s) (1) Severity: Moderate, Severe History of Present Illness Pt is a 64yo male with PMH of chronic systolic CHF with EF10-15%, ischemic cardiomyopathy with anterior wall SC, atrial fibrillation, hx of multiple cardiac procedure including bypass in 2005, CABG, stents 2, ICD placement, DM on insulin, ESRD on hemodialysis presented to [facility] on 02/09/2020 due to altered mental status that was noticed in the morning by daughter/mobile homes repairer. Daughter reported pt has reported no complaint including chest pain, palpitation, dyspnea, cough, fever, or chills, constipation, diarrhea, abdominal pain. Pt has been having oligouria but denies any dysuria, urgency, or frequency. The only concern was that he has been having low appetite. Daughter reported ulcer in coccyx. Patient was confused but is able to answer questions upon re- orientation, he denies any complaints and denies any symptoms as above. Chronic purple color in b/l LE with edema; daughter reported the mild b/l LE edema and skin color are have been chronic without new changes Patient was noted discharged from ARU a week ago. He is ESRD on dialysis with permacath on M, W, F with last dialysis 02/08/2020. Daughter reported pt at baseline is A&OX3 and can carry normal conversation. Home Medications Scheduled Acetaminophen (Acetaminophen) 500 Mg Tablet, 1,000 MG PO TID, (Reported) Apixaban (Eliquis) 2.5 Mg Tablet, 2.5 MG PO BID, (Reported) Aspirin (Aspir 81) 81 Mg Tablet.dr, 81 MG PO Q2D, (Reported) Atorvastatin Calcium (Atorvastatin Calcium) 80 Mg Tablet, 80 MG PO QHS, (Reported) Duloxetine Hcl (Duloxetine HCl) 30 Mg Capsule.dr, 30 MG PO DAILY, (Reported) Insulin Aspart (Novolog Flexpen) 100 Unit/1 Ml Insuln.pen, 1 DOSE SC AC, (Reported) Insulin Glargine,Hum.rec.anlog (Lantus Solostar) 100 Unit/1 Ml Insuln.pen, 40 UNITS SC QAM, (Reported) Metoprolol Tartrate (Metoprolol Tartrate) 25 Mg Tablet, 12.5 MG PO BID, (Reported) HOLD FOR SBP <110 Mometasone/Formoterol (Dulera 200 Mcg/5 Mcg Inhaler) 13 Gm Hfa.aer.ad, 2 PUFF INH BID, (Reported) Bowie-3 Fatty Acids/Fish Oil (Fish Oil 1,000 mg Capsule) 1 Each Capsule, 1,000 MG PO BID, (Reported) Pantoprazole Sodium (Pantoprazole Sodium) 40 Mg Tablet.dr, 40 MG PO DAILY, (Reported) Torsemide (Torsemide) 20 Mg Tablet, 40 MG PO DAILY, (Reported) HOLD FOR SBP <110 Scheduled PRN Albuterol Sulfate (Proair Hfa) 8.5 Gm Hfa.aer.ad, 1 PUFF INH Q4H PRN for SOB/WHEEZING, (Reported) Allergies Coded Allergies: metformin (Verified Allergy, Severe, anaphylaxis, 01/04/20) sitagliptin (Verified Allergy, Severe, anaphylaxis, 01/04/20) sacubitril (Verified Allergy, Intermediate, facial swelling, 01/04/20) valsartan (Verified Allergy, Intermediate, facial swelling, 01/04/20) azithromycin (Verified Adverse Reaction, Mild, NAUSEA AND VOMITING, 01/04/20) rosuvastatin (Verified Adverse Reaction, Mild, NAUSEA AND VOMITING, 01/04/20) Past Medical History Medical History Systolic CHF Ischemic cardiomyopathy anterior wall SC in August 2012 Atrial fibrillation HLD DM [id number] Metabolic encephalopathy Community acquired pneumonia Dysphagia after intubation Oct 2019; G tube placement ESRD Hyperkalemia Hyponatremia Surgical History Cardiac bypass in 2005 CABG Cardiac stents 2 ICD placement Permacath placement PEG tube placement Social History * Smoker: Denies Alcohol: Denies Drugs: denies lives at home with daughter A-FIB/CHADSVASC A-FIB History Current/History of A-Fib/PAF?: Yes Current PO Anticoag Therapy: Yes Age/Risk Factor Scoring CHADSVASC: CHADSVASC Response (Comments) Value Age Risk Factor Age < 65 years old 0 Gender Risk Factor Male 0 Hx of CHF Yes 1 Hx of Stroke/TIA/or VTE No 0 Hx of Diabetes Yes 1 Hx of Vascular Disease Yes 1 Total 3 Review of Systems Constitutional: Reports: Other (decreased appetite); Denies: Chills, Fever ENT: Reports: Dysphagia (since Oct 2019 with PEG tube) Skin: Reports: Breakdown; Denies: Jaundice Pulmonary: Denies: Dyspnea, Cough Cardiovascular: Denies: Chest Pain, Palpitations Gastrointestinal: Denies: Nausea, Vomiting, Abdominal Pain, Diarrhea, Constipation, Melena Genitourinary: Reports: Other Symptoms (oligouria unchanged from prior); Denies: Incontinence Neurological: Reports: Change in speech, Confusion Physical Examination General Exam: Positive: Alert, Cooperative, Mild Distress Eye Exam: Positive: EOMI, Sclera icteric (mild) ENT Exam: Positive: Atraumatic, Mucous membr. moist/pink Neck Exam: Positive: Supple Chest Exam: Positive: Diminished (b/l), Other (Kussmaul breathing, mild decreased air movement; permacath in place in left chest); Negative: Rales, Rhonchi, Wheezing Heart Exam: Positive: Rate Normal, Regular Rhythm, Murmurs (mild systolic murmur) Abdomen Exam: Positive: Normal bowel sounds, Soft, Other (PEG tube in place); Negative: Tenderness Extremity Exam: Positive: Swelling (in b/l LE), Other (decreased dorsalis ped iis pulse and posterior tibial ulse b/l, mild jaundice in b/l LE); Negative: Normal pulses Skin Exam: Positive: Nl turgor and temperature, Rash (rash/petechiae noted in right upper and lower quad abd reported to be new), Lesion (in b/l feet, reported to be chronic), Other skin issue (bilateral feet and toes purple) Neuro Exam: Positive: Strength at 5/5 X4 ext, Normal Tone; Negative: Normal Speech Psych Exam: Positive: Anxiety (mild), Oriented x 3 (needs re-orientation), Other (follows commands but needs re-orientation); Negative: Mental status NL Vital Signs Vital Signs Date Time Temp Pulse Resp B/P (MAP) Pulse Ox O2 Delivery O2 Flow Rate FiO2 02/09/20 14:00 20 108/70 (83) 96 Room Air 02/09/20 13:50 69 02/09/20 10:46 98.7 Laboratory Data Labs 24H Laboratory Tests 2 02/09/20 11:26: Urine Color (RADHA) YELLOW, Urine Appearance (RADHA) 1.020, Urine pH (RADHA) 6.0, Urine Specific [place] (RADHA) 1.020, Bedside Urine Glucose (UA) NEGATIVE, Bedside Urine Ketones (LAB) 1+H, Bedside Urine Blood POSITIVEH, Bedside Urine Nitrite (LAB) NEGATIVE, Bedside Urine Bilirubin (LAB) NEGATIVE, Bedside Urine Urob ilinogen (LAB) NORMAL, Bedside Urine Leukocyte Esterase (L POSITIVEH, Urine Sediment Examination UNSPUN, Urine RBC 5-7H, Urine WBC TNTCH, Urine Squamous Epithelial Cells SMALL AMOUNT, Urine Amorphous Sediment SMALL AMOUNTH, Urine Bacteria NONE SEEN, Urine Hyaline Casts NONE SEEN, Urine Yeast MOD AMOUNTH 02/09/20 12:04: Bedside Glucose (Misc Panel) 137H 02/09/20 12:06: Immature Granulocyte % (Auto) 3.0, Neutrophils (%) (Auto) 85.3H, Lymphocytes (%) (Auto) 5.1L, Monocytes (%) (Auto) 5.9H, Eosinophils (%) (Auto) 0.1, Basophils (%) (Auto) 0.6, Neutrophils # (Auto) 11.3H, Lymphocytes # (Auto) 0.7L, Monocytes # (Auto) 0.8, Eosinophils # (Auto) 0.0, Basophils # (Auto) 0.1, Nucleated Red Blood Cells % (auto) 0.8H, Blood Gas Bicarbonate Standard 18.8, Venous Blood pH 7.371, Venous Blood Partial Pressure CO2 29.3L, Venous Blood Partial Pressure O2 171.8H, Venous Blood Total Carbon Dioxide 17.5L, Venous Blood HCO3 16.6L, Venous Blood Oxygen Saturation 99.6H, Venous Blood Base Excess -7.2L, Anion Gap 16, Glomerular Filtration Rate 23.9L, Osmolality 282, Lactic Acid Level 2.5*H, Calcium Level 7.2L, Total Bilirubin 2.6H, Direct Bilirubin 1.8H, Aspartate Amino Transf (AST/SGOT) 128H, Alanine Aminotransferase (ALT/SGPT) 70, Alkaline Phosphatase 352H, Ammonia < 10, Total Creatine Kinase 161, Creatine Kinase MB 5.0H, Creatine Kinase MB Relative Index 3.11, Troponin I 0.26H, Total Protein 6.7, Albumin 2.1L, Albumin/Globulin Ratio 0.5, Thyroid Stimulating Hormone (TSH) 4.370H, Salicylates Level < 1.7L, Acetaminophen Level 2.7L, Ethyl Alcohol Level < 0.003 02/09/20 12:10: 02/09/20 15:23: Blood Gas Bicarbonate Standard 16.9, Venous Blood pH 7.481H, Venous Blood Partial Pressure CO2 13.9L, Venous Blood Partial Pressure O2 238.5H, Venous Blood Total Carbon Dioxide 10.6L, Venous Blood HCO3 10.1L, Venous Blood Oxygen Saturation 99.9H, Venous Blood Base Excess -9.8L CBC/BMP Laboratory Tests 02/09/20 12:06 Microbiology Microbiology 02/09/20 Blood Culture, Received Pending 02/09/20 Blood Culture, Received Pending 02/09/20 Urine Culture, Received Pending Assessment/Plan 1. Metabolic Encephalopathy 2/2 infection likely pneumonia vs UTI vs bacteremia from coccyx ulcer. Procalcitonin, Wound cx, blood cx, and urine cx ordered. Start levofloxacin and Zosyn. Neuro checks. Follow up lactic acid. Will hold off on starting IVF at this time d/t hx of CHF with EF 10-15%. Bedside swallow eval; advance diet per ST. 2. Sepsis w lactic acidosis. Will not start IVF at this time considering pt has hx of A. fib. Start levo and zosyn. Vitals as scheduled. 3. UTI. UA pos for leuko esterase and WBC. Urine cx pending. Pt on levo and zosyn for PNA coverage already. 4. Right side PNA, health care associated. Discharged from ARU noted a week ago. CXR read as right basilar opacities and potential left basilar opacities. Pt denies cough, dyspnea, or fever. Leukocytosis with neuto predominance. Start levo and zosyn. Resp panel, sputum cx. COVID 19 ordered. Isolation contact. MRSA screen, legionella urine antigen, strep pneumonia urine antigen, and fungitell serum 5. Hyponatremia. Hyponatremia unchanged compared to prior hospitalization visit level, it was noted that hyponatremia was thought to be due to ESRD. Nephro consulted by team. Serum osmol, Marcie and Uosmol ordered for work up of hyponatremia. Last dialysis 02/08/2020, dialysis days MWF. 6. Elevated Trop, possibly 2/2 reduced renal clearance vs heart strain. Pt denies any chest pain. 48 hr tele, cont to trend trop. 7. Suspected PAD. Discoloration noted in b/l LE reported to be chronic. B/l LE arterial duplex ordered. Cont home med statin, eliquis, and statin. Keep b/l LE warm. Consider outpt follow up with vascular surgery depending on b/l LE arterial US report 8. Chronic CAD. Cont home med statin and metoprolol with holding parameters. 9. Atrial fibrillation; PMH on a. fib. Cont home med Eliquis 10. ESRD. On dialysis MWF. Nephro consult ordered from team. OFELIA ordered to r/o rheum etiology 11. Insulin dependent DM type 2. FSBS checks with hypoglycemia protocol, sliding scale insulin. 12. Chronic systolic CHF. Pt has not been receiving home toresmide since discharge from ARU a week ago duet to soft blood pressure per daughter. Will hold off on resume toresmide at this time due to electrolyte disturbances. Resume home med metoprolol with holding parameters. 13. Coccyx ulcer, stage 2 pressure ulcer. Wound cx and gram stain. Wound care Plan / VTE VTE Prophylaxis Ordered?: Yes ANUEL BARTLETT DO Feb 09, 2020 15:56
[2020-02-09] MEDS ORDERED: LevoFLOXacin IV 500 MG in IV 1 EA IV ONE (16:00)
[2020-02-09] MEDS ORDERED: LevoFLOXacin IV 250 MG in IV 1 EA IV SCH (16:00)
[2020-02-09 17:45] VITALS: BP 86/55
[2020-02-09] MEDS: DULoxetine 30 MG CAP (CYMBALTA) PO SCH (18:34)
[2020-02-09] MEDS: PANTOPRAZOLE 40MG TAB (PROTONIX) PO SCH (18:36)
[2020-02-09] MEDS: ACETAMINOPHEN 500 MG TAB PO SCH ×2 (18:37→19:45)
[2020-02-09 18:45] VITALS: BP 92/58
[2020-02-09] MEDS: HumaLOG INSULIN (NovoLOG) PER UNIT SC SCH ×2 (18:53→20:32)
[2020-02-09] MEDS: PIPERACILLIN/TAZOBACTAM SOD 3.375 GM in D5W MINI-BAG PLUS 50 ML IV SCH (18:53)
[2020-02-09 19:07] LABS: CREATININE FOR GFR 2.89 MG/DL (0.70-1.30); GLOMERULAR FILTRATION RATE 23.6 (>49); POTASSIUM SERUM 4.4 MEQ/L (3.5-5.1); TROPONIN I 0.23 NG/ML (< 0.10)
[2020-02-09] MEDS: METOPROLOL TART 12.5 MG PER 1/2 TAB PO SCH (19:44)
[2020-02-09] MEDS: ATORVASTATIN 20 MG TAB PO SCH (19:45)
[2020-02-09 20:00] VITALS: BP 82/54
[2020-02-09] MEDS: APIXABAN 2.5 MG TAB (ELIQUIS) PO SCH (20:31)
--- NOTE | 2020-02-09 21:33 | ECGEPIP ---
[facility] - ED Test Date: 2020-02-09 Pat Name: DEMETRICE MUNIZ Department: Room: - Gender: Male [employer] Other Ranks: : [id number] Requested By: Teresa Ortega Order Number: [id number] Reading MD: Moses Soto Measurements Intervals [place] Rate: 69 P: MN: 0 QRS: 213 QRSD: 200 T: 35 QT: 552 QTc: 595 Interpretive Statements ELECTRONIC VENTRICULAR PACEMAKER SIMILAR TO 01/04/20 Electronically Signed on 02-09-2020 21:32:39 EDT by Moses Soto
[2020-02-09 22:20] VITALS: BP 84/54
[2020-02-10] VITALS (19 sets, daily range): BP systolic 76–99; BP diastolic 50–64
[2020-02-10] MEDS: PIPERACILLIN/TAZOBACTAM SOD 3.375 GM in D5W MINI-BAG PLUS 50 ML IV SCH ×2 (00:26→06:00)
[2020-02-10] MEDS: HumaLOG INSULIN (NovoLOG) PER UNIT SC SCH ×4 (07:30→20:48)
[2020-02-10] MEDS ORDERED: VANCOMYCIN HCL 1,000 MG, VIAL MATE ADAPTER 1 EACH in D5W 250 ML IV ONE ×3 (08:00→14:00)
[2020-02-10 08:55] LABS: HEMATOCRIT 38.9 % (42.0-52.0); HEMOGLOBIN 12.1 g/dl (13.5-17.5); MEAN CORPUSCULAR HEMOGLOBIN 25.6 pg (27.0-33.0); MEAN CORPUSCULAR HGB CONC 31.1 g/dl (32.0-36.5); MEAN CORPUSCULAR VOLUME 82.2 fl (80.0-96.0); PLATELET COUNT, AUTOMATED 177 10^3/uL (150-450); RED BLOOD COUNT 4.73 10^6/uL (4.30-6.10)
[2020-02-10] MEDS: METOPROLOL TART 12.5 MG PER 1/2 TAB PO SCH ×2 (09:00→20:48)
[2020-02-10] MEDS ORDERED: ASPIRIN 81 MG ENTERIC TAB PO SCH (09:00)
[2020-02-10 09:34] LABS: ALBUMIN 1.6 GM/DL (3.2-5.2); CALCIUM LEVEL 7.1 MG/DL (8.8-10.2); CK-MB VALUE MASS 3.3 NG/ML (<3.6); CREATININE FOR GFR 3.46 MG/DL (0.70-1.30); GLOMERULAR FILTRATION RATE 19.2 (>49); MB/CK RELATIVE INDEX 3.4 (< OR =4); PHOSPHORUS LEVEL 5.4 MG/DL (2.5-4.9); POTASSIUM SERUM 4.5 MEQ/L (3.5-5.1); TROPONIN I 0.18 NG/ML (< 0.10)
[2020-02-10] MEDS ORDERED: SLF 3 ML SYR IV PRN (11:30)
--- NOTE | 2020-02-10 12:10 | IPNPDOC ---
Date Seen The patient was seen on 02/10/20. Progress Note SUBJECTIVE: Patient was seen and examined today in dialysis. There have been no adverse events reported overnight. He has remained afebrile. Currently no new complaints. He states that his breathing has improved since last night. Nursing has reported a possible bloody bowel movement. Patient was noted to be hypotensive following dialysis with SBP in mid 70's. He was arousable and following commands appropriately. He was given midodrine for hemodilaysis associated hypotension and transferred to the ICU for closer monitoring OBJECTIVE PHYSICAL EXAMINATION: VITAL SIGNS: Please see below. GENERAL: Awake, alert, and oriented. Does not appear to be in acute distress. Lying in bed receiving Hemodialysis HEENT: Atraumatic. Normocephalic. Eyes are nonicteric. Trachea is midline. CARDIOVASCULAR: Irregularly irregular rhythm. Normal rate. 2/6 systolic ejection murmur. No clicks or rubs. No JVD. Left chest wall permacath RESPIRATORY: Decreased breath sounds bilaterally. Good respiratory effort. No wheezes. Bronchial breath sounds present ABDOMINAL: Soft, nondistended. Nontender. Normoactive bowel sounds. PEG tube is in place SKIN: Sacral pressure ulcer EXTREMITIES: 3+ pitting edema in bilateral lower extremities. Full and equal pulses in bilateral upper and lower extremities. Right arm swelling observed with out erythema. NEUROLOGICAL: No focal neurological deficits PSYCHOLOGICAL: Mood and affect appear appropriate for situation LABORATORY DATA, IMAGING STUDIES, MICROBIOLOGY: Please see below. DVT prophylaxis ordered?: Eliquis ASSESSMENT AND PLAN: Patient is a 64 year old male with multiple comorbidities who presented to [facility] with altered mental status likely secondary to sepsis PROBLEMS: 1. Metabolic Encephalopathy likely 2/2 Sepsis 2/2 PNA vs bacteremia from pressur e ulcer -Patients mentation appears to have improved. He is alert and oriented and following commands appropriately. His AMS on presentation was likely 2/2 sepsis. He does have a right lobe infiltrate consistent with a probable aspiration event. He is currently afebrile. He received Zosyn and Levofloxacin yesterday. -Will continue on empiric antibiotics. Zosyn 4.5 gm q12h which is appropriate for hemodialysis dosing -Will add Vancomycin given positive MRSA screen and coccyx pressure ulcer p resent -Blood cultures are pending. Will tailor antibiotic therapy once culture data is available -Procalcitonin pending -Urine Culture positive for yeast. Likely a commensal due to chronic indwe lling Aguirre. Will hold off on antifungals as patient has shown improvement with antibiotics 2. Pneumonia -Patient has right patchy opacity as well a some scattered left opacity. He has a history of dysphagia that has required PEG tube placement. Likely aspirating which is resulting in pneumonia. -Will continue plan as stated above including empiric antibiotic coverage with Vanc and Zosyn -Speech therapy for swallow eval -Aspiration precautions 3. Hypotension 2/2 hemodialysis -Likely hemodialysis related. Patient noted to be soft through course of day. He was given a dose of midodrine. Transferred to the ICU for closer monitoring. After midodrine his BP improved to SBP of >90. -Continue Midodrine for hemodialysis associated hypotension -Avoid fluid boluses as he is hypervolemic with LVEF of 10%. 4. Right Arm Swelling -Patient noted to have increased swelling in his right arm. Currently no lines in his right arm. Permacath in left chest wall. -U/S of right arm to assess for possible DVT although unlikely as he is chronically anticoagulated 5. ESRD on Hemodialysis MWF -Continue with current schedule. Patient receiving hemodialysis this AM 6. Hyponatremia -Appears to be chronic. Likely 2/2 increased volume status. 7. Hematochezia -Nursing noted some blood in patients stool this morning. Hemoglobin is currently stable will trend. -Patient is currently on Eliquis 8. Chronic Systolic CHF with LVEF 10-15% -Currently holding home medications. Patient is receiving hemodialysis. Will defer current fluid management to Nephrology team -Elevated troponin yesterday likely 2/2 to combination of pneumonia/sepsis in setting of HFrEF and heart strain 9. Atrial Fibrillation -Continue Eliquis for anticoagulation -Currently rate controlled 9. Coccyx Ulcer -Stage 2 pressure ulcer. Wound care. Possible source of infection. Patients MRSA screen was positive 11. IDDM 2 -ACHS with sliding scale coverage 12. DVT Prophylaxis -Continue Eliquis DISPOSITION: Patients overall custodial prognosis is guarded and poor given multiple comorbidities. Goals of care to be addressed with patient and family. I have spoken at bedside regarding his custodial prognosis and unlikelihood of successful resuscitation if the event were to occur. He has stated that he would like to remain FULL CODE As preceptor for this patient I was fully available. All aspects of the patient interview, examination, medical decision making process, and medical care plan development were reviewed and approved. Aware and concur with the plan as stated in the body of this note and will attest to such by my cosignature. VS, I&O, 24H, Fishbone Vital Signs/I&O Vital Signs Date Time Temp Pulse Resp B/P (MAP) Pulse Ox O2 Delivery O2 Flow Rate FiO2 02/10/20 08:00 97.4 71 17 92/58 (69) 98 Room Air I&O- Last 24 Hours up to 6 AM 02/10/20 06:00 Intake Total 2210 ml Output Total 0 ml Balance 2210 ml Laboratory Data 24H LABS Laboratory Tests 2 02/09/20 12:04: Bedside Glucose (Misc Panel) 137H 02/09/20 12:06: Immature Granulocyte % (Auto) 3.0, Neutrophils (%) (Auto) 85.3H, Lymphocytes (%) (Auto) 5.1L, Monocytes (%) (Auto) 5.9H, Eosinophils (%) (Auto) 0.1, Basophils (%) (Auto) 0.6, Neutrophils # (Auto) 11.3H, Lymphocytes # (Auto) 0.7L, Monocytes # (Auto) 0.8, Eosinophils # (Auto) 0.0, Basophils # (Auto) 0.1, Nucleated Red Blood Cells % (auto) 0.8H, Blood Gas Bicarbonate Standard 18.8, Venous Blood pH 7.371, Venous Blood Partial Pressure CO2 29.3L, Venous Blood Partial Pressure O2 171.8H, Venous Blood Total Carbon Dioxide 17.5L, Venous Blood HCO3 16.6L, Venous Blood Oxygen Saturation 99.6H, Venous Blood Base Excess -7.2L, Anion Gap 16, Glomerular Filtration Rate 23.9L, Osmolality 282, Lactic Acid Level 2.5*H, Calcium Level 7.2L, Total Bilirubin 2.6H, Direct Bilirubin 1.8H, Aspartate Amino Transf (AST/SGOT) 128H, Alanine Aminotransferase (ALT/SGPT) 70, Alkaline Phosphatase 352H, Ammonia < 10, Total Creatine Kinase 161, Creatine Kinase MB 5.0H, Creatine Kinase MB Relative Index 3.11, Troponin I 0.26H, Total Protein 6.7, Albumin 2.1L, Albumin/Globulin Ratio 0.5, Thyroid Stimulating Hormone (TSH) 4.370H, Salicylates Level < 1.7L, Acetaminophen Level 2.7L, Ethyl Alcohol Level < 0.003 02/09/20 12:10: 02/09/20 15:23: Blood Gas Bicarbonate Standard 16.9, Venous Blood pH 7.481H, Venous Blood Partial Pressure CO2 13.9L, Venous Blood Partial Pressure O2 238.5H, Venous Blood Total Carbon Dioxide 10.6L, Venous Blood HCO3 10.1L, Venous Blood Oxygen Saturation 99.9H, Venous Blood Base Excess -9.8L 02/09/20 17:28: Lactic Acid Followup at 4 Hours 2.3*H 02/09/20 18:00: Anion Gap 14, Glomerular Filtration Rate 23.6L, Osmolality 286, Calcium Level 7.0L, Troponin I 0.23H 02/09/20 18:17: Methicillin-Resist S.aureus DNA PCR DETECTEDA 02/09/20 18:40: Bedside Glucose (Misc Panel) 151H 02/09/20 19:54: Bedside Glucose (Misc Panel) 154H 02/09/20 23:07: Troponin I 0.25H 02/10/20 07:27: Bedside Glucose (Misc Panel) 178H 02/10/20 08:18: Troponin I 0.18#H, Nucleated Red Blood Cells % (auto) 0.3H, Anion Gap 13, Glomerular Filtration Rate 19.2L, Calcium Level 7.1L, Phosphorus Level 5.4H, Total Creatine Kinase 97, Creatine Kinase MB 3.3, Creatine Kinase MB Relative Index 3.40, Albumin 1.6#L CBC/BMP Laboratory Tests 02/09/20 12:06 02/09/20 18:00 02/10/20 08:18 Microbiology Microbiology 02/09/20 Respiratory Virus Panel (PCR) (LUIS ALBERTO) - Final, Complete 02/09/20 Blood Culture, Received Pending 02/09/20 Blood Culture, Received Pending 02/09/20 Urine Culture - Final, Complete Yeast Like Organism MOLLY WEISS DO Feb 10, 2020 12:10 JEF ONEIL MD Feb 13, 2020 14:09
[2020-02-10] MEDS: DULoxetine 30 MG CAP (CYMBALTA) PO SCH (12:21)
[2020-02-10] MEDS: APIXABAN 2.5 MG TAB (ELIQUIS) PO SCH ×2 (12:21→20:56)
[2020-02-10] MEDS: PANTOPRAZOLE 40MG TAB (PROTONIX) PO SCH (12:21)
[2020-02-10] MEDS: ACETAMINOPHEN 500 MG TAB PO SCH ×3 (12:21→20:56)
[2020-02-10] MEDS: SLF 3 ML SYR IV SCH ×2 (12:22→21:55)
--- NOTE | 2020-02-10 14:24 | REP ---
Right upper extremity duplex Doppler venous ultrasound. Real time compression and duplex Doppler evaluation of the right upper extremity deep venous system is performed. The right subclavian, jugular, axillary, brachial, basilic and cephalic veins are fully compressible where accessible with transducer pressure, and demonstrate no intraluminal thrombus and normal venous waveforms. There is no evidence of deep venous thrombosis. Impression: No evidence of deep venous thrombosis of the right upper extremity deep vein system. Electronically Signed by Tom Fierro MD 02/10/2020 02:16 P
[2020-02-10] MEDS ORDERED: VANCOMYCIN HCL 750 MG, VIAL MATE ADAPTER 1 EACH in D5W 250 ML IV ONE (15:00)
--- NOTE | 2020-02-10 15:06 | REP ---
BILATERAL LOWER EXTREMITY ARTERIAL DUPLEX DOPPLER ULTRASOUND: Real-time ultrasound evaluation and duplex Doppler interrogation of bilateral lower extremity arterial systems is performed. Calf arteries are heavily calcified and diffusely narrowed bilateral with monophasic waveforms. There is stenosis of the left tibioperoneal trunk with occlusion of the left posterior tibial artery. More proximally bilaterally, there is no evidence of hemodynamically significant stenosis. Normal flow velocities and triphasic waveforms are seen in the bilateral common femoral, profunda, superficial femoral, and popliteal arteries. PEAK SYSTOLIC VELOCITY RIGHT LEFT Common femoral artery 67.7 cm/s 55.6 cm/s Profunda 51.1 71.2 Proximal SFA 54.9 74.8 Mid SFA 54.2 53.5 Distal SFA 39.2 37.0 Popliteal 19.3 27.4 Proximal ALECIA 54.7 34.8 Tibial/peroneal trunk 53 122.8 Proximal MICROFABRICATION ENGINEER MANAGER 11.9 Occluded Distal MICROFABRICATION ENGINEER MANAGER 31.2 Occluded Distal ALECIA 40 43.8 Electronically Signed by Tom Fierro MD 02/14/2020 06:36 P
[2020-02-10 15:22] LABS: HEMATOCRIT 38.2 % (42.0-52.0); HEMOGLOBIN 11.9 g/dl (13.5-17.5)
[2020-02-10] MEDS ORDERED: LevoFLOXacin IV 250 MG in IV 1 EA IV SCH (16:00)
[2020-02-10] MEDS: PIPERACILLIN/TAZOBACTAM SOD 4.5 GM in D5W MINI-BAG PLUS 50 ML IV SCH (17:04)
[2020-02-10] MEDS ORDERED: MIDODRINE 5 MG TAB PO SCH (18:00)
[2020-02-10] MEDS: ATORVASTATIN 20 MG TAB PO SCH (20:56)
[2020-02-11] VITALS (64 sets, daily range): BP systolic 58–92; BP diastolic 41–63
[2020-02-11] MEDS ORDERED: MIDODRINE 5 MG TAB PO ONE ×2 (01:30→20:30)
[2020-02-11 04:50] LABS: HEMATOCRIT 36.6 % (42.0-52.0); HEMOGLOBIN 11.6 g/dl (13.5-17.5); MEAN CORPUSCULAR HEMOGLOBIN 26.4 pg (27.0-33.0); MEAN CORPUSCULAR HGB CONC 31.7 g/dl (32.0-36.5); MEAN CORPUSCULAR VOLUME 83.4 fl (80.0-96.0); PLATELET COUNT, AUTOMATED 135 10^3/uL (150-450); RED BLOOD COUNT 4.39 10^6/uL (4.30-6.10); WHITE BLOOD COUNT 10.5 10^3/uL (4.0-10.0)
[2020-02-11 05:14] LABS: CALCIUM LEVEL 7.2 MG/DL (8.8-10.2); CREATININE FOR GFR 2.95 MG/DL (0.70-1.30); GLOMERULAR FILTRATION RATE 23.1 (>49); VANCOMYCIN RANDOM 17.9 UG/ML
[2020-02-11] MEDS: SLF 3 ML SYR IV SCH ×3 (06:02→21:05)
[2020-02-11] MEDS: PIPERACILLIN/TAZOBACTAM SOD 4.5 GM in D5W MINI-BAG PLUS 50 ML IV SCH (06:10)
[2020-02-11] MEDS: HumaLOG INSULIN (NovoLOG) PER UNIT SC SCH ×4 (07:30→21:00)
[2020-02-11] MEDS ORDERED: VANCOMYCIN HCL 750 MG, VIAL MATE ADAPTER 1 EACH in D5W 250 ML IV SCH (08:00)
[2020-02-11] MEDS ORDERED: PANTOPRAZOLE 40MG VIAL (C9113 PER 1) IV SCH (09:00)
[2020-02-11] MEDS: PANTOPRAZOLE 40MG TAB (PROTONIX) PO SCH (09:00)
[2020-02-11] MEDS: DULoxetine 30 MG CAP (CYMBALTA) PO SCH (09:00)
[2020-02-11] MEDS ORDERED: VANCOMYCIN HCL 500 MG in D5W MINI-BAG PLUS 100 ML IV SCH (09:00)
[2020-02-11] MEDS ORDERED: METOPROLOL TART 12.5 MG PER 1/2 TAB GT SCH (09:00)
--- NOTE | 2020-02-11 09:31 | CR ---
DATE OF CONSULTATION: 02/10/2020 NEPHROLOGY CONSULTATION FOR: Dina Chavez MD REASON FOR CONSULTATION: Is to assist in the management of end-stage renal disease. HISTORY OF PRESENT ILLNESS: Mr. Badillo is a 64-year-old gentleman who was recently discharged from [facility]. He has known history of chronic systolic congestive heart failure with ejection fraction 10-15%. He has ischemic cardiomyopathy with prior anterior wall myocardial infarction (HI). He had a complicated hospitalization in [place], and recently he was here at [facility] and had acute rehabilitation without much progress. He was discharged to home just a few days ago and was brought back with altered mentation and felt to have sepsis. He also had hyponatremia. Patient receives his maintenance hemodialysis on Thursday, Thursday, and Thursday schedule. A nephrology consultation was requested, and patient is seen this morning. PAST MEDICAL AND SURGICAL HISTORY: Significant for: 1. Severe chronic systolic congestive heart failure with ejection fraction 10-15%. 2. Ischemic cardiomyopathy. 3. Atrial fibrillation. 4. History of defibrillator placement. 5. History of diabetes. 6. History of aspiration status post feeding tube placement. 7. History of neuropathy. 8. History of back pain. Past surgical history is significant for coronary artery bypass surgery, angioplasty with stent, implantable cardioverter-defibrillator (ICD) placement, PermCath placement for dialysis, percutaneous endoscopic gastrostomy (PEG) tube placement for feeding. MEDICATIONS: His home medications include: - Tylenol 1000 mg three times a day as needed for pain - Eliquis 2.5 mg twice a day - aspirin 81 mg daily - atorvastatin 80 mg daily - Cymbalta 30 mg daily - metoprolol 25 mg half a tablet twice a day - pantoprazole 40 mg daily - torsemide 40 mg daily ALLERGIES: He has allergy to METFORMIN, VALSARTAN, AZITHROMYCIN, CRESTOR, and SITAGLIPTIN. PERSONAL AND SOCIAL HISTORY: Patient denies any smoking, drug use, or alcohol use. He lives at home with his daughter. REVIEW OF SYSTEMS: Patient was brought in with altered mentation last evening. He is able to talk now and still not feeling too good. He denies any fever or chills. Ears, nose, and throat are unremarkable. Cardiovascular system significant for atrial fibrillation and severe systolic dysfunction with ejection fraction 10-15%. He has been dialysis dependent for fluid removal. He failed to respond to diuretics. Respiratory system is significant for possible pneumonia. Patient denies any hemoptysis or pleuritic-type of chest pain at present. Gastrointestinal (GI) system is significant for PEG tube placement and recently started to eat by mouth. Genitourinary () system is significant for decreased urine output. Denies any dysuria or hematuria. Endocrine system is significant for type 2 diabetes. He also had hyponatremia on recent labs. Musculoskeletal system is significant for generalized weakness and inability to get up and walk. Neurological system significant for peripheral neuropathy. PHYSICAL EXAM: Patient is seen this morning on his bedside. He is currently in dialysis. Temperature is 97 degrees Fahrenheit, heart rate 70 per minute, and respiratory rate 16 per minute. Blood pressure 84/50 mmHg and oxygen saturation 97% on room air. Head is atraumatic. Neck is supple, and jugular venous distention (JVD) is about 8-9 cm above sternal angle. There is no oral thrush or ulcers, but oral mucosa is dry. Heart sounds are regular with a systolic murmur grade 2/6. Lungs with diminished breath sounds at bases. Abdomen is soft and nontender. Bowel sounds are present. Extremities have no cyanosis or clubbing. Lower extremity edema is 1+ bilaterally. Neurologically, he is awake and able to answer questions. LAB DATA: WBC count is 13.0, hemoglobin 12.1, and hematocrit 38.9. Platelets 177. Sodium 132, potassium 4.5, CO2 of 22, BUN 34, and creatinine 3.46. Glucose 183 and calcium 7.1. Troponin 0.23, 0.25, and 0.18, respectively. Albumin is only 1.6. PROBLEMS: 1. End-stage renal disease. Patient has been declared end-stage renal disease as he has required dialysis for more than 6 weeks. He failed to respond to diuretics, and he needs dialysis even for fluid removal due to his severe systolic dysfunction. He will be dialyzed today as he is already in dialysis room. We are going to try to remove about 1.5 liters of fluid if tolerated. 2. Hypotension. Blood pressure is chronically low, and we will start midodrine 5 mg three times a day and see if we can manage to keep his blood pressure up during dialysis. 3. Sepsis. He was admitted with low blood pressure and pneumonia. He is currently on Zosyn and vancomycin. I would recommend to adjust the dose for Zosyn for his end-stage renal disease. 4. Anemia. At present, his anemia is stable and we will continue to monitor closely. 5. Chronic systolic congestive heart failure. Patient has been dialysis dependent for fluid removal. He responded poorly to high-dose diuretics multiple times. At present, we will try to maintain his volume status with frequent dialysis treatments as his blood pressure is low and we are unable to remove excessive amount of fluid in one session. Thank you for involving me in the care of Mr. Badillo. I will follow him along with you.
[2020-02-11] MEDS: APIXABAN 2.5 MG TAB (ELIQUIS) GT SCH ×2 (09:51→20:54)
[2020-02-11] MEDS: MIDODRINE 5 MG TAB GT SCH ×3 (09:52→16:09)
--- NOTE | 2020-02-11 11:34 | IPNPDOC ---
Date Seen The patient was seen on 02/11/20. Progress Note SUBJECTIVE: Patient was seen and examined this morning. He had become hypotensive yesterday after receiving dialysis. He was started on midodrine and transferred to ICU for closer monitoring. He complains of some lightheadedness. He otherwise states he feels like he normally does after dialysis. He denies chest pain. He has remained afebrile overnight. I have spoken to the patients Health Care proxy today Sandra Booth who stated that the patient is to remain full code per the patients wish during previous discussions. OBJECTIVE PHYSICAL EXAMINATION: VITAL SIGNS: Please see below. GENERAL: Arousable. He is oriented to person and place. He answers questions appropriately and follows commands. He does not appears in acute distress HEENT: Atraumatic. Normocephalic. Eyes are nonicteric. Trachea is midline. cyanotic appearance to lips. CARDIOVASCULAR: Normal S1, S2. Distant heart sounds. 2/6 systolic ejection murmur present. No clicks or rubs RESPIRATORY: Diminished breath sounds with overlying bronchial breath sounds. No wheezing. No crackles ABDOMINAL: Soft, nondistended. Normoactive bowel sounds. PEG tube is in place EXTREMITIES: 3-4+ pitting edema in bilateral lower extremities. 2+ pitting edema in upper extremities right greater than left. Mottling of skin in lower extrem ities consistent with cyanosis NEUROLOGICAL: No focal neurological deficits. PSYCHOLOGICAL: Mood and affect appropriate for situation LABORATORY DATA, IMAGING STUDIES, MICROBIOLOGY: Please see below. DVT prophylaxis ordered?: Eliquis ASSESSMENT AND PLAN: Patient is a 64 year old male with multiple comorbidities including chronic systolic congestive heart failure with ejection fraction of 10-15% secondary to ischemic cardiomyopathy from an anterior wall myocardial infarction and ESRD requiring hemodialysis who presented to [facility] with altered mental status and found to have sepsis likely secondary to aspiration PROBLEMS: 1. Metabolic Encephalopathy likely 2/2 Sepsis 2/2 PNA vs bacteremia from pressure ulcer -Mentation has improved since admission. He is tired/lethargic appearing which is likely due to his hypotension. However, he does answer questions and follow commands appropriately -Urine culture demonstrated a yeast like organism which is likely a commensal. -Will continue on empiric antibiotics. Zosyn 4.5 gm q12h which is appropriate for hemodialysis dosing -Will continue Vancomycin given positive MRSA screen and coccyx pressure ulcer present -Blood Cultures have shown no growth -Procalcitonin of 2.14. Will repeat tomorrow 2. Pneumonia -Patient has right patchy opacity as well a some scattered left opacity. He has a history of dysphagia that has required PEG tube placement. Likely aspirating which is resulting in pneumonia. -Will continue plan as stated above including empiric antibiotic coverage with Vanc and Zosyn -Speech therapy for swallow eval -Aspiration precautions -Patient has a PEG tube in place due to history of aspiration. He will likely continue to have aspiration events in the future 3. Hypotension 2/2 hemodialysis -Patient has chronic low blood pressures. He was noted to be significantly more hypotensive yesterday which was likely dialysis associated. He was started on midodrine and transferred to the ICU for monitoring. His MAP has remained in the mid 60's to 70's. -Continue Midodrine for hemodialysis associated hypotension -Avoid fluid boluses as he is hypervolemic with LVEF of 10%. 4. Right Arm Swelling -Patient noted to have increased swelling in his right arm. Currently no lines in his right arm. Permacath in left chest wall. -U/S of right arm negative for DVT. 5. ESRD on Hemodialysis MWF -Continue with current schedule per Nephrology. -1L removed yesterday. Patient appears hypervolemic currently however he is fairly hypotensive and may not tolerate fluid removal 6. Hyponatremia -Appears to be chronic. Likely 2/2 increased volume status. 7. Hematochezia -Nursing noted some blood in patients stool this morning. Hemoglobin is currently stable will trend. -Patient is currently on Eliquis 8. Chronic Systolic CHF with LVEF 10-15% -Currently holding home medications. Patient is receiving hemodialysis. Will defer current fluid management to Nephrology team -Elevated troponin yesterday likely 2/2 to combination of pneumonia/sepsis in setting of HFrEF and heart strain -Patient is cyanotic appearing 2/2 to poor perfusion from low LVEF 9. Atrial Fibrillation -Continue Eliquis for anticoagulation -Currently rate controlled 9. Coccyx Ulcer -Stage 2 pressure ulcer. Wound care. Possible source of infection. Patients MRSA screen was positive 11. IDDM 2 -ACHS with sliding scale coverage 12. DVT Prophylaxis -Continue Eliquis DISPOSITION: Patients overall prognosis remains poor given multiple comorbidities. Goals of Care were addressed with patients health care proxy who confirmed FULL CODE status. As preceptor for this patient I was fully available. All aspects of the patient interview, examination, medical decision making process, and medical care plan development were reviewed and approved. Aware and concur with the plan as stated in the body of this note and will attest to such by my cosignature. VS, I&O, 24H, Fishbone Vital Signs/I&O Vital Signs Date Time Temp Pulse Resp B/P (MAP) Pulse Ox O2 Delivery O2 Flow Rate FiO2 02/11/20 08:14 99 Room Air 02/11/20 06:02 69 13 84/54 (64) 2.0 02/11/20 04:39 96.1 I&O- Last 24 Hours up to 6 AM 02/11/20 06:00 Intake Total 1205.0 ml Output Total 1000 ml Balance 205.0 ml Laboratory Data 24H LABS Laboratory Tests 2 02/10/20 11:38: Bedside Glucose (Misc Panel) 138H 02/10/20 16:34: Bedside Glucose (Misc Panel) 199H 02/10/20 20:47: Bedside Glucose (Misc Panel) 179H 02/11/20 04:40: Nucleated Red Blood Cells % (auto) 0.0, Anion Gap 12, Glomerular Filtration Rate 23.1L, Calcium Level 7.2L, Random Vancomycin Level 17.9 02/11/20 07:54: Bedside Glucose (Misc Panel) 140H CBC/BMP Laboratory Tests 02/10/20 15:02 02/11/20 04:40 Microbiology Microbiology 02/10/20 Gram Stain - Final, Resulted 02/10/20 Wound Culture, Resulted Pending 02/09/20 Respiratory Virus Panel (PCR) (LUIS ALBERTO) - Final, Complete 02/09/20 Blood Culture - Preliminary, Resulted No growth after 24 hours . All specim... 02/09/20 Blood Culture - Preliminary, Resulted No growth after 24 hours . All specim... 02/09/20 Urine Culture - Final, Complete Yeast Like Organism MOLLY WEISS DO Feb 11, 2020 10:20 JEF ONEIL MD Feb 13, 2020 14:10
[2020-02-11] MEDS: ACETAMINOPHEN 325 MG/10.15 ML UDC GT SCH ×3 (12:15→20:52)
[2020-02-11 14:08] LABS: ANTINUCLEAR ANTIBODIES DIRECT Negative (Negative)
[2020-02-11] MEDS: PIPERACILLIN/TAZOBACTAM SOD 2.25 GM in D5W MINI-BAG PLUS 50 ML IV SCH ×2 (14:46→21:05)
[2020-02-11] MEDS ORDERED: FLUCONAZOLE 200 MG in IV 1 EA IV ONE (15:00)
[2020-02-11] MEDS ORDERED: **VANCO AFTER HD** MISC XX SCH (16:00)
--- NOTE | 2020-02-11 16:32 | REP ---
CT chest: 02/11/2020. Indication: Dyspnea. Sepsis. Pneumonia. CHF. Technique: Unenhanced axial CT images of the chest were performed with sagittal and coronal reconstructions provided. Comparison: No previous CT studies are available for comparison. Findings: Postoperative sequelae of present status post median sternotomy. Right-sided pacer / AICD device is present. Left subclavian central venous catheter is present with the distal tip in the right atrium. Cardiomegaly is present. Left greater than right pleural effusions are present. Atelectatic changes within the lung bases are noted with underlying infection not excluded. Mild bilateral patchy ground-glass nonspecific opacities are present. There is no pneumothorax. No abscess is detected. Impression: Pulmonary consolidations within the posterior lung bases bilaterally, likely represent dependent atelectasis, however, underlying infection/pneumonia is not excluded. Small left greater than right pleural effusions. Cardiomegaly. Postoperative sequelae and lines as described. Electronically Signed by Williams Dover DO 02/11/2020 04:22 P
[2020-02-11] MEDS ORDERED: NOREPINEPHRINE 4 MG/4 ML AMP As Ordered ONE (19:32)
[2020-02-11] MEDS ORDERED: LIDOCAINE 1% MDV 20ML VIAL As Ordered ONE (19:52)
[2020-02-11] MEDS ORDERED: NOREPINEPHRINE BITARTRATE IV SCH (20:00)
[2020-02-11] MEDS ORDERED: D5W IV SCH (20:00)
[2020-02-11] MEDS ORDERED: LIDOCAINE 1% MDV 20ML VIAL SC ONE (20:00)
[2020-02-11] MEDS ORDERED: NYSTATIN 100,000 UNITS/GM TOPICAL PWD 15 GM TOP PRN (20:30)
[2020-02-11] MEDS: PANTOPRAZOLE 40MG VIAL (C9113 PER 1) IV SCH (20:52)
[2020-02-11] MEDS: ATORVASTATIN 20 MG TAB GT SCH (20:55)
[2020-02-12] VITALS (75 sets, daily range): BP systolic 59–103; BP diastolic 39–74
[2020-02-12] MEDS ORDERED: PHENYLEPHRINE 10MG/ML 1ML VIAL (J2370 PER 1) As Ordered ONE (01:05)
[2020-02-12] MEDS ORDERED: PHENYLEPHRINE HCL IV SCH ×2 (01:15→13:01)
[2020-02-12] MEDS ORDERED: D5W IV SCH ×7 (01:15→13:01)
[2020-02-12] MEDS ORDERED: NOREPINEPHRINE BITARTRATE IV SCH ×5 (03:00→08:01)
[2020-02-12 05:06] LABS: HEMATOCRIT 38.2 % (42.0-52.0); HEMOGLOBIN 11.7 g/dl (13.5-17.5); MEAN CORPUSCULAR HEMOGLOBIN 25.4 pg (27.0-33.0); MEAN CORPUSCULAR HGB CONC 30.6 g/dl (32.0-36.5); PLATELET COUNT, AUTOMATED 133 10^3/uL (150-450); WHITE BLOOD COUNT 12.9 10^3/uL (4.0-10.0)
[2020-02-12 05:24] LABS: CALCIUM LEVEL 7.6 MG/DL (8.8-10.2); CREATININE FOR GFR 3.48 MG/DL (0.70-1.30); GLOMERULAR FILTRATION RATE 19.1 (>49); POTASSIUM SERUM 3.8 MEQ/L (3.5-5.1)
[2020-02-12] MEDS: PIPERACILLIN/TAZOBACTAM SOD 2.25 GM in D5W MINI-BAG PLUS 50 ML IV SCH ×3 (06:28→20:10)
[2020-02-12] MEDS: SLF 3 ML SYR IV SCH ×3 (06:31→20:11)
[2020-02-12] MEDS ORDERED: FLUCONAZOLE 100 MG in IV 1 EA IV SCH (08:00)
[2020-02-12] MEDS: ASPIRIN 81 MG CHEW TABLET PO SCH (08:14)
[2020-02-12] MEDS: HumaLOG INSULIN (NovoLOG) PER UNIT SC SCH ×4 (08:14→18:00)
[2020-02-12] MEDS: APIXABAN 2.5 MG TAB (ELIQUIS) GT SCH ×2 (08:14→20:10)
[2020-02-12] MEDS: MICAFUNGIN SODIUM 100 MG in D5W MINI-BAG PLUS 100 ML IV SCH (08:15)
[2020-02-12] MEDS: MIDODRINE 5 MG TAB GT SCH ×3 (08:15→16:11)
[2020-02-12] MEDS: PANTOPRAZOLE 40MG VIAL (C9113 PER 1) IV SCH ×2 (08:16→20:11)
[2020-02-12] MEDS: ACETAMINOPHEN 325 MG/10.15 ML UDC GT SCH ×3 (08:16→20:11)
--- NOTE | 2020-02-12 08:36 | RO ---
DATE OF PROCEDURE: 02/11/2020 PREOPERATIVE DIAGNOSIS: POSTOPERATIVE DIAGNOSIS: PROCEDURE: Left and right femoral vein central line. INDICATION: Hypotension, need of pressor support. PROCEDURE HAND TILE MAKER: Dr. Franc Thibodeaux, PGY-2 ATTENDING PHYSICIAN: Joy Hernadez MD, in attendance ULTRASOUND USED: Yes. CONSENT: Consent was obtained prior to the procedure. The indications, risks, and benefits were explained at length to the patient. The patient had requested that his healthcare proxy be contacted and notified, as well. She was, and she has also consented for the procedure, as well. ANESTHESIA: DESCRIPTION OF PROCEDURE: Procedure summary: Time-out was performed before the procedure. My hands were washed immediately prior to the procedure. I wore a surgical cap, mask, and sterile gown with sterile gloves, as well. My attending was present during all parts of the procedure. The right inguinal region was prepped using chlorhexidine scrub and draped in a sterile fashion using full drape and sterile probe, a cover employed. The patient's femoral pulse was identified. Anesthesia was achieved using 1% lidocaine. The femoral pulse was palpated throughout the procedure, and ultrasound guidance was used to identify the femoral vein. The inducer needle was inserted medial to the femoral artery, inferior to the inguinal crease, and into the femoral vein. Venous blood was withdrawn, and the syringe was removed, and a guidewire was advanced into the introducer needle. Incision was made at the skin surface with a scalpel, and inducer needle was exchanged over dilator. Unfortunately, the guidewire had kinked and had to be removed from the femoral vein. Attempt was made to exchange a guidewire on the right femoral vein. However, it was unsuccessful. The patient was informed of this and consented to have a femoral central line placed in his left femoral vein. Sterile procedure was performed. The left inguinal region was then prepped using chlorhexidine scrub and draped in a sterile fashion and using a full drape and sterile probe cover employed. The patient's left femoral pulse was identified. Anesthesia was once again achieved using 1% lidocaine. The femoral pulse was palpated throughout the procedure, and the femoral vein was identified using ultrasound guidance. The introducer needle was inserted medial to the femoral artery inferior to the inguinal crease and into the femoral vein on the left. Venous blood was withdrawn. The syringe was removed, and a guidewire was advanced into the introducer needle. A small incision was made to the skin surface with the scalpel, and the introducer needle was exchanged for a dilator over the guidewire. After appropriate dilation was obtained, the dilator was exchanged over the wire for a central venous catheter. The position of the wire was confirmed using ultrasound and demonstrated the wire within the femoral vein. The wire was removed, and the catheter was sutured in place. A sterile Sorbaview dressing was placed over the catheter at the insertion site. The patient tolerated the procedure well. There was no hemodynamic compromise. At the time of the procedure, all ports were aspirated and flushed properly. SASCHA
[2020-02-12] MEDS: NOREPINEPHRINE BITARTRATE IV SCH (09:29)
[2020-02-12] MEDS: D5W IV SCH (09:29)
--- NOTE | 2020-02-12 09:37 | IPN ---
DATE OF SERVICE: 02/11/2020 SUBJECTIVE: The patient was seen and examined at the bedside today morning in the intensive care unit (ICU). Last 24-hour events were noted. The patient was dialyzed yesterday. 1 liter of fluid was removed. After that, the patient was hypotensive. The patient is septic. He was transferred to ICU overnight. He is currently on broad-spectrum intravenous (IV) antibiotics. Blood pressures were still running in low 80s with a mean arterial pressure (MAP) of around 60. He is currently not on any pressors. The patient is slightly obtunded. He is unable to provide any reliable review of systems. OBJECTIVE: Vital signs: Temperature is 97.2 degrees Fahrenheit, blood pressure 87/55, pulse is 69, respiratory rate of 14, saturating 96% on room air. Intake and output. There is no urine output recorded. Ultrafiltration with hemodialysis was 1 liter yesterday. Weight in the bed scale is 100.4 kg. PHYSICAL EXAMINATION: General: The patient is obtunded, laying in bed, unable to provide a review of systems. Head and neck examination: Extraocular muscles intact. Pupils equally round and reactive to light. Mucous membranes are dry. Neck is supple. There is no significant jugular venous distention (JVD). He has a left internal jugular (vein) (IJ) tunneled hemodialysis catheter. Cardiovascular: S1, S2,regular rate. 2+ edema of the bilateral lower extremities. Right-sided automatic implantable cardioverter-defibrillator (AICD) was noted. Respiratory: Decreased breath sounds at the bases. Otherwise, no active rales or rhonchi. Abdomen: Soft, positive bowel sounds. He has a percutaneous endoscopic gastrostomy (PEG) tube in the epigastrium. Genitourinary: Bladder is nonpalpable. Musculoskeletal: No clubbing or cyanosis. Pulses are 2+. Central nervous system (METALLURGICAL ENGINEER): The patient is drowsy and obtunded. Otherwise, he follows some commands and moves extremities. LABORATORY REVIEW: Complete blood count (CBC) showed a WBC 10.5, hemoglobin 11.6, platelets are 135. Basic metabolic profile (BMP) showed sodium 134, potassium 4, chloride 98, bicarbonate 24, BUN 28, creatinine is 2.9, calcium 7.2, phosphorus is 5.4. A repeat procalcitonin is pending. Random vancomycin level is 17.9 today. MICROBIOLOGY: Urine culture is growing more than 100,000 yeastlike organisms. Blood cultures are pending. IMAGING: A CAT scan of the chest was done today without contrast, which showed pulmonary consolidations within the posterior lung bases bilaterally, likely represent dependent atelectasis. However, underlying infection is not excluded. Small left greater than right pleural effusion. There was cardiomegaly. CURRENT INPATIENT MEDICATIONS: The patient was started by me on IV fluconazole. His IV Zosyn dose has been changed to 2.25 grams IV every 8 hours. He continues to be on vancomycin 1 gram IV with dialysis. Eliquis has been changed to 2.5 mg by mouth twice a day. He continues to be on metoprolol 12.5 mg twice a day, and he is also on midodrine 5 mg every 8 hours. I am going to stop the metoprolol at this time. ASSESSMENT AND PLAN: 1. End-stage renal disease. The patient was dialyzed for a short time yesterday. 1 liter of fluid was removed. However, the patient is very hypotensive. Electrolytes are within the acceptable range. He is not suitable for dialysis today. If needed and if he needs pressors, the patient will be started on continuous venovenous hemodiafiltration (CVVHDF) tomorrow morning. 2. Severe sepsis. The patient's blood pressures are low in high 70s to low 80s. If his blood pressure drops more, he will need to be started on Levophed. Continue broad-spectrum antibiotic coverage of vancomycin and Zosyn. He is also being covered with antifungal for yeast in the urine culture. CAT scan of the chest is showing bilateral infiltrates. It is possible that the patient might have aspirated. 3. Acute on chronic decompensated systolic congestive heart failure. The patient is severely septic, but he has anasarca, as well. He is not suitable for dialysis at this time. If needed, we might have to do CVVHDF once his blood pressures are better. 4. Nutrition. The patient likely has tendency to aspirate, and he has bilateral pneumonia. He has a PEG tube in the epigastrium and may need to be started on tube feeds. 5. Atrial fibrillation. Heart rate is controlled at this time. Metoprolol is on hold because of hypotension. He continues to be on Eliquis for anticoagulation. Total critical care time spent in the management of this patient today morning in the ICU was 50 minutes, excluding all the procedures.
--- NOTE | 2020-02-12 09:50 | IPNPDOC ---
Text Note Date of Service The patient was seen on 02/12/20. NOTE SUBJECTIVE: Patient was seen and examined this morning. Overnight a central line was placed and he was started on presser support. The overnight physician did have an extensive discussion with him, and he decided to proceed with DNR/DNI. Today he has no new medical complaints. OBJECTIVE: VITAL SIGNS: Please see below. GENERAL: Arousable. He is oriented to person and place. He answers questions appropriately and follows commands. He does not appears in acute distress HEENT: NC/AT, Eyes are nonicteric. Trachea is midline. cyanotic appearance to lips. CARDIOVASCULAR: +S1S2. Distant heart sounds. 2/6 systolic ejection murmur present. No clicks or rubs RESPIRATORY: Diminished breath sounds with overlying bronchial breath sounds. No wheezing. No crackles ABDOMINAL: Soft, nondistended. Normoactive bowel sounds. PEG tube is in place EXTREMITIES: 3-4+ pitting edema in bilateral lower extremities. 2+ pitting edema in upper extremities right greater than left. Mottling of skin in lower extremities consistent with cyanosis, left neck central venous catheter LABORATORY DATA, IMAGING STUDIES, MICROBIOLOGY: Please see below. A/P: 64 year old male with multiple comorbidities including ischemic CM/anterior wall RI with severe HFrEF, LVEF 10-15%, ESRD/HD, who presented to [facility] for AMS and found to have sepsis likely secondary to aspiration, hospital stay complicated with hypotension #hypotension/septic shock - central line placed, presser support started, patient now DNR/DNI - assistance appreciated - continue with levophed to maintain MAP >65 #Metabolic Encephalopathy likely 2/2 Sepsis 2/2 PNA vs bacteremia from pressure ulcer - improved since admission - tired/lethargic - possibly complicated with his hypotension - answers quest ions and follow commands appropriately -Urine culture = yeast like organism, also in wound - continue on empiric antibiotics. Zosyn 2.25 gm q12h - HD dosing; micafungin started -Will continue Vancomycin given positive MRSA screen and coccyx pressure ulcer present -Blood Cultures have shown no growth -Procalcitonin of 2.14. repeat pending #PNA -Patient has right patchy opacity as well a some scattered left opacity. He has a history of dysphagia that has required PEG tube placement. Likely aspirating which is resulting in pneumonia. -Will continue plan as stated above including empiric antibiotic coverage with Vanc and Zosyn -Speech therapy for swallow eval -Aspiration precautions -Patient has a PEG tube in place due to history of aspiration. He will likely continue to have aspiration events in the future # Right Arm Swelling -Patient noted to have increased swelling in his right arm. Currently no lines in his right arm. Permacath in left chest wall. -U/S of right arm negative for DVT. #ESRD on Hemodialysis MWF - follow as per nephrology - too unstable for HD, likely CRRT today #Hyponatremia -Appears to be chronic. Likely 2/2 increased volume status. #Hematochezia -Nursing noted some blood in patients stool previously. Hemoglobin is currently stable will trend. -Patient is currently on Eliquis #CAD/anterior wall RI/severe HFrEF - LVEF 10-15% - Currently holding home medications - fluid management as per nephrology . Patient is receiving hemodialysis. Will defer current fluid management to Nephrology team -Elevated troponin previously likely 2/2 to combination of pneumonia/sepsis in setting of HFrEF and heart strain -Patient is cyanotic appearing 2/2 to poor perfusion from low LVEF #A-fib - Continue Eliquis for anticoagulation - Currently rate controlled - BB on hold #Coccyx Ulcer - Stage 2 pressure ulcer. Wound care. micafungin for fungal growth. Possible source of infection. Patients MRSA screen was positive # IDDM 2 - ACHS with sliding scale coverage #nutrition - NPO, tube feeds - nepro @ 50cc/hr # DVT Prophylaxis - Continue Eliquis DISPOSITION: Poor prognosis. Patient now DNR/DNI. Continue presser support for n ow. VS,Nathan, I+O VS, Nathan, I+O Laboratory Tests 02/12/20 04:53 Vital Signs Date Time Temp Pulse Resp B/P (MAP) Pulse Ox O2 Delivery O2 Flow Rate FiO2 02/12/20 09:29 70 18 97/65 98 Nasal Cannula 1.0 02/12/20 05:21 97.2 I&O- Last 24 Hours up to 6 AM 02/12/20 05:59 Intake Total 857.6 ml Output Total 0 ml Balance 857.6 ml JEF ONEIL MD Feb 12, 2020 09:49
[2020-02-12] MEDS ORDERED: SODIUM CHLORIDE 0.9% INJ 10 ML SYR IV PRN (11:45)
[2020-02-12 12:16] LABS: MAGNESIUM LEVEL 2.1 MG/DL (1.8-2.4)
[2020-02-12 12:44] LABS: INR 2.22; PROTHROMBIN TIME 24.4 SECONDS (11.8-14.0)
[2020-02-12 12:45] LABS: PARTIAL THROMBOPLASTIN TIME 49.9 SECONDS (25.0-38.4)
[2020-02-12] MEDS: VANCOMYCIN HCL 1,000 MG, VIAL MATE ADAPTER 1 EACH in D5W 250 ML IV SCH (16:37)
[2020-02-12 19:54] LABS: HEMATOCRIT 38.1 % (42.0-52.0); HEMOGLOBIN 11.5 g/dl (13.5-17.5); MEAN CORPUSCULAR HEMOGLOBIN 25.7 pg (27.0-33.0); MEAN CORPUSCULAR HGB CONC 30.2 g/dl (32.0-36.5); MEAN CORPUSCULAR VOLUME 85.2 fl (80.0-96.0); PLATELET COUNT, AUTOMATED 113 10^3/uL (150-450); RED BLOOD COUNT 4.47 10^6/uL (4.30-6.10); WHITE BLOOD COUNT 10.2 10^3/uL (4.0-10.0)
[2020-02-12] MEDS: ATORVASTATIN 20 MG TAB GT SCH (20:10)
[2020-02-12 20:38] LABS: CALCIUM LEVEL 7.6 MG/DL (8.8-10.2); GLOMERULAR FILTRATION RATE 22.6 (>49); MAGNESIUM LEVEL 2.3 MG/DL (1.8-2.4); POTASSIUM SERUM 3.8 MEQ/L (3.5-5.1)
[2020-02-12] MEDS: CALCIUM GLUCONATE 1,000 MG in NS 100 ML IV SCH ×2 (21:08→22:22)
[2020-02-12] MEDS ORDERED: KCL 20MEQ IN 100ML SWI (KRUN) 20 MEQ in IV 1 EA IV ONE ×2 (23:00)
[2020-02-13] VITALS (57 sets, daily range): BP systolic 67–103; BP diastolic 51–71
[2020-02-13] MEDS: PIPERACILLIN/TAZOBACTAM SOD 2.25 GM in D5W MINI-BAG PLUS 50 ML IV SCH ×4 (02:01→23:39)
[2020-02-13 02:28] LABS: CREATININE FOR GFR 2.45 MG/DL (0.70-1.30); GLOMERULAR FILTRATION RATE 28.6 (>49); MAGNESIUM LEVEL 2.2 MG/DL (1.8-2.4); PHOSPHORUS LEVEL 2.3 MG/DL (2.5-4.9); POTASSIUM SERUM 3.9 MEQ/L (3.5-5.1)
[2020-02-13] MEDS: CALCIUM GLUCONATE 1,000 MG in NS 100 ML IV SCH ×2 (03:19→04:26)
[2020-02-13] MEDS ORDERED: KCL 20MEQ IN 100ML SWI (KRUN) 20 MEQ in IV 1 EA IV ONE ×4 (05:00→12:00)
[2020-02-13] MEDS: SLF 3 ML SYR IV SCH ×3 (05:14→21:00)
[2020-02-13] MEDS: HumaLOG INSULIN (NovoLOG) PER UNIT SC SCH ×5 (06:00→23:39)
[2020-02-13] MEDS ORDERED: SODIUM PHOSPHATE INJ 30 MMOL in D5W 500 ML IV ONE (07:00)
--- NOTE | 2020-02-13 07:22 | IPN ---
DATE: 02/12/2020 SUBJECTIVE: The patient was seen and examined at the bedside today morning. The patient continues to be on Levophed infusion. Today morning he is requiring 8 mcg of Levophed. He had to be started on Levophed because of persistent hypotension. He continues to be on IV antibiotics. He was also started on tube feeds via the PEG tube. The patient was also started on albumin infusions which have not significantly helped with the blood pressures. OBJECTIVE: Vital Signs: Temperature is 97.1 degrees Fahrenheit, blood pressure 91/62, pulse is 70, respiratory rate of 18, saturating 98% on nasal cannula at 1 liter. Intake and Output: The patient did not have any significant urine output. He is getting the tube feeds. Weight in the bed scale is 102.6 kg, which is 2 kg above his weight since yesterday. PHYSICAL EXAMINATION: General: Patient is obtunded, laying in bed, oriented times one. Head and Neck Exam: Extraocular muscles intact. Pupils equally round and reactive to light Neck is supple. He has elevated jugular venous distention (JVD). Cardiovascular: S1, S2. He has a right sided AICD. Left-sided tunneled hemodialysis catheter was noted. 2+ edema of the bilateral lower extremities. Respiratory: Decreased breath sounds bilaterally at the bases. Abdomen: Soft. Positive bowel sounds. He has a PEG tube in the epigastrium which is being used for tube feeds. No significant organomegaly was noted. Genitourinary: His bladder is non palpable. Musculoskeletal: 2+ edema of the bilateral lower extremities. 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 LAB REVIEW: CBC showed a WBC of 10.2, hemoglobin 11.5, platelets of 113. BMP showed sodium of 130, potassium 3.8, chloride 99, bicarb 22, BUN 34, creatinine is 3, calcium 7.6, ionized calcium is 4, phosphorus is 3, magnesium is 2.3. Microbiology: Wound culture is growing E-coli and yeastlike organisms. CURRENT INPATIENT MEDICATIONS: The patient continues to be on IV Levophed, currently he is on 8 mcg. He has been started on micafungin 100 mg IV every 24 hours. I have changed the Zosyn dose to 2.25 grams IV every 6 hours. He continues to be on IV vancomycin. No other significant change in the medications today. ASSESSMENT/PLAN: 1. Septic shock. The patient is currently on Levophed. IV antibiotics have been changed according to CVVHDF dose vancomycin IV daily. Check a level in the morning. Zosyn 2.25 grams IV every 6 hours. For fungus in the wound culture and the urine culture, the patient has been started on micafungin 2. End-stage renal disease. The patient is dialysis dependent. Regular intermittent hemodialysis cannot be done because of septic shock. I have started the patient on CVVHDF with the fluid removal per protocols. 3. Acute on chronic decompensated systolic congestive heart failure. The patient is getting tube feeds and IV medications and his volume status is decompensated. Fluid removal parameters have been written with the CVVHDF. 4. Nutrition. The patient has been started on PEG tube feeds. 5. Hypocalcemia. Calcium will be optimized with IV calcium gluconate according to the CVVHDF protocol. 6. Health care associated pneumonia. The patient is adequately covered with IV vancomycin and Zosyn. Avoid oral feeds, the patient most likely aspirates. Continue the tube feeds at this time. 7. Atrial fibrillation. Heart rate is controlled. Metoprolol on hold because of septic shock. He is anticoagulated with Eliquis/ 8. Elevated liver enzymes. The patient has elevated total bilirubin level. I am going to stop the atorvastatin at this time. Total critical care time spent in the management of this patient today morning in the ICU is 50 minutes, excluding all the procedures.
[2020-02-13] MEDS: D5W IV SCH (08:01)
[2020-02-13] MEDS: NOREPINEPHRINE BITARTRATE IV SCH (08:01)
[2020-02-13 08:22] LABS: IONIZED CALCIUM 4.3 MG/DL (4.5-5.3)
[2020-02-13 08:32] LABS: HEMOGLOBIN 11.4 g/dl (13.5-17.5); MEAN CORPUSCULAR HEMOGLOBIN 26.1 pg (27.0-33.0); MEAN CORPUSCULAR HGB CONC 30.8 g/dl (32.0-36.5); MEAN CORPUSCULAR VOLUME 84.9 fl (80.0-96.0); RED BLOOD COUNT 4.36 10^6/uL (4.30-6.10); WHITE BLOOD COUNT 9.9 10^3/uL (4.0-10.0)
[2020-02-13 08:34] LABS: PLATELET COUNT, AUTOMATED 94 10^3/uL (150-450)
[2020-02-13 08:46] LABS: MAGNESIUM LEVEL 2.3 MG/DL (1.8-2.4)
[2020-02-13 08:55] LABS: CALCIUM LEVEL 7.6 MG/DL (8.8-10.2); CREATININE FOR GFR 2.16 MG/DL (0.70-1.30); POTASSIUM SERUM 3.7 MEQ/L (3.5-5.1)
[2020-02-13] MEDS: PANTOPRAZOLE 40MG VIAL (C9113 PER 1) IV SCH ×2 (08:55→21:00)
[2020-02-13] MEDS: MIDODRINE 5 MG TAB GT SCH ×3 (08:55→15:40)
[2020-02-13] MEDS: ACETAMINOPHEN 325 MG/10.15 ML UDC GT SCH ×2 (08:56→15:38)
[2020-02-13] MEDS: APIXABAN 2.5 MG TAB (ELIQUIS) GT SCH ×2 (08:56→21:00)
[2020-02-13] MEDS ORDERED: OXYMETAZOLINE NASAL SPRAY (AFRIN) PRN (09:00)
[2020-02-13] MEDS: MICAFUNGIN SODIUM 100 MG in D5W MINI-BAG PLUS 100 ML IV SCH (09:42)
[2020-02-13] MEDS: CALCIUM GLUCONATE 1,000 MG in D5W MINI-BAG PLUS 100 ML IV SCH ×2 (09:43→11:23)
[2020-02-13] MEDS ORDERED: NOREPINEPHRINE BITARTRATE 16 MG in D5W 484 ML IV SCH (10:00)
[2020-02-13] MEDS ORDERED: MORPHINE 2 MG/ML 1ML VIAL (J2270) IV PRN (11:00)
[2020-02-13 14:24] LABS: IONIZED CALCIUM 4.4 MG/DL (4.5-5.3)
--- NOTE | 2020-02-13 14:53 | IPNPDOC ---
Date Seen The patient was seen on 02/13/20. Progress Note SUBJECTIVE: Patient was seen and examined this morning. He remains critically ill at this point in time. Patient has been hypotensive with downtrending blood pressure and unfortunately required femoral central line placement and pressor support. His blood cultures did result positive for yeast x1. He has been receiving CRRT per Nephrology. He continues to have difficulty swallowing and is currently NPO with tube feedings via PEG. Today he complains of joint pain which is diffuse. He denies any other symptoms. He has been noted to have increased mottling in his lower extremities. OBJECTIVE PHYSICAL EXAMINATION: VITAL SIGNS: Please see below. GENERAL: Arousable. He is oriented to person and place. He answers questions appropriately and follows commands. He does not appears in acute distress. Dusky appearance HEENT: Atraumatic. Normocephalic. Eyes are nonicteric. Trachea is midline. cyanotic appearance to lips. CARDIOVASCULAR: Normal S1, S2. Distant heart sounds. 2/6 systolic ejection murmur present. No clicks or rubs CHEST: Left chest wall permacath currently in use RESPIRATORY: Diminished breath sounds with overlying bronchial breath sounds. No wheezing. No crackles ABDOMINAL: Soft, nondistended. Normoactive bowel sounds. PEG tube is in place EXTREMITIES: 3-4+ pitting edema in bilateral lower extremities. 2+ pitting edema in upper extremities right greater than left. Mottling of skin in lower extremities consistent with cyanosis. Left femoral vein central line in place NEUROLOGICAL: No focal neurological deficits. PSYCHOLOGICAL: Mood and affect appropriate for situation LABORATORY DATA, IMAGING STUDIES, MICROBIOLOGY: Please see below. DVT prophylaxis ordered?: [place] ASSESSMENT AND PLAN: Patient is a 64 year old male with multiple comorbidities including chronic systolic congestive heart failure with ejection fraction of 10-15% secondary to ischemic cardiomyopathy from an anterior wall myocardial infarction and ESRD requiring hemodialysis who presented to [facility] with altered mental status and found to have sepsis likely secondary to aspiration. He has developed septic shock and has required pressor support. Blood cultures x1 have been positive for yeast. PROBLEMS: 1. Septic Shock 2/2 aspiration pneumonia vs fungemia -Patient has developed septic shock. Femoral central line was placed on Thursday. He has been started on Levophed. He does have some increased mottling and decreased peripheral pulses which is likely 2/2 to Levophed and increased vasoconstriction. Unfortunately, weaning off of Levophed has been unsuccessful. -Continue broad spectrum antibiotics with CRRT dosing. -Patient has right permacath in place. Will likely need this catheter exchanged in light of fungemia. Nephrology has been contacted and this has been discussed. Catheter will be exchanged when more stable -Micafungin has been started due to bacteremia. -Will need to repeat blood cultures -Repeat procalcitonin is pending -Will consult Infectious Disease 2. Pneumonia -As stated above patient has a likely aspiration pneumonia. Continue Vancomycin and Zosyn -Aspiration precautions -Patient has been made NPO. Will continue with tube feedings. Bed side trial feedings per Speech and Swallow -Patient would need Fiberoptic Endo swallow eval however he has a history of epistaxis and is currently on Eliquis. Will hold off for now given patients critical illness 3. Acute on Chronic CHF with LVEF 10-15% -Decompensated likely secondary to sepsis/septic shock. He is receiving CRRT. -Fluid management per Nephrology 4. ESRD on Hemodilaysis -Currently receiving CRRT due to septic shock. -Nephrology following. Recommendations appreciated 5. Atrial Fibrillation -Currently rate controlled -Continue Eliquis for anticoagulation 6. Hematochezia -Previous bloody stools noted per nursing. -Hgb is stable. He is on eliquis -Patient is on Protonix BID 7. Coccyx Ulcer -Stage 2 ulcer -Continue with wound care 8. IDDM2 -ACHS coverage with sliding scale 9. Nutrition -Patient is currently NPO. He is receiving Nepro tube feedings. Will add full nutritional assessment 10. DVT Prophylaxis -Continue Eliquis 11. GI Prophylaxis -Protonix BID DISPOSITION: Overall prognosis is guarded. He is currently DNR/DNI. He remains critically ill VS, I&O, 24H, [facility] Vital Signs/I&O Vital Signs Date Time Temp Pulse Resp B/P (MAP) Pulse Ox O2 Delivery O2 Flow Rate FiO2 02/13/20 13:38 69 82/57 (65) 95 Room Air 02/13/20 12:00 97.2 18 02/13/20 08:15 1.0 I&O- Last 24 Hours up to 6 AM 02/13/20 06:00 Intake Total 2983 ml Output Total 0 ml Balance 2983 ml Laboratory Data 24H LABS Laboratory Tests 2 02/12/20 16:43: Bedside Glucose (Misc Panel) 215H 02/12/20 19:39: Nucleated Red Blood Cells % (auto) 0.2H, Anion Gap 9, Glomerular Filtration Rate 22.6L, Calcium Level 7.6L, Whole Blood Ionized Calcium 4.0L, Phosphorus Level 3.0#, Magnesium Level 2.3, Total Creatine Kinase 44 02/12/20 23:52: Bedside Glucose (Misc Panel) 191H 02/13/20 01:50: Anion Gap 10, Glomerular Filtration Rate 28.6L, Calcium Level 8.0L, Whole Blood Ionized Calcium 4.2L, Phosphorus Level 2.3#L, Magnesium Level 2.2 02/13/20 06:01: Bedside Glucose (Misc Panel) 206H 02/13/20 08:06: Whole Blood Ionized Calcium 4.3L, Magnesium Level 2.3 02/13/20 08:07: Nucleated Red Blood Cells % (auto) 0.0, Immature Platelet Fraction 10.1, Activated Partial Thromboplast Time 49.3H, Anion Gap 9, Glomerular Filtration Rate 33.0L, Calcium Level 7.6L, Phosphorus Level 3.0#, Random Vancomycin Level 15.5 02/13/20 11:50: Bedside Glucose (Misc Panel) 235H CBC/BMP Laboratory Tests 02/12/20 19:39 02/13/20 01:50 02/13/20 08:07 Microbiology Microbiology 02/10/20 Gram Stain - Final, Resulted 02/10/20 Wound Culture - Preliminary, Resulted Escherichia Coli Enterococcus Faecalis Yeast Like Organism 02/09/20 Respiratory Virus Panel (PCR) (LUIS ALBERTO) - Final, Complete 02/09/20 Blood Culture - Preliminary, Resulted No Growth after 72 hours. All specime... 02/09/20 Blood Culture - Preliminary, Resulted Yeast Like Organism 02/09/20 Urine Culture - Final, Complete Yeast Like Organism MOLLY WEISS DO Feb 13, 2020 14:14
[2020-02-13 15:07] LABS: MAGNESIUM LEVEL 2.4 MG/DL (1.8-2.4); PHOSPHORUS LEVEL 2.4 MG/DL (2.5-4.9)
[2020-02-13] MEDS ORDERED: MORPHINE 2 MG/ML 1ML VIAL (J2270) IV ONE (15:30)
[2020-02-13 15:42] LABS: CALCIUM LEVEL 8.2 MG/DL (8.8-10.2); CREATININE FOR GFR 1.9 MG/DL (0.70-1.30); GLOMERULAR FILTRATION RATE 38.3 (>49)
[2020-02-13] MEDS ORDERED: VANCOMYCIN HCL 1,000 MG, VIAL MATE ADAPTER 1 EACH in D5W 250 ML IV SCH (16:00)
[2020-02-13] MEDS: VANCOMYCIN HCL 1,000 MG, VIAL MATE ADAPTER 1 EACH in D5W 250 ML IV SCH (17:09)
[2020-02-13] MEDS ORDERED: ACETAMINOPHEN 325 MG/10.15 ML UDC GT PRN (17:45)
--- NOTE | 2020-02-13 19:35 | IPN ---
DATE: 02/13/2020 SUBJECTIVE: The patient was seen and examined at the bedside today morning. He was started on continuous veno-venous hemodiafiltration (CVVHDF) yesterday in the afternoon. So far today, he is in negative 2 liters fluid balance. He is currently requiring Levophed at 3 mcg. Patient is much more awake and alert today. He is tolerating the tube feeds at this time. OBJECTIVE: Vital signs: Temperature is 97.2 degrees Fahrenheit, blood pressure 94/65, pulse is 69, respiratory rate of 18, saturating 92% on room air. Intake and output: According to CVVHDF, he is in negative 2 liters of fluid balance. Weight in the bed scale is 103 kg. PHYSICAL EXAMINATION: General: The patient is awake, alert, oriented times two, laying in bed. Head and neck exam: Extraocular muscles intact. Pupils equally round and reactive to light. Mucous membranes are dry. Neck is supple. He has a left internal jugular (IJ) tunneled hemodialysis catheter being used for dialysis at this time. Cardiovascular: S1, S2, regular rate, 2+ edema of the bilateral lower extremities. Respiratory: Mildly decreased breath sounds at the bases, otherwise no active rales or rhonchi. Abdomen: Soft, positive bowel sounds. No organomegaly. Genitourinary: Bladder is not palpable. Musculoskeletal: The patient has mild cyanosis of the bilateral lower extremities and 2+ edema of the lower extremities. 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 He follows commands and moves bilateral upper extremities. Skin: The patient has a sacral decubitus ulcer the size of a quarter. LAB REVIEW: CBC showed a WBC of 9.9, hemoglobin 11.4, platelets are 94. BMP showed sodium 137, potassium 3.7, chloride 102, bicarbonate 26, BUN 25, creatinine is 2.1, calcium 7.6, phosphorus is 3, vancomycin level is 15.5. Microbiology: Wound cultures are growing Escherichia (E) coli, Enterococcus faecalis and yeastlike organism. CURRENT INPATIENT MEDICATIONS. The patient's medications were all reviewed by me. His Zosyn dose was changed to 2.25 grams IV every 6 hours. I am going to change it to every 8 hours now since the CVVHDF is being stopped. Vancomycin was changed to 1 gram IV daily because of CVVHDF; dose will be changed according to the level tomorrow. ASSESSMENT/PLAN: 1. Septic shock. The patient is still requiring Levophed at the lower dose of 3 mcg. He has a polymicrobial positive wound culture and yeast in the urine culture. He is adequately covered with micafungin, vancomycin and Zosyn. Doses of antibiotics are being adjusted. Clinically, the patient is slightly better today as compared with yesterday. 2. End-stage renal disease. The patient is currently getting CVVHDF. He is in negative 2 liters fluid balance. I will stop the CVVHDF today in the afternoon, and if we are able to wean the patient off of Levophed, we can do regular hemodialysis as needed tomorrow. 3. Chronic decompensated systolic congestive heart failure. The patient got two liters of fluid removed with CVVHDF, volume status is better. If we need to remove more fluid, we hopefully should be able to do intermittent hemodialysis at bedside. 4. Nutrition. The patient continues to be on tube feeds, which he is tolerating. He is high risk for aspiration. 5. Healthcare-associated pneumonia. The patient is adequately covered with vancomycin and Zosyn. 6. Atrial fibrillation. Heart rate is controlled. He is anticoagulated with Eliquis. Total critical care time spent in the management of this patient today morning in the intensive care unit (ICU) is 45 minutes excluding all the procedures
[2020-02-13] MEDS: MORPHINE 2 MG/ML 1ML VIAL (J2270) IV PRN (23:41)
[2020-02-14] VITALS (33 sets, daily range): BP systolic 70–132; BP diastolic 45–66
[2020-02-14] MEDS ORDERED: KETOROLAC 30 MG/ML 1ML VIAL IV ONE (03:15)
[2020-02-14 04:32] LABS: ABG BASE EXCESS -2.4 (-2.0-2.0); ABG HCO3 19.6 MEQ/L (22.0-26.0); ABG O2 SATURATION 92.7 % (95.0-99.0); ABG PARTIAL PRESSURE CO2 26.3 mmHg (35.0-45.0); ABG PARTIAL PRESSURE O2 60.1 mmHg (75.0-100.0); ABG STANDARD HCO3 22.4 MEQ/L (22.0-26.0); ABG TOTAL CO2 20.4 MEQ/L (23.0-31.0)
[2020-02-14 05:02] LABS: HEMATOCRIT 37.9 % (42.0-52.0); HEMOGLOBIN 11.4 g/dl (13.5-17.5); MEAN CORPUSCULAR HEMOGLOBIN 25.4 pg (27.0-33.0); MEAN CORPUSCULAR HGB CONC 30.1 g/dl (32.0-36.5); MEAN CORPUSCULAR VOLUME 84.6 fl (80.0-96.0); RED BLOOD COUNT 4.48 10^6/uL (4.30-6.10); WHITE BLOOD COUNT 11.8 10^3/uL (4.0-10.0)
[2020-02-14 05:05] LABS: PLATELET COUNT, AUTOMATED 96 10^3/uL (150-450)
[2020-02-14 05:31] LABS: ALBUMIN 1.8 GM/DL (3.2-5.2); BILIRUBIN,DIRECT 1.1 MG/DL (0.0-0.2); BILIRUBIN,TOTAL 1.7 MG/DL (0.2-1.0); C REACTIVE PROTEIN QUANTITATIV 10.7 MG/DL (0.00-0.30); CALCIUM LEVEL 7.9 MG/DL (8.8-10.2); CREATININE FOR GFR 2.46 MG/DL (0.70-1.30); GLOMERULAR FILTRATION RATE 28.4 (>49); POTASSIUM SERUM 4.5 MEQ/L (3.5-5.1)
[2020-02-14] MEDS: HumaLOG INSULIN (NovoLOG) PER UNIT SC SCH (05:41)
[2020-02-14] MEDS: SLF 3 ML SYR IV SCH ×2 (05:50→13:03)
[2020-02-14 05:55] LABS: VANCOMYCIN LEVEL TROUGH 26.9 UG/ML (10.0-20.0)
[2020-02-14] MEDS: MIDODRINE 5 MG TAB GT SCH ×2 (08:39→11:49)
[2020-02-14] MEDS: ASPIRIN 81 MG CHEW TABLET PO SCH (08:39)
[2020-02-14] MEDS: APIXABAN 2.5 MG TAB (ELIQUIS) GT SCH (08:39)
[2020-02-14] MEDS: PANTOPRAZOLE 40MG VIAL (C9113 PER 1) IV SCH (08:39)
[2020-02-14] MEDS: PIPERACILLIN/TAZOBACTAM SOD 2.25 GM in D5W MINI-BAG PLUS 50 ML IV SCH (08:40)
[2020-02-14] MEDS: MICAFUNGIN SODIUM 100 MG in D5W MINI-BAG PLUS 100 ML IV SCH (09:44)
--- NOTE | 2020-02-14 11:41 | CR ---
DATE OF CONSULTATION: 02/13/2020 I was asked to consult by hospitalist for evaluation of candidemia. HISTORY OF PRESENT ILLNESS: Mr. Badillo is a 64-year-old gentleman with a history of ischemic cardiomyopathy, congestive heart failure with an ejection fraction (EF) of 10-15% who has a defibrillator automatic implantable cardioverter defibrillator (AICD) placement, multiple stents and coronary artery bypass graft (CABG). The patient was admitted to [facility] on January 04, 2020 and discharged on February 03, 2020 after a month initially admitted with epistaxis and eventually went to rehabilitation. The patient was brought in back by his daughter when she noticed that he was confused and he was not acting himself. He had an altered mental status but no fever or chills. He denies any chest pain or shortness of breath. He has multiple ecchymosis. He also has a small decubitus ulcer. The patient today was seen in the intensive care unit (ICU). He was not able to give me a good history. He answers questions appropriately for the most part. He had no major complaints. He had a mottled appearance and purplish discoloration of the fingers and toes as well as knees. He was on low dose Levophed at 4 mcg. The patient had an inguinal catheter placed on admission as a central line but he had a hemodialysis catheter on the left side which has been a Perma-Cath for dialysis. According to his daughter, he has normal mental status and carries a normal conversation. MEDICATIONS: - Tylenol as needed - apixaban 2.5 mg by mouth twice a day - aspirin 81 mg by mouth daily - atorvastatin 80 mg daily - duloxetine 30 mg daily - insulin sliding scale - NovoLog flex pen - Glargine 40 units subcu every morning - metoprolol 25 mg half a tablet by mouth twice a day - Dulera 200 mcg/5 mcg two puffs twice a day - [place] 3 fatty acid - pantoprazole 40 mg by mouth daily - torsemide 20 mg by mouth daily ALLERGIES: METFORMIN - anaphylaxis, SITAGLIPTIN - anaphylaxis, SACUBITRIL - ulcer, ZITHROMAX, ROSUVASTATIN. PAST MEDICAL HISTORY: Significant for a systolic congestive heart failure with EF of 10-15%. Anterior wall myocardial infarction ([place]) In August of 2012, atrial fibrillation, hyperlipidemia, diabetes type 2, metabolic encephalopathy, history of community-acquired pneumonia and dysphagia after intubation October 2019. Said he had a G-tube placement but patient was still eating at home. End-stage renal disease, hyponatremia and hyperkalemia. PAST SURGICAL HISTORY: CABG in 2005. Cardiac stent times two ICD placement. Perma-Cath placement. Percutaneous endoscopic gastrostomy (PEG) tube placement. SOCIAL HISTORY: He lives with his daughter in [place]. He does not smoke, drink or use drugs. MEDICATIONS: - Vancomycin 1 gram IV with dialysis - Zosyn 2.25 grams IV ever 8 hours - morphine 2 mg IV every 4 hours - Levophed - Afrin two sprays nostril as needed - micafungin 100 mg IV every 24 hours. LABS: White count on admission was 13.2, currently 9.9, hemoglobin 11.4, hematocrit 37, platelets 94. Sodium 134, potassium 4, chloride 102, bicarb 24, BUN 22, creatinine 1.9, glucose 214, calcium 8.2. Whole blood ionized calcium 4.4, phosphorus 2.4, magnesium 2.4. Urine culture on 02/09/2020 had yeast-like organism. Blood cultures on 02/09/2020 had yeast-like organism, 1/2. Buttock culture has E-coli and Enterococcus faecalis and yeast-like organism and repeat blood culture on 02/13/2020 two sets were pending. Urinalysis on admission had too numerous to count white cells and positive leukocyte esterase. Urine culture had Sonam. Methicillin resistant Staphylococcus aureus (MRSA) screen was positive, Beta-glucan 1-3 is pending. IMAGING STUDIES: Chest CT shows small left than the greater than right pleural effusion, cardiomegaly, and postoperative changes. Pulmonary consolidation within the posterior lung bases bilaterally likely representing atelectasis. Vascular ultrasound: No evidence of deep venous thrombosis (DVT) of the right upper extremity. Chest x-ray: Right basilar opacity and potential left basilar opacity. Possibly atelectasis versus pneumonia. Head CT: no acute intracranial process and volume loss noted. PHYSICAL EXAMINATION: He is a sick looking gentleman. Looks much older than stated age in no acute distress. Laying in the intensive care unit (ICU). Has oxygen on even though he is hypoxic. It was related to his use of morphine. HEART: Regular rate and rhythm. Systolic ejection murmur 2/6. LUNGS: Mildly decreased bases bilaterally. No wheezes or rhonchi. ABDOMEN: Soft and nontender. No visceromegaly. G-tube in place with no erythema or purulence around the G-tube. EXTREMITIES: Mottled appearance of the knees. Purplish discoloration of the toes and the fingers. +2 pitting edema bilaterally. left inguinal catheter in the groin with bloody drainage around it. This was placed on admission before candidemia. Aguirre catheter in place right . Left hemodialysis IV catheter in place. No redness. NEUROLOGIC EXAM: Cranial nerves intact. The patient moves both extremities although with difficulty and weakness. SKIN: He has a sacral decubitus measuring about 2 x 2 cm with minimal purulent discharge, stage II. HEENT: Oropharynx dry. Extraocular muscles intact. Neck is supple. No jugular venous distention (JVD) appreciated. IMPRESSION: This is a 64-year-old gentleman admitted with candidemia and candiduria and lesions also in the buttock acute. Possibly the source of this candidemia could be from a urine origin as he has pyuria as well. Other complication that could have been from that would be endocarditis, especially in the setting of an AICD. This very concerning that he may have seeded his pacer and defibrillator leads. The patient is on IV micafungin which is appropriate coverage for yeastlike organism with candidemia until identification is obtained. If Sonam albicans, then the patient could be switched to fluconazole. If not albicans, it depend on the species. As far as a decubitus ulcers source of infection, he had yeastlike organism there to E faecalis with E coli are covered by Zosyn. PLAN: 1. Discontinue IV vancomycin. 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 2. Continue with IV Zosyn to cover E coli and E faecalis. 3. Continue IV micafungin 100 mg by mouth daily. 4. Scheduled transthoracic echocardiogram to rule out endocarditis which was scheduled for today. If that is negative transesophageal echocardiogram (MICHAELA) may need to be obtained to make sure he does not have a defibrillator infection. Continue IV Zosyn to cover for the decubitus ulcer as well as bilateral consolidation of the lung, although I suspect these are more atelectasis. Continue with IV micafungin at current dose. The patient will need also and eye exam to rule out endophthalmitis as you can see in the ear and eyes up to 5% in candidemia. 5. Please remove the hemodialysis catheter and place a new one after 48 hours. 6. If possible, the current line needs to be removed and exchanged to a central catheter PICC line. 7. Obtain a CBC, CRP, sed rate in the morning. Repeat blood cultures until they are negative times two sets.
[2020-02-14] MEDS: MORPHINE 2 MG/ML 1ML VIAL (J2270) IV PRN (12:00)
[2020-02-14] MEDS ORDERED: ATROPINE SULFATE 1% OP SOLN 2 ML BTL SL PRN (12:15)
[2020-02-14] MEDS ORDERED: MORPHINE 2 MG/ML 1ML VIAL (J2270) IV PRN (12:15)
[2020-02-14] MEDS ORDERED: LORazepam 2 MG/ML VIAL IV PRN ×2 (12:15→13:15)
[2020-02-14] MEDS ORDERED: MORPHINE 4 MG/ML 1ML VIAL/SYRINGE (J2270) IV PRN (13:15)
--- NOTE | 2020-02-14 13:34 | IPN ---
DATE OF SERVICE: 02/14/2020 I was asked by Dr. Thibodeaux in accordance with his attending, . , to de-activate defibrillator on Mr. Niraj Badillo, who has been who has been made comfort care earlier today. When I entered the room, he had some breathing. The interrogation revealed that he was in atrial fibrillation with biventricular pacing. I de-activated all therapies for ventricular tachycardia and ventricular fibrillation. Family was at bedside and was in agreement with the situation.
--- NOTE | 2020-02-14 13:57 | IPNPDOC ---
Date Seen The patient was seen on 02/14/20. Progress Note SUBJECTIVE: Patient was seen and examined this morning. He was noted to be hypotensive with Levophed titrations up to 14mcg. He has also developed agonal cheynes berman like respirations. Nursing had reported that the patient appears uncomfortable and was hallucinating. The patients daughter and Health Care Proxy were present at bedside. The patients care and prognosis was discussed at length and all questions answered. The patient, daughter, and health care proxy were in agreement to pursue comfort measures only care. All life sustaining measures have been discontinued. Cardiology has disconnected the patients AICD. OBJECTIVE PHYSICAL EXAMINATION: VITAL SIGNS: Please see below. GENERAL: Awake and arousable. Agonal breaths/Nate-berman like respiration. Dusky appearance. Uncomfortable appearing. HEENT: Lips are blue with signs of central cyanosis CARDIOVASCULAR: Irregularly irregular rhythm. regular rate. 2/6 systolic ejection murmur RESPIRATORY: Diminished breath sounds. Agonal breaths. No rhonchi or rales ABDOMINAL: Soft, nondistended. Petechial rash across abdomen. Nontender. PEG tube in place EXTREMITIES: Mottled extremities. Decrease peripheral pulses in bilateral upper and lower extremities NEUROLOGICAL: No focal neurological deficits PSYCHOLOGICAL: Patient appeared anxious LABORATORY DATA, IMAGING STUDIES, MICROBIOLOGY: Please see below. ASSESSMENT AND PLAN: Patient is a 64 year old male with multiple comorbidities who presented to [facility] with altered mental status and found to have fungemia. PROBLEMS: 1. Comfort Measures Only Care -As stated above. Patients condition and prognosis was discussed with his daughter and health care proxy at length. His most pressing issue is Septic Shock secondary to fungemia requiring pressor support complicated by acute on chronic systolic CHF with LVEF 10% and ESRD requiring CRRT. They were informed of his overall poor prognosis and unlikelihood of surviving this hospitalization. The decision was made to pursue comfort measure only care -Discontinue all life sustaining measures -IV Morphine for pain/air hunger -IV Ativan for anxiety -Atropine for terminal secretions -AICD has been turned off by Cardiology. Assistance is greatly appreciated VS, I&O, 24H, Fishbone Vital Signs/I&O Vital Signs Date Time Temp Pulse Resp B/P (MAP) Pulse Ox O2 Delivery O2 Flow Rate FiO2 02/14/20 12:00 69 98/65 (63) 94 Nasal Cannula 2.0 02/14/20 07:08 98.6 22 I&O- Last 24 Hours up to 6 AM 02/14/20 06:00 Intake Total 3212.1 ml Output Total 300 ml Balance 2912.1 ml Laboratory Data 24H LABS Laboratory Tests 2 02/13/20 14:16: Anion Gap 8, Glomerular Filtration Rate 38.3L, Calcium Level 8.2L, Whole Blood Ionized Calcium 4.4L, Phosphorus Level 2.4L, Magnesium Level 2.4 02/13/20 17:44: Bedside Glucose (Misc Panel) 223H 02/13/20 23:34: Bedside Glucose (Misc Panel) 203H 02/14/20 04:06: Blood Gas Bicarbonate Standard 22.4, Arterial Blood pH 7.490H, Arterial Blood Partial Pressure CO2 26.3L, Arterial Blood Partial Pressure O2 60.1L, Arterial Blood Total CO2 20.4L, Arterial Blood HCO3 19.6L, Arterial Blood Base Excess - 2.4L, Arterial Blood Oxygen Saturation 92.7L 02/14/20 04:43: Nucleated Red Blood Cells % (auto) 0.8H, Anion Gap 9, Glomerular Filtration Rate 28.4L, Calcium Level 7.9L, Total Bilirubin 1.7H, Direct Bilirubin 1.1H, Aspartate Amino Transf (AST/SGOT) 55H, Alanine Aminotransferase (ALT/SGPT) 49, Alkaline Phosphatase 336H, C-Reactive Protein, Quantitative 10.70H, Total Protein 6.0L, Albumin 1.8L, Albumin/Globulin Ratio 0.4, Vancomycin Level Trough 26.9*H 02/14/20 05:31: Bedside Glucose (Misc Panel) 190H 02/14/20 11:39: Bedside Glucose (Misc Panel) 200H CBC/BMP Laboratory Tests 02/13/20 14:16 02/14/20 04:43 Microbiology Microbiology 02/13/20 Blood Culture, Received Pending 02/13/20 Blood Culture, Received Pending 02/10/20 Gram Stain - Final, Resulted 02/10/20 Wound Culture - Preliminary, Resulted Escherichia Coli Enterococcus Faecalis Yeast Like Organism 02/09/20 Respiratory Virus Panel (PCR) (LUIS ALBERTO) - Final, Complete 02/09/20 Blood Culture - Final, Complete NO GROWTH AFTER 5 DAYS 02/09/20 Blood Culture - Preliminary, Resulted Yeast Like Organism 6/11/20 Urine Culture - Final, Complete Yeast Like Organism GME ATTESTATION GME ATTESTATION My faculty preceptor for this patient encounter was physically present during the encounter and was fully available. All aspects of the patient interview, examination, medical decision making process, and medical care plan development were reviewed and approved by the faculty preceptor. The faculty preceptor is aware and concurs with the plan as stated in the body of this note and will attest to such by his/her cosignature. ATTENDING NOTE PT WAS SEEN AND EXAMINED BY ME, AGREE WITH THE ABOVE ASSESSMENT AND PLAN. MOLLY WEISS DO Feb 14, 2020 13:57 SANTY MIMS MD Feb 17, 2020 14:14
--- NOTE | 2020-02-14 17:12 | IPN ---
DATE OF SERVICE: 02/14/2020 SUBJECTIVE: The patient was seen and examined at the bedside today morning in the intensive care unit (ICU). His continuous veno-venous hemodiafiltration (CVVHDF) was stopped yesterday. He is clinically much worse today as compared with yesterday. He is currently on 13 mcg of Levophed. His blood cultures came back positive. Preliminary result is for yeast. He was seen by infectious disease. He continues to be on micafungin. Vancomycin was stopped. He continues to be on IV Zosyn. The patient's daughter was present at the bedside today. OBJECTIVE Vital Signs: Temperature is 98.6 degrees Fahrenheit, blood pressure 97/66, pulse is 69, respiratory rate of 22, saturating 92% on room air. Intake/Output: Urine output is not recorded. Weight in the bed scale is 100.3 kg. PHYSICAL EXAMINATION: General: The patient is awake, obtunded. He is able to answer a few questions. Head/Neck Exam: Extraocular muscles intact. Mucous membranes are dry. Neck is supple. He has a left internal jugular (IJ) tunneled hemodialysis catheter, right-sided automatic implantable cardioverter defibrillator (AICD). Cardiovascular: S1, S2, regular rate. 1+ edema of the bilateral lower extremities. Respiratory: Decreased breath sounds at the bases. No active rales or rhonchi. Abdomen is soft. He has a petechial rash on the abdomen. No organomegaly was noted. There is a percutaneous endoscopic gastrostomy (PEG) tube in the epigastrium. Genitourinary: Bladder is not palpable. Musculoskeletal: He has cyanosis of the bilateral lower extremities from feet up to the ankles. Central Nervous System (AUTOMOTIVE SERVICES MANAGER): The patient is obtunded, but he is able to follow commands and answer some questions. LABORATORY REVIEW: Complete blood count (CBC) showed WBC of 11.8, hemoglobin 11.4, platelets of 96. Basic metabolic panel (BMP) showed sodium 135, potassium 4.5, chloride 102, bicarbonate 24, BUN 31, creatinine is 2.4, calcium 7.9, total bilirubin 1.7, albumin is 1.8. Vancomycin level is 26.9. Microbiology: Blood cultures prelim is growing yeastlike organism from 02/09/2020. CURRENT INPATIENT MEDICATIONS: The patient's medications were all reviewed by myself. He continues to be on Levophed. He is on micafungin 100 mg IV every 24 hours. Zosyn dose was changed to 2.25 grams IV every 8 hours. Vancomycin was stopped yesterday. No other significant change in the medications today as compared with yesterday. ASSESSMENT/PLAN: 1. Septic shock. The patient has poorly microbial infection including yeast in the urine, yeast in the blood culture. Enterococcus faecalis and Escherichia (E) coli in the wound culture. The patient is clinically worse because of anemia. He continues to be on micafungin and empirically on Zosyn as well. He is being seen by infectious disease as well. Continue Levophed. Try to maintain a mean arterial pressure (MAP) above 60. 2. End-stage renal disease. The patient was on CVVHDF, which was stopped yesterday afternoon. We have been unable to wean the patient off of Levophed. The patient's girlfriend is coming from [place]. His daughter is also present at the bedside. They want to discuss the further goals of care and before deciding about further CVVHDF. 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 3. Chronic decompensated systolic congestive heart failure. The patient is in septic shock. We cannot remove more fluid because of low blood pressures. 4. Nutrition. The patient continues to be on tube feeds via the PEG tube. 5. Healthcare associated pneumonia. The patient is currently getting Zosyn. Vancomycin levels are adequate to cover for gram positive infection as well. 6. Atrial fibrillation. Heart rate is controlled and he is anticoagulated with Eliquis. DISPOSITION: The patient overall has a poor prognosis. Family member are going to decide about further goals of care in the afternoon. The family is leaning more towards making him comfort measures only.
--- NOTE | 2020-02-15 17:45 | DSES ---
DATE OF ADMISSION: 02/09/2020 DATE OF DISCHARGE: 02/14/2020 ADMITTING DIAGNOSES: 1. Metabolic encephalopathy secondary to sepsis secondary to pneumonia verus urinary tract infection versus bacteremia. 2. Sepsis with lactic acidosis. 3. Urinary tract infection. 4. Right-sided pneumonia. 5. Elevated troponin. 6. Atrial fibrillation. 7. End-stage renal disease, on hemodialysis Thursday, Thursday, Thursday. 8. Acute on chronic systolic congestive heart failure with left ventricular ejection fraction of 10%-15%. DISCHARGE DIAGNOSIS: 1. Sepsis with septic shock secondary to fungemia and aspiration pneumonia. 2. Aspiration pneumonia. 3. End-stage renal disease, requiring continuous renal replacement therapy. 4. Acute on chronic systolic congestive heart failure with left ventricular ejection fraction of 10%-15%. HISTORY OF PRESENT ILLNESS: Mr. Badillo is a 64-year-old male with an extensive past medical history, multiple comorbidities, including chronic systolic congestive heart failure (CHF) with ejection fraction (EF) of 10%-15%, ischemic cardiomyopathy with anterior wall myocardial infarction ([place]), atrial fibrillation with history of multiple cardiac procedures, including a bypass in 2005, coronary artery bypass graft (CABG) and stents placed times two. He presented to [facility] with altered mental status, which was noted by the patient's daughter at home. The patient's daughter stated that he was not complaining of any chest pain, palpitations, dyspnea, cough, fever, chills, or any abdominal pain; however, she had noticed that he had apparently had a decreased urine output. Patient's daughter stated that he was having a decreasing appetite and that he was not acting himself. The patient was recently discharged from the acute rehabilitation a week ago before presentation to the [facility], and that at his baseline is alert and oriented times three and carries on a normal conversation. The patient on presentation was vitally stable. He did have a leukocytosis. Imaging demonstrated a right basilar opacity and potential left basilar opacity suggestive of possible acute pneumonia versus atelectatic change. The patient was admitted to the hospitalist service for further evaluation and management. During the patient's hospitalization, he was started on intravenous (IV) antibiotics. Due to his congestive heart failure with end-stage renal disease he was seen by nephrology and had received hemodialysis. During the progression of the patient's stay, he had received hemodialysis with 1 liter of fluid removed. After the dialysis, the patient was noted to have some hypotension. His systolic blood pressure at that time was noted to be in the mid 70s and at one point was only able to be taken by Doppler. The patient was started on midodrine for likely hemodialysis-associated hypotension. The patient's blood cultures had remained negative. His urine culture resulted in yeast. The patient at that time was started on fluconazole as well as empiric antibiotics with vancomycin and Zosyn. The patient remained slightly hypotensive and was transferred to the intensive care unit (ICU) for closer monitoring. At that time, the patient's blood pressure slowly started to trend down, and decision was made to place a central venous catheter. The patient had consented to the procedure. The patient's healthcare proxy was contacted and also consented for the procedure to be performed. A central venous catheter was placed in the left femoral vein, and the patient was subsequently started on Levophed for pressor support. The patient's subsequent blood culture resulted positive for yeast in the blood, and he was transitioned onto micafungin. Infectious disease consultation was placed with recommendations to stop the vancomycin and continue micafungin. The patient had a left Perm-A-Cath in place, which would have to be removed in light of his fungemia. The patient was taken off continuous renal replacement therapy (CRRT) for a holiday with plans to remove the Perm-A-Cath the following day. Unfortunately, the patient's blood pressures continued to trend down. He was requiring increasing amounts of Levophed upward of 14 mcg. The patient was noted to develop some mottling, cyanosis, and decreased peripheral pulses, likely to a combination of acute on chronic systolic CHF with low ejection fraction causing poor perfusion as well as the use of Levophed as a vasoconstrictor. The patient was noted to have hallucinations and appeared uncomfortable. The decision was made by healthcare proxy, patient, and his daughter to go DO NOT RESUSCITATE, DO NOT INTUBATE. The healthcare proxy did arrive with the daughter at bedside. The patient's prognosis was discussed in detail regarding his septic shock as well as his acute on chronic congestive heart failure with ejection fraction of 10%-15%. Decision at that time was made to make the patient comfort measures only with both the healthcare proxy and the daughter at bedside. At that time, cardiology was contacted to deactivate the patient's defibrillator. The patient was taken off the Levophed, and all life-sustaining medications were discontinued. The patient was continued on pain medication and medication for anxiety as well as terminal secretions. The patient did succumb to his illness and . [facility]
== END 2020-02-14 15:55 | disposition expired | DRG 871 ==
LOC: EDBD 10:35 → M ED 10:35 → M ED INP 14:23 → ENRESERV 14:52 → M PCU 17:41 → M ICU 02-10 18:10
PROVIDERS: ADMIT Internal Medicine; ATTEND Internal Medicine
PROC: 5A1D70Z Performance of Urinary Filtration, Intermittent, Less than 6 Hours Per Day (ICD-10-PCS; principal; 2020-02-10)
DX: A41.9 Sepsis, unspecified organism (principal); G93.41 Metabolic encephalopathy; N18.6 End stage renal disease; J69.0 Pneumonitis due to inhalation of food and vomit; I50.23 Acute on chronic systolic (congestive) heart failure; R65.21 Severe sepsis with septic shock; E87.2 Acidosis; E87.1 Hypo-osmolality and hyponatremia; K92.1 Melena; B49 Unspecified mycosis; N39.0 Urinary tract infection, site not specified; L89.152 Pressure ulcer of sacral region, stage 2; I48.91 Unspecified atrial fibrillation; I95.3 Hypotension of hemodialysis; E11.22 Type 2 diabetes mellitus with diabetic chronic kidney disease; I25.2 Old myocardial infarction; Z95.1 Presence of aortocoronary bypass graft; Z79.4 Long term (current) use of insulin; Z79.899 Other long term (current) drug therapy; Z88.8 Allergy status to other drugs, medicaments and biological substances; Z95.2 Presence of prosthetic heart valve